=== PATIENT | female | born 1950 | race American Indian/Alaskan Native ===

== ENCOUNTER 2016-08-13 07:01 | Day surgery (SDC) | payer OTHER ==
[~2016-08-13 07:01] MED LIST: Dextrose 5%-0.45% NaCl 1,000 ML IV SCH; Midazolam 1 MG/ML 2 ML SDV ONE; Sodium Chloride 0.9% 10 ML Syringe FLUSH PRN; fentaNYL 100 MCG/2 ML SDV ONE
[2016-08-13] MEDS ORDERED: Midazolam 1 MG/ML 2 ML SDV IV ONE ×7 (08:24→17:00)
[2016-08-13] MEDS ORDERED: fentaNYL 100 MCG/2 ML SDV IV ONE ×5 (08:24→17:00)
--- NOTE | 2016-08-13 10:37 | LETTER ---
08/13/2016 Edytalissett Walters [facility] [address] [place] [address] RE: MAXIMUS ROMERO : 1950 Dear Ms. Walters: Ms. Maximus Romero had colonoscopic examination done this morning, and she tolerated the procedure well. I herewith send a copy of the endoscopy note and photographs for your review. She has been recommended to increase Metamucil to one tablespoon full b.i.d. and note the response with reference to constipation. Thank you, Sincerely, [facility] /[id number]
[2016-08-13 10:42] VITALS: BP 110/53
--- NOTE | 2016-08-13 13:06 | OR ---
DATE: 08/13/2016 PROCEDURE: Total colonoscopy. INSTRUMENT USED: PCF-H180AL Olympus video colonoscope. PREMEDICATIONS: Fentanyl 150 mcg intravenous, Versed 4 mg intravenous. Nasal O2 cannula. The procedure was done under pulse oximetry, BP recording, and grooving lathe tender. INDICATION: The patient with increasing constipation and abdominal pain, unexplained, and not responsive to medical measures. Colonoscopic examination is done for detection of any polypoid lesions and removal, endoscopic hemostasis therapy if needed. DESCRIPTION OF PROCEDURE: Initial rectal exam was unremarkable. Rigid anoscopy showed moderate-sized internal hemorrhoids without bleeding from them. The colonoscope was passed with ease. Few scattered diverticula were noted in the distal left colon along with deformity. The scope was passed with ease up to the ileocecal area, photographs were taken of the normal-appearing cecum, identified by double-bulged ileocecal folds. The colon was found to be redundant and tortuous. No bleeding was noted from any of the visualized areas at the commencement of the examination. No stricture. No vascular ectasia. No large isolated ulcerations seen. No evidence of diffuse inflammatory bowel disease in the form of friability, contact bleeding, or ulcerations. No polyp or tumor mass identified. Probing the proximal sides of folds and flexures, using adequate distention and clearing up the stool material, withdrawal of the scope was made, cecum to rectum time over 6 minutes. No bleeding was noted from any of the visualized areas at the completion of examination. IMPRESSION: 1. Internal hemorrhoids. 2. Diverticulosis. The patient tolerated the procedure well. [facility] /[id number]
== END 2016-08-13 10:58 | disposition home or self-care (01) ==
LOC: DL.ENDO 07:01
PROVIDERS: ATTEND Internal Medicine Gastroenterology
DX: K57.30 Diverticulosis of large intestine without perforation or abscess without bleeding (principal); K64.8 Other hemorrhoids; I10 Essential (primary) hypertension; E78.5 Hyperlipidemia, unspecified; E66.9 Obesity, unspecified; E11.9 Type 2 diabetes mellitus without complications; Z90.49 Acquired absence of other specified parts of digestive tract; I25.10 Atherosclerotic heart disease of native coronary artery without angina pectoris; Z95.2 Presence of prosthetic heart valve; Z98.890 Other specified postprocedural states; F32.9 Major depressive disorder, single episode, unspecified; Z88.8 Allergy status to other drugs, medicaments and biological substances; Z79.82 Long term (current) use of aspirin; Z95.5 Presence of coronary angioplasty implant and graft; Z79.899 Other long term (current) drug therapy
CPT/HCPCS: 45378; J2250; J3010; J7042

== ENCOUNTER 2017-03-07 10:06 | Emergency (ER) | payer MEDICARE, OTHER ==
[2017-03-07] MEDS ORDERED: Sodium Chloride 0.9% 10 ML Syringe FLUSH PRN (10:34)
[2017-03-07 11:18] LABS: CHLORIDE,CL 102 mmol/L (101-111); SODIUM,NA 134 mmol/L (135-145)
[2017-03-07] MEDS ORDERED: Iopamidol 612 MG/ML 100 ML Bottle IVPUSH ONE (11:36)
[2017-03-07] MEDS ORDERED: Sodium Chloride 0.9% 1,000 ML IV ONE (12:12)
[2017-03-07 12:24] VITALS: BP 101/54
[2017-03-07] MEDS ORDERED: HYDROmorphone 1 MG/ML Syringe IVPUSH ONE (12:56)
[2017-03-07] MEDS ORDERED: Ciprofloxacin 500 MG Tab PO ONE (13:55)
[2017-03-07] MEDS ORDERED: traMADol 50 MG Tab PO ONE (13:55)
[2017-03-07] MEDS ORDERED: metroNIDAZOLE 250 MG Tab PO ONE (13:56)
--- NOTE | 2017-03-07 19:23 | EDM.PDOC ---
Scribed by Martha Kent 03/07/17 1343 for Jennifer Dobson NP ED HPI GENERAL MEDICAL PROBLEM - General Chief Complaint: Abdominal Pain Stated Complaint: SHARP PAINS ON SIDE [phone] Time Seen by Provider: 03/07/17 10:25 Source of Information: Reports: Patient, RN, RN Notes Reviewed History Limitations: Reports: No Limitations - History of Present Illness INITIAL COMMENTS - FREE TEXT/NARRATIVE: Patient started having right upper and lower quadrant pain. She tried a suppository this a.m. Pain is a 9/10 on right side that is sharp. She takes daily Miralax. She has nausea but no vomiting or diarrhea. She has had no fever , chills or chest pain. She does have shortness of breath with the pain. She denies alcohol. She has had small pieces of BM each day. She cannot remember last good BM. Onset: Today Location: Reports: Abdomen Quality: Reports: Ache Severity: Moderate Improves with: Reports: None Worsens with: Reports: None Associated Symptoms: Reports: No Other Symptoms Right Middle Abdomen Pain Score (Numeric/FACES): 9 - Related Data Allergies Allergy/AdvReac Type Severity Reaction Status Date / Time codeine Allergy Itching Verified 08/13/16 07:26 procaine Allergy Cannot Verified 08/13/16 07:26 Remember Home Meds: Home Meds Lisinopril [Lisinopril] 5 mg PO DAILY 03/30/14 [History] DULoxetine [Cymbalta] 30 mg PO DAILY 04/11/14 [History] Fenofibric Acid (Choline) [Fenofibric Acid] 135 mg PO DAILY 04/11/14 [History] Aspirin [Halfprin] 81 mg PO DAILY 08/11/16 [History] Metoprolol Succinate [Toprol XL] 25 mg PO DAILY 08/11/16 [History] ALPRAZolam [Alprazolam ER] 0.5 mg PO BID 03/07/17 [History] Meloxicam [Mobic] 15 mg PO DAILY 03/07/17 [History] atorvaSTATin [Lipitor] 40 mg PO BEDTIME 03/07/17 [History] glyBURIDE/Metformin HCl [Glucovance 5-500 MG] 2 tab PO BID 03/07/17 [History] hydrOXYzine HCl [Atarax] 10 mg PO PRN 03/07/17 [History] Past Medical History Cardiovascular History: Reports: CAD, Heart Valve Replacement, High Cholesterol , Hypertension Gastrointestinal History: Reports: Chronic Constipation, Diverticulosis 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: Musculoskeletal History: Reports: Arthritis, Back Pain, Chronic, Other (See Below) Other Musculoskeletal History: DEGENERATIVE JOINT DISEASE Psychiatric History: Reports: Depression Endocrine/Metabolic History: Reports: Diabetes, Type II, Obesity/BMI 30+ Hematologic History: Reports: Anemia, Blood Transfusion(s) Dermatologic History: Reports: Eczema - Infectious Disease History Infectious Disease History: Reports: Chicken Pox - Past Surgical History HEENT Surgical History: Reports: Tonsillectomy Cardiovascular Surgical History: Reports: Carotid Stents, Coronary Artery Stent , Valve Replacement GI Surgical History: Reports: Appendectomy, Cholecystectomy Female Surgical History: Reports: Other (See Below) Musculoskeletal Surgical History: Reports: Other (See Below) Dermatological Surgical History: Reports: None Social & Family History - Family History Family Medical History: Noncontributory - Tobacco Use Smoking Status *Q: Current Every Day Smoker Years of Tobacco use: 10 Packs/Tins Daily: 0.1 Second Hand Smoke Exposure: Yes - Caffeine Use Caffeine Use: Reports: Coffee, Tea - Alcohol Use Days Per Week of Alcohol Use: 0 - Recreational Drug Use Recreational Drug Use: No Drug Use in Last 12 Months: No ED ROS GENERAL - Review of Systems Review Of Systems: ROS reveals no pertinent complaints other than HPI. ED EXAM, GI/ABD - Physical Exam Exam: See Below Exam Limited By: No Limitations General Appearance: Alert, WD/WN, No Apparent Distress Eyes: Bilateral: Normal Appearance Ears: Normal External Exam, Normal Canal, Hearing Grossly Normal, Normal TMs Nose: Normal Inspection, Normal Mucosa, No Blood Throat/Mouth: Normal Inspection, Normal Lips, Normal Teeth, Normal Gums, Normal Oropharynx, Normal Voice, No Airway Compromise Head: Atraumatic, Normocephalic Neck: Normal Inspection, Supple, Non-Tender, Full Range of Motion Respiratory/Chest: No Respiratory Distress, Lungs Clear, Normal Breath Sounds, No Accessory Muscle Use, Chest Non-Tender Cardiovascular: Other (murmur +3. ) GI/Abdominal Exam: Tender (right upper/lower quadrant. Bowel sounds+. ) (Female) Exam: Deferred Rectal (Female) Exam: Deferred Back Exam: Normal Inspection, Full Range of Motion, NT Extremities: Normal Inspection, Normal Range of Motion, Non-Tender, Normal Capillary Refill, No Pedal Edema Neurological: Alert, Oriented, CN II-XII Intact, Normal Cognition, Normal Gait, Normal Reflexes, No Motor/Sensory Deficits Psychiatric: Normal Affect, Normal Mood Skin Exam: Warm, Dry, Intact, Normal Color, No Rash Lymphatic: No Adenopathy Course - Vital Signs Last Recorded V/S: Last Vital Signs Temp 97.2 F 03/07/17 10:22 Pulse 88 03/07/17 12:23 Resp 16 03/07/17 12:23 BP 101/54 L 03/07/17 12:23 Pulse Ox 96 03/07/17 12:23 - Orders/Labs/Meds Orders: Active Orders 24 hr Category Date Time Status Enema [RC] ASDIRECTED Care 03/07/17 13:26 Active Peripheral IV Care [RC] . DIRECTED Care 03/07/17 10:34 Active Peripheral IV Insertion Adult [OM.PC] Stat Oth 03/07/17 10:33 Ordered Labs: Laboratory Tests 03/07/17 03/07/17 Range/Units 10:48 10:48 WBC 14.3 H (5.0-10.0) 10^3/uL RBC 4.01 L (4.2-5.4) 10^6/uL Hgb 11.2 L D (12.0-16.0) g/dL Hct 35.6 L (37.0-47.0) % MCV 88.8 D (80-100) fL MCH 27.9 (27.0-34.0) pg MCHC 31.5 L (33.0-35.0) g/dL Plt Count 329 (150-450) 10^3/uL Neut % (Auto) 81.4 H (42.2-75.2) % Lymph % (Auto) 12.1 L (20.5-50.1) % [place] % (Auto) 5.0 (2-8) % Eos % (Auto) 1.3 (1.0-3.0) % Baso % (Auto) 0.2 (0.0-1.0) % Sodium 134 L (135-145) mmol/L Potassium 3.9 (3.6-5.0) mmol/L Chloride 102 (101-111) mmol/L Carbon Dioxide 24.0 (21.0-31.0) mmol/L Anion Gap 11.9 BUN 14 (7-18) mg/dL Creatinine 0.6 (0.6-1.3) mg/dL Est Cr Clr Drug Dosing 75.26 mL/min Estimated GFR (MDRD) > 60 BUN/Creatinine Ratio 23.33 Glucose 159 H (74-105) mg/dL Calcium 8.6 (8.4-10.2) mg/dl Total Bilirubin 0.4 (0.2-1.0) mg/dL AST 27 (10-42) IU/L ALT 24 (10-60) IU/L Alkaline Phosphatase 47 (42-121) IU/L Total Protein 7.7 (6.7-8.2) g/dl Albumin 4.0 (3.2-5.5) g/dl Globulin 3.7 Albumin/Globulin Ratio 1.08 Amylase 29 (28-100) U/L Lipase 36 (22-51) U/L Meds: Medications Discontinued Medications Generic Name Dose Route Start Last Admin Trade Name Freq PRN Reason Stop Dose Admin Ciprofloxacin 500 mg 03/07/17 13:55 03/07/17 14:25 Ciprofloxacin Hcl PO 03/07/17 13:56 500 mg ONETIME ONE Administration Hydromorphone HCl 0.5 mg 03/07/17 12:56 03/07/17 13:08 Dilaudid IVPUSH 03/07/17 12:57 0.5 mg ONETIME ONE Administration Sodium Chloride 1,000 mls @ 999 mls/hr 03/07/17 12:12 03/07/17 12:18 Normal Saline IV 03/07/17 13:12 999 mls/hr .BOLUS ONE Administration Iopamidol 100 ml 03/07/17 11:36 03/07/17 12:22 Isovue-300 (61%) IVPUSH 03/07/17 11:37 100 ml ONETIME ONE Administration Metronidazole 500 mg 03/07/17 13:56 03/07/17 14:25 Metronidazole PO 03/07/17 13:57 500 mg ONETIME ONE Administration Sodium Chloride 10 ml 03/07/17 10:34 03/07/17 12:18 Saline Flush FLUSH 10 ml ASDIRECTED PRN Administration Keep Vein Open Tramadol HCl 50 mg 03/07/17 13:55 03/07/17 14:25 Ultram PO 03/07/17 13:56 50 mg ONETIME ONE Administration - Radiology Interpretation Free Text/Narrative:: CT abdomen and pelvis: Concern for focal wall thickening ascending colon. Underlying neoplasm not excludable versus focal colitis. Followup evaluation recommended preferably with colonoscopy. Mild hepatomegaly. Additional nonacute findings as noted, stable from prior study. See rad report. Departure - Departure Time of Disposition: 16:00 Disposition: Home, Self-Care 01 Condition: Fair Clinical Impression: Abdominal pain, Diverticulitis, Constipation - Discharge Information Instructions: Diverticulitis, [id number], Constipation, Adult, [id number], Tramadol tablets, Abdominal Pain, Adult, [id number], Diverticulosis, Ciprofloxacin tablets, Metronidazole tablets or capsules Referrals: [facility] [Primary Care Provider] - Forms: ED Department Discharge Additional Instructions: Low residue diet Drink plenty of water RX: Cipro and Flagyl, Tramadol Tylenol as directed for pain. Call [facility] on Wednesday to make an appointment with Dr. Banks. - My Orders Last 24 Hours: My Active Orders 03/07/17 10:33 Peripheral IV Insertion Adult [OM.PC] Stat 03/07/17 10:34 Peripheral IV Care [RC] . DIRECTED 03/07/17 13:26 Enema [RC] ASDIRECTED - Assessment/Plan Last 24 Hours: My Active Orders 03/07/17 10:33 Peripheral IV Insertion Adult [OM.PC] Stat 03/07/17 10:34 Peripheral IV Care [RC] . DIRECTED 03/07/17 13:26 Enema [RC] ASDIRECTED I have read and agree with the documentation that has been completed regarding this visit. By signing this record, I attest that the documentation was completed in my physical presence and is an accurate record of the encounter.
== END 2017-03-07 15:50 | disposition home or self-care (01) ==
LOC: DL.ED 10:06
DX: K57.92 Diverticulitis of intestine, part unspecified, without perforation or abscess without bleeding (principal); K59.00 Constipation, unspecified; I10 Essential (primary) hypertension; F17.210 Nicotine dependence, cigarettes, uncomplicated; Z88.5 Allergy status to narcotic agent; Z79.899 Other long term (current) drug therapy; Z79.82 Long term (current) use of aspirin
CPT/HCPCS: 36415; 74178; 80053; 82150; 83690; 85025; 96361; 96374; 99284; A9270; J1170; J7030; J7050; Q9967

== ENCOUNTER 2018-01-27 18:33 | Emergency (ER) | payer OTHER ==
[2018-01-27 18:52] VITALS: BP 92/45
[2018-01-27 19:57] LABS: ANION GAP 11.8; CHLORIDE,CL 103 mmol/L (101-111); SODIUM,NA 133 mmol/L (135-145)
--- NOTE | 2018-01-29 03:39 | EDM.PDOC ---
ED HPI GENERAL MEDICAL PROBLEM - General Chief Complaint: Respiratory Problem Stated Complaint: TROUBLE BREATHING [phone] Time Seen by Provider: 01/27/18 19:05 Source of Information: Reports: Patient History Limitations: Reports: No Limitations - History of Present Illness INITIAL COMMENTS - FREE TEXT/NARRATIVE: C/O SOB, worse with exertion, intermittent cough. Productive at times. Feels similar to prior to aortic valve replacement 3 years prior. No edema. No nausea or vomiting. No known fever. Occasional burning type epigastric pain, noted more with activity. No pain current. Chest Pain Score (Numeric/FACES): 8 - Related Data Allergies Allergy/AdvReac Type Severity Reaction Status Date / Time codeine Allergy Itching Verified 08/13/16 07:26 procaine Allergy Cannot Verified 08/13/16 07:26 Remember Home Meds: Home Meds Lisinopril 5 mg PO DAILY 03/30/14 [History] DULoxetine [Cymbalta] 30 mg PO DAILY 04/11/14 [History] Fenofibric Acid (Choline) [Fenofibric Acid] 135 mg PO DAILY 04/11/14 [History] Aspirin [Halfprin] 81 mg PO DAILY 08/11/16 [History] Metoprolol Succinate [Toprol XL] 25 mg PO DAILY 08/11/16 [History] ALPRAZolam [Alprazolam ER] 0.5 mg PO BID 03/07/17 [History] Meloxicam [Mobic] 15 mg PO DAILY 03/07/17 [History] atorvaSTATin [Lipitor] 40 mg PO BEDTIME 03/07/17 [History] glyBURIDE/Metformin HCl [Glucovance 5-500 MG] 2 tab PO BID 03/07/17 [History] hydrOXYzine HCl [Atarax] 10 mg PO PRN 03/07/17 [History] Past Medical History Cardiovascular History: Reports: CAD, Heart Valve Replacement, High Cholesterol , Hypertension Gastrointestinal History: Reports: Chronic Constipation, Diverticulosis 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: Musculoskeletal History: Reports: Arthritis, Back Pain, Chronic, Other (See Below) Other Musculoskeletal History: DEGENERATIVE JOINT DISEASE Psychiatric History: Reports: Depression Endocrine/Metabolic History: Reports: Diabetes, Type II, Obesity/BMI 30+ Hematologic History: Reports: Anemia, Blood Transfusion(s) Dermatologic History: Reports: Eczema - Infectious Disease History Infectious Disease History: Reports: Chicken Pox - Past Surgical History HEENT Surgical History: Reports: Tonsillectomy Cardiovascular Surgical History: Reports: Carotid Stents, Coronary Artery Stent , Valve Replacement GI Surgical History: Reports: Appendectomy, Cholecystectomy Female Surgical History: Reports: Other (See Below) Musculoskeletal Surgical History: Reports: Other (See Below) Dermatological Surgical History: Reports: None Social & Family History - Family History Family Medical History: Noncontributory - Tobacco Use Smoking Status *Q: Current Every Day Smoker Years of Tobacco use: 20 Packs/Tins Daily: 1 - Caffeine Use Caffeine Use: Reports: Coffee, Tea - Recreational Drug Use Recreational Drug Use: No ED ROS GENERAL - Review of Systems Review Of Systems: See Below Constitutional: Reports: Malaise, Fatigue, Decreased Appetite HEENT: Reports: No Symptoms Respiratory: Reports: Shortness of Breath, Cough Cardiovascular: Reports: Chest Pain (intermittent none at present), Dyspnea on Exertion. Denies: Orthopnea, Palpitations, Syncope Endocrine: Reports: No Symptoms GI/Abdominal: Reports: No Symptoms, Black Stool (on iron). Denies: Nausea : Reports: No Symptoms Musculoskeletal: Reports: No Symptoms Skin: Reports: No Symptoms Neurological: Reports: No Symptoms Psychiatric: Reports: No Symptoms Hematologic/Lymphatic: Reports: Anemia (hx reports check 2 months ago blood work was fine) ED EXAM, GENERAL - Physical Exam Exam: See Below Exam Limited By: No Limitations General Appearance: Alert Eye Exam: Bilateral Eye: EOMI Ears: Normal External Exam Nose: Normal Inspection Throat/Mouth: Normal Inspection Head: Atraumatic, Normocephalic Neck: Normal Inspection Respiratory/Chest: No Respiratory Distress, Decreased Breath Sounds Cardiovascular: Normal Peripheral Pulses, Regular Rate, Rhythm GI/Abdominal: Normal Bowel Sounds, Soft Rectal (Female) Exam: Heme - Stool Back Exam: Normal Inspection Extremities: Normal Inspection Neurological: Alert, Oriented, Normal Cognition Psychiatric: Flat Affect Skin Exam: Warm, Dry, Intact, Pallor Course - Vital Signs Last Recorded V/S: Last Vital Signs Temp 99.1 F 01/27/18 18:49 Pulse 100 01/27/18 18:49 Resp 16 01/27/18 18:49 BP 92/45 L 01/27/18 18:49 Pulse Ox 98 01/27/18 18:49 Orthostatic Blood Pressure [ 118/53 Standing] Orthostatic Blood Pressure [ 114/58 Sitting] Orthostatic Blood Pressure [ 117/58 Supine] - Orders/Labs/Meds Labs: Laboratory Tests 01/27/18 01/27/18 01/27/18 Range/Units 19:30 19:30 19:30 WBC 6.3 (5.0-10.0) 10^3/uL RBC 2.67 L (4.2-5.4) 10^6/uL Hgb 7.4 L D (12.0-16.0) g/dL Hct 24.9 L (37.0-47.0) % MCV 93.3 D (80-100) fL MCH 27.7 (27.0-34.0) pg MCHC 29.7 L (33.0-35.0) g/dL Plt Count 257 (150-450) 10^3/uL Neut % (Auto) 67.6 (42.2-75.2) % Lymph % (Auto) 26.4 (20.5-50.1) % [place] % (Auto) 3.6 (2-8) % Eos % (Auto) 1.9 (1.0-3.0) % Baso % (Auto) 0.5 (0.0-1.0) % Add Manual Diff Yes Neutrophils % (Manual) 62 (42-75) % Band Neutrophils % 9 % Lymphocytes % (Manual) 24 (20-50) % Atypical Lymphs % 0 % Monocytes % (Manual) 2 (2-8) % Eosinophils % (Manual) 2 (1-3) % Basophils % (Manual) 1 Hypochromasia 2+ moderate Anisocytosis 1+ slight D-Dimer, Quantitative 1450 H (0-400) ng/mL Sodium 133 L (135-145) mmol/L Potassium 3.8 (3.6-5.0) mmol/L Chloride 103 (101-111) mmol/L Carbon Dioxide 22.0 (21.0-31.0) mmol/L Anion Gap 11.8 BUN 10 (7-18) mg/dL Creatinine 0.6 (0.6-1.3) mg/dL Est Cr Clr Drug Dosing 74.23 mL/min Estimated GFR (MDRD) > 60 BUN/Creatinine Ratio 16.66 Glucose 189 H (74-105) mg/dL Lactic Acid (0.5-2.2) mmol/L Calcium 8.5 (8.4-10.2) mg/dl Total Bilirubin 0.6 (0.2-1.0) mg/dL AST 26 (10-42) IU/L ALT 20 (10-60) IU/L Alkaline Phosphatase 85 (42-121) IU/L CK-MB (CK-2) (0.4-4.7) ng/mL Troponin I 0.08 H* (0.00-0.02) ng/ml Total Protein 8.1 (6.7-8.2) g/dl Albumin 3.6 (3.2-5.5) g/dl Globulin 4.5 Albumin/Globulin Ratio 0.80 01/27/18 01/27/18 Range/Units 19:30 19:30 WBC (5.0-10.0) 10^3/uL RBC (4.2-5.4) 10^6/uL Hgb (12.0-16.0) g/dL Hct (37.0-47.0) % MCV (80-100) fL MCH (27.0-34.0) pg MCHC (33.0-35.0) g/dL Plt Count (150-450) 10^3/uL Neut % (Auto) (42.2-75.2) % Lymph % (Auto) (20.5-50.1) % [place] % (Auto) (2-8) % Eos % (Auto) (1.0-3.0) % Baso % (Auto) (0.0-1.0) % Add Manual Diff Neutrophils % (Manual) (42-75) % Band Neutrophils % % Lymphocytes % (Manual) (20-50) % Atypical Lymphs % % Monocytes % (Manual) (2-8) % Eosinophils % (Manual) (1-3) % Basophils % (Manual) Hypochromasia Anisocytosis D-Dimer, Quantitative (0-400) ng/mL Sodium (135-145) mmol/L Potassium (3.6-5.0) mmol/L Chloride (101-111) mmol/L Carbon Dioxide (21.0-31.0) mmol/L Anion Gap BUN (7-18) mg/dL Creatinine (0.6-1.3) mg/dL Est Cr Clr Drug Dosing mL/min Estimated GFR (MDRD) BUN/Creatinine Ratio Glucose (74-105) mg/dL Lactic Acid 1.3 (0.5-2.2) mmol/L Calcium (8.4-10.2) mg/dl Total Bilirubin (0.2-1.0) mg/dL AST (10-42) IU/L ALT (10-60) IU/L Alkaline Phosphatase (42-121) IU/L CK-MB (CK-2) 2.30 (0.4-4.7) ng/mL Troponin I (0.00-0.02) ng/ml Total Protein (6.7-8.2) g/dl Albumin (3.2-5.5) g/dl Globulin Albumin/Globulin Ratio - Radiology Interpretation Free Text/Narrative:: CXR mild to moderate CHF - Re-Assessments/Exams Free Text/Narrative Re-Assessment/Exam: 01/29/18 03:[address] Landaverde accepting of patient Departure - Departure Time of Disposition: 22:00 Disposition: DC/Tfer to Acute Hospital 02 Condition: Undetermined Clinical Impression: Elevated troponin Congestive heart failure Qualifiers: Heart failure type: unspecified Heart failure chronicity: acute Qualified Code( s): I50.9 - Heart failure, unspecified Anemia Qualifiers: Anemia type: unspecified type Qualified Code(s): D64.9 - Anemia, unspecified - Discharge Information *PRESCRIPTION DRUG MONITORING PROGRAM REVIEWED*: Not Applicable Referrals: PCP,None [Primary Care Provider] - Forms: ED Department Discharge
== END 2018-01-27 22:03 ==
LOC: DL.ED 18:33
DX: I11.0 Hypertensive heart disease with heart failure (principal); I50.9 Heart failure, unspecified; D64.9 Anemia, unspecified; R79.89 Other specified abnormal findings of blood chemistry; Z79.84 Long term (current) use of oral hypoglycemic drugs; Z88.5 Allergy status to narcotic agent; Z79.82 Long term (current) use of aspirin; Z79.899 Other long term (current) drug therapy
CPT/HCPCS: 36415; 71046; 80053; 82272; 82553; 83605; 84484; 85025; 85379; 87040; 93005; 99285

== ENCOUNTER 2018-06-10 18:44 | Emergency (ER) | payer BC, OTHER ==
[2018-06-10 19:42] LABS: ANION GAP 18.7; CHLORIDE,CL 94 mmol/L (101-111); SODIUM,NA 128 mmol/L (135-145)
[2018-06-10] MEDS ORDERED: Acetaminophen/oxyCODONE 325-5 MG Tab PO ONE (19:43)
[2018-06-10] MEDS ORDERED: Morphine 2 MG/ML Syringe IVPUSH ONE (20:47)
[2018-06-10] MEDS ORDERED: Metoprolol Tartrate 5 MG/5 ML SDV IVPUSH ONE (21:37)
[2018-06-10 21:49] VITALS: BP 129/67
[2018-06-10] MEDS ORDERED: Acetaminophen/oxyCODONE 325-5 MG Tab ONE (22:16)
--- NOTE | 2018-06-10 22:33 | EDM.PDOC ---
ED HPI GENERAL MEDICAL PROBLEM - General Chief Complaint: Chest Pain Stated Complaint: CHEST AND ARMS ARE SORE,IN PAIN HAD OPEN HEART LEONILA Time Seen by Provider: 06/10/18 19:05 Source of Information: Reports: Patient, Family History Limitations: Reports: No Limitations - History of Present Illness INITIAL COMMENTS - FREE TEXT/NARRATIVE: ED with family with c/o of "chest pain" radiates across chest, left breast sore and increased pain with movement of left arm. Recent openheart surgery to replace heart valve On coumadin, INR therapeutic this am. Family question if pain worse today as started physical therapy. Patient only given 3 days of pain medication/ Pain worse with movement. Reports using incentive spirometer as had pneumonia with first heart surgery . Has tried tylenol without relief. 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 Left Anterior Chest Pain Score (Numeric/FACES): 9 - Related Data Allergies Allergy/AdvReac Type Severity Reaction Status Date / Time codeine Allergy Itching Verified 06/10/18 19:15 procaine Allergy Cannot Verified 06/10/18 19:15 Remember Home Meds: Home Meds DULoxetine [Cymbalta] 30 mg PO DAILY 04/11/14 [History] Fenofibric Acid (Choline) [Fenofibric Acid] 135 mg PO DAILY 04/11/14 [History] Aspirin [Halfprin] 81 mg PO DAILY 08/11/16 [History] ALPRAZolam [Alprazolam ER] 0.5 mg PO BID 03/07/17 [History] atorvaSTATin [Lipitor] 40 mg PO BEDTIME 03/07/17 [History] hydrOXYzine HCl [Atarax] 10 mg PO DAILY PRN 03/07/17 [History] Amitriptyline [Elavil] 25 mg PO BEDTIME 02/07/18 [History] Ezetimibe [Zetia] 10 mg PO DAILY 02/07/18 [History] Ferrous Gluconate 324 mg PO BIDMEALS 02/07/18 [History] Metoprolol Succinate [Toprol XL] 125 mg PO DAILY 02/07/18 [History] Non-Formulary Medication [NF Drug] 1 applic TOP ASDIRECTED 02/07/18 [History] Non-Formulary Medication [NF Drug] 1,000 units PO DAILY 02/07/18 [History] Non-Formulary Medication [NF Drug] 50,000 units PO ASDIRECTED 02/07/18 [History] Pioglitazone [Actos] 15 mg PO DAILY 02/07/18 [History] Simvastatin [Zocor] 40 mg PO BEDTIME 02/07/18 [History] Triamcinolone Acetonide [Kenalog] 1 applic TOP BEDTIME 02/07/18 [History] Zolpidem Tartrate [Ambien] 5 mg PO DAILY PRN 02/07/18 [History] metFORMIN [Glucophage] 500 mg PO BIDMEALS 02/07/18 [History] Past Medical History Cardiovascular History: Reports: CAD, Heart Valve Replacement, High Cholesterol , Hypertension Gastrointestinal History: Reports: Chronic Constipation, Diverticulosis [employer] History: Reports: Musculoskeletal History: Reports: Arthritis, Back Pain, Chronic, Other (See Below) Other Musculoskeletal History: DEGENERATIVE JOINT DISEASE Psychiatric History: Reports: Depression Endocrine/Metabolic History: Reports: Diabetes, Type II, Obesity/BMI 30+ Hematologic History: Reports: Anemia, Blood Transfusion(s) Dermatologic History: Reports: Eczema - Infectious Disease History Infectious Disease History: Reports: Chicken Pox - Past Surgical History HEENT Surgical History: Reports: Tonsillectomy Cardiovascular Surgical History: Reports: Carotid Stents, Coronary Artery Stent , Valve Replacement Other Cardiovascular Surgeries/Procedures: Open heart surgery (mechanical aortic valve replacement) 05-26-2018 GI Surgical History: Reports: Appendectomy, Cholecystectomy Female Surgical History: Reports: Other (See Below) Musculoskeletal Surgical History: Reports: Other (See Below) Dermatological Surgical History: Reports: None Social & Family History - Family History Family Medical History: Noncontributory - Tobacco Use Smoking Status *Q: Never Smoker - Caffeine Use Caffeine Use: Reports: Coffee - Recreational Drug Use Recreational Drug Use: No ED ROS GENERAL - Review of Systems Review Of Systems: ROS reveals no pertinent complaints other than HPI. ED EXAM, GENERAL - Physical Exam Exam: See Below Exam Limited By: No Limitations General Appearance: Alert, Anxious, Mild Distress Eye Exam: Bilateral Eye: EOMI Ears: Normal External Exam Nose: Normal Inspection Throat/Mouth: Normal Inspection, Normal Lips Head: Atraumatic, Normocephalic Neck: Normal Inspection, Full Range of Motion, Other (IJ site with small hematoma and dark bruising to surrounding area) Respiratory/Chest: Lungs Clear, Normal Breath Sounds, Other (4 chest tube drain incision sites to lower chest. left lateral scant cloudy discharge, 2mm depthx 3mm gape, Vertical chest incision clean dry healing) Cardiovascular: Normal Peripheral Pulses, Regular Rate, Rhythm, No Edema, No JVD , Systolic Murmur GI/Abdominal: Normal Bowel Sounds, Soft Back Exam: Normal Inspection Extremities: Normal Inspection, Normal Range of Motion Neurological: Alert, Oriented Psychiatric: Normal Affect Skin Exam: Warm, Dry, Normal Color, Wound/Incision (vertical chest inscision healing, chestube, drain sites x4 lower anterior chest) Course - Vital Signs Last Recorded V/S: Last Vital Signs Temp 96.5 F 06/10/18 18:52 Pulse 108 H 06/10/18 21:48 Resp 19 06/10/18 18:52 BP 129/67 06/10/18 21:48 Pulse Ox 97 06/10/18 18:52 - Orders/Labs/Meds Labs: Laboratory Tests 06/10/18 06/10/18 06/10/18 Range/Units 19:00 19:00 19:00 WBC 11.0 H (5.0-10.0) 10^3/uL RBC 4.04 L (4.2-5.4) 10^6/uL Hgb 11.4 L (12.0-16.0) g/dL Hct 37.1 (37.0-47.0) % MCV 91.8 (80-100) fL MCH 28.2 (27.0-34.0) pg MCHC 30.7 L (33.0-35.0) g/dL Plt Count 521 H D (150-450) 10^3/uL Neut % (Auto) 77.4 H (42.2-75.2) % Lymph % (Auto) 13.9 L (20.5-50.1) % [place] % (Auto) 7.3 (2-8) % Eos % (Auto) 1.1 (1.0-3.0) % Baso % (Auto) 0.3 (0.0-1.0) % PT (9.0-12.0) SEC INR (0.9-1.2) Sodium 128 L (135-145) mmol/L Potassium 3.7 (3.6-5.0) mmol/L Chloride 94 L (101-111) mmol/L Carbon Dioxide 19.0 L (21.0-31.0) mmol/L Anion Gap 18.7 BUN 14 (7-18) mg/dL Creatinine 0.7 (0.6-1.3) mg/dL Est Cr Clr Drug Dosing 66.42 mL/min Estimated GFR (MDRD) > 60 BUN/Creatinine Ratio 20.00 Glucose 187 H (74-105) mg/dL Lactic Acid (0.5-2.2) mmol/L Calcium 8.8 (8.4-10.2) mg/dl Total Bilirubin 1.0 (0.2-1.0) mg/dL AST 45 H (10-42) IU/L ALT 18 (10-60) IU/L Alkaline Phosphatase 99 (42-121) IU/L CK-MB (CK-2) 4.10 (0.4-4.7) ng/mL Troponin I 0.03 H* (0.00-0.02) ng/ml B-Natriuretic Peptide 560 H (0-100) pg/ml Total Protein 8.7 H (6.7-8.2) g/dl Albumin 3.6 (3.2-5.5) g/dl Globulin 5.1 Albumin/Globulin Ratio 0.71 Amylase 21 L (28-100) U/L Lipase 36 (22-51) U/L 06/10/18 06/10/18 06/10/18 Range/Units 19:00 19:58 22:03 WBC (5.0-10.0) 10^3/uL RBC (4.2-5.4) 10^6/uL Hgb (12.0-16.0) g/dL Hct (37.0-47.0) % MCV (80-100) fL MCH (27.0-34.0) pg MCHC (33.0-35.0) g/dL Plt Count (150-450) 10^3/uL Neut % (Auto) (42.2-75.2) % Lymph % (Auto) (20.5-50.1) % [place] % (Auto) (2-8) % Eos % (Auto) (1.0-3.0) % Baso % (Auto) (0.0-1.0) % PT 26.9 H D (9.0-12.0) SEC INR 2.8 H (0.9-1.2) Sodium (135-145) mmol/L Potassium (3.6-5.0) mmol/L Chloride (101-111) mmol/L Carbon Dioxide (21.0-31.0) mmol/L Anion Gap BUN (7-18) mg/dL Creatinine (0.6-1.3) mg/dL Est Cr Clr Drug Dosing mL/min Estimated GFR (MDRD) BUN/Creatinine Ratio Glucose (74-105) mg/dL Lactic Acid 2.7 H (0.5-2.2) mmol/L Calcium (8.4-10.2) mg/dl Total Bilirubin (0.2-1.0) mg/dL AST (10-42) IU/L ALT (10-60) IU/L Alkaline Phosphatase (42-121) IU/L CK-MB (CK-2) (0.4-4.7) ng/mL Troponin I 0.03 H* (0.00-0.02) ng/ml B-Natriuretic Peptide (0-100) pg/ml Total Protein (6.7-8.2) g/dl Albumin (3.2-5.5) g/dl Globulin Albumin/Globulin Ratio Amylase (28-100) U/L Lipase (22-51) U/L Meds: Medications Discontinued Medications Generic Name Dose Route Start Last Admin Trade Name Steff PRN Reason Stop Dose Admin Metoprolol Tartrate 2.5 mg 06/10/18 21:37 06/10/18 21:48 Lopressor IVPUSH 06/10/18 21:38 2.5 mg ONETIME ONE Administration Morphine Sulfate 2 mg 06/10/18 20:47 06/10/18 20:56 Morphine IVPUSH 06/10/18 20:48 2 mg ONETIME ONE Administration Oxycodone/Acetaminophen 1 tab 06/10/18 19:43 06/10/18 19:58 Percocet 325-5 Mg PO 06/10/18 19:44 1 tab ONETIME ONE Administration Oxycodone/Acetaminophen Confirm 06/10/18 22:16 Percocet 325-5 Mg Administered 06/10/18 22:17 Dose 1 tab .ROUTE .STK-MED ONE - Radiology Interpretation Free Text/Narrative:: Name: EITAN JIMENEZ Age: 58Years F Date: 06/10/2018 SSN: -- : 05/22/1960 Study: XR KNEE 3 VIEWS Requesting Physician: GERI MOSHER Images: 3 Addl Studies: Provided Clinical History: Contrast: Contrast Medium: Contrast Amount: Contrast Method: CONFIDENTIALITY STATEMENT This report is intended only for use by the referring physician, and only in accordance with law. If you received this in error, call [phone]. Page 1 of 1 EXAM: XR Left Knee, 3 Views EXAM DATE/TIME: 06/10/2018 8:37 PM CLINICAL HISTORY: 58 years old, female; Signs and symptoms; Other: Fall/pain TECHNIQUE: XR Left knee 3 views. COMPARISON: No relevant prior studies available. FINDINGS: Bones/joints: Normal. Soft tissues: Normal. IMPRESSION: No acute findings. Thank you for allowing us to participate in the care of Departure - Departure Time of Disposition: 22:30 Disposition: Home, Self-Care 01 Condition: Good Clinical Impression: Chest wall pain following surgery, S/P aortic valve replacement Instructions: Chest Wall Pain, [id number] Referrals: [facility] [Primary Care Provider] - Forms: ED Department Discharge Additional Instructions: tylenol 650mg every 4 hours as needed for mild to moderate pain oxycodone apap 5/325 one twice daily for severe pain #5 Follow up in clinic next week Sodium tablet 1 gm twice daily #5 Urgent follow up symptoms worsen
== END 2018-06-10 22:49 | disposition home or self-care (01) ==
LOC: DL.ED 18:44
DX: R07.89 Other chest pain (principal); I10 Essential (primary) hypertension; E11.9 Type 2 diabetes mellitus without complications; E66.9 Obesity, unspecified; Z88.5 Allergy status to narcotic agent; Z88.8 Allergy status to other drugs, medicaments and biological substances; Z79.899 Other long term (current) drug therapy; Z79.82 Long term (current) use of aspirin; Z95.4 Presence of other heart-valve replacement; Z98.890 Other specified postprocedural states
CPT/HCPCS: 36415; 71045; 80053; 82150; 82553; 83605; 83690; 83880; 84484; 85025; 85610; 87040; 87070; 93005; 96374; 96375; 99285; A9270; J2270; J3490

== ENCOUNTER 2018-06-17 14:37 | Emergency (ER) | payer BC, OTHER ==
[2018-06-17 15:18] LABS: ANION GAP 17.5; CHLORIDE,CL 94 mmol/L (101-111); SODIUM,NA 130 mmol/L (135-145)
--- NOTE | 2018-06-17 15:44 | CR ---
Clinic history: 67-year-old female complaining of dizziness. Interpretation: No acute new cardiopulmonary abnormality identified in the interval since 10 June 2018 (less congested when compared to earlier 07 February 2018 films). Sternotomy wires and chronic mild cardiomegaly. No new cephalization of flow, signs of alveolar edema or dependent pleural fluid accumulation. No new lung mass hilar lymphadenopathy or focal lobar pneumonia. No pneumothorax.
--- NOTE | 2018-06-17 15:48 | EDM.PDOC ---
ED HPI GENERAL MEDICAL PROBLEM - General Chief Complaint: General Stated Complaint: DIZZY Time Seen by Provider: 06/17/18 15:10 Source of Information: Reports: Patient History Limitations: Reports: No Limitations - History of Present Illness INITIAL COMMENTS - FREE TEXT/NARRATIVE: This 67 yo female patient reports to the ED due to dizziness. The patient reports she has had intermittent chest pains for the past 3-4 days, but has no current pain. The patient reports she had her mitral valve replaced at the [facility] in the end of April. The patient has been seeing a provider from the clinic and has been getting iron infusions. The patient was seen in the ED 1 week ago with a hemoglobin of 11.4 at that visit. The patient reports she has a history of anemia. The patient reports she has also noticed a lump in her right groin since she got out of [place]. Onset: Today Duration: Constant, Getting Worse Location: Reports: Generalized Quality: Reports: Other Severity: Moderate Improves with: Reports: Rest Worsens with: Reports: Movement Context: Reports: Other Associated Symptoms: Reports: Chest Pain (intermittent (none current)), Syncope - Related Data Allergies Allergy/AdvReac Type Severity Reaction Status Date / Time codeine Allergy Itching Verified 06/17/18 14:45 procaine Allergy Cannot Verified 06/17/18 14:45 Remember Home Meds: Home Meds DULoxetine [Cymbalta] 60 mg PO DAILY 04/11/14 [History] Aspirin [Halfprin] 81 mg PO DAILY 08/11/16 [History] ALPRAZolam [Alprazolam ER] 0.5 mg PO BID 03/07/17 [History] atorvaSTATin [Lipitor] 40 mg PO BEDTIME 03/07/17 [History] hydrOXYzine HCl [Atarax] 10 mg PO DAILY PRN 03/07/17 [History] Metoprolol Succinate [Toprol XL] 25 mg PO DAILY 02/07/18 [History] metFORMIN [Glucophage] 1,000 mg PO BIDMEALS 02/07/18 [History] Acetaminophen [Tylenol Extra Strength] 1,000 mg PO Q6H 06/15/18 [History] Albuterol [Proventil HFA] 1 puff INH ASDIRECTED 06/15/18 [History] Cholecalciferol (Vitamin D3) [Vitamin D3] 1,000 units PO DAILY 06/15/18 [History ] Furosemide 40 mg PO DAILY 06/15/18 [History] Glimepiride 1 mg PO DAILY 06/15/18 [History] Lidocaine Patch 1 unit TOP ASDIRECTED 06/15/18 [History] Loratadine [Claritin] 10 mg PO ASDIRECTED 06/15/18 [History] Nicotine [Nicotine Patch] 1 each TD ASDIRECTED 06/15/18 [History] Polyethylene Glycol 3350 [MiraLAX] 17 gm PO DAILY 06/15/18 [History] Potassium Chloride 20 meq PO DAILY 06/15/18 [History] Sennosides/Docusate Sodium [Sennosides-Docusate Sodium] 1 tab PO ASDIRECTED [History] Warfarin [Coumadin] 3 mg PO DAILY 06/15/18 [History] oxyCODONE 5 mg PO Q4H 06/15/18 [History] Past Medical History HEENT History: Reports: None Cardiovascular History: Reports: CAD, Heart Murmur, Heart Valve Replacement, High Cholesterol, Hypertension Respiratory History: Reports: None Gastrointestinal History: Reports: Chronic Constipation, Diverticulosis Genitourinary History: Reports: None SHED HAND History: Reports: , Spontaneous Musculoskeletal History: Reports: Arthritis, Back Pain, Chronic, Other (See Below) Other Musculoskeletal History: DEGENERATIVE JOINT DISEASE Neurological History: Reports: None Psychiatric History: Reports: Anxiety, Depression Endocrine/Metabolic History: Reports: Diabetes, Type II, Obesity/BMI 30+ Hematologic History: Reports: Anemia, Blood Transfusion(s), Iron Deficiency Immunologic History: Reports: None Oncologic (Cancer) History: Reports: None Dermatologic History: Reports: Eczema - Infectious Disease History Infectious Disease History: Reports: Rheumatic Fever - Past Surgical History HEENT Surgical History: Reports: Tonsillectomy Cardiovascular Surgical History: Reports: Carotid Stents, Coronary Artery Stent , Valve Replacement Other Cardiovascular Surgeries/Procedures: Open heart surgery (mechanical aortic valve replacement) 05-26-2018 GI Surgical History: Reports: Appendectomy, Cholecystectomy Female Surgical History: Reports: None Musculoskeletal Surgical History: Reports: Other (See Below) Dermatological Surgical History: Reports: None Social & Family History - Family History Family Medical History: Noncontributory - Tobacco Use Smoking Status *Q: Former Smoker Used Tobacco, but Quit: Yes Month/Year Tobacco Last Used: 3 - Caffeine Use Caffeine Use: Reports: Coffee, Soda, Tea Other Caffeine Use: Drinks these but not very often Caffeine Use Comment: 16. oz daily - Recreational Drug Use Recreational Drug Use: No ED ROS GENERAL - Review of Systems Review Of Systems: ROS reveals no pertinent complaints other than HPI. ED EXAM, GENERAL - Physical Exam Exam: See Below Exam Limited By: No Limitations General Appearance: Alert, WD/WN, Moderate Distress Eye Exam: Bilateral Eye: EOMI, Normal Inspection, PERRL Ears: Normal External Exam, Normal Canal, Hearing Grossly Normal, Normal TMs Nose: Normal Inspection, Normal Mucosa, No Blood Throat/Mouth: Normal Inspection, Normal Lips, Normal Teeth, Normal Gums, Normal Oropharynx, Normal Voice, No Airway Compromise Head: Atraumatic, Normocephalic Neck: Normal Inspection, Supple, Non-Tender, Full Range of Motion Respiratory/Chest: No Respiratory Distress, Lungs Clear, Normal Breath Sounds, No Accessory Muscle Use, Chest Non-Tender Cardiovascular: Normal Peripheral Pulses, Regular Rate, Rhythm, No Edema, Other (mechanical click ) GI/Abdominal: Normal Bowel Sounds, Soft, Non-Tender, No Organomegaly, No Distention, No Abnormal Bruit, No Mass (Female) Exam: Deferred Rectal (Female) Exam: Hemorrhoids Back Exam: Normal Inspection, Full Range of Motion, NT Extremities: Normal Inspection, Normal Range of Motion, Non-Tender, Normal Capillary Refill, No Pedal Edema Neurological: Alert, Oriented, CN II-XII Intact, Normal Cognition, Normal Gait, Normal Reflexes, No Motor/Sensory Deficits Psychiatric: Normal Affect, Normal Mood Skin Exam: Warm, Dry, Intact, Normal Color, No Rash Lymphatic: No Adenopathy Course - Vital Signs Last Recorded V/S: Last Vital Signs Temp 36.8 C 06/17/18 14:38 Pulse 95 06/17/18 14:38 Resp 17 06/17/18 14:38 BP 92/26 L 06/17/18 14:38 Pulse Ox 95 06/17/18 14:38 - Orders/Labs/Meds Orders: Active Orders 24 hr Category Date Time Status EKG Documentation Completion [RC] URGENT Care 06/17/18 14:43 Active CBC WITH AUTO DIFF [HEME] Urgent Lab 06/17/18 14:51 Results INR,PT,PROTHROMBIN TIME [COAG] Stat Lab 06/17/18 15:39 Ordered MANUAL DIFFERENTIAL QA/NC [HEME] Urgent Lab 06/17/18 14:51 Results RED BLOOD CELLS LP [BBK] Stat Lab 06/17/18 14:51 Results TYPE AND SCREEN [BBK] Stat Lab 06/17/18 14:51 Results UA RFX LILIA AND CULT IF INDIC [URIN] Urgent Lab 06/17/18 14:43 Ordered Labs: Laboratory Tests 06/17/18 06/17/18 06/17/18 Range/Units 14:51 14:51 14:51 WBC 22.3 H (5.0-10.0) 10^3/uL RBC 1.80 L (4.2-5.4) 10^6/uL Hgb 5.4 L* D (12.0-16.0) g/dL Hct 18.8 L* (37.0-47.0) % MCV 104.4 H D (80-100) fL MCH 30.0 (27.0-34.0) pg MCHC 28.7 L (33.0-35.0) g/dL Plt Count 392 D (150-450) 10^3/uL Neut % (Auto) 76.3 H (42.2-75.2) % Lymph % (Auto) 17.4 L (20.5-50.1) % Moore % (Auto) 5.8 (2-8) % Eos % (Auto) 0.3 L (1.0-3.0) % Baso % (Auto) 0.2 (0.0-1.0) % Add Manual Diff Yes Sodium 130 L (135-145) mmol/L Potassium 3.5 L (3.6-5.0) mmol/L Chloride 94 L (101-111) mmol/L Carbon Dioxide 22.0 (21.0-31.0) mmol/L Anion Gap 17.5 BUN 26 H (7-18) mg/dL Creatinine 0.8 (0.6-1.3) mg/dL Est Cr Clr Drug Dosing 58.12 mL/min Estimated GFR (MDRD) > 60 BUN/Creatinine Ratio 32.50 Glucose 101 (74-105) mg/dL POC Glucose (70-105) mg/dl Calcium 8.4 (8.4-10.2) mg/dl Total Bilirubin 1.1 H (0.2-1.0) mg/dL AST 37 (10-42) IU/L ALT 17 (10-60) IU/L Alkaline Phosphatase 69 (42-121) IU/L Troponin I 0.11 H* (0.00-0.02) ng/ml Total Protein 7.4 (6.7-8.2) g/dl Albumin 3.2 (3.2-5.5) g/dl Globulin 4.2 Albumin/Globulin Ratio 0.76 Blood Type O POSITIVE Gel Antibody Screen Negative Crossmatch See Detail 06/17/18 Range/Units 14:55 WBC (5.0-10.0) 10^3/uL RBC (4.2-5.4) 10^6/uL Hgb (12.0-16.0) g/dL Hct (37.0-47.0) % MCV (80-100) fL MCH (27.0-34.0) pg MCHC (33.0-35.0) g/dL Plt Count (150-450) 10^3/uL Neut % (Auto) (42.2-75.2) % Lymph % (Auto) (20.5-50.1) % Moore % (Auto) (2-8) % Eos % (Auto) (1.0-3.0) % Baso % (Auto) (0.0-1.0) % Add Manual Diff Sodium (135-145) mmol/L Potassium (3.6-5.0) mmol/L Chloride (101-111) mmol/L Carbon Dioxide (21.0-31.0) mmol/L Anion Gap BUN (7-18) mg/dL Creatinine (0.6-1.3) mg/dL Est Cr Clr Drug Dosing mL/min Estimated GFR (MDRD) BUN/Creatinine Ratio Glucose (74-105) mg/dL POC Glucose 103 (70-105) mg/dl Calcium (8.4-10.2) mg/dl Total Bilirubin (0.2-1.0) mg/dL AST (10-42) IU/L ALT (10-60) IU/L Alkaline Phosphatase (42-121) IU/L Troponin I (0.00-0.02) ng/ml Total Protein (6.7-8.2) g/dl Albumin (3.2-5.5) g/dl Globulin Albumin/Globulin Ratio Blood Type Gel Antibody Screen Crossmatch Departure - Departure Time of Disposition: 16:02 Disposition: DC/Tfer to Acute Hospital 02 Condition: Serious Clinical Impression: Elevated troponin Anemia Qualifiers: Anemia type: unspecified type Qualified Code(s): D64.9 - Anemia, unspecified - Discharge Information *PRESCRIPTION DRUG MONITORING PROGRAM REVIEWED*: Not Applicable *COPY OF PRESCRIPTION DRUG MONITORING REPORT IN PATIENT LINDA: Not Applicable Forms: Interfacility Transfer EMTALA Care Plan Goals: Discussed the examination, lab, EKG, history and treatment information with Dr. Day. Dr. Day accepted the patient for continued evaluation and further management. The patient will be transported by [facility]. - My Orders Last 24 Hours: My Active Orders 06/17/18 14:43 EKG Documentation Completion [RC] URGENT UA RFX LILIA AND CULT IF INDIC [URIN] Urgent 06/17/18 14:51 CBC WITH AUTO DIFF [HEME] Urgent MANUAL DIFFERENTIAL QA/NC [HEME] Urgent RED BLOOD CELLS LP [BBK] Stat TYPE AND SCREEN [BBK] Stat 06/17/18 15:39 INR,PT,PROTHROMBIN TIME [COAG] Stat - Assessment/Plan Last 24 Hours: My Active Orders 06/17/18 14:43 EKG Documentation Completion [RC] URGENT UA RFX LILIA AND CULT IF INDIC [URIN] Urgent 06/17/18 14:51 CBC WITH AUTO DIFF [HEME] Urgent MANUAL DIFFERENTIAL QA/NC [HEME] Urgent RED BLOOD CELLS LP [BBK] Stat TYPE AND SCREEN [BBK] Stat 06/17/18 15:39 INR,PT,PROTHROMBIN TIME [COAG] Stat
[2018-06-17 16:54] VITALS: BP 104/44
== END 2018-06-17 17:00 ==
LOC: DL.ED 14:37
DX: D64.9 Anemia, unspecified (principal); R79.89 Other specified abnormal findings of blood chemistry; I25.10 Atherosclerotic heart disease of native coronary artery without angina pectoris; Z95.4 Presence of other heart-valve replacement; E78.00 Pure hypercholesterolemia, unspecified; I10 Essential (primary) hypertension; F41.9 Anxiety disorder, unspecified; F32.9 Major depressive disorder, single episode, unspecified; E11.9 Type 2 diabetes mellitus without complications; Z88.5 Allergy status to narcotic agent; Z79.82 Long term (current) use of aspirin; Z79.899 Other long term (current) drug therapy; Z87.891 Personal history of nicotine dependence; Z79.01 Long term (current) use of anticoagulants; Z79.84 Long term (current) use of oral hypoglycemic drugs
CPT/HCPCS: 36415; 36430; 71045; 80053; 81001; 81003; 82272; 82962; 84484; 85025; 85610; 86850; 86900; 86901; 86920; 86922; 87086; 87088; 87186; 93005; 99285; P9016

== ENCOUNTER 2018-07-11 16:08 | Emergency (ER) | payer BC, OTHER ==
[2018-07-11 16:49] LABS: ANION GAP 16.8; CHLORIDE,CL 93 mmol/L (101-111); SODIUM,NA 127 mmol/L (135-145)
--- NOTE | 2018-07-11 17:31 | EDM.PDOC ---
Scribed by Martha Kent 07/11/18 [id number] for Manuel You PA ED HPI GENERAL MEDICAL PROBLEM - General Chief Complaint: General Stated Complaint: UNKNOWN Time Seen by Provider: 07/11/18 16:42 Source of Information: Reports: Patient, EMS, EMS Notes Reviewed, RN, RN Notes Reviewed History Limitations: Reports: No Limitations - History of Present Illness INITIAL COMMENTS - FREE TEXT/NARRATIVE: This 67 yo female patient was sent to the ED from the [facility] due to a hemoglobin of 5.2. The patient was recently in [place] due to a possible GI bleed. The patient did receive blood on 06/30/18 upon admission to [place]. The patient reports she did have a specialist that told her she had 1 area of bleeding and an old ulcer (not actively bleeding). The patient was discharged from [place] on 07/03/18. The patient is scheduled to be seen at the [facility] this week for follow-up (Dr. Thibodeaux - [phone]). The patient has a history of an Aortic Valve replacement initially done in [place], but revised at the [facility] on May 25, 2018. Onset: Gradual Duration: Day(s):, Constant Location: Reports: Generalized Quality: Reports: Other Severity: Moderate Improves with: Reports: None Worsens with: Reports: None Associated Symptoms: Reports: No Other Symptoms Bilateral Upper Chest Pain Score (Numeric/FACES): 5 - Related Data Allergies Allergy/AdvReac Type Severity Reaction Status Date / Time propoxyphene Allergy Mild Nausea Verified 07/11/18 16:10 [From Brenna-N] codeine Allergy Itching Verified 07/11/18 16:10 procaine Allergy Cannot Verified 07/11/18 16:10 Remember Home Meds: Home Meds DULoxetine [Cymbalta] 60 mg PO DAILY 04/11/14 [History] Aspirin [Halfprin] 81 mg PO DAILY 08/11/16 [History] ALPRAZolam [Alprazolam ER] 0.5 mg PO BID PRN 03/07/17 [History] atorvaSTATin [Lipitor] 10 mg PO BEDTIME 03/07/17 [History] hydrOXYzine HCl [Atarax] 25 mg PO TID PRN 03/07/17 [History] Metoprolol Succinate [Toprol XL] 125 mg PO DAILY 02/07/18 [History] metFORMIN [Glucophage] 1,000 mg PO BIDMEALS 02/07/18 [History] Acetaminophen [Tylenol Extra Strength] 1,000 mg PO Q6H 06/15/18 [History] Albuterol [Proventil HFA] 1 puff INH ASDIRECTED 06/15/18 [History] Cholecalciferol (Vitamin D3) [Vitamin D3] 1,000 units PO DAILY 06/15/18 [History ] Furosemide 40 mg PO DAILY 06/15/18 [History] Glimepiride 1 mg PO DAILY 06/15/18 [History] Lidocaine Patch 1 unit TOP ASDIRECTED 06/15/18 [History] Loratadine [Claritin] 10 mg PO ASDIRECTED 06/15/18 [History] Nicotine [Nicotine Patch] 1 each TD ASDIRECTED 06/15/18 [History] Polyethylene Glycol 3350 [MiraLAX] 17 gm PO DAILY 06/15/18 [History] Potassium Chloride 20 meq PO DAILY 06/15/18 [History] Sennosides/Docusate Sodium [Sennosides-Docusate Sodium] 1 tab PO ASDIRECTED [History] Warfarin [Coumadin] 3 mg PO DAILY 06/15/18 [History] oxyCODONE 5 mg PO Q4H 06/15/18 [History] Amitriptyline [Elavil] 25 mg PO BEDTIME 06/30/18 [History] Cholecalciferol (Vitamin D3) [Vitamin D3] 400 unit PO DAILY 06/30/18 [History] Ergocalciferol (Vitamin D2) [Ergocal] 5,000 units PO DAILY 06/30/18 [History] Ezetimibe [Zetia] 10 mg PO DAILY 06/30/18 [History] Ferrous Gluconate 324 mg PO DAILY 06/30/18 [History] Meloxicam 15 mg PO DAILY 06/30/18 [History] Pioglitazone [Actos] 15 mg PO DAILY 06/30/18 [History] Simvastatin [Zocor] 40 mg PO DAILY 06/30/18 [History] Zolpidem Tartrate [Ambien] 10 mg PO BEDTIME 06/30/18 [History] glyBURIDE/Metformin HCl [Glyburid-Metformin 1.25-250 mg] 5 - 500 mg PO DAILY 11/11 [History] Past Medical History HEENT History: Reports: None Cardiovascular History: Reports: CAD, Heart Murmur, Heart Valve Replacement, High Cholesterol, Hypertension Respiratory History: Reports: None Gastrointestinal History: Reports: Chronic Constipation, Diverticulosis Genitourinary History: Reports: None PULLER OVER History: Reports: , Spontaneous Musculoskeletal History: Reports: Arthritis, Back Pain, Chronic, Other (See Below) Other Musculoskeletal History: DEGENERATIVE JOINT DISEASE Neurological History: Reports: None Psychiatric History: Reports: Anxiety, Depression Endocrine/Metabolic History: Reports: Diabetes, Type II, Obesity/BMI 30+ Hematologic History: Reports: Anemia, Blood Transfusion(s), Iron Deficiency Immunologic History: Reports: None Oncologic (Cancer) History: Reports: None Dermatologic History: Reports: Eczema - Infectious Disease History Infectious Disease History: Reports: Rheumatic Fever - Past Surgical History HEENT Surgical History: Reports: Tonsillectomy GI Surgical History: Reports: Appendectomy, Cholecystectomy, EGD Female Surgical History: Reports: None Musculoskeletal Surgical History: Reports: Other (See Below) Dermatological Surgical History: Reports: None Social & Family History - Family History Family Medical History: Noncontributory - Tobacco Use Smoking Status *Q: Never Smoker - Caffeine Use Caffeine Use: Reports: Coffee, Tea Other Caffeine Use: Drinks these but not very often Caffeine Use Comment: 16. oz daily - Recreational Drug Use Recreational Drug Use: No ED ROS GENERAL - Review of Systems Review Of Systems: ROS reveals no pertinent complaints other than HPI. ED EXAM, GENERAL - Physical Exam Exam: See Below Exam Limited By: No Limitations General Appearance: Alert, WD/WN, Moderate Distress Eye Exam: Bilateral Eye: EOMI, Normal Inspection, PERRL Ears: Normal External Exam, Normal Canal, Hearing Grossly Normal, Normal TMs Nose: Normal Inspection, Normal Mucosa, No Blood Throat/Mouth: Normal Inspection, Normal Lips, Normal Teeth, Normal Gums, Normal Oropharynx, Normal Voice, No Airway Compromise Head: Atraumatic, Normocephalic Neck: Normal Inspection, Supple, Non-Tender, Full Range of Motion Respiratory/Chest: No Respiratory Distress, Lungs Clear, Normal Breath Sounds, No Accessory Muscle Use, Chest Non-Tender Cardiovascular: Normal Peripheral Pulses, Regular Rate, Rhythm, No Edema, No Gallop, No JVD, No Murmur, No Rub GI/Abdominal: Normal Bowel Sounds, Soft, Non-Tender, No Organomegaly, No Distention, No Abnormal Bruit, No Mass (Female) Exam: Deferred Rectal (Female) Exam: Deferred Back Exam: Normal Inspection, Full Range of Motion, NT Extremities: Normal Inspection, Normal Range of Motion, Non-Tender, Normal Capillary Refill, No Pedal Edema Neurological: Alert, Oriented, CN II-XII Intact, Normal Cognition, Normal Gait, Normal Reflexes, No Motor/Sensory Deficits Psychiatric: Normal Affect, Normal Mood Skin Exam: Other (Pale) Lymphatic: No Adenopathy Course - Vital Signs Last Recorded V/S: Last Vital Signs Temp 36.5 C 07/11/18 16:01 Pulse 98 07/11/18 16:01 Resp 20 07/11/18 16:01 BP 109/46 L 07/11/18 16:01 Pulse Ox 98 07/11/18 16:01 - Orders/Labs/Meds Orders: Active Orders 24 hr Category Date Time Status EKG Documentation Completion [RC] URGENT Care 07/11/18 16:29 Active RED BLOOD CELLS LP [BBK] Stat Lab 07/11/18 16:07 Received TYPE AND SCREEN [BBK] Stat Lab 07/11/18 16:07 Received Labs: Laboratory Tests 07/11/18 07/11/18 07/11/18 Range/Units 16:07 16:07 16:07 WBC 14.3 H (5.0-10.0) 10^3/uL RBC 1.67 L (4.2-5.4) 10^6/uL Hgb 5.1 L* D (12.0-16.0) g/dL Hct 17.7 L* (37.0-47.0) % MCV 106.0 H D (80-100) fL MCH 30.5 (27.0-34.0) pg MCHC 28.8 L (33.0-35.0) g/dL Plt Count 446 (150-450) 10^3/uL Neut % (Auto) 79.1 H (42.2-75.2) % Lymph % (Auto) 14.6 L (20.5-50.1) % [place] % (Auto) 5.1 (2-8) % Eos % (Auto) 0.7 L (1.0-3.0) % Baso % (Auto) 0.5 (0.0-1.0) % PT 39.0 H D (9.0-12.0) SEC INR 4.1 H (0.9-1.2) Sodium 127 L (135-145) mmol/L Potassium 3.8 (3.6-5.0) mmol/L Chloride 93 L (101-111) mmol/L Carbon Dioxide 21.0 (21.0-31.0) mmol/L Anion Gap 16.8 BUN 21 H (7-18) mg/dL Creatinine 0.6 (0.6-1.3) mg/dL Est Cr Clr Drug Dosing 77.49 mL/min Estimated GFR (MDRD) > 60 BUN/Creatinine Ratio 35.00 Glucose 195 H (74-105) mg/dL Calcium 8.5 (8.4-10.2) mg/dl Total Bilirubin 0.8 (0.2-1.0) mg/dL AST 51 H (10-42) IU/L ALT 22 (10-60) IU/L Alkaline Phosphatase 59 (42-121) IU/L Troponin I 0.07 H* (0.00-0.02) ng/ml Total Protein 7.2 (6.7-8.2) g/dl Albumin 3.0 L (3.2-5.5) g/dl Globulin 4.2 Albumin/Globulin Ratio 0.71 Departure - Departure Time of Disposition: 17:28 Disposition: Home, Self-Care 01 Condition: Serious Clinical Impression: Anemia Qualifiers: Anemia type: unspecified type Qualified Code(s): D64.9 - Anemia, unspecified - Discharge Information *PRESCRIPTION DRUG MONITORING PROGRAM REVIEWED*: Not Applicable *COPY OF PRESCRIPTION DRUG MONITORING REPORT IN PATIENT LINDA: Not Applicable Forms: Interfacility Transfer EMTALA Care Plan Goals: Discussed the patient's history, examination, lab, and EKG results with Dr. Day. Dr. Day accepted the patient for continued evaluation and further management as an inpatient at [facility] in [place]. The patient will be transported by [facility]. - My Orders Last 24 Hours: My Active Orders 07/11/18 16:07 RED BLOOD CELLS LP [BBK] Stat TYPE AND SCREEN [BBK] Stat 07/11/18 16:29 EKG Documentation Completion [RC] URGENT - Assessment/Plan Last 24 Hours: My Active Orders 07/11/18 16:07 RED BLOOD CELLS LP [BBK] Stat TYPE AND SCREEN [BBK] Stat 07/11/18 16:29 EKG Documentation Completion [RC] URGENT I have read and agree with the documentation that has been completed regarding this visit. By signing this record, I attest that the documentation was completed in my physical presence and is an accurate record of the encounter.
[2018-07-11 18:17] VITALS: BP 88/22
== END 2018-07-11 18:30 ==
LOC: DL.ED 16:08
DX: D64.9 Anemia, unspecified (principal); I25.10 Atherosclerotic heart disease of native coronary artery without angina pectoris; E11.9 Type 2 diabetes mellitus without complications; E66.9 Obesity, unspecified; M19.90 Unspecified osteoarthritis, unspecified site; Z90.49 Acquired absence of other specified parts of digestive tract; Z98.890 Other specified postprocedural states; Z88.8 Allergy status to other drugs, medicaments and biological substances; Z79.01 Long term (current) use of anticoagulants; Z79.899 Other long term (current) drug therapy; Z79.82 Long term (current) use of aspirin; Z79.84 Long term (current) use of oral hypoglycemic drugs; Z88.5 Allergy status to narcotic agent
CPT/HCPCS: 36415; 36430; 80053; 84484; 85025; 85610; 86850; 86900; 86901; 86920; 86922; 93005; 99285; P9016

== ENCOUNTER 2018-08-02 20:19 | Emergency (ER) | payer BC, OTHER ==
[2018-08-02] MEDS ORDERED: Sodium Chloride 0.9% 10 ML Syringe FLUSH PRN (20:51)
[2018-08-02 21:31] LABS: ANION GAP 13.7; CHLORIDE,CL 100 mmol/L (101-111); SODIUM,NA 131 mmol/L (135-145)
[2018-08-02] MEDS ORDERED: Lidocaine 1% 30 ML SDV INJECT ONE (21:45)
[2018-08-02] MEDS ORDERED: Lactated Ringers 1,000 ML IV ONE (22:03)
[2018-08-02 22:20] VITALS: BP 91/31
--- NOTE | 2018-08-02 23:02 | EDM.PDOC ---
ED HPI GENERAL MEDICAL PROBLEM - General Chief Complaint: General Stated Complaint: LOW ON BLOOD Time Seen by Provider: 08/02/18 20:35 Source of Information: Reports: Patient, Family, RN, RN Notes Reviewed History Limitations: Reports: No Limitations - History of Present Illness INITIAL COMMENTS - FREE TEXT/NARRATIVE: Pt to ER with her family with c/o low hemoglobin. Patient had lab drawn today and was called and told that her hemoglobin was low and she should present to the ER. Patient was hospitalized at [facility] in the end of June for anemia and GI Bleed. Patient states she had a "bleed somewhere and they placed a clip". She states she had both an upper and lower GI scope done. Patient states she had an aortic valve replacement in April. She states she takes Coumadin. Patient states she is unsure if she has had blood in her stool, she states her stools are always black as she takes iron. Patient denies weakness or SOB, denies N/V or vomiting of blood. Onset: Today - Related Data Allergies Allergy/AdvReac Type Severity Reaction Status Date / Time propoxyphene Allergy Mild Nausea Verified 07/11/18 16:10 [From Shait-N] codeine Allergy Itching Verified 07/11/18 16:10 procaine Allergy Cannot Verified 07/11/18 16:10 Remember Home Meds: Home Meds DULoxetine [Cymbalta] 60 mg PO DAILY 04/11/14 [History] Aspirin [Halfprin] 81 mg PO DAILY 08/11/16 [History] ALPRAZolam [Alprazolam ER] 0.25 mg PO BID PRN 03/07/17 [History] atorvaSTATin [Lipitor] 40 mg PO BEDTIME 03/07/17 [History] hydrOXYzine HCl [Atarax] 10 mg PO BEDTIME PRN 03/07/17 [History] Metoprolol Succinate [Toprol XL] 50 mg PO DAILY 02/07/18 [History] metFORMIN [Glucophage] 1,000 mg PO BIDMEALS 02/07/18 [History] Acetaminophen [Tylenol Extra Strength] 1,000 mg PO Q6H 06/15/18 [History] Albuterol [Proventil HFA] 2 puff INH Q6H PRN 06/15/18 [History] Cholecalciferol (Vitamin D3) [Vitamin D3] 1,000 units PO DAILY 06/15/18 [History ] Furosemide 40 mg PO DAILY 06/15/18 [History] Glimepiride 1 mg PO DAILY 06/15/18 [History] Lidocaine Patch 1 unit TOP ASDIRECTED 06/15/18 [History] Loratadine [Claritin] 10 mg PO DAILY 06/15/18 [History] Nicotine [Nicotine Patch] 1 each TD DAILY 06/15/18 [History] Polyethylene Glycol 3350 [MiraLAX] 17 gm PO DAILY 06/15/18 [History] Potassium Chloride 20 meq PO DAILY 06/15/18 [History] Sennosides/Docusate Sodium [Sennosides-Docusate Sodium] 1 tab PO BID 06/15/18 [ History] Warfarin [Coumadin] 3 mg PO DAILY 06/15/18 [History] Ferrous Gluconate 324 mg PO BID 06/30/18 [History] Ascorbic Acid [Vitamin C] 250 mg PO BID 08/02/18 [History] Ondansetron [Zofran ODT] 4 mg PO Q8H PRN 08/02/18 [History] Pantoprazole Sodium [Protonix] 40 mg PO BID 08/02/18 [History] oxyCODONE HCl/Acetaminophen [Oxycodone-Acetaminophen 5-325] 1 tab PO BID PRN 01/12 [History] Past Medical History HEENT History: Reports: None Cardiovascular History: Reports: CAD, Heart Murmur, Heart Valve Replacement, High Cholesterol, Hypertension Respiratory History: Reports: None Gastrointestinal History: Reports: Chronic Constipation, Diverticulosis, GI Bleed Genitourinary History: Reports: None BLACKJACK PIT BOSS History: Reports: , Spontaneous Musculoskeletal History: Reports: Arthritis, Back Pain, Chronic, Other (See Below) Other Musculoskeletal History: DEGENERATIVE JOINT DISEASE Neurological History: Reports: None Psychiatric History: Reports: Anxiety, Depression Endocrine/Metabolic History: Reports: Diabetes, Type II Hematologic History: Reports: Anemia, Blood Transfusion(s), Iron Deficiency Immunologic History: Reports: None Oncologic (Cancer) History: Reports: None Dermatologic History: Reports: Eczema - Infectious Disease History Infectious Disease History: Reports: Rheumatic Fever - Past Surgical History HEENT Surgical History: Reports: Tonsillectomy Cardiovascular Surgical History: Reports: Valve Replacement GI Surgical History: Reports: Appendectomy, Cholecystectomy, EGD Female Surgical History: Reports: None Dermatological Surgical History: Reports: None Social & Family History - Family History Family Medical History: Noncontributory - Tobacco Use Smoking Status *Q: Former Smoker Used Tobacco, but Quit: Yes Month/Year Tobacco Last Used: 2017 - Caffeine Use Caffeine Use: Reports: Coffee, Tea Other Caffeine Use: Drinks these but not very often Caffeine Use Comment: 16. oz daily ED ROS GENERAL - Review of Systems Review Of Systems: ROS reveals no pertinent complaints other than HPI. ED EXAM, GENERAL - Physical Exam Exam: See Below Exam Limited By: No Limitations General Appearance: Alert, WD/WN, No Apparent Distress, Anxious Eye Exam: Bilateral Eye: EOMI, Normal Inspection Ears: Normal External Exam, Hearing Grossly Normal Nose: Normal Inspection Throat/Mouth: Normal Inspection, Normal Lips, Normal Teeth, Normal Gums, Normal Oropharynx, Normal Voice, No Airway Compromise Head: Atraumatic, Normocephalic Neck: Normal Inspection, Supple, Non-Tender, Full Range of Motion Respiratory/Chest: No Respiratory Distress, Lungs Clear, Normal Breath Sounds, No Accessory Muscle Use, Chest Non-Tender Cardiovascular: Normal Peripheral Pulses, Regular Rate, Rhythm, No Edema, No Gallop, No JVD, No Rub, Systolic Murmur Peripheral Pulses: 1+: Radial (L), Radial (R) GI/Abdominal: Normal Bowel Sounds, Soft, Non-Tender, No Organomegaly, No Distention, No Abnormal Bruit, No Mass, Pelvis Stable (Female) Exam: Deferred Rectal (Female) Exam: Normal Exam, Normal Rectal Tone, Heme + Stool Back Exam: Normal Inspection, Full Range of Motion, NT Extremities: Normal Inspection, Normal Range of Motion, Non-Tender, Normal Capillary Refill, No Pedal Edema Neurological: Alert, Oriented, CN II-XII Intact, Normal Cognition, Normal Gait, Normal Reflexes, No Motor/Sensory Deficits Psychiatric: Anxious, Tearful Skin Exam: Warm, Dry, Intact, Normal Color, No Rash Lymphatic: No Adenopathy Course - Vital Signs Last Recorded V/S: Last Vital Signs Temp 98.2 F 08/02/18 22:17 Pulse 85 08/02/18 22:17 Resp 20 08/02/18 22:17 BP 91/31 L 08/02/18 22:17 Pulse Ox 96 08/02/18 22:17 - Orders/Labs/Meds Orders: Active Orders 24 hr Category Date Time Status EKG Documentation Completion [RC] STAT Care 08/02/18 20:51 Active Peripheral IV Care [RC] . DIRECTED Care 08/02/18 20:52 Active ANTIBODY IDENTIFICATION [BBK] Stat Lab 08/02/18 21:03 Results RED BLOOD CELLS LP [BBK] Stat Lab 08/02/18 21:03 Results TYPE AND SCREEN [BBK] Stat Lab 08/02/18 21:03 Results Peripheral IV Insertion Adult [OM.PC] Stat Oth 08/02/18 20:51 Ordered Labs: Laboratory Tests 08/02/18 08/02/18 08/02/18 Range/Units 21:03 21:03 21:03 WBC 7.9 (5.0-10.0) 10^3/uL RBC 2.46 L (4.2-5.4) 10^6/uL Hgb 6.5 L* (12.0-16.0) g/dL Hct 22.1 L (37.0-47.0) % MCV 89.8 D (80-100) fL MCH 26.4 L (27.0-34.0) pg MCHC 29.4 L (33.0-35.0) g/dL Plt Count 497 H (150-450) 10^3/uL Neut % (Auto) 70.1 (42.2-75.2) % Lymph % (Auto) 20.0 L (20.5-50.1) % [place] % (Auto) 7.3 (2-8) % Eos % (Auto) 2.2 (1.0-3.0) % Baso % (Auto) 0.4 (0.0-1.0) % PT 21.5 H (9.0-12.0) SEC INR 2.2 H (0.9-1.2) Sodium 131 L (135-145) mmol/L Potassium 3.7 (3.6-5.0) mmol/L Chloride 100 L (101-111) mmol/L Carbon Dioxide 21.0 (21.0-31.0) mmol/L Anion Gap 13.7 BUN 13 (7-18) mg/dL Creatinine 0.8 (0.6-1.3) mg/dL Est Cr Clr Drug Dosing 58.12 mL/min Estimated GFR (MDRD) > 60 BUN/Creatinine Ratio 16.25 Glucose 104 (74-105) mg/dL Calcium 8.4 (8.4-10.2) mg/dl Total Bilirubin 0.8 (0.2-1.0) mg/dL AST 37 (10-42) IU/L ALT 23 (10-60) IU/L Alkaline Phosphatase 115 (42-121) IU/L Total Protein 8.7 H (6.7-8.2) g/dl Albumin 3.4 (3.2-5.5) g/dl Globulin 5.3 Albumin/Globulin Ratio 0.64 Urine Color (YELLOW) Urine Appearance (CLEAR) Urine pH (5.0-9.0) Ur Specific [place] (1.005-1.030) Urine Protein (NEGATIVE) Urine Glucose (UA) (NEGATIVE) Urine Ketones (NEGATIVE) Urine Occult Blood (NEGATIVE) Urine Nitrite (NEGATIVE) Urine Bilirubin (NEGATIVE) Urine Urobilinogen (0.2-1.0) mg/dL Ur Leukocyte Esterase (NEGATIVE) Urine RBC /HPF Urine WBC (0-5/HPF) /HPF Ur Epithelial Cells /HPF Urine Bacteria (0-FEW/HPF) /HPF Blood Type Gel Antibody Screen Crossmatch 08/02/18 08/02/18 Range/Units 21:03 22:55 WBC (5.0-10.0) 10^3/uL RBC (4.2-5.4) 10^6/uL Hgb (12.0-16.0) g/dL Hct (37.0-47.0) % MCV (80-100) fL MCH (27.0-34.0) pg MCHC (33.0-35.0) g/dL Plt Count (150-450) 10^3/uL Neut % (Auto) (42.2-75.2) % Lymph % (Auto) (20.5-50.1) % [place] % (Auto) (2-8) % Eos % (Auto) (1.0-3.0) % Baso % (Auto) (0.0-1.0) % PT (9.0-12.0) SEC INR (0.9-1.2) Sodium (135-145) mmol/L Potassium (3.6-5.0) mmol/L Chloride (101-111) mmol/L Carbon Dioxide (21.0-31.0) mmol/L Anion Gap BUN (7-18) mg/dL Creatinine (0.6-1.3) mg/dL Est Cr Clr Drug Dosing mL/min Estimated GFR (MDRD) BUN/Creatinine Ratio Glucose (74-105) mg/dL Calcium (8.4-10.2) mg/dl Total Bilirubin (0.2-1.0) mg/dL AST (10-42) IU/L ALT (10-60) IU/L Alkaline Phosphatase (42-121) IU/L Total Protein (6.7-8.2) g/dl Albumin (3.2-5.5) g/dl Globulin Albumin/Globulin Ratio Urine Color Yellow (YELLOW) Urine Appearance Clear (CLEAR) Urine pH 5.5 (5.0-9.0) Ur Specific [place] <= 1.005 (1.005-1.030) Urine Protein Negative (NEGATIVE) Urine Glucose (UA) Negative (NEGATIVE) Urine Ketones Negative (NEGATIVE) Urine Occult Blood Trace-intact H (NEGATIVE) Urine Nitrite Negative (NEGATIVE) Urine Bilirubin Negative (NEGATIVE) Urine Urobilinogen 0.2 (0.2-1.0) mg/dL Ur Leukocyte Esterase Negative (NEGATIVE) Urine RBC 0-5 /HPF Urine WBC 0-5 (0-5/HPF) /HPF Ur Epithelial Cells Few /HPF Urine Bacteria Few (0-FEW/HPF) /HPF Blood Type O POSITIVE Gel Antibody Screen Positive Crossmatch See Detail Stool for Occult: POSITIVE Meds: Medications Discontinued Medications Generic Name Dose Route Start Last Admin Trade Name Freq PRN Reason Stop Dose Admin Lactated Ringer's 1,000 mls @ 999 mls/hr 08/02/18 22:03 08/02/18 22:16 Ringers, Lactated IV 08/02/18 23:03 999 mls/hr .BOLUS ONE Administration Lidocaine HCl 30 ml 08/02/18 21:45 08/02/18 21:58 Xylocaine-Mpf 1% INJECT 08/02/18 21:46 30 ml ONETIME ONE Administration Sodium Chloride 10 ml 08/02/18 20:51 08/02/18 21:58 Saline Flush FLUSH 10 ml ASDIRECTED PRN Administration Keep Vein Open - Re-Assessments/Exams Free Text/Narrative Re-Assessment/Exam: 08/03/18 04:20 Discussed patient case with Dr. Baer who agreed to accept the patient for transfer to [facility]. Departure - Departure Time of Disposition: 23:00 Disposition: DC/Tfer to Acute Hospital 02 Condition: Fair Clinical Impression: Anemia Qualifiers: Anemia type: other cause Other causes of anemia: other cause, not classified Qualified Code(s): D64.89 - Other specified anemias GI bleed Qualifiers: GI bleed type/associated pathology: unspecified gastrointestinal hemorrhage type Qualified Code(s): K92.2 - Gastrointestinal hemorrhage, unspecified - Discharge Information *PRESCRIPTION DRUG MONITORING PROGRAM REVIEWED*: No *COPY OF PRESCRIPTION DRUG MONITORING REPORT IN PATIENT LINDA: No Referrals: PCP,Unobtain [Primary Care Provider] - Forms: ED Department Discharge, Interfacility Transfer EMTALA - My Orders Last 24 Hours: My Active Orders 08/02/18 20:51 EKG Documentation Completion [RC] STAT Peripheral IV Insertion Adult [OM.PC] Stat 08/02/18 20:52 Peripheral IV Care [RC] . DIRECTED 08/02/18 21:03 ANTIBODY IDENTIFICATION [BBK] Stat RED BLOOD CELLS LP [BBK] Stat TYPE AND SCREEN [BBK] Stat - Assessment/Plan Last 24 Hours: My Active Orders 08/02/18 20:51 EKG Documentation Completion [RC] STAT Peripheral IV Insertion Adult [OM.PC] Stat 08/02/18 20:52 Peripheral IV Care [RC] . DIRECTED 08/02/18 21:03 ANTIBODY IDENTIFICATION [BBK] Stat RED BLOOD CELLS LP [BBK] Stat TYPE AND SCREEN [BBK] Stat
== END 2018-08-02 23:00 ==
LOC: DL.ED 20:19
DX: K92.2 Gastrointestinal hemorrhage, unspecified (principal); I25.10 Atherosclerotic heart disease of native coronary artery without angina pectoris; D64.89 Other specified anemias; E78.00 Pure hypercholesterolemia, unspecified; I10 Essential (primary) hypertension; F41.9 Anxiety disorder, unspecified; F32.9 Major depressive disorder, single episode, unspecified; E11.9 Type 2 diabetes mellitus without complications; Z88.8 Allergy status to other drugs, medicaments and biological substances; Z95.4 Presence of other heart-valve replacement; Z88.5 Allergy status to narcotic agent; Z79.82 Long term (current) use of aspirin; Z79.899 Other long term (current) drug therapy; Z87.891 Personal history of nicotine dependence; Z79.4 Long term (current) use of insulin
CPT/HCPCS: 36415; 80053; 81001; 82272; 85025; 85610; 86850; 86900; 86901; 86920; 86922; 93005; 96360; 99285; J2001; J7120

== ENCOUNTER 2018-10-19 15:42 | Emergency (ER) | payer BC, OTHER ==
[2018-10-19 16:10] VITALS: BP 92/48
[2018-10-19] MEDS ORDERED: Ondansetron 4 MG/2 ML SDV IV ONE (16:16)
--- NOTE | 2018-10-19 16:27 | EDM.PDOC ---
ED HPI GENERAL MEDICAL PROBLEM - General Chief Complaint: General Stated Complaint: FEELING VERY WEAK Time Seen by Provider: 10/19/18 16:10 Source of Information: Reports: Patient History Limitations: Reports: No Limitations - History of Present Illness INITIAL COMMENTS - FREE TEXT/NARRATIVE: This 68 yo female patient reports to the ED due to a 1 hour history of generalized weakness. The patient reports she has had diarrhea over the past week, but feels constipated today. The patient reports she has not been urinating as much as normal and may not be drinking enough fluids. The patient reports she had an appointment yesterday and had labs done at that visit. The patient reports her hemoglobin was 9.0 yesterday. The patient has a history of anemia and also has a history of GI bleeding. The patient reports she had a transfusion on 09/30/18 in [place]. Onset: Today Onset Date: 10/19/18 Onset Time: 15:10 Duration: Other Location: Reports: Generalized Quality: Reports: Other Severity: Moderate Improves with: Reports: None Worsens with: Reports: None Context: Reports: Other Associated Symptoms: Reports: No Other Symptoms Chest Pain Score (Numeric/FACES): 7 - Related Data Allergies Allergy/AdvReac Type Severity Reaction Status Date / Time propoxyphene Allergy Mild Nausea Verified 10/19/18 16:05 [From Brenna-Manan] codeine Allergy Itching Verified 10/19/18 16:05 procaine Allergy Cannot Verified 10/19/18 16:05 Remember Home Meds: Home Meds DULoxetine [Cymbalta] 60 mg PO DAILY 04/11/14 [History] Aspirin [Halfprin] 81 mg PO DAILY 08/11/16 [History] atorvaSTATin [Lipitor] 40 mg PO BEDTIME 03/07/17 [History] hydrOXYzine HCl [Atarax] 10 mg PO BEDTIME PRN 03/07/17 [History] Metoprolol Succinate [Toprol XL] 50 mg PO DAILY 02/07/18 [History] metFORMIN [Glucophage] 1,000 mg PO BIDMEALS 02/07/18 [History] Acetaminophen [Tylenol Extra Strength] 1,000 mg PO Q6H 06/15/18 [History] Albuterol [Proventil HFA] 2 puff INH Q6H PRN 06/15/18 [History] Cholecalciferol (Vitamin D3) [Vitamin D3] 1,000 units PO DAILY 06/15/18 [History ] Furosemide 40 mg PO DAILY 06/15/18 [History] Glimepiride 1 mg PO DAILY 06/15/18 [History] Lidocaine Patch 1 unit TOP ASDIRECTED 06/15/18 [History] Loratadine [Claritin] 10 mg PO DAILY 06/15/18 [History] Nicotine [Nicotine Patch] 1 each TD DAILY 06/15/18 [History] Polyethylene Glycol 3350 [MiraLAX] 17 gm PO DAILY 06/15/18 [History] Potassium Chloride 20 meq PO DAILY 06/15/18 [History] Sennosides/Docusate Sodium [Sennosides-Docusate Sodium] 1 tab PO BID 06/15/18 [ History] Warfarin [Coumadin] 3 mg PO DAILY 06/15/18 [History] Ferrous Gluconate 324 mg PO BID 06/30/18 [History] Ascorbic Acid [Vitamin C] 250 mg PO BID 08/02/18 [History] Ondansetron [Zofran ODT] 4 mg PO Q8H PRN 08/02/18 [History] Pantoprazole Sodium [Protonix] 40 mg PO BID 08/02/18 [History] oxyCODONE HCl/Acetaminophen [Oxycodone-Acetaminophen 5-325] 1 tab PO BID PRN 01/12 [History] Past Medical History HEENT History: Reports: None Cardiovascular History: Reports: CAD, Heart Murmur, Heart Valve Replacement, High Cholesterol, Hypertension Respiratory History: Reports: None Gastrointestinal History: Reports: Chronic Constipation, Diverticulosis, GI Bleed Genitourinary History: Reports: None 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: , 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 Musculoskeletal History: Reports: Arthritis, Back Pain, Chronic, Other (See Below) Other Musculoskeletal History: DEGENERATIVE JOINT DISEASE Neurological History: Reports: None Psychiatric History: Reports: Anxiety, Depression Endocrine/Metabolic History: Reports: Diabetes, Type II Hematologic History: Reports: Anemia, Blood Transfusion(s), Iron Deficiency Immunologic History: Reports: None Oncologic (Cancer) History: Reports: None Dermatologic History: Reports: Eczema - Infectious Disease History Infectious Disease History: Reports: Rheumatic Fever - Past Surgical History HEENT Surgical History: Reports: Tonsillectomy Cardiovascular Surgical History: Reports: Valve Replacement GI Surgical History: Reports: Appendectomy, Cholecystectomy, EGD Female Surgical History: Reports: None Dermatological Surgical History: Reports: None Social & Family History - Family History Family Medical History: Noncontributory - Tobacco Use Smoking Status *Q: Current Every Day Smoker Years of Tobacco use: 1 Packs/Tins Daily: 1 - Caffeine Use Caffeine Use: Reports: Coffee Other Caffeine Use: Drinks these but not very often Caffeine Use Comment: 16. oz daily - Recreational Drug Use Recreational Drug Use: No ED ROS GENERAL - Review of Systems Review Of Systems: ROS reveals no pertinent complaints other than HPI. ED EXAM, GENERAL - Physical Exam Exam: See Below Exam Limited By: No Limitations General Appearance: Alert, WD/WN, Mild Distress Eye Exam: Bilateral Eye: EOMI, Normal Inspection, PERRL Ears: Normal External Exam, Normal Canal, Hearing Grossly Normal, Normal TMs Nose: Normal Inspection, Normal Mucosa, No Blood Throat/Mouth: Normal Inspection, Normal Lips, Normal Teeth, Normal Gums, Normal Oropharynx, Normal Voice, No Airway Compromise Head: Atraumatic, Normocephalic Neck: Normal Inspection, Supple, Non-Tender, Full Range of Motion Respiratory/Chest: No Respiratory Distress, Lungs Clear, Normal Breath Sounds, No Accessory Muscle Use, Chest Non-Tender Cardiovascular: Normal Peripheral Pulses, Regular Rate, Rhythm, No Edema, No Gallop, No JVD, No Murmur, No Rub GI/Abdominal: Normal Bowel Sounds, Soft, Non-Tender, No Organomegaly, No Distention, No Abnormal Bruit, No Mass (Female) Exam: Deferred Rectal (Female) Exam: Deferred Back Exam: Normal Inspection, Full Range of Motion, NT Extremities: Normal Inspection, Normal Range of Motion, Non-Tender, Normal Capillary Refill, No Pedal Edema Neurological: Alert, Oriented, CN II-XII Intact, Normal Cognition, Normal Gait, Normal Reflexes, No Motor/Sensory Deficits Psychiatric: Normal Affect, Normal Mood Skin Exam: Warm, Dry, Intact, Normal Color, No Rash Lymphatic: No Adenopathy Course - Vital Signs Last Recorded V/S: Last Vital Signs Temp 35.7 C 10/19/18 16:08 Pulse 99 10/19/18 16:08 Resp 18 10/19/18 16:08 BP 92/48 L 10/19/18 16:08 Pulse Ox 95 10/19/18 16:08 Orthostatic Blood Pressure [ 88/49 Standing] Orthostatic Blood Pressure [ 93/49 Sitting] Orthostatic Blood Pressure [ 85/39 Supine] - Orders/Labs/Meds Orders: Active Orders 24 hr Category Date Time Status EKG Documentation Completion [RC] URGENT Care 10/19/18 15:52 Active Sodium Chloride 0.9% [Normal Saline] 1,000 ml Med 10/19/18 16:30 Active IV ASDIRECTED Medication Orders Sodium Chloride (Normal Saline) 1,000 mls @ 125 mls/hr IV ASDIRECTED CARLOS Last Admin: 10/19/18 16:24 Dose: 125 mls/hr Labs: Laboratory Tests 10/19/18 10/19/18 Range/Units 16:02 16:02 WBC 7.8 (5.0-10.0) 10^3/uL RBC 3.26 L (4.2-5.4) 10^6/uL Hgb 9.3 L D (12.0-16.0) g/dL Hct 32.3 L (37.0-47.0) % MCV 99.1 D (80-100) fL MCH 28.5 (27.0-34.0) pg MCHC 28.8 L (33.0-35.0) g/dL Plt Count 478 H (150-450) 10^3/uL Neut % (Auto) 69.2 (42.2-75.2) % Lymph % (Auto) 22.2 (20.5-50.1) % [place] % (Auto) 6.9 (2-8) % Eos % (Auto) 0.8 L (1.0-3.0) % Baso % (Auto) 0.9 (0.0-1.0) % Sodium 135 (135-145) mmol/L Potassium 4.2 (3.6-5.0) mmol/L Chloride 99 L (101-111) mmol/L Carbon Dioxide 21.0 (21.0-31.0) mmol/L Anion Gap 19.2 BUN 37 H (7-18) mg/dL Creatinine 1.0 (0.6-1.3) mg/dL Est Cr Clr Drug Dosing 45.85 mL/min Estimated GFR (MDRD) 55 BUN/Creatinine Ratio 37.00 Glucose 124 H (74-105) mg/dL Calcium 8.8 (8.4-10.2) mg/dl Total Bilirubin 0.5 (0.2-1.0) mg/dL AST 45 H (10-42) IU/L ALT 26 (10-60) IU/L Alkaline Phosphatase 85 (42-121) IU/L Troponin I 0.02 (0.00-0.02) ng/ml Total Protein 8.9 H (6.7-8.2) g/dl Albumin 3.7 (3.2-5.5) g/dl Globulin 5.2 Albumin/Globulin Ratio 0.71 Meds: Medications Generic Name Dose Route Start Last Admin Trade Name Freq PRN Reason Stop Dose Admin Sodium Chloride 1,000 mls @ 125 mls/hr 10/19/18 16:30 10/19/18 16:24 Normal Saline IV 125 mls/hr ASDIRECTED CARLOS Administration Discontinued Medications Generic Name Dose Route Start Last Admin Trade Name Freq PRN Reason Stop Dose Admin Ondansetron HCl 4 mg 10/19/18 16:16 10/19/18 16:24 Zofran IV 10/19/18 16:17 4 mg ONETIME ONE Administration Departure - Departure Time of Disposition: 17:10 Disposition: Home, Self-Care 01 Condition: Fair Clinical Impression: Gastroenteritis - Discharge Information *PRESCRIPTION DRUG MONITORING PROGRAM REVIEWED*: Not Applicable *COPY OF PRESCRIPTION DRUG MONITORING REPORT IN PATIENT LINDA: Not Applicable Instructions: Viral Gastroenteritis, Adult, [id number] Forms: ED Department Discharge Care Plan Goals: The patient was advised of the examination, EKG and lab results during the visit. The patient was given IV fluids and IV Zofran while in the ED. The patient was encouraged to stick to a BRAT diet (bananas, rice, applesauce and toast) with small frequent sips of fluids over the next 24 hours. If the patient has any additional symptoms or concerns, the patient should either return to the emergency department or visit her primary care facility. - My Orders Last 24 Hours: My Active Orders 10/19/18 15:52 EKG Documentation Completion [RC] URGENT 10/19/18 16:30 Sodium Chloride 0.9% [Normal Saline] 1,000 ml IV ASDIRECTED - Assessment/Plan Last 24 Hours: My Active Orders 10/19/18 15:52 EKG Documentation Completion [RC] URGENT 10/19/18 16:30 Sodium Chloride 0.9% [Normal Saline] 1,000 ml IV ASDIRECTED
[2018-10-19] MEDS ORDERED: Sodium Chloride 0.9% 1,000 ML IV SCH (16:30)
[2018-10-19 16:51] LABS: ANION GAP 19.2
== END 2018-10-19 17:21 | disposition home or self-care (01) ==
LOC: DL.ED 15:42
DX: K52.9 Noninfective gastroenteritis and colitis, unspecified (principal); I25.10 Atherosclerotic heart disease of native coronary artery without angina pectoris; E78.00 Pure hypercholesterolemia, unspecified; I10 Essential (primary) hypertension; F41.9 Anxiety disorder, unspecified; F32.9 Major depressive disorder, single episode, unspecified; E11.9 Type 2 diabetes mellitus without complications; F17.210 Nicotine dependence, cigarettes, uncomplicated; Z79.82 Long term (current) use of aspirin; Z79.899 Other long term (current) drug therapy; Z79.01 Long term (current) use of anticoagulants; Z79.84 Long term (current) use of oral hypoglycemic drugs; Z88.8 Allergy status to other drugs, medicaments and biological substances; Z88.5 Allergy status to narcotic agent
CPT/HCPCS: 36415; 80053; 84484; 85025; 93005; 96361; 96374; 99284-25; J2405; J7030

== ENCOUNTER 2019-02-07 16:31 | Emergency (ER) | payer BC, OTHER ==
--- NOTE | 2019-02-07 17:15 | EDM.PDOC ---
ED HPI GENERAL MEDICAL PROBLEM - General Chief Complaint: Gastrointestinal Problem Stated Complaint: AMBULANCE Time Seen by Provider: 02/07/19 17:08 Source of Information: Reports: Patient History Limitations: Reports: No Limitations - History of Present Illness INITIAL COMMENTS - FREE TEXT/NARRATIVE: This 68 yo female patient reports to the ED due to a low hemoglobin reported by Dr. Boucher ([facility]). The patient reports she has noticed increased weakness since last Wednesday, but has also noticed some blood when she wipes after having a bowel movement. The patient reports her stools have been hard ( which apparently is common for her). The patient reports she has also had some lightheadedness over the past 4 days. The patient denies any nausea, vomiting or diarrhea. The patient reports she has had a non-productive cough over the weekend, but has not had a fever. Onset Date: 02/03/19 Duration: Constant Location: Reports: Other Quality: Reports: Other Severity: Moderate Improves with: Reports: None Worsens with: Reports: None Context: Reports: Other Associated Symptoms: Reports: Other (blood on toilet paper when she wipes) - Related Data Allergies Allergy/AdvReac Type Severity Reaction Status Date / Time propoxyphene Allergy Mild Nausea Verified 02/07/19 16:37 [From Darvocet-N] codeine Allergy Itching Verified 02/07/19 16:37 procaine Allergy Cannot Verified 02/07/19 16:37 Remember Home Meds: Home Meds DULoxetine [Cymbalta] 60 mg PO DAILY 04/11/14 [History] atorvaSTATin [Lipitor] 40 mg PO BEDTIME 03/07/17 [History] hydrOXYzine HCl [Atarax] 10 mg PO BEDTIME PRN 03/07/17 [History] Metoprolol Succinate [Toprol XL] 50 mg PO DAILY 02/07/18 [History] metFORMIN [Glucophage] 1,000 mg PO BIDMEALS 02/07/18 [History] Acetaminophen [Tylenol Extra Strength] 1,000 mg PO Q6H 06/15/18 [History] Albuterol [Proventil HFA] 2 puff INH Q6H PRN 06/15/18 [History] Cholecalciferol (Vitamin D3) [Vitamin D3] 1,000 units PO DAILY 06/15/18 [History ] Furosemide 40 mg PO DAILY 06/15/18 [History] Glimepiride 1 mg PO DAILY 06/15/18 [History] Lidocaine Patch 1 unit TOP ASDIRECTED 06/15/18 [History] Loratadine [Claritin] 10 mg PO DAILY 06/15/18 [History] Nicotine [Nicotine Patch] 1 each TD DAILY 06/15/18 [History] Polyethylene Glycol 3350 [MiraLAX] 17 gm PO DAILY 06/15/18 [History] Potassium Chloride 20 meq PO DAILY 06/15/18 [History] Sennosides/Docusate Sodium [Sennosides-Docusate Sodium] 1 tab PO BID 06/15/18 [ History] Warfarin [Coumadin] 3 mg PO DAILY 06/15/18 [History] Ferrous Gluconate 324 mg PO BID 06/30/18 [History] Ascorbic Acid [Vitamin C] 250 mg PO BID 08/02/18 [History] Ondansetron [Zofran ODT] 4 mg PO Q8H PRN 08/02/18 [History] Pantoprazole Sodium [Protonix] 40 mg PO BID 08/02/18 [History] oxyCODONE HCl/Acetaminophen [Oxycodone-Acetaminophen 5-325] 1 tab PO BID PRN 01/12 [History] Past Medical History HEENT History: Reports: None Cardiovascular History: Reports: CAD, Heart Murmur, Heart Valve Replacement, High Cholesterol, Hypertension Respiratory History: Reports: None Gastrointestinal History: Reports: Chronic Constipation, Diverticulosis, GI Bleed Genitourinary History: Reports: None 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: , 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 Musculoskeletal History: Reports: Arthritis, Back Pain, Chronic, Other (See Below) Other Musculoskeletal History: DEGENERATIVE JOINT DISEASE Neurological History: Reports: None Psychiatric History: Reports: Anxiety, Depression Endocrine/Metabolic History: Reports: Diabetes, Type II Hematologic History: Reports: Anemia, Blood Transfusion(s), Iron Deficiency Immunologic History: Reports: None Oncologic (Cancer) History: Reports: None Dermatologic History: Reports: Eczema - Infectious Disease History Infectious Disease History: Reports: Rheumatic Fever - Past Surgical History Head Surgeries/Procedures: Reports: None HEENT Surgical History: Reports: Tonsillectomy Cardiovascular Surgical History: Reports: Valve Replacement GI Surgical History: Reports: Appendectomy, Cholecystectomy, EGD Female Surgical History: Reports: None Dermatological Surgical History: Reports: None Social & Family History - Family History Family Medical History: Noncontributory - Tobacco Use Smoking Status *Q: Current Every Day Smoker Years of Tobacco use: 30 Packs/Tins Daily: 0.2 - Caffeine Use Caffeine Use: Reports: Coffee, Soda Other Caffeine Use: Drinks these but not very often Caffeine Use Comment: 16. oz daily - Recreational Drug Use Recreational Drug Use: No ED ROS GENERAL - Review of Systems Review Of Systems: ROS reveals no pertinent complaints other than HPI. ED EXAM, GI/ABD - Physical Exam Exam: See Below Exam Limited By: No Limitations General Appearance: Alert, WD/WN, Anxious, Mild Distress Eyes: Bilateral: Normal Appearance, EOMI Ears: Normal External Exam, Normal Canal, Hearing Grossly Normal, Normal TMs Nose: Normal Inspection, Normal Mucosa, No Blood Throat/Mouth: Normal Inspection, Normal Lips, Normal Teeth, Normal Gums, Normal Oropharynx, Normal Voice, No Airway Compromise Head: Atraumatic, Normocephalic Neck: Normal Inspection, Supple, Non-Tender, Full Range of Motion Respiratory/Chest: No Respiratory Distress, Lungs Clear, Normal Breath Sounds, No Accessory Muscle Use, Chest Non-Tender Cardiovascular: Normal Peripheral Pulses, Regular Rate, Rhythm, No Edema, No Gallop, No JVD, No Murmur, No Rub GI/Abdominal Exam: Normal Bowel Sounds, Soft, Non-Tender, No Organomegaly, No Distention, No Abnormal Bruit, No Mass, Pelvis Stable (Female) Exam: Deferred Rectal (Female) Exam: Normal Rectal Tone, Hemorrhoids (non erythematous with no obvious bleeding) Back Exam: Normal Inspection, Full Range of Motion, NT Extremities: Normal Inspection, Normal Range of Motion, Non-Tender, Normal Capillary Refill, No Pedal Edema Neurological: Alert, Oriented, CN II-XII Intact, Normal Cognition, Normal Gait Psychiatric: Normal Affect, Normal Mood Skin Exam: Warm, Dry, Intact, Normal Color, No Rash Lymphatic: No Adenopathy Course - Vital Signs Last Recorded V/S: Last Vital Signs Temp 36.2 C 02/07/19 16:31 Pulse 98 02/07/19 16:31 Resp 18 02/07/19 16:31 BP 101/32 L 02/07/19 16:31 Pulse Ox 99 02/07/19 16:31 Orthostatic Blood Pressure [ 88/40 Standing] Orthostatic Blood Pressure [ 93/36 Sitting] Orthostatic Blood Pressure [ 99/34 Supine] - Orders/Labs/Meds Orders: Active Orders 24 hr Category Date Time Status EKG Documentation Completion [RC] URGENT Care 02/07/19 16:39 Active Orthostatic Vital Signs [RC] ASDIRECTED Care 02/07/19 17:15 Active Labs: Laboratory Tests 02/07/19 02/07/19 02/07/19 Range/Units 16:49 16:49 16:49 WBC 7.3 (5.0-10.0) 10^3/uL RBC 3.46 L (4.2-5.4) 10^6/uL Hgb 8.9 L (12.0-16.0) g/dL Hct 29.9 L (37.0-47.0) % MCV 86.4 D (80-100) fL MCH 25.7 L (27.0-34.0) pg MCHC 29.8 L (33.0-35.0) g/dL Plt Count 380 D (150-450) 10^3/uL Neut % (Auto) 69.3 (42.2-75.2) % Lymph % (Auto) 18.7 L (20.5-50.1) % [place] % (Auto) 9.6 H (2-8) % Eos % (Auto) 1.8 (1.0-3.0) % Baso % (Auto) 0.6 (0.0-1.0) % PT 24.3 H D (9.0-12.0) SEC INR 2.5 H (0.9-1.2) Sodium 133 L (135-145) mmol/L Potassium 4.3 (3.6-5.0) mmol/L Chloride 98 L (101-111) mmol/L Carbon Dioxide 22.0 (21.0-31.0) mmol/L Anion Gap 17.3 BUN 9 D (7-18) mg/dL Creatinine 0.7 (0.6-1.3) mg/dL Est Cr Clr Drug Dosing 65.50 mL/min Estimated GFR (MDRD) > 60 BUN/Creatinine Ratio 12.85 Glucose 132 H (74-105) mg/dL Calcium 8.4 (8.4-10.2) mg/dl Total Bilirubin 0.7 (0.2-1.0) mg/dL AST 128 H (10-42) IU/L ALT 86 H (10-60) IU/L Alkaline Phosphatase 80 (42-121) IU/L Troponin I < 0.02 (0.00-0.02) ng/ml Total Protein 9.7 H (6.7-8.2) g/dl Albumin 3.5 (3.2-5.5) g/dl Globulin 6.2 Albumin/Globulin Ratio 0.56 Departure - Departure Time of Disposition: 18:49 Disposition: DC/Tfer to [facility] 02 Condition: Fair Clinical Impression: GI bleed Qualifiers: GI bleed type/associated pathology: unspecified gastrointestinal hemorrhage type Qualified Code(s): K92.2 - Gastrointestinal hemorrhage, unspecified - Discharge Information *PRESCRIPTION DRUG MONITORING PROGRAM REVIEWED*: Not Applicable *COPY OF PRESCRIPTION DRUG MONITORING REPORT IN PATIENT LINDA: Not Applicable Forms: Interfacility Transfer EMTALA Care Plan Goals: Discussed the patient's history, examination and lab results with Dr. Baer. Dr. Baer accepted the patient for continued evaluation and management as an inpatient at [facility] in [place]. The patient will be transported by [facility]. - My Orders Last 24 Hours: My Active Orders 02/07/19 16:39 EKG Documentation Completion [RC] URGENT 02/07/19 17:15 Orthostatic Vital Signs [RC] ASDIRECTED - Assessment/Plan Last 24 Hours: My Active Orders 02/07/19 16:39 EKG Documentation Completion [RC] URGENT 02/07/19 17:15 Orthostatic Vital Signs [RC] ASDIRECTED
[2019-02-07 17:16] LABS: ANION GAP 17.3; CHLORIDE,CL 98 mmol/L (101-111); SODIUM,NA 133 mmol/L (135-145)
[2019-02-07 19:19] VITALS: BP 112/59; PULSE 102
== END 2019-02-07 19:19 ==
LOC: DL.ED 16:31
DX: K92.2 Gastrointestinal hemorrhage, unspecified (principal); I25.10 Atherosclerotic heart disease of native coronary artery without angina pectoris; E78.00 Pure hypercholesterolemia, unspecified; I10 Essential (primary) hypertension; E11.9 Type 2 diabetes mellitus without complications; F32.9 Major depressive disorder, single episode, unspecified; F17.210 Nicotine dependence, cigarettes, uncomplicated; Z88.6 Allergy status to analgesic agent; Z79.899 Other long term (current) drug therapy; Z79.01 Long term (current) use of anticoagulants; Z79.84 Long term (current) use of oral hypoglycemic drugs; Z88.8 Allergy status to other drugs, medicaments and biological substances
CPT/HCPCS: 36415; 80053; 82272; 84484; 85025; 85610; 93005; 99285-25

== ENCOUNTER 2019-03-22 20:43 | Emergency (ER) | payer OTHER ==
[2019-03-22] MEDS: Sodium Chloride 0.9% 1,000 ML IV ONE ×2 (21:06→22:10)
[2019-03-22] MEDS: Ondansetron 4 MG/2 ML SDV IV ONE (21:12)
[2019-03-22] MEDS: Ondansetron 4 MG/2 ML SDV ONE (21:21)
[2019-03-22 21:33] LABS: ANION GAP 18.4; CHLORIDE,CL 100 mmol/L (101-111); SODIUM,NA 133 mmol/L (135-145)
[2019-03-22] MEDS: Norepinephrine 4 MG/4 ML SDV ONE (21:34)
[2019-03-22] MEDS: Norepinephrine 4 MG in Dextrose 5% in Water 246 ML IV SCH ×2 (21:38)
--- NOTE | 2019-03-22 22:04 | EDM.PDOC ---
ED HPI GENERAL MEDICAL PROBLEM - General Chief Complaint: General Stated Complaint: AMBULANCE Time Seen by Provider: 03/22/19 20:50 Source of Information: Reports: Patient, EMS, RN History Limitations: Reports: Altered Mental Status - History of Present Illness INITIAL COMMENTS - FREE TEXT/NARRATIVE: ED via [facility] tiered response with [facility] patient with altered mental status, Patient reported feeling sweaty and dizzy. Was eased into chair , did not fall. c.o lateral right abdominal pain. Recent CT this am of abdominal hematoma. Spouse notes increase in size of area and increased discoloration. No nausea or vomiting. No chest discomfort, No SOB. - Related Data Allergies Allergy/AdvReac Type Severity Reaction Status Date / Time propoxyphene Allergy Mild Nausea Verified 03/22/19 23:48 [From Shait-N] codeine Allergy Itching Verified 03/22/19 23:48 procaine Allergy Cannot Verified 03/22/19 23:48 Remember Home Meds: Home Meds DULoxetine [Cymbalta] 60 mg PO DAILY 04/11/14 [History] atorvaSTATin [Lipitor] 40 mg PO BEDTIME 03/07/17 [History] hydrOXYzine HCl [Atarax] 10 mg PO BEDTIME PRN 03/07/17 [History] Metoprolol Succinate [Toprol XL] 50 mg PO DAILY 02/07/18 [History] metFORMIN [Glucophage] 1,000 mg PO BIDMEALS 02/07/18 [History] Acetaminophen [Tylenol Extra Strength] 1,000 mg PO Q6H 06/15/18 [History] Albuterol [Proventil HFA] 2 puff INH Q6H PRN 06/15/18 [History] Cholecalciferol (Vitamin D3) [Vitamin D3] 1,000 units PO DAILY 06/15/18 [History ] Furosemide 40 mg PO DAILY 06/15/18 [History] Glimepiride 1 mg PO DAILY 06/15/18 [History] Lidocaine Patch 1 unit TOP ASDIRECTED 06/15/18 [History] Loratadine [Claritin] 10 mg PO DAILY PRN 06/15/18 [History] Nicotine [Nicotine Patch] 1 each TD DAILY 06/15/18 [History] Polyethylene Glycol 3350 [MiraLAX] 17 gm PO DAILY 06/15/18 [History] Potassium Chloride 20 meq PO DAILY 06/15/18 [History] Sennosides/Docusate Sodium [Sennosides-Docusate Sodium] 1 tab PO BID 06/15/18 [ History] Warfarin [Coumadin] 3 mg PO DAILY 06/15/18 [History] Ferrous Gluconate 324 mg PO BID 06/30/18 [History] Ascorbic Acid [Vitamin C] 250 mg PO BID 08/02/18 [History] Ondansetron [Zofran ODT] 4 mg PO Q8H PRN 08/02/18 [History] Pantoprazole Sodium [Protonix] 40 mg PO BID 08/02/18 [History] oxyCODONE HCl/Acetaminophen [Oxycodone-Acetaminophen 5-325] 1 tab PO BID PRN 01/12 [History] Past Medical History HEENT History: Reports: None Cardiovascular History: Reports: CAD, Heart Murmur, Heart Valve Replacement, High Cholesterol, Hypertension Respiratory History: Reports: None Gastrointestinal History: Reports: Chronic Constipation, Diverticulosis, GI Bleed Genitourinary History: Reports: None MANAGER OF HUMAN RESOURCES History: Reports: , Spontaneous Musculoskeletal History: Reports: Arthritis, Back Pain, Chronic, Other (See Below) Other Musculoskeletal History: DEGENERATIVE JOINT DISEASE Neurological History: Reports: None Psychiatric History: Reports: Anxiety, Depression Endocrine/Metabolic History: Reports: Diabetes, Type II Hematologic History: Reports: Anemia, Blood Transfusion(s), Iron Deficiency Immunologic History: Reports: None Oncologic (Cancer) History: Reports: None Dermatologic History: Reports: Eczema - Infectious Disease History Infectious Disease History: Reports: Rheumatic Fever - Past Surgical History Head Surgeries/Procedures: Reports: None HEENT Surgical History: Reports: Tonsillectomy Cardiovascular Surgical History: Reports: Valve Replacement GI Surgical History: Reports: Appendectomy, Cholecystectomy, EGD Female Surgical History: Reports: None Dermatological Surgical History: Reports: None Social & Family History - Family History Family Medical History: Noncontributory - Caffeine Use Caffeine Use: Reports: Coffee, Soda Other Caffeine Use: Drinks these but not very often Caffeine Use Comment: 16. oz daily ED ROS GENERAL - Review of Systems Review Of Systems: See Below Constitutional: Reports: Weakness. Denies: Fever HEENT: Reports: No Symptoms Respiratory: Reports: No Symptoms Cardiovascular: Reports: Lightheadedness GI/Abdominal: Reports: Abdominal Pain (right later) : Reports: No Symptoms Musculoskeletal: Reports: No Symptoms Skin: Reports: Bruising (right lateral abdomen, small round raised lump this am , increased in size per spuse, current softball size area blue bruising, tender) Neurological: Reports: Weakness Hematologic/Lymphatic: Denies: Easy Bleeding ED EXAM, GENERAL - Physical Exam Exam: See Below Exam Limited By: No Limitations General Appearance: Lethargic Eye Exam: Bilateral Eye: EOMI, PERRL Ears: Normal External Exam, Normal TMs Nose: Normal Inspection, No Blood Throat/Mouth: Normal Inspection, Normal Oropharynx Head: Atraumatic, Normocephalic Neck: Normal Inspection Respiratory/Chest: No Respiratory Distress, Lungs Clear, Normal Breath Sounds Cardiovascular: Normal Peripheral Pulses, Regular Rate, Rhythm, Tachycardia GI/Abdominal: Normal Bowel Sounds, Soft, Tender (right lateral with hematoma). No: Distended, Guarding, Rigid Extremities: Other (weak, no redness or deformity) Neurological: Oriented, Normal Cognition, Slow to Respond, Other (responses appropriate, speech clear ). No: Memory Loss Remote Events, Memory Loss Recent Events Psychiatric: Flat Affect Skin Exam: Warm, Dry, Intact, Ecchymosis (right alteral abdomen) Course - Vital Signs Last Recorded V/S: Last Vital Signs Temp 97.6 F 03/22/19 20:50 Pulse 97 03/22/19 20:50 Resp 20 03/22/19 20:50 BP 89/46 L 03/22/19 20:50 Pulse Ox 92 L 03/22/19 20:50 - Orders/Labs/Meds Labs: Laboratory Tests 03/22/19 03/22/19 03/22/19 Range/Units 21:03 21:03 21:03 WBC 8.5 (5.0-10.0) 10^3/uL RBC 2.91 L (4.2-5.4) 10^6/uL Hgb 8.0 L (12.0-16.0) g/dL Hct 27.3 L (37.0-47.0) % MCV 93.8 D (80-100) fL MCH 27.5 (27.0-34.0) pg MCHC 29.3 L (33.0-35.0) g/dL Plt Count 280 D (150-450) 10^3/uL Neut % (Auto) 78.2 H (42.2-75.2) % Lymph % (Auto) 15.3 L (20.5-50.1) % [place] % (Auto) 5.3 (2-8) % Eos % (Auto) 0.5 L (1.0-3.0) % Baso % (Auto) 0.7 (0.0-1.0) % PT 27.3 H (9.0-12.0) SEC INR 2.8 H (0.9-1.2) Sodium 133 L (135-145) mmol/L Potassium 5.4 H (3.6-5.0) mmol/L Chloride 100 L (101-111) mmol/L Carbon Dioxide 20.0 L (21.0-31.0) mmol/L Anion Gap 18.4 BUN 47 H D (7-18) mg/dL Creatinine 0.9 (0.6-1.3) mg/dL Est Cr Clr Drug Dosing TNP Estimated GFR (MDRD) > 60 BUN/Creatinine Ratio 52.22 Glucose 141 H (74-105) mg/dL Lactic Acid (0.5-2.2) mmol/L Calcium 8.9 (8.4-10.2) mg/dl Magnesium 1.8 (1.8-2.5) mg/dL Total Bilirubin 0.9 (0.2-1.0) mg/dL AST 80 H (10-42) IU/L ALT 40 (10-60) IU/L Alkaline Phosphatase 51 (42-121) IU/L Ammonia (11-35) umol/L CK-MB (CK-2) (0.4-4.7) ng/mL Troponin I 0.02 (0.00-0.02) ng/ml Total Protein 9.2 H (6.7-8.2) g/dl Albumin 3.0 L (3.2-5.5) g/dl Globulin 6.2 Albumin/Globulin Ratio 0.48 Ethyl Alcohol < 5 mg/dL Ketones Negative Blood Type Gel Antibody Screen Crossmatch 03/22/19 03/22/19 03/22/19 Range/Units 21:03 21:03 21:03 WBC (5.0-10.0) 10^3/uL RBC (4.2-5.4) 10^6/uL Hgb (12.0-16.0) g/dL Hct (37.0-47.0) % MCV (80-100) fL MCH (27.0-34.0) pg MCHC (33.0-35.0) g/dL Plt Count (150-450) 10^3/uL Neut % (Auto) (42.2-75.2) % Lymph % (Auto) (20.5-50.1) % [place] % (Auto) (2-8) % Eos % (Auto) (1.0-3.0) % Baso % (Auto) (0.0-1.0) % PT (9.0-12.0) SEC INR (0.9-1.2) Sodium (135-145) mmol/L Potassium (3.6-5.0) mmol/L Chloride (101-111) mmol/L Carbon Dioxide (21.0-31.0) mmol/L Anion Gap BUN (7-18) mg/dL Creatinine (0.6-1.3) mg/dL Est Cr Clr Drug Dosing Estimated GFR (MDRD) BUN/Creatinine Ratio Glucose (74-105) mg/dL Lactic Acid 7.1 H (0.5-2.2) mmol/L Calcium (8.4-10.2) mg/dl Magnesium (1.8-2.5) mg/dL Total Bilirubin (0.2-1.0) mg/dL AST (10-42) IU/L ALT (10-60) IU/L Alkaline Phosphatase (42-121) IU/L Ammonia 25 (11-35) umol/L CK-MB (CK-2) 2.90 (0.4-4.7) ng/mL Troponin I (0.00-0.02) ng/ml Total Protein (6.7-8.2) g/dl Albumin (3.2-5.5) g/dl Globulin Albumin/Globulin Ratio Ethyl Alcohol mg/dL Ketones Blood Type Gel Antibody Screen Crossmatch 03/22/19 Range/Units 21:03 WBC (5.0-10.0) 10^3/uL RBC (4.2-5.4) 10^6/uL Hgb (12.0-16.0) g/dL Hct (37.0-47.0) % MCV (80-100) fL MCH (27.0-34.0) pg MCHC (33.0-35.0) g/dL Plt Count (150-450) 10^3/uL Neut % (Auto) (42.2-75.2) % Lymph % (Auto) (20.5-50.1) % [place] % (Auto) (2-8) % Eos % (Auto) (1.0-3.0) % Baso % (Auto) (0.0-1.0) % PT (9.0-12.0) SEC INR (0.9-1.2) Sodium (135-145) mmol/L Potassium (3.6-5.0) mmol/L Chloride (101-111) mmol/L Carbon Dioxide (21.0-31.0) mmol/L Anion Gap BUN (7-18) mg/dL Creatinine (0.6-1.3) mg/dL Est Cr Clr Drug Dosing Estimated GFR (MDRD) BUN/Creatinine Ratio Glucose (74-105) mg/dL Lactic Acid (0.5-2.2) mmol/L Calcium (8.4-10.2) mg/dl Magnesium (1.8-2.5) mg/dL Total Bilirubin (0.2-1.0) mg/dL AST (10-42) IU/L ALT (10-60) IU/L Alkaline Phosphatase (42-121) IU/L Ammonia (11-35) umol/L CK-MB (CK-2) (0.4-4.7) ng/mL Troponin I (0.00-0.02) ng/ml Total Protein (6.7-8.2) g/dl Albumin (3.2-5.5) g/dl Globulin Albumin/Globulin Ratio Ethyl Alcohol mg/dL Ketones Blood Type O POSITIVE Gel Antibody Screen Negative Crossmatch See Detail Meds: Medications Discontinued Medications Generic Name Dose Route Start Last Admin Trade Name Freq PRN Reason Stop Dose Admin Sodium Chloride 1,000 mls @ 999 mls/hr 03/22/19 21:16 03/22/19 21:06 Normal Saline IV 03/22/19 22:16 999 mls/hr .BOLUS ONE Administration Norepinephrine Bitartrate 4 mg 250 mls @ 7.5 mls/hr 03/22/19 21:30 03/22/19 21:38 / Dextrose/Water IV 2 mcg/min TITRATE CARLOS 7.5 mls/hr Administration Protocol 2 MCG/MIN Piperacillin Sod/Tazobactam 100 mls @ 200 mls/hr 03/22/19 21:56 03/22/19 22: 12 Sod 3.375 gm/ Sodium Chloride IV 03/22/19 22:25 200 mls/hr ONETIME ONE Administration Sodium Chloride 1,000 mls @ 999 mls/hr 03/22/19 22:04 03/22/19 22:10 Normal Saline IV 03/22/19 23:04 999 mls/hr .BOLUS ONE Administration Norepinephrine Bitartrate Confirm 03/22/19 21:27 03/22/19 21:34 Levophed Administered 03/22/19 21:28 Not Given Dose 4 mg .ROUTE .STK-MED ONE Ondansetron HCl 4 mg 03/22/19 21:09 03/22/19 21:12 Zofran IV 03/22/19 21:10 4 mg ONETIME ONE Administration Ondansetron HCl Confirm 03/22/19 21:09 03/22/19 21:21 Zofran Administered 03/22/19 21:10 Not Given Dose 4 mg .ROUTE .STK-MED ONE Phytonadione 2.5 mg 03/22/19 21:43 03/22/19 22:11 Aquamephyton PO 03/22/19 21:44 Not Given ONETIME ONE Phytonadione Confirm 03/22/19 21:48 03/22/19 22:11 Aquamephyton Administered 03/22/19 21:49 Not Given Dose 10 mg .ROUTE .STK-MED ONE Phytonadione 2.5 mg 03/22/19 22:07 03/22/19 22:09 Aquamephyton IM 03/22/19 22:08 2.5 mg ONETIME ONE Administration - Re-Assessments/Exams Free Text/Narrative Re-Assessment/Exam: Hgb day prior 10.5 per . BP decreased to 40/s Slight improvement with 2L IV fluids and Levophed titration. On chronic anticoag. undetermined source of bleed. Tx [facility] via [facility]. [facility]oto unable to fly due to weather. Stat blood due to symptoms hypotension altered mental state, increase hematoma of abdominal wall. Unstable to repeat CT. Departure - Departure Time of Disposition: 05:15 Disposition: DC/Tfer to Acute Hospital 02 Condition: Critical, Undetermined Clinical Impression: Abdominal pain, Hyperkalemia, Hyponatremia, CHF, Congestive heart failure, Chronic anticoagulation, Hx of aortic valve stenosis, Hypoxemia, Spontaneous hematoma of abdominal wall Anemia Qualifiers: Anemia type: other cause Other causes of anemia: other cause, not classified Qualified Code(s): D64.89 - Other specified anemias Hypotension Qualifiers: Hypotension type: unspecified hypotension type Qualified Code(s): I95.9 - Hypotension, unspecified - Discharge Information *PRESCRIPTION DRUG MONITORING PROGRAM REVIEWED*: No *COPY OF PRESCRIPTION DRUG MONITORING REPORT IN PATIENT LINDA: No Referrals: [facility] [Primary Care Provider] - Forms: ED Department Discharge
[2019-03-22] MEDS: Phytonadione 1 MG/0.5 ML Syringe IM ONE (22:09)
[2019-03-22] MEDS: Phytonadione ORAL 2.5mg/2.5ml Soln Simple Syrup U/D PO ONE (22:11)
[2019-03-22] MEDS: Piperacillin/Tazobactam 3.375 GM in Sodium Chloride 0.9% 100 ML IV ONE (22:12)
[2019-03-22 23:49] VITALS: BP 89/46; PULSE 97
== END 2019-03-22 22:42 ==
LOC: DL.ED 20:43
DX: M79.81 Nontraumatic hematoma of soft tissue (principal); E87.5 Hyperkalemia; E87.1 Hypo-osmolality and hyponatremia; R09.02 Hypoxemia; I50.9 Heart failure, unspecified; D64.89 Other specified anemias; I95.9 Hypotension, unspecified; I10 Essential (primary) hypertension; E11.9 Type 2 diabetes mellitus without complications; E78.00 Pure hypercholesterolemia, unspecified; I25.10 Atherosclerotic heart disease of native coronary artery without angina pectoris; Z79.01 Long term (current) use of anticoagulants; Z88.5 Allergy status to narcotic agent; Z79.899 Other long term (current) drug therapy; Z79.84 Long term (current) use of oral hypoglycemic drugs
CPT/HCPCS: 36415; 36430; 70450; 71045; 80053; 80320; 82009; 82140; 82553; 83605; 83735; 84484; 85025; 85610; 86850; 86900; 86901; 86920; 86922; 93005; 96365; 96372; 96375; 99285; J2405; J2543; J3490; J7030; J7050; J7060; P9016; 93010; 99284; G0480

== ENCOUNTER 2019-04-07 14:48 | Observation (INO) | payer OTHER ==
[2019-04-07 16:30] VITALS: BP 109/54; PULSE 107
--- NOTE | 2019-04-07 18:34 | HP ---
CHIEF COMPLAINT: Increasing weakness, tiredness. HISTORY OF PRESENTING ILLNESS: Ms. Holly Romero is a 68-year-old female with medical history significant for hypertension, hyperlipidemia, coronary artery disease, history of aortic valve stenosis requiring aortic valve replacement. She had a mechanical aortic valve done in 2013, and in 04/2018, she had a mechanical aortic valve done due to severe stenosis, and she has been in and out of the hospital secondary to frequent GI bleeds. She had multiple colonoscopies and upper endoscopies done at [facility], which showed evidence of possible AV malformation. She also noted to have a capsular endoscopy. 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 Her hemoglobin was down to 7.4, on that visit, so the patient got transferred here for possibly receiving blood transfusion. At this time, the patient complains of weakness, which has been going on for the last 4 to 5 days, aggravated on exertion, relieved with rest. She denies any hematemesis hematochezia, or melenic stools. PAST MEDICAL HISTORY: Significant for hypertension, hyperlipidemia, severe aortic stenosis, obesity, type 2 diabetes mellitus, coronary artery disease. PAST SURGICAL HISTORY: Significant for multiple upper endoscopy and colonoscopy, cholecystectomy, cardiac surgery, valve replacement, capsular endoscopy, breast lumpectomy. FAMILY HISTORY: Diabetes in her cousin. SOCIAL HISTORY: Chronic history of tobacco use. No history of alcohol intake. ALLERGIES: The patient noted to have allergies to procaine, codeine, propoxyphene. MEDICATIONS: Home medications reviewed. She is noted to be on Lasix 20 mg daily, Coumadin 3 mg daily, albuterol 2 puffs inhalation every 6 hours, Cymbalta 60 mg daily, vitamin D3 of 1000 units daily, vitamin C 250 mg twice a day, glimepiride 1 mg daily, nicotine patch 14 mg transdermal daily, Toprol-XL 50 mg daily, potassium chloride 20 mEq daily, Protonix 40 mg twice a day, metformin 1000 mg twice a day, hydroxyzine 10 mg at bedtime, Lipitor 40 mg at bedtime. PHYSICAL EXAMINATION: Vitals: Blood pressure of 109/54, heart rate of 107. General Appearance: The patient is well oriented to time, place, and person. Follows commands spontaneously. Cardiovascular System: S1, S2 heard with normal intensity. Lowered S2. Respiratory System: Clear to auscultation bilaterally. No wheeze. No crepitations. Abdomen: Soft. Bowel sounds positive. Nontender. No rigidity. Extremities: No edema of bilateral lower extremities. ASSESSMENT: 1. Severe anemia with symptoms. 2. Hypertension. 3. Hyperlipidemia. 4. Status post aortic valve replaced. 5. Chronic anticoagulation with Coumadin. PLAN: 1. Severe anemia. The patient is noted to be symptomatic with increasing weakness and dizziness. Her hemoglobin down to 7.4. She got transferred here to receive blood transfusion, but on further workup, it is noted that we could not get her blood till Wednesday because she has antibodies to her blood products and unfortunately we do not have a edging supervisor going out today. So by the time we can give her any blood would be Wednesday, but as the patient is symptomatic, we are going to transfer to a higher level of care where she will get blood transfusion as soon as possible to avoid any symptoms worsening. She is hemodynamically stable at this time. She has chronic history of low blood pressure. She will be discharged to [facility]. Dr. Landaverde has accepted the patient in transfer. She remains hemodynamically stable for transfer at this time. 2. Consider this as discharge summary also for this patient who is only shortly admitted to our facility in an effort to help the patient, but unfortunately we could not give her blood transfusions in next 4 days, so she will be transferred to higher level of care where she could get the blood transfusion right away. [facility] /[id number]
== END 2019-04-07 16:51 ==
LOC: UNDOADMOB 15:09 → DL.MS 15:09
PROVIDERS: ADMIT Internal Medicine; ATTEND Internal Medicine
DX: D64.9 Anemia, unspecified (principal); I10 Essential (primary) hypertension; I25.10 Atherosclerotic heart disease of native coronary artery without angina pectoris; E11.9 Type 2 diabetes mellitus without complications; E78.5 Hyperlipidemia, unspecified; E66.9 Obesity, unspecified; Z88.5 Allergy status to narcotic agent; Z88.4 Allergy status to anesthetic agent; Z87.891 Personal history of nicotine dependence; Z79.01 Long term (current) use of anticoagulants; Z79.84 Long term (current) use of oral hypoglycemic drugs; Z79.899 Other long term (current) drug therapy
CPT/HCPCS: G0378; G0379

== ENCOUNTER 2019-06-09 18:17 | Emergency (ER) | payer OTHER ==
[2019-06-09 18:58] VITALS: BP 92/46; PULSE 98
[2019-06-09 19:53] LABS: ANION GAP 12.7; CHLORIDE,CL 98 mmol/L (101-111); SODIUM,NA 128 mmol/L (135-145)
[2019-06-09] MEDS ORDERED: Albuterol/Ipratropium 3.0-0.5 MG/3 ML Neb Soln NEB ONE (19:54)
[2019-06-09] MEDS ORDERED: methylPREDNISolone Sodium Succinate 125 MG/2 ML SDV IVPUSH ONE (19:55)
[2019-06-09] MEDS ORDERED: guaiFENesin 100 MG/5 ML Soln 5 ML UD Cup PO ONE (19:56)
[2019-06-09] MEDS ORDERED: cefTRIAXone 1 GM in Sodium Chloride 0.9% 50 ML IV ONE (20:04)
[2019-06-09] MEDS ORDERED: Azithromycin 500 MG in Sodium Chloride 0.9% 250 ML IV ONE (20:05)
--- NOTE | 2019-06-09 20:15 | EDM.PDOC ---
ED HPI GENERAL MEDICAL PROBLEM - General Chief Complaint: Respiratory Problem Stated Complaint: FLU, PNEUMONIA PER PT Time Seen by Provider: 06/09/19 19:30 Source of Information: Reports: Patient, Family, RN, RN Notes Reviewed History Limitations: Reports: No Limitations - History of Present Illness INITIAL COMMENTS - FREE TEXT/NARRATIVE: Cough, chills, decreased appetite x 3 days, Pneumonia x 2. Cough productive green phlegm Headache Pain Score (Numeric/FACES): 7 - Related Data Allergies Allergy/AdvReac Type Severity Reaction Status Date / Time codeine Allergy Mild Itching Verified 06/09/19 20:11 propoxyphene Allergy Mild Nausea Verified 06/09/19 20:11 [From Darvocet-N] procaine Allergy Cannot Verified 06/09/19 20:11 Remember Home Meds: Home Meds DULoxetine [Cymbalta] 60 mg PO DAILY 04/11/14 [History] atorvaSTATin [Lipitor] 40 mg PO BEDTIME 03/07/17 [History] hydrOXYzine HCl [Atarax] 10 mg PO BEDTIME PRN 03/07/17 [History] Metoprolol Succinate [Toprol XL] 50 mg PO DAILY 02/07/18 [History] metFORMIN [Glucophage] 1,000 mg PO BIDMEALS 02/07/18 [History] Albuterol [Proventil HFA] 2 puff INH Q6H PRN 06/15/18 [History] Cholecalciferol (Vitamin D3) [Vitamin D3] 1,000 units PO DAILY 06/15/18 [History ] Glimepiride 1 mg PO ACBREAKFAST 06/15/18 [History] Lidocaine Patch 1 patch TOP DAILY 06/15/18 [History] Loratadine [Claritin] 10 mg PO DAILY PRN 06/15/18 [History] Nicotine [Nicotine Patch] 14 mg TD DAILY 06/15/18 [History] Potassium Chloride 20 meq PO DAILY 06/15/18 [History] Sennosides/Docusate Sodium [Sennosides-Docusate Sodium] 1 tab PO BID 06/15/18 [ History] Warfarin [Coumadin] 2.5 mg PO DAILY 06/15/18 [History] polyethylene glycoL 3350 [MiraLAX] 17 gm PO DAILY 06/15/18 [History] Ferrous Gluconate 324 mg PO TIDMEALS 06/30/18 [History] Ascorbic Acid [Vitamin C] 250 mg PO BID 08/02/18 [History] Pantoprazole Sodium [Protonix] 40 mg PO BIDAC 08/02/18 [History] ALPRAZolam [Alprazolam] 0.25 mg PO BID PRN 04/07/19 [History] Furosemide [Lasix] 20 mg PO DAILY 04/07/19 [History] Triamcinolone Acetonide [Triamcinolone Acetonide 0.1% Oint] 15 gm TOP BID PRN [History] Past Medical History HEENT History: Reports: None Cardiovascular History: Reports: CAD, Heart Murmur, Heart Valve Replacement, High Cholesterol, Hypertension Respiratory History: Reports: None Gastrointestinal History: Reports: Chronic Constipation, Diverticulosis, GI Bleed Genitourinary History: Reports: None 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 Musculoskeletal History: Reports: Arthritis, Back Pain, Chronic, Other (See Below) Other Musculoskeletal History: DEGENERATIVE JOINT DISEASE Neurological History: Reports: None Psychiatric History: Reports: Anxiety, Depression Endocrine/Metabolic History: Reports: Diabetes, Type II Hematologic History: Reports: Anemia, Blood Transfusion(s), Iron Deficiency Immunologic History: Reports: None Oncologic (Cancer) History: Reports: None Dermatologic History: Reports: Eczema - Infectious Disease History Infectious Disease History: Reports: Chicken Pox - Past Surgical History Head Surgeries/Procedures: Reports: None HEENT Surgical History: Reports: Tonsillectomy Cardiovascular Surgical History: Reports: Coronary Artery Bypass, Valve Replacement GI Surgical History: Reports: Appendectomy, Cholecystectomy, EGD Female Surgical History: Reports: Breast Biopsy Oncologic Surgical History: Reports: Biopsy of Breast Dermatological Surgical History: Reports: None Social & Family History - Family History Family Medical History: Noncontributory - Tobacco Use Smoking Status *Q: Current Every Day Smoker Years of Tobacco use: 10 Packs/Tins Daily: 0.4 - Caffeine Use Caffeine Use: Reports: Coffee Other Caffeine Use: Drinks these but not very often Caffeine Use Comment: 16. oz daily - Recreational Drug Use Recreational Drug Use: No ED ROS GENERAL - Review of Systems Review Of Systems: See Below Constitutional: Reports: Fever, Malaise, Fatigue, Decreased Appetite HEENT: Reports: Throat Pain Respiratory: Reports: Pleuritic Chest Pain, Cough, Hemoptysis Cardiovascular: Reports: Dyspnea on Exertion. Denies: Edema, Lightheadedness Endocrine: Reports: No Symptoms GI/Abdominal: Denies: Hematemesis Musculoskeletal: Reports: Other (General over all obdy aches) Skin: Reports: No Symptoms Neurological: Reports: No Symptoms ED EXAM, GENERAL - Physical Exam Exam: See Below General Appearance: Alert Eye Exam: Bilateral Eye: PERRL Ears: Normal External Exam, Normal TMs Nose: Normal Inspection Throat/Mouth: Normal Inspection, Normal Voice, Inflammation, Other (dry mucus membranes) Neck: Normal Inspection, Full Range of Motion Respiratory/Chest: Decreased Breath Sounds, Other (frequent pronchial cough). No: Crackles, Rales, Rhonchi Cardiovascular: Regular Rate, Rhythm, No Edema GI/Abdominal: Normal Bowel Sounds, Soft Extremities: Normal Inspection Neurological: Alert, Oriented, Normal Cognition Psychiatric: Flat Affect Course - Vital Signs Last Recorded V/S: Last Vital Signs Temp 98.6 F 06/09/19 18:57 Pulse 98 06/09/19 18:57 Resp 24 H 06/09/19 18:57 BP 92/46 L 06/09/19 18:57 Pulse Ox 95 06/09/19 18:57 - Orders/Labs/Meds Orders: Active Orders 24 hr Category Date Time Status EKG Documentation Completion [RC] STAT Care 06/09/19 19:18 Active RT Aerosol Therapy [RC] ASDIRECTED Care 06/09/19 19:55 Active RT Aerosol Therapy [RC] ASDIRECTED Care 06/09/19 20:55 Active CULTURE BLOOD [BC] Stat Lab 06/09/19 19:17 Received CULTURE BLOOD [BC] Stat Lab 06/09/19 20:29 Received Blood Culture x2 Reflex Set [OM.PC] Stat Oth 06/09/19 20:04 Ordered Labs: Laboratory Tests 06/09/19 06/09/19 06/09/19 Range/Units 19:17 19:17 19:17 WBC 10.4 H (5.0-10.0) 10^3/uL RBC 3.54 L (4.2-5.4) 10^6/uL Hgb 10.0 L D (12.0-16.0) g/dL Hct 32.7 L (37.0-47.0) % MCV 92.4 (80-100) fL MCH 28.2 (27.0-34.0) pg MCHC 30.6 L (33.0-35.0) g/dL Plt Count 248 (150-450) 10^3/uL Neut % (Auto) 86.9 H (42.2-75.2) % Lymph % (Auto) 7.0 L (20.5-50.1) % [place] % (Auto) 5.7 (2-8) % Eos % (Auto) 0.2 L (1.0-3.0) % Baso % (Auto) 0.2 (0.0-1.0) % PT (9.0-12.0) SEC INR (0.9-1.2) Sodium 128 L (135-145) mmol/L Potassium 3.7 D (3.6-5.0) mmol/L Chloride 98 L (101-111) mmol/L Carbon Dioxide 21.0 (21.0-31.0) mmol/L Anion Gap 12.7 BUN 9 D (7-18) mg/dL Creatinine 0.6 (0.6-1.3) mg/dL Est Cr Clr Drug Dosing 76.42 mL/min Estimated GFR (MDRD) > 60 BUN/Creatinine Ratio 15.00 Glucose 146 H (74-105) mg/dL Lactic Acid 3.5 H* (0.5-2.0) mmol/L Calcium 7.9 L (8.4-10.2) mg/dl Total Bilirubin 0.9 (0.2-1.0) mg/dL AST 41 (10-42) IU/L ALT 21 (10-60) IU/L Alkaline Phosphatase 78 (42-121) IU/L Troponin I < 0.02 (0.00-0.02) ng/ml B-Natriuretic Peptide 454 H (0-100) pg/ml Total Protein 9.3 H (6.7-8.2) g/dl Albumin 3.0 L (3.2-5.5) g/dl Globulin 6.3 Albumin/Globulin Ratio 0.48 Urine Color (YELLOW) Urine Appearance (CLEAR) Urine pH (5.0-9.0) Ur Specific [place] (1.005-1.030) Urine Protein (NEGATIVE) Urine Glucose (UA) (NEGATIVE) Urine Ketones (NEGATIVE) Urine Occult Blood (NEGATIVE) Urine Nitrite (NEGATIVE) Urine Bilirubin (NEGATIVE) Urine Urobilinogen (0.2-1.0) mg/dL Ur Leukocyte Esterase (NEGATIVE) 06/09/19 06/09/19 Range/Units 19:17 19:35 WBC (5.0-10.0) 10^3/uL RBC (4.2-5.4) 10^6/uL Hgb (12.0-16.0) g/dL Hct (37.0-47.0) % MCV (80-100) fL MCH (27.0-34.0) pg MCHC (33.0-35.0) g/dL Plt Count (150-450) 10^3/uL Neut % (Auto) (42.2-75.2) % Lymph % (Auto) (20.5-50.1) % [place] % (Auto) (2-8) % Eos % (Auto) (1.0-3.0) % Baso % (Auto) (0.0-1.0) % PT 28.8 H (9.0-12.0) SEC INR 3.0 H (0.9-1.2) Sodium (135-145) mmol/L Potassium (3.6-5.0) mmol/L Chloride (101-111) mmol/L Carbon Dioxide (21.0-31.0) mmol/L Anion Gap BUN (7-18) mg/dL Creatinine (0.6-1.3) mg/dL Est Cr Clr Drug Dosing mL/min Estimated GFR (MDRD) BUN/Creatinine Ratio Glucose (74-105) mg/dL Lactic Acid (0.5-2.0) mmol/L Calcium (8.4-10.2) mg/dl Total Bilirubin (0.2-1.0) mg/dL AST (10-42) IU/L ALT (10-60) IU/L Alkaline Phosphatase (42-121) IU/L Troponin I (0.00-0.02) ng/ml B-Natriuretic Peptide (0-100) pg/ml Total Protein (6.7-8.2) g/dl Albumin (3.2-5.5) g/dl Globulin Albumin/Globulin Ratio Urine Color Dark yellow (YELLOW) Urine Appearance Slightly cloudy (CLEAR) Urine pH 6.0 (5.0-9.0) Ur Specific [place] 1.020 (1.005-1.030) Urine Protein Negative (NEGATIVE) Urine Glucose (UA) Negative (NEGATIVE) Urine Ketones Negative (NEGATIVE) Urine Occult Blood Negative (NEGATIVE) Urine Nitrite Negative (NEGATIVE) Urine Bilirubin Negative (NEGATIVE) Urine Urobilinogen 1.0 (0.2-1.0) mg/dL Ur Leukocyte Esterase Negative (NEGATIVE) Meds: Medications Discontinued Medications Generic Name Dose Route Start Last Admin Trade Name Freq PRN Reason Stop Dose Admin Albuterol 2.5 mg 06/09/19 20:55 06/09/19 21:00 Proventil Neb Soln NEB 06/09/19 20:56 2.5 mg ONETIME ONE Administration Albuterol/Ipratropium 3 ml 06/09/19 19:54 06/09/19 20:02 Duoneb 3.0-0.5 Mg/3 Ml NEB 06/09/19 19:55 3 ml ONETIME ONE Administration Guaifenesin 100 mg 06/09/19 19:56 06/09/19 20:03 Robitussin PO 06/09/19 19:57 100 mg ONETIME ONE Administration Ceftriaxone Sodium 1 gm/ 50 mls @ 100 mls/hr 06/09/19 20:04 06/09/19 20:30 Sodium Chloride IV 06/09/19 20:33 100 mls/hr ONETIME ONE Administration Azithromycin 500 mg/ Sodium 250 mls @ 250 mls/hr 06/09/19 20:05 06/09/19 21: 05 Chloride IV 06/09/19 21:04 250 mls/hr ONETIME ONE Administration Sodium Chloride 1,000 mls @ 999 mls/hr 06/09/19 20:19 06/09/19 20:30 Normal Saline IV 06/09/19 21:19 999 mls/hr .BOLUS ONE Administration Piperacillin Sod/Tazobactam 100 mls @ 200 mls/hr 06/09/19 21:11 06/09/19 21: 42 Sod 3.375 gm/ Sodium Chloride IV 06/09/19 21:40 200 mls/hr ONETIME ONE Administration Methylprednisolone Sodium Succinate 125 mg 06/09/19 19:55 06/09/19 20:02 Solu-Medrol IVPUSH 06/09/19 19:56 125 mg ONETIME ONE Administration Morphine Sulfate 2 mg 06/09/19 21:10 06/09/19 21:18 Morphine IVPUSH 06/09/19 21:11 2 mg ONETIME ONE Administration Departure - Departure Time of Disposition: 21:50 Disposition: DC/Tfer to Acute Hospital 02 Condition: Undetermined Clinical Impression: Pneumonia, Hx of aortic valve replacement, Chronic anticoagulation, Hyponatremia, Cough with hemoptysis Sepsis Qualifiers: Sepsis type: sepsis due to unspecified organism Sepsis acute organ dysfunction status: without acute organ dysfunction Qualified Code(s): A41.9 - Sepsis, unspecified organism - Discharge Information *PRESCRIPTION DRUG MONITORING PROGRAM REVIEWED*: No *COPY OF PRESCRIPTION DRUG MONITORING REPORT IN PATIENT LINDA: No Referrals: PCP,Unobtain [Primary Care Provider] - Forms: ED Department Discharge Sepsis Event Note - Evaluation Sepsis Screening Result: Possible Severe Sepsis Risk - Focused Exam Vital Signs: Vital Signs Temp Pulse Resp BP Pulse Ox 06/09/19 18:57 98.6 F 98 24 H 92/46 L 95 Date Exam was Performed: 06/10/19 Time Exam was Performed: 06:08 - My Orders Last 24 Hours: My Active Orders 06/09/19 19:17 CULTURE BLOOD [BC] Stat 06/09/19 19:18 EKG Documentation Completion [RC] STAT 06/09/19 19:55 RT Aerosol Therapy [RC] ASDIRECTED 06/09/19 20:04 Blood Culture x2 Reflex Set [OM.PC] Stat 06/09/19 20:29 CULTURE BLOOD [BC] Stat 06/09/19 20:55 RT Aerosol Therapy [RC] ASDIRECTED - Assessment/Plan Last 24 Hours: My Active Orders 06/09/19 19:17 CULTURE BLOOD [BC] Stat 06/09/19 19:18 EKG Documentation Completion [RC] STAT 06/09/19 19:55 RT Aerosol Therapy [RC] ASDIRECTED 06/09/19 20:04 Blood Culture x2 Reflex Set [OM.PC] Stat 06/09/19 20:29 CULTURE BLOOD [BC] Stat 06/09/19 20:55 RT Aerosol Therapy [RC] ASDIRECTED
[2019-06-09] MEDS ORDERED: Sodium Chloride 0.9% 1,000 ML IV ONE (20:19)
[2019-06-09] MEDS ORDERED: Albuterol 0.083% 2.5 MG/3 ML Neb Soln NEB ONE (20:55)
[2019-06-09] MEDS ORDERED: Morphine 2 MG/ML SYRINGE IVPUSH ONE (21:10)
[2019-06-09] MEDS ORDERED: Piperacillin/Tazobactam 3.375 GM in Sodium Chloride 0.9% 100 ML IV ONE (21:11)
== END 2019-06-09 21:45 ==
LOC: DL.ED 18:17
DX: A41.9 Sepsis, unspecified organism (principal); J18.9 Pneumonia, unspecified organism; R04.2 Hemoptysis; I11.0 Hypertensive heart disease with heart failure; I50.9 Heart failure, unspecified; E78.00 Pure hypercholesterolemia, unspecified; F41.9 Anxiety disorder, unspecified; F32.9 Major depressive disorder, single episode, unspecified; E11.9 Type 2 diabetes mellitus without complications; F17.210 Nicotine dependence, cigarettes, uncomplicated; E87.1 Hypo-osmolality and hyponatremia; Z88.5 Allergy status to narcotic agent; Z88.8 Allergy status to other drugs, medicaments and biological substances; Z88.4 Allergy status to anesthetic agent; Z79.899 Other long term (current) drug therapy; Z79.84 Long term (current) use of oral hypoglycemic drugs; Z79.01 Long term (current) use of anticoagulants; Z79.52 Long term (current) use of systemic steroids
CPT/HCPCS: 36415; 71045; 80053; 81003; 83605; 83880; 84484; 85025; 85610; 87040; 87804; 93005; 96365; 96368; 96375; 99285; A9270; J0456; J0696; J2270; J2543; J2930; J7030; J7050; 99284; J7613-GY; J7620-GY

== ENCOUNTER 2020-03-12 16:10 | Emergency (ER) | payer OTHER ==
[2020-03-12 16:58] VITALS: BP 104/46; PULSE 104
[2020-03-12] MEDS ORDERED: Codeine/guaiFENesin 10-100 MG/5 ML Syrup 5 ML Cup PO ONE (17:14)
[2020-03-12 17:47] LABS: CHLORIDE,CL 101 mmol/L (98-107); SODIUM,NA 135 mmol/L (136-145)
[2020-03-12] MEDS ORDERED: methylPREDNISolone Sodium Succinate 40 MG/1 ML SDV IM ONE (17:47)
[2020-03-12] MEDS ORDERED: cefTRIAXone 1 GM, Lidocaine 1% 2.1 ML IM ONE ×2 (17:47)
--- NOTE | 2020-03-12 17:48 | CR ---
PROCEDURE INFORMATION: Exam: XR Chest, 2 Views Exam date and time: 03/12/2020 5:34 PM Age: 69 years old Clinical indication: Shortness of breath; Additional info: Short of breath (covid - last week) TECHNIQUE: Imaging protocol: XR of the chest Views: 2 views. COMPARISON: CR Chest 1V Frontal 06/09/2019 7:40 PM FINDINGS: Lungs: Right upper lobe consolidation seen on the prior study has resolved. There is no evidence of pulmonary edema. Pleural space: No pleural effusion. No pneumothorax. Heart/Mediastinum: There has been an aortic valve replacement. Mild cardiomegaly. Bones/joints: Status post median sternotomy. No acute bony findings are identified. IMPRESSION: 1. Postoperative chest 2. No acute findings.
--- NOTE | 2020-03-12 17:50 | EDM.PDOC ---
ED HPI GENERAL MEDICAL PROBLEM - General Chief Complaint: Respiratory Problem Stated Complaint: 97.3*, COUGH - 6 DAYS . Time Seen by Provider: 03/12/20 17:10 Source of Information: Reports: Patient History Limitations: Reports: No Limitations - History of Present Illness INITIAL COMMENTS - FREE TEXT/NARRATIVE: This 69 yo female patient reports to the ED with a cough for the past 6 days. The patient reports she was seen in the [facility] last and tested negative for COVID. The patient reports she did not have any other testing done and no x-rays. The patient reports she has been taking Robitussin while at home, but has not had any relief. 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) Back Pain Score (Numeric/FACES): 5 - Related Data Allergies Allergy/AdvReac Type Severity Reaction Status Date / Time codeine Allergy Mild Itching Verified 02/11/20 10:01 propoxyphene Allergy Mild Nausea Verified 02/11/20 10:01 [From Darvocet-N] procaine Allergy Cannot Verified 02/11/20 10:01 Remember Home Meds: Home Meds DULoxetine [Cymbalta] 60 mg PO DAILY 04/11/14 [History] atorvaSTATin [Lipitor] 40 mg PO BEDTIME 03/07/17 [History] hydrOXYzine HCl [Atarax] 10 mg PO BEDTIME PRN 03/07/17 [History] Metoprolol Succinate [Toprol XL] 50 mg PO DAILY 02/07/18 [History] metFORMIN [Glucophage] 1,000 mg PO BIDMEALS 02/07/18 [History] Albuterol [Proventil HFA] 2 puff INH Q6H PRN 06/15/18 [History] Cholecalciferol (Vitamin D3) [Vitamin D3] 1,000 units PO DAILY 06/15/18 [History] Glimepiride 1 mg PO ACBREAKFAST 06/15/18 [History] Lidocaine Patch 1 patch TOP DAILY 06/15/18 [History] Loratadine [Claritin] 10 mg PO DAILY PRN 06/15/18 [History] Potassium Chloride 20 meq PO DAILY 06/15/18 [History] Sennosides/Docusate Sodium [Sennosides-Docusate Sodium] 1 tab PO BID 06/15/18 [History] Warfarin [Coumadin] 3 mg PO ASDIRECTED 06/15/18 [History] polyethylene glycoL 3350 [MiraLAX] 17 gm PO DAILY PRN 06/15/18 [History] Ferrous Gluconate 324 mg PO TIDMEALS 06/30/18 [History] Ascorbic Acid [Vitamin C] 250 mg PO BID 08/02/18 [History] Pantoprazole Sodium [Protonix] 40 mg PO BIDAC 08/02/18 [History] ALPRAZolam [Alprazolam] 0.25 mg PO BID PRN 04/07/19 [History] Furosemide [Lasix] 40 mg PO DAILY 04/07/19 [History] Past Medical History HEENT History: Reports: None Cardiovascular History: Reports: CAD, Heart Murmur, Heart Valve Replacement, High Cholesterol, Hypertension Respiratory History: Reports: Pneumonia, Recurrent Gastrointestinal History: Reports: Chronic Constipation, Diverticulosis, GI Bleed Genitourinary History: Reports: None 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 Musculoskeletal History: Reports: Arthritis, Back Pain, Chronic, Other (See Below) Other Musculoskeletal History: DEGENERATIVE JOINT DISEASE Neurological History: Reports: None Psychiatric History: Reports: Anxiety, Depression Endocrine/Metabolic History: Reports: Diabetes, Type II Hematologic History: Reports: Anemia, Blood Transfusion(s), Iron Deficiency Immunologic History: Reports: None Oncologic (Cancer) History: Reports: None Dermatologic History: Reports: Eczema - Infectious Disease History Infectious Disease History: Reports: Chicken Pox - Past Surgical History Head Surgeries/Procedures: Reports: None HEENT Surgical History: Reports: Tonsillectomy Cardiovascular Surgical History: Reports: Coronary Artery Bypass, Valve Replacement Other Cardiovascular Surgeries/Procedures: Open heart surgery (mechanical aortic valve replacement) 05-26-2018 Respiratory Surgical History: Reports: None GI Surgical History: Reports: Appendectomy, Cholecystectomy, Colonoscopy, EGD Female Surgical History: Reports: Breast Biopsy Other Female Surgeries/Procedures: BREAST LUMPECTOMY Musculoskeletal Surgical History: Reports: Other (See Below) Other Musculoskeletal Surgeries/Procedures:: RIGHT WRIST LUMPECTOMY, BENIGN Oncologic Surgical History: Reports: Biopsy of Breast Dermatological Surgical History: Reports: None Social & Family History - Family History Family Medical History: No Pertinent Family History - Tobacco Use Tobacco Use Status *Q: Current Some Day Tobacco User Years of Tobacco use: 40 Packs/Tins Daily: 0.2 - Caffeine Use Caffeine Use: Reports: Coffee Other Caffeine Use: Drinks these but not very often Caffeine Use Comment: 16. oz daily - Recreational Drug Use Recreational Drug Use: No ED ROS GENERAL - Review of Systems Review Of Systems: Comprehensive ROS is negative, except as noted in HPI. ED EXAM, GENERAL - Physical Exam Exam: See Below Exam Limited By: No Limitations General Appearance: Alert, WD/WN, Moderate Distress Eye Exam: Bilateral Eye: EOMI, Normal Inspection, PERRL Ears: Normal External Exam, Normal Canal, Hearing Grossly Normal, Normal TMs Nose: Normal Inspection, Normal Mucosa, No Blood Throat/Mouth: Normal Inspection, Normal Lips, Normal Teeth, Normal Gums, Normal Oropharynx, Normal Voice, No Airway Compromise Head: Atraumatic, Normocephalic Neck: Normal Inspection, Supple, Non-Tender, Full Range of Motion Respiratory/Chest: Decreased Breath Sounds, Rhonchi (bilateral lower lobes) Cardiovascular: Normal Peripheral Pulses, Regular Rate, Rhythm, No Edema, No Gallop, No JVD, No Murmur, No Rub GI/Abdominal: Normal Bowel Sounds, Soft, Non-Tender, No Organomegaly, No Distention, No Abnormal Bruit, No Mass (Female) Exam: Deferred Rectal (Female) Exam: Deferred Back Exam: Normal Inspection, Full Range of Motion, NT Extremities: Normal Inspection, Normal Range of Motion, Non-Tender, Normal Capillary Refill, No Pedal Edema Neurological: Alert, Oriented, CN II-XII Intact, Normal Cognition, Normal Gait, Normal Reflexes, No Motor/Sensory Deficits Psychiatric: Normal Affect, Normal Mood Skin Exam: Warm, Dry, Intact, Normal Color, No Rash Lymphatic: No Adenopathy Course - Vital Signs Last Recorded V/S: Last Vital Signs Temp 36.6 C 03/12/20 16:54 Pulse 104 H 03/12/20 16:54 Resp 20 03/12/20 16:54 BP 104/46 L 03/12/20 16:54 Pulse Ox 98 03/12/20 16:54 - Orders/Labs/Meds Orders: Active Orders 24 hr Category Date Time Status Chest 2V [CR] Urgent Exams 03/12/20 17:00 Ordered CBC WITH AUTO DIFF [HEME] Stat Lab 03/12/20 17:00 Ordered COMPREHENSIVE METABOLIC PN,CMP [CHEM] Stat Lab 03/12/20 17:00 Ordered CULTURE BLOOD [BC] Stat Lab 03/12/20 17:00 Ordered LACTIC ACID [CHEM] Stat Lab 03/12/20 17:00 Ordered Departure - Departure Time of Disposition: 17:50 Disposition: Home, Self-Care 01 Condition: Fair Clinical Impression: Bronchitis - Discharge Information *PRESCRIPTION DRUG MONITORING PROGRAM REVIEWED*: Not Applicable *COPY OF PRESCRIPTION DRUG MONITORING REPORT IN PATIENT LINDA: Not Applicable Instructions: Acute Bronchitis, Adult, [id number] Care Plan Goals: The patient was advised of the examination, x-ray and lab results during the vis it. The patient was given an injection of Rocephin (1 gram) and an injection of SoluMedrol while in the ED. The patient was discharged with a script for Azithromycin (250 mg) #6 to take 2 by mouth on day 1 and 1 by mouth on days 2-5 and Prednisone (20 mg) #10 to take 2 by mouth daily for 5 days. If the patient has any additional symptoms or concerns, the patient should visit her primary care facility or return to the emergency department. Sepsis Event Note (ED) - Evaluation Sepsis Screening Result: No Definite Risk - Focused Exam Vital Signs: Vital Signs Temp Pulse Resp BP Pulse Ox 03/12/20 16:54 36.6 C 104 H 20 104/46 L 98 - My Orders Last 24 Hours: My Active Orders 03/12/20 17:00 Chest 2V [CR] Urgent CBC WITH AUTO DIFF [HEME] Stat COMPREHENSIVE METABOLIC PN,CMP [CHEM] Stat CULTURE BLOOD [BC] Stat LACTIC ACID [CHEM] Stat - Assessment/Plan Last 24 Hours: My Active Orders 03/12/20 17:00 Chest 2V [CR] Urgent CBC WITH AUTO DIFF [HEME] Stat COMPREHENSIVE METABOLIC PN,CMP [CHEM] Stat CULTURE BLOOD [BC] Stat LACTIC ACID [CHEM] Stat
== END 2020-03-12 18:15 | disposition home or self-care (01) ==
LOC: DL.ED 16:10
DX: J40 Bronchitis, not specified as acute or chronic (principal); F17.210 Nicotine dependence, cigarettes, uncomplicated; I25.10 Atherosclerotic heart disease of native coronary artery without angina pectoris; E78.00 Pure hypercholesterolemia, unspecified; I10 Essential (primary) hypertension; E11.9 Type 2 diabetes mellitus without complications; Z79.84 Long term (current) use of oral hypoglycemic drugs; Z79.899 Other long term (current) drug therapy; Z88.5 Allergy status to narcotic agent; Z88.6 Allergy status to analgesic agent
CPT/HCPCS: 36415; 71046; 80053; 83605; 85025; 87040; 96372; 99283; J0696; J2001; J2920

== ENCOUNTER 2020-08-23 13:58 | Emergency (ER) | payer OTHER ==
--- NOTE | 2020-08-23 13:59 | EDM.PDOC ---
ED HPI GENERAL MEDICAL PROBLEM - General Chief Complaint: Gastrointestinal Problem Stated Complaint: AMBULANCE Time Seen by Provider: 08/23/20 13:58 Source of Information: Reports: Patient, Family, Old Records, RN, RN Notes Reviewed History Limitations: Reports: No Limitations - History of Present Illness INITIAL COMMENTS - FREE TEXT/NARRATIVE: Pt presents to ER stating that she was sent from clinic due to black stool with a Hgb that dropped from 10.4 last week to 6.4 in clinic today, and an INR of 6.5. Pt is on chronic anticoagulation due to a mechanical heart valve. She re port generalized abdominal discomfort which she attributes to constipation. She has Hx of chronic anemia and had her last transfusion 3 weeks ago. Pt admits to nausea and generalized weakness. Denies syncope, shortness of breath, or chest pain. - Related Data Allergies Allergy/AdvReac Type Severity Reaction Status Date / Time codeine Allergy Mild Itching Verified 07/24/20 10:09 propoxyphene Allergy Mild Nausea Verified 07/24/20 10:09 [From Trevon] procaine Allergy Cannot Verified 07/24/20 10:09 Remember Home Meds: Home Meds DULoxetine [Cymbalta] 60 mg PO DAILY 04/11/14 [History] atorvaSTATin [Lipitor] 40 mg PO BEDTIME 03/07/17 [History] hydrOXYzine HCl [Atarax] 10 mg PO BEDTIME PRN 03/07/17 [History] Metoprolol Succinate [Toprol XL] 50 mg PO DAILY 02/07/18 [History] metFORMIN [Glucophage] 1,000 mg PO BIDMEALS 02/07/18 [History] Albuterol [Proventil HFA] 2 puff INH Q6H PRN 06/15/18 [History] Cholecalciferol (Vitamin D3) [Vitamin D3] 1,000 units PO DAILY 06/15/18 [History] Glimepiride 1 mg PO ACBREAKFAST 06/15/18 [History] Lidocaine Patch 1 patch TOP DAILY 06/15/18 [History] Loratadine [Claritin] 10 mg PO DAILY PRN 06/15/18 [History] Potassium Chloride 20 meq PO DAILY 06/15/18 [History] Sennosides/Docusate Sodium [Sennosides-Docusate Sodium] 1 tab PO DAILY 06/15/18 [History] Warfarin [Coumadin] 1.5 mg PO BEDTIME 06/15/18 [History] polyethylene glycoL 3350 [MiraLAX] 17 gm PO DAILY PRN 06/15/18 [History] Ferrous Gluconate 324 mg PO BID 06/30/18 [History] Ascorbic Acid [Vitamin C] 250 mg PO BID 08/02/18 [History] Pantoprazole Sodium [Protonix] 40 mg PO BIDAC 08/02/18 [History] ALPRAZolam [Alprazolam] 0.25 mg PO BID PRN 04/07/19 [History] Furosemide [Lasix] 20 mg PO DAILY 04/07/19 [History] Ondansetron [Zofran] 8 mg PO TID PRN 07/24/20 [History] Past Medical History - Past Health History Medical/Surgical History: Denies Medical/Surgical History HEENT History: Reports: None Cardiovascular History: Reports: CAD, Heart Failure, Heart Murmur, Heart Valve Replacement, High Cholesterol, Hypertension Respiratory History: Reports: Bronchitis, Recurrent, Pneumonia, Recurrent Gastrointestinal History: Reports: Chronic Constipation, Diverticulosis, GI Bleed Genitourinary History: Reports: None [employer]IAN History: Reports: , Spontaneous Musculoskeletal History: Reports: Arthritis, Back Pain, Chronic, Other (See Below) Other Musculoskeletal History: DEGENERATIVE JOINT DISEASE Neurological History: Reports: None Psychiatric History: Reports: Anxiety, Depression Endocrine/Metabolic History: Reports: Diabetes, Type II Hematologic History: Reports: Anemia, Anticoagulation Therapy, Blood Transfusion(s), Iron Deficiency Immunologic History: Reports: None Oncologic (Cancer) History: Reports: None Dermatologic History: Reports: Eczema, Other (See Below) Other Dermatologic History: NUMEROUS BRUISING AREAS NOTED, ESPICALLY TO LOWER ABD, BACK AND l) UPPER ARM - Infectious Disease History Infectious Disease History: Reports: Chicken Pox - Past Surgical History Head Surgeries/Procedures: Reports: None HEENT Surgical History: Reports: Tonsillectomy Cardiovascular Surgical History: Reports: Coronary Artery Bypass, Valve Replacement Other Cardiovascular Surgeries/Procedures: Open heart surgery (mechanical aortic valve replacement) 05-26-2018 Respiratory Surgical History: Reports: None GI Surgical History: Reports: Appendectomy, Cholecystectomy, Colonoscopy, EGD Female Surgical History: Reports: Breast Biopsy Other Female Surgeries/Procedures: BREAST LUMPECTOMY Musculoskeletal Surgical History: Reports: Other (See Below) Other Musculoskeletal Surgeries/Procedures:: RIGHT WRIST LUMPECTOMY, BENIGN Oncologic Surgical History: Reports: Biopsy of Breast Dermatological Surgical History: Reports: None Social & Family History - Family History Family Medical History: No Pertinent Family History - Caffeine Use Caffeine Use: Reports: Coffee Other Caffeine Use: Drinks these but not very often Caffeine Use Comment: 2-3 CUPS DAILY - Living Situation & Occupation Living situation: Reports: , with Family Occupation: Retired ED ROS GENERAL - Review of Systems Review Of Systems: Comprehensive ROS is negative, except as noted in HPI. ED EXAM, GI/ABD - Physical Exam Exam: See Below Exam Limited By: No Limitations General Appearance: Alert, No Apparent Distress, Other (Chronically ill appearing) Eyes: Bilateral: Pale Conjunctiva (No scleral icterus) Nose: Normal Inspection, Normal Mucosa, No Blood Throat/Mouth: Normal Inspection, Normal Lips, Normal Teeth, Normal Gums, Normal Oropharynx, Normal Voice, No Airway Compromise Head: Atraumatic, Normocephalic Neck: Normal Inspection, Supple, Non-Tender, Full Range of Motion Respiratory/Chest: No Respiratory Distress, Lungs Clear, Normal Breath Sounds, No Accessory Muscle Use, Chest Non-Tender Cardiovascular: Regular Rate, Rhythm, No Edema, Systolic Murmur (with mechanical click) GI/Abdominal Exam: Normal Bowel Sounds, Soft, No Distention, Tender (Mild generalized tenderness). No: Guarding, Rigid Rectal (Female) Exam: Black Stool, Heme + Stool Back Exam: Normal Inspection Extremities: Normal Inspection, Normal Range of Motion, Non-Tender, Normal Capillary Refill, No Pedal Edema Neurological: Alert, Oriented, CN II-XII Intact, Normal Cognition, Normal Gait, No Motor/Sensory Deficits, Other (Generalized weakness) Psychiatric: Depressed Mood, Flat Affect Skin Exam: Warm, Dry, Intact, No Rash, Pallor. No: Cyanosis, Ecchymosis, Jaundice, Petechiae #1 Interpretation EKG Date: 08/23/20 Time: 14:07 Rhythm: Other (Sinus tach) Rate (Beats/Min): 101 Lutcher: LAD-Left Lutcher Deviation P-Wave: Present QRS: Other (LVH with repol. abnormality. Abnormal R wave progression, late transition.) ST-T: Normal QT: Prolonged (Borderline) Comparison: No Change Course - Vital Signs Last Recorded V/S: Last Vital Signs Temp 97.6 F 08/23/20 14:36 Pulse 106 H 08/23/20 14:36 Resp 14 08/23/20 14:36 BP 80/35 L 08/23/20 14:36 Pulse Ox 99 08/23/20 14:36 - Orders/Labs/Meds Orders: Active Orders 24 hr Category Date Time Status Communication Order [RC] ROUTINE Care 08/23/20 14:00 Active EKG 12 Lead [EKG Documentation Completion] [RC] STAT Care 08/23/20 13:59 Active Peripheral IV Care [RC] . DIRECTED Care 08/23/20 14:00 Active B-TYPE NATRIURETIC PEPTIDE,BNP [CHEM] Stat Lab 08/23/20 15:19 Ordered Hemoccult, Stool [OCCULT BLOOD DIAGNOSTIC] [OP] Stat Lab 08/23/20 14:00 Ordered RED BLOOD CELLS LP [BBK] Stat Lab 08/23/20 14:19 Received TYPE AND SCREEN [BBK] Stat Lab 08/23/20 14:19 Received UA RFX LILIA AND CULT IF INDIC [URIN] Stat Lab 08/23/20 13:59 Ordered Pantoprazole [ProTONIX IV] 40 mg Med 08/23/20 14:15 Active Sodium Chloride 0.9% [Normal Saline] 100 ml IV .CONTINUOS Sodium Chloride 0.9% [Normal Saline] 1,000 ml Med 08/23/20 15:18 Ordered IV .BOLUS Sodium Chloride 0.9% [Saline Flush] Med 08/23/20 14:00 Active 10 ml FLUSH ASDIRECTED PRN Peripheral IV Insertion Adult [OM.PC] Stat Oth 08/23/20 13:59 Ordered Medication Orders Pantoprazole Sodium 40 mg/ (Sodium Chloride) 100 mls @ 20 mls/hr IV .CONTINUOS CARLOS Sodium Chloride (Normal Saline) 1,000 mls @ 999 mls/hr IV .BOLUS ONE Stop: 08/23/20 16:18 Sodium Chloride (Sodium Chloride 0.9% 10 Ml Syringe) 10 ml FLUSH ASDIRECTED PRN PRN Reason: Keep Vein Open Last Admin: 08/23/20 14:42 Dose: 10 ml Documented by: HARLEY Labs: Laboratory Tests 08/23/20 08/23/20 08/23/20 Range/Units 14:19 14:19 14:19 WBC 13.7 H (5.0-10.0) 10^3/uL RBC 2.14 L (4.2-5.4) 10^6/uL Hgb 6.2 L* D (12.0-16.0) g/dL Hct 21.8 L (37.0-47.0) % MCV 101.9 H D (80-100) fL MCH 29.0 (27.0-34.0) pg MCHC 28.4 L (33.0-35.0) g/dL Plt Count 313 (150-450) 10^3/uL Neut % (Auto) 76.2 H (42.2-75.2) % Lymph % (Auto) 15.3 L (20.5-50.1) % Traverse % (Auto) 7.4 (2-8) % Eos % (Auto) 0.9 L (1.0-3.0) % Baso % (Auto) 0.2 (0.0-1.0) % Add Manual Diff Yes Neutrophils % (Manual) 79 H (42-75) % Band Neutrophils % 3 % Lymphocytes % (Manual) 11 L (20-50) % Monocytes % (Manual) 3 (2-8) % Eosinophils % (Manual) 1 (1-3) % Metamyelocytes % 1 Myelocytes % 2 Nucleated RBCs 1 /100WBC Hypochromasia 2+ moderate Anisocytosis 3+ marked Microcytosis 2+ moderate Macrocytosis 1+ slight PT 57.8 H D (9.0-12.0) SEC INR 5.9 H* (0.9-1.2) APTT 40.9 H (22.0-34.0) SEC Sodium 135 L (136-145) mmol/L Potassium 3.9 (3.5-5.1) mmol/L Chloride 99 (98-107) mmol/L Carbon Dioxide 27 (21-32) mmol/L Anion Gap 12.9 (7-13) mEq/L BUN 40 H D (7-18) mg/dL Creatinine 1.01 (0.55-1.02) mg/dL Est Cr Clr Drug Dosing TNP Estimated GFR (MDRD) 54 BUN/Creatinine Ratio 39.6 (No establ ref range) Glucose 221 H (70-99) mg/dL Calcium 7.6 L (8.5-10.1) mg/dL Total Bilirubin 0.3 (0.2-1.0) mg/dL AST 25 (15-37) U/L ALT 23 (14-59) U/L Alkaline Phosphatase 85 (46-116) U/L Troponin I < 0.017 (0.000-0.056) ng/mL Total Protein 6.9 (6.4-8.2) g/dL Albumin 2.9 L (3.4-5.0) g/dL Globulin 4.0 Albumin/Globulin Ratio 0.73 Amylase 13 L (25-115) U/L Lipase 95 (73-393) U/L Meds: Medications Generic Name Dose Route Start Last Admin Trade Name Freq PRN Reason Stop Dose Admin Pantoprazole Sodium 40 mg/ 100 mls @ 20 mls/hr 08/23/20 14:15 Sodium Chloride IV .CONTINUOS CARLOS Sodium Chloride 1,000 mls @ 999 mls/hr 08/23/20 15:18 Normal Saline IV 08/23/20 16:18 .BOLUS ONE Sodium Chloride 10 ml 08/23/20 14:00 08/23/20 14:42 Sodium Chloride 0.9% 10 Ml Syringe FLUSH 10 ml ASDIRECTED PRN Administration Keep Vein Open Discontinued Medications Generic Name Dose Route Start Last Admin Trade Name Freq PRN Reason Stop Dose Admin Phytonadione 10 mg/ Sodium 51 mls @ 50 mls/hr 08/23/20 14:05 08/23/20 14:51 Chloride IV 08/23/20 15:06 50 mls/hr NOW ONE Administration Pantoprazole Sodium 80 mg 08/23/20 14:06 08/23/20 14:43 Pantoprazole 40 Mg Vial IVPUSH 08/23/20 14:07 80 mg .BOLUS ONE Administration Departure - Departure Time of Disposition: 15:27 Disposition: DC/Tfer to Acute Hospital 02 Condition: Fair, Serious Clinical Impression: Severe anemia, History of congestive heart failure, History of mechanical aortic valve replacement, Supratherapeutic international normalized ratio (INR) GI bleed Qualifiers: GI bleed type/associated pathology: unspecified gastrointestinal hemorrhage type Qualified Code(s): K92.2 - Gastrointestinal hemorrhage, unspecified Constipation Qualifiers: Constipation type: other constipation type Qualified Code(s): K59.09 - Other constipation Hypotension Qualifiers: Hypotension type: unspecified hypotension type Qualified Code(s): I95.9 - Hypotension, unspecified - Discharge Information *PRESCRIPTION DRUG MONITORING PROGRAM REVIEWED*: Not Applicable *COPY OF PRESCRIPTION DRUG MONITORING REPORT IN PATIENT LINDA: Not Applicable Forms: ED Department Discharge, Interfacility Transfer [facility] Sepsis Event Note (ED) - Focused Exam Vital Signs: Vital Signs Temp Pulse Resp BP Pulse Ox 08/23/20 14:36 97.6 F 106 H 14 80/35 L 99 - My Orders Last 24 Hours: My Active Orders 08/23/20 13:59 EKG 12 Lead [EKG Documentation Completion] [RC] STAT UA RFX LILIA AND CULT IF INDIC [URIN] Stat Peripheral IV Insertion Adult [OM.PC] Stat 08/23/20 14:00 Communication Order [RC] ROUTINE Peripheral IV Care [RC] . DIRECTED Hemoccult, Stool [OCCULT BLOOD DIAGNOSTIC] [OP] Stat Sodium Chloride 0.9% [Saline Flush] 10 ml FLUSH ASDIRECTED PRN 08/23/20 14:15 Pantoprazole [ProTONIX IV] 40 mg Sodium Chloride 0.9% [Normal Saline] 100 ml IV .CONTINUOS 08/23/20 14:19 RED BLOOD CELLS LP [BBK] Stat TYPE AND SCREEN [BBK] Stat 08/23/20 15:18 Sodium Chloride 0.9% [Normal Saline] 1,000 ml IV .BOLUS 08/23/20 15:19 B-TYPE NATRIURETIC PEPTIDE,BNP [CHEM] Stat - Assessment/Plan Last 24 Hours: My Active Orders 08/23/20 13:59 EKG 12 Lead [EKG Documentation Completion] [RC] STAT UA RFX LILIA AND CULT IF INDIC [URIN] Stat Peripheral IV Insertion Adult [OM.PC] Stat 08/23/20 14:00 Communication Order [RC] ROUTINE Peripheral IV Care [RC] . DIRECTED Hemoccult, Stool [OCCULT BLOOD DIAGNOSTIC] [OP] Stat Sodium Chloride 0.9% [Saline Flush] 10 ml FLUSH ASDIRECTED PRN 08/23/20 14:15 Pantoprazole [ProTONIX IV] 40 mg Sodium Chloride 0.9% [Normal Saline] 100 ml IV .CONTINUOS 08/23/20 14:19 RED BLOOD CELLS LP [BBK] Stat TYPE AND SCREEN [BBK] Stat 08/23/20 15:18 Sodium Chloride 0.9% [Normal Saline] 1,000 ml IV .BOLUS 08/23/20 15:19 B-TYPE NATRIURETIC PEPTIDE,BNP [CHEM] Stat
[2020-08-23] MEDS ORDERED: Phytonadione 10 MG in Sodium Chloride 0.9% 50 ML IV ONE (14:05)
[2020-08-23] MEDS ORDERED: Pantoprazole 40 MG Vial IVPUSH ONE (14:06)
[2020-08-23] MEDS ORDERED: Pantoprazole 40 MG in Sodium Chloride 0.9% 100 ML IV SCH (14:15)
[2020-08-23] MEDS: Sodium Chloride 0.9% 10 ML Syringe FLUSH PRN ×2 (14:42→15:49)
[2020-08-23 14:47] LABS: PTT,PARTIAL THROMBOPLSTIN TIME 40.9 SEC (22.0-34.0)
[2020-08-23 14:50] LABS: ANION GAP 12.9 mEq/L (7-13); CHLORIDE,CL 99 mmol/L (98-107); SODIUM,NA 135 mmol/L (136-145)
[2020-08-23 15:16] VITALS: BP 80/35; PULSE 106
[2020-08-23] MEDS ORDERED: Sodium Chloride 0.9% 1,000 ML IV ONE (15:18)
[2020-08-23] MEDS ORDERED: Ondansetron 4 MG/2 ML SDV IV ONE (15:50)
== END 2020-08-23 16:30 ==
LOC: DL.ED 13:58
DX: K59.00 Constipation, unspecified (principal); K92.2 Gastrointestinal hemorrhage, unspecified; D64.9 Anemia, unspecified; E78.00 Pure hypercholesterolemia, unspecified; R79.1 Abnormal coagulation profile; I25.10 Atherosclerotic heart disease of native coronary artery without angina pectoris; I11.0 Hypertensive heart disease with heart failure; E11.9 Type 2 diabetes mellitus without complications; I50.9 Heart failure, unspecified; I95.9 Hypotension, unspecified; Z88.8 Allergy status to other drugs, medicaments and biological substances; Z88.5 Allergy status to narcotic agent
CPT/HCPCS: 36415; 80053; 82150; 83690; 83880; 84484; 85025; 85610; 85730; 93005; 93010; 96365; 96367; 96376; 99284; 99285-25; C9113; J3430; J7030

== ENCOUNTER 2020-09-01 21:09 | Emergency (ER) | payer OTHER ==
[2020-09-01 21:37] VITALS: BP 85/42; PULSE 115
--- NOTE | 2020-09-01 21:41 | EDM.PDOC ---
ED HPI GENERAL MEDICAL PROBLEM - General Chief Complaint: Gastrointestinal Problem Stated Complaint: AMBULANCE Time Seen by Provider: 09/01/20 21:10 Source of Information: Reports: Patient, EMS, EMS Notes Reviewed, Family, RN, RN Notes Reviewed History Limitations: Reports: No Limitations - History of Present Illness INITIAL COMMENTS - FREE TEXT/NARRATIVE: Patient is a 69-year-old female who presents to ER per [facility] with complaint of vomiting blood, and abdominal pain. She states the abdominal pain began today approximately 2 hours prior to arrival. Patient rates pain 8/10 in the abdomen. Patient states she has had a couple bowel movements today, unsure if she has blood in her stool. Patient does have some dried blood on her lips. Patient was recently discharged from [facility] on Wednesday or Wednesday. She was there for similar problems, had an EGD while there patient states they clamped 3 bleeds and burnt 3 bleeds. Patient states on Wednesday her hemoglobin was 8.1, INR 1.9. Patient states history of diabetes for which she takes oral medications. Also states history of 2 open heart surgeries, balloon valve and mechanical valve placement. Patient states she had pneumonia couple weeks ago. Admits to chills, feeling clammy, and vomiting. Denies fever or diarrhea. Patient states she had a good sized supper before the abdominal pain began. Patient states she has been having some chest pains and shortness of breath this evening. Patient states she feels severely weak. Onset: Today Abdomen Pain Score (Numeric/FACES): 10 - Related Data Allergies Allergy/AdvReac Type Severity Reaction Status Date / Time codeine Allergy Mild Itching Verified 07/24/20 10:09 propoxyphene Allergy Mild Nausea Verified 07/24/20 10:09 [From Darvocet-N] procaine Allergy Cannot Verified 07/24/20 10:09 Remember Home Meds: Home Meds DULoxetine [Cymbalta] 60 mg PO DAILY 04/11/14 [History] atorvaSTATin [Lipitor] 40 mg PO BEDTIME 03/07/17 [History] hydrOXYzine HCl [Atarax] 10 mg PO BEDTIME PRN 03/07/17 [History] Metoprolol Succinate [Toprol XL] 50 mg PO DAILY 02/07/18 [History] metFORMIN [Glucophage] 1,000 mg PO BIDMEALS 02/07/18 [History] Albuterol [Proventil HFA] 2 puff INH Q6H PRN 06/15/18 [History] Cholecalciferol (Vitamin D3) [Vitamin D3] 1,000 units PO DAILY 06/15/18 [History] Glimepiride 1 mg PO ACBREAKFAST 06/15/18 [History] Lidocaine Patch 1 patch TOP DAILY 06/15/18 [History] Loratadine [Claritin] 10 mg PO DAILY PRN 06/15/18 [History] Potassium Chloride 20 meq PO DAILY 06/15/18 [History] Sennosides/Docusate Sodium [Sennosides-Docusate Sodium] 1 tab PO DAILY 06/15/18 [History] Warfarin [Coumadin] 1.5 mg PO BEDTIME 06/15/18 [History] polyethylene glycoL 3350 [MiraLAX] 17 gm PO DAILY PRN 06/15/18 [History] Ferrous Gluconate 324 mg PO BID 06/30/18 [History] Ascorbic Acid [Vitamin C] 250 mg PO BID 08/02/18 [History] Pantoprazole Sodium [Protonix] 40 mg PO BIDAC 08/02/18 [History] ALPRAZolam [Alprazolam] 0.25 mg PO BID PRN 04/07/19 [History] Furosemide [Lasix] 20 mg PO DAILY 04/07/19 [History] Ondansetron [Zofran] 8 mg PO TID PRN 07/24/20 [History] Past Medical History - Past Health History Medical/Surgical History: Denies Medical/Surgical History HEENT History: Reports: None Cardiovascular History: Reports: CAD, Heart Failure, Heart Murmur, Heart Valve Replacement, High Cholesterol, Hypertension Respiratory History: Reports: Bronchitis, Recurrent, Pneumonia, Recurrent Gastrointestinal History: Reports: Chronic Constipation, Diverticulosis, GI Bleed Genitourinary History: Reports: None PRESCRIPTIONIST History: Reports: , Spontaneous Musculoskeletal History: Reports: Arthritis, Back Pain, Chronic, Other (See Below) Other Musculoskeletal History: DEGENERATIVE JOINT DISEASE Neurological History: Reports: None Psychiatric History: Reports: Anxiety, Depression Endocrine/Metabolic History: Reports: Diabetes, Type II Hematologic History: Reports: Anemia, Anticoagulation Therapy, Blood Transfusion(s), Iron Deficiency Immunologic History: Reports: None Oncologic (Cancer) History: Reports: None Dermatologic History: Reports: Eczema, Other (See Below) Other Dermatologic History: NUMEROUS BRUISING AREAS NOTED, ESPICALLY TO LOWER ABD, BACK AND l) UPPER ARM - Infectious Disease History Infectious Disease History: Reports: Chicken Pox - Past Surgical History Head Surgeries/Procedures: Reports: None HEENT Surgical History: Reports: Tonsillectomy Cardiovascular Surgical History: Reports: Coronary Artery Bypass, Valve Replacement Other Cardiovascular Surgeries/Procedures: Open heart surgery (mechanical aortic valve replacement) 05-26-2018 Respiratory Surgical History: Reports: None GI Surgical History: Reports: Appendectomy, Cholecystectomy, Colonoscopy, EGD Female Surgical History: Reports: Breast Biopsy Other Female Surgeries/Procedures: BREAST LUMPECTOMY Musculoskeletal Surgical History: Reports: Other (See Below) Other Musculoskeletal Surgeries/Procedures:: RIGHT WRIST LUMPECTOMY, BENIGN Oncologic Surgical History: Reports: Biopsy of Breast Dermatological Surgical History: Reports: None Social & Family History - Family History Family Medical History: No Pertinent Family History - Caffeine Use Caffeine Use: Reports: Coffee Other Caffeine Use: Drinks these but not very often Caffeine Use Comment: 2-3 CUPS DAILY - Living Situation & Occupation Living situation: Reports: , with Family Occupation: Retired ED ROS GENERAL - Review of Systems Review Of Systems: Comprehensive ROS is negative, except as noted in HPI. ED EXAM, GI/ABD - Physical Exam Exam: See Below Exam Limited By: No Limitations General Appearance: Alert, WD/WN, Moderate Distress, Other (very weak) Eyes: Bilateral: Normal Appearance, EOMI Ears: Normal External Exam, Hearing Grossly Normal Nose: Normal Inspection Throat/Mouth: Normal Inspection, Normal Voice, No Airway Compromise, Other (dried blood) Head: Atraumatic, Normocephalic Neck: Normal Inspection, Supple, Non-Tender, Full Range of Motion Respiratory/Chest: No Respiratory Distress, No Accessory Muscle Use, Chest Non- Tender, Decreased Breath Sounds Cardiovascular: Normal Peripheral Pulses, Regular Rate, Rhythm, No Edema, No Gallop, No JVD, No Murmur, No Rub, Tachycardia GI/Abdominal Exam: Normal Bowel Sounds, Soft, Tender (generalized) (Female) Exam: Deferred Rectal (Female) Exam: Deferred Back Exam: Normal Inspection, Full Range of Motion, NT Extremities: Normal Inspection, Normal Range of Motion, Non-Tender, Normal Capillary Refill, No Pedal Edema Neurological: Alert, Oriented, Normal Cognition, No Motor/Sensory Deficits Psychiatric: Normal Mood, Flat Affect Skin Exam: Warm, Dry, Intact, Normal Color, No Rash Lymphatic: No Adenopathy #1 Interpretation EKG Date: 09/01/20 Time: 20:59 Rhythm: Other (sinus tachycardia) Rate (Beats/Min): 115 P-Wave: Present QRS: LBBB ST-T: Normal Comparison: Change From Previous EKG Course - Vital Signs Last Recorded V/S: Last Vital Signs Temp 96.9 F 09/01/20 21:30 Pulse 115 H 09/01/20 21:30 Resp 16 09/01/20 21:30 BP 85/42 L 09/01/20 21:30 Pulse Ox 96 09/01/20 21:30 - Orders/Labs/Meds Orders: Active Orders 24 hr Category Date Time Status EKG Documentation Completion [RC] STAT Care 09/01/20 21:07 Active CORONAVIRUS COVID-19 RAPID [MOLEC] Stat Lab 09/02/20 00:19 Received LACTIC ACID [CHEM] Stat Lab 09/02/20 00:11 Ordered Octreotide [SandoSTATIN] 100 mcg Med 09/01/20 23:45 Active Sodium Chloride 0.9% [Normal Saline] 99 ml IV Q10H Sodium Chloride 0.9% [Normal Saline] 1,000 ml Med 09/01/20 22:12 Active IV .BOLUS Medication Orders Sodium Chloride (Normal Saline) 1,000 mls @ 200 mls/hr IV .BOLUS ONE Stop: 09/02/20 03:11 Last Admin: 09/01/20 22:21 Dose: 200 mls/hr Documented by: AUGUSTINE Octreotide Acetate 100 mcg/ (Sodium Chloride) 100 mls @ 50 mls/hr IV Q10H [facility] Last Admin: 09/01/20 23:58 Dose: 50 mls/hr Documented by: AUGUSTINE Labs: Laboratory Tests 09/01/20 09/01/20 09/01/20 Range/Units 21:21 21:21 21:21 WBC 9.8 (5.0-10.0) 10^3/uL RBC 3.15 L (4.2-5.4) 10^6/uL Hgb 8.8 L D (12.0-16.0) g/dL Hct 31.7 L (37.0-47.0) % MCV 100.6 H (80-100) fL MCH 27.9 (27.0-34.0) pg MCHC 27.8 L (33.0-35.0) g/dL Plt Count 420 D (150-450) 10^3/uL Neut % (Auto) 80.1 H (42.2-75.2) % Lymph % (Auto) 12.2 L (20.5-50.1) % Placer % (Auto) 6.3 (2-8) % Eos % (Auto) 1.0 (1.0-3.0) % Baso % (Auto) 0.4 (0.0-1.0) % PT 20.1 H D (9.0-12.0) SEC INR 2.0 H (0.9-1.2) Sodium 138 (136-145) mmol/L Potassium 4.2 (3.5-5.1) mmol/L Chloride 104 (98-107) mmol/L Carbon Dioxide 24 (21-32) mmol/L Anion Gap 14.2 H (7-13) mEq/L BUN 15 D (7-18) mg/dL Creatinine 1.28 H (0.55-1.02) mg/dL Est Cr Clr Drug Dosing 35.31 mL/min Estimated GFR (MDRD) 41 BUN/Creatinine Ratio 11.7 (No establ ref range) Glucose 276 H (70-99) mg/dL Calcium 7.9 L (8.5-10.1) mg/dL Magnesium 1.9 (1.8-2.4) mg/dL Total Bilirubin 0.4 (0.2-1.0) mg/dL AST 23 (15-37) U/L ALT 20 (14-59) U/L Alkaline Phosphatase 139 H (46-116) U/L Troponin I < 0.017 (0.000-0.056) ng/mL Total Protein 6.8 (6.4-8.2) g/dL Albumin 2.7 L (3.4-5.0) g/dL Globulin 4.1 Albumin/Globulin Ratio 0.66 Blood Type Gel Antibody Screen 09/01/20 Range/Units 21:21 WBC (5.0-10.0) 10^3/uL RBC (4.2-5.4) 10^6/uL Hgb (12.0-16.0) g/dL Hct (37.0-47.0) % MCV (80-100) fL MCH (27.0-34.0) pg MCHC (33.0-35.0) g/dL Plt Count (150-450) 10^3/uL Neut % (Auto) (42.2-75.2) % Lymph % (Auto) (20.5-50.1) % Placer % (Auto) (2-8) % Eos % (Auto) (1.0-3.0) % Baso % (Auto) (0.0-1.0) % PT (9.0-12.0) SEC INR (0.9-1.2) Sodium (136-145) mmol/L Potassium (3.5-5.1) mmol/L Chloride (98-107) mmol/L Carbon Dioxide (21-32) mmol/L Anion Gap (7-13) mEq/L BUN (7-18) mg/dL Creatinine (0.55-1.02) mg/dL Est Cr Clr Drug Dosing mL/min Estimated GFR (MDRD) BUN/Creatinine Ratio (No establ ref range) Glucose (70-99) mg/dL Calcium (8.5-10.1) mg/dL Magnesium (1.8-2.4) mg/dL Total Bilirubin (0.2-1.0) mg/dL AST (15-37) U/L ALT (14-59) U/L Alkaline Phosphatase (46-116) U/L Troponin I (0.000-0.056) ng/mL Total Protein (6.4-8.2) g/dL Albumin (3.4-5.0) g/dL Globulin Albumin/Globulin Ratio Blood Type O POSITIVE Gel Antibody Screen Negative Meds: Medications Generic Name Dose Route Start Last Admin Trade Name Freq PRN Reason Stop Dose Admin Sodium Chloride 1,000 mls @ 200 mls/hr 09/01/20 22:12 09/01/20 22:21 Normal Saline IV 09/02/20 03:11 200 mls/hr .BOLUS ONE Administration Octreotide Acetate 100 mcg/ 100 mls @ 50 mls/hr 09/01/20 23:45 09/01/20 23:58 Sodium Chloride IV 50 mls/hr Q10H CARLOS Administration Discontinued Medications Generic Name Dose Route Start Last Admin Trade Name Steff PRN Reason Stop Dose Admin Iopamidol 100 ml 09/01/20 22:12 09/01/20 22:25 Iopamidol 612 Mg/Ml 100 Ml Bottle IVPUSH 09/01/20 22:13 100 ml ONETIME ONE Administration Octreotide Acetate 50 mcg 09/01/20 23:43 09/01/20 23:57 Octreotide 100 Mcg/Ml Sdv IVPUSH 09/01/20 23:44 50 mcg ONETIME ONE Administration Ondansetron HCl 4 mg 09/02/20 00:03 09/02/20 00:07 Ondansetron 4 Mg/2 Ml Sdv IVPUSH 09/02/20 00:04 4 mg ONETIME ONE Administration Pantoprazole Sodium 80 mg 09/01/20 23:43 09/01/20 23:55 Pantoprazole 40 Mg Vial IVPUSH 09/01/20 23:44 80 mg .BOLUS ONE Administration - Radiology Interpretation Free Text/Narrative:: CT of abdomen/pelvis with contrast: Addendum created by Alexandre Etienne MD on 09/01/2020 11:25 PM Central Time ([place] & [place]): Findings were discussed with the nurse practitioner, Jennifer Dobson. Additional history was obtained. Approximately 1 week ago, the patient had an endoscopic gastroduodenoscopy. There is report of clipping of bleeding ulcers. Patient did have hematemesis with her episode of vomiting this evening. This raises concern for peptic ulcer disease and possibility of a contained perforation. Initial Report created on 09/01/2020 11:24 PM Central Time ([place] & [place]): PROCEDURE INFORMATION: Exam: CT Abdomen And Pelvis With Contrast Exam date and time: 09/01/2020 10:24 PM Age: 69 years old Clinical indication: Nausea and vomiting; Additional info: Abdominal pain TECHNIQUE: Imaging protocol: Computed tomography of the abdomen and pelvis with contrast. Radiation optimization: All CT scans at this facility use at least one of these dose optimization techniques: automated exposure control; mA and/or kV adjustment per patient size (includes targeted exams where dose is matched to clinical indication); or iterative reconstruction. Contrast material: [id number]; Contrast volume: 75 ml; Contrast route: INTRAVENOUS (IV); COMPARISON: CT Abdomen w Cont 03/22/2019 10:25 AM FINDINGS: Lungs: Lung bases with mild bronchiectasis consistent with COPD. Mild scarring in the lingula of the left upper lobe and the medial segment of the right middle lobe. Pleural spaces: No pleural effusion. Heart: Aortic valve prosthesis. Mitral valve calcification. Previous open-heart surgery. No pericardial effusion. Mild cardiomegaly. Liver: Moderate hepatic enlargement. This is nonspecific. Gallbladder and bile ducts: Normal. No calcified stones. No ductal dilation. Pancreas: Normal. No ductal dilation. Spleen: The spleen is normal in size, contour, and enhancement. Adrenal glands: The adrenal glands are normal in size and contour bilaterally. Kidneys and ureters: The kidneys bilaterally are unremarkable. Normal enhancement. No hydronephrosis. No calculi. Stomach and bowel: Gastric abnormality. There appears to be fluid surrounding the stomach. There appears to be contained air anteriorly along the gastric antrum. Concern for perforation of a gastric ulcer with subserosal fluid and air. The material within the stomach is also somewhat heterogeneous with some food, fluid, and hyperdense fluid like material which could represent hemorrhagic material or clot. There is mild to moderate edema of the 2nd portion the duodenum which could represent associated duodenitis. Small bowel loops are otherwise unremarkable. Large bowel loops are unremarkable in appearance. Appendix: No evidence of appendicitis. Intraperitoneal space: No free fluid in the abdomen or pelvis. No peritoneal free air. Vasculature: Abdominal aortic atherosclerotic calcium. No aneurysm. Lymph nodes: Unremarkable. No enlarged lymph nodes. Urinary bladder: Unremarkable as visualized. Reproductive: Unremarkable as visualized. Bones/joints: Degenerative lumbar spine disease.. Soft tissues: Minor fat containing umbilical hernia. No evidence of strangulation.. IMPRESSION: 1. Gastric abnormality suggesting a contained perforation of a gastric ulcer with fluid surrounding the stomach and air seen superiorly at the level of the gastric antrum. No gross free air within the abdomen. No free fluid. Intra-abdominal contents which could represent hemorrhagic material or clot admixed with food and fluid. 2. Second portion the duodenum with some features of edema which may represent duodenitis or duodenal peptic ulcer disease. 3. Nonspecific hepatic enlargement. Thank you for allowing us to participate in the care of your patient. Dictated and Authenticated by: Alexandre Etienne MD 09/01/2020 11:24 PM Central Time ([place] & [place]) See rad report - Re-Assessments/Exams Free Text/Narrative Re-Assessment/Exam: 09/02/20 00:32 Discussed patient case with Dr. Cartagena, Money Room Teller at [facility], as well as Dr. Canchola, ER Physician. Patient was accepted for transfer to their facility. patient will be evaluated in the ICU for bed placement. Mil[facility]rost will be flown to [facility] in [place]. 09/02/20 00:37 Departure - Departure Time of Disposition: 00:38 Disposition: DC/Tfer to Acute Hospital 02 Condition: Serious Clinical Impression: Gastric ulcer with perforation Qualifiers: Gastric ulcer chronicity: acute Qualified Code(s): K25.1 - Acute gastric ulcer with perforation - Discharge Information *PRESCRIPTION DRUG MONITORING PROGRAM REVIEWED*: No *COPY OF PRESCRIPTION DRUG MONITORING REPORT IN PATIENT LINDA: No Forms: ED Department Discharge, Interfacility Transfer EMTALA Sepsis Event Note (ED) - Focused Exam Vital Signs: Vital Signs Temp Pulse Resp BP Pulse Ox 09/01/20 21:30 96.9 F 115 H 16 85/42 L 96 - My Orders Last 24 Hours: My Active Orders 09/01/20 21:07 EKG Documentation Completion [RC] STAT 09/01/20 22:12 Sodium Chloride 0.9% [Normal Saline] 1,000 ml IV .BOLUS 09/01/20 23:45 Octreotide [SandoSTATIN] 100 mcg Sodium Chloride 0.9% [Normal Saline] 99 ml IV Q10H 09/02/20 00:11 LACTIC ACID [CHEM] Stat 09/02/20 00:19 CORONAVIRUS COVID-19 RAPID [MOLEC] Stat - Assessment/Plan Last 24 Hours: My Active Orders 09/01/20 21:07 EKG Documentation Completion [RC] STAT 09/01/20 22:12 Sodium Chloride 0.9% [Normal Saline] 1,000 ml IV .BOLUS 09/01/20 23:45 Octreotide [SandoSTATIN] 100 mcg Sodium Chloride 0.9% [Normal Saline] 99 ml IV Q10H 09/02/20 00:11 LACTIC ACID [CHEM] Stat 09/02/20 00:19 CORONAVIRUS COVID-19 RAPID [MOLEC] Stat
[2020-09-01 21:45] LABS: ANION GAP 14.2 mEq/L (7-13); CHLORIDE,CL 104 mmol/L (98-107); SODIUM,NA 138 mmol/L (136-145)
[2020-09-01] MEDS ORDERED: Iopamidol 612 MG/ML 100 ML Bottle IVPUSH ONE (22:12)
[2020-09-01] MEDS ORDERED: Sodium Chloride 0.9% 1,000 ML IV ONE (22:12)
--- NOTE | 2020-09-01 23:24 | CT ---
PROCEDURE INFORMATION: Exam: CT Abdomen And Pelvis With Contrast Exam date and time: 09/01/2020 10:24 PM Age: 69 years old Clinical indication: Nausea and vomiting; Additional info: Abdominal pain TECHNIQUE: Imaging protocol: Computed tomography of the abdomen and pelvis with contrast. Radiation optimization: All CT scans at this facility use at least one of these dose optimization techniques: automated exposure control; mA and/or kV adjustment per patient size (includes targeted exams where dose is matched to clinical indication); or iterative reconstruction. Contrast material: [id number]; Contrast volume: 75 ml; Contrast route: INTRAVENOUS (IV); COMPARISON: CT Abdomen w Cont 03/22/2019 10:25 AM FINDINGS: Lungs: Lung bases with mild bronchiectasis consistent with COPD. Mild scarring in the lingula of the left upper lobe and the medial segment of the right middle lobe. Pleural spaces: No pleural effusion. Heart: Aortic valve prosthesis. Mitral valve calcification. Previous open-heart surgery. No pericardial effusion. Mild cardiomegaly. Liver: Moderate hepatic enlargement. This is nonspecific. Gallbladder and bile ducts: Normal. No calcified stones. No ductal dilation. Pancreas: Normal. No ductal dilation. Spleen: The spleen is normal in size, contour, and enhancement. Adrenal glands: The adrenal glands are normal in size and contour bilaterally. Kidneys and ureters: The kidneys bilaterally are unremarkable. Normal enhancement. No hydronephrosis. No calculi. Stomach and bowel: Gastric abnormality. There appears to be fluid surrounding the stomach. There appears to be contained air anteriorly along the gastric antrum. Concern for perforation of a gastric ulcer with subserosal fluid and air. The material within the stomach is also somewhat heterogeneous with some food, fluid, and hyperdense fluid like material which could represent hemorrhagic material or clot. There is mild to moderate edema of the 2nd portion the duodenum which could represent associated duodenitis. Small bowel loops are otherwise unremarkable. Large bowel loops are unremarkable in appearance. Appendix: No evidence of appendicitis. Intraperitoneal space: No free fluid in the abdomen or pelvis. No peritoneal free air. Vasculature: Abdominal aortic atherosclerotic calcium. No aneurysm. Lymph nodes: Unremarkable. No enlarged lymph nodes. Urinary bladder: Unremarkable as visualized. Reproductive: Unremarkable as visualized. Bones/joints: Degenerative lumbar spine disease.. Soft tissues: Minor fat containing umbilical hernia. No evidence of strangulation.. IMPRESSION: 1. Gastric abnormality suggesting a contained perforation of a gastric ulcer with fluid surrounding the stomach and air seen superiorly at the level of the gastric antrum. No gross free air within the abdomen. No free fluid. Intra-abdominal contents which could represent hemorrhagic material or clot admixed with food and fluid. 2. Second portion the duodenum with some features of edema which may represent duodenitis or duodenal peptic ulcer disease. 3. Nonspecific hepatic enlargement.
[2020-09-01] MEDS ORDERED: Pantoprazole 40 MG Vial IVPUSH ONE (23:43)
[2020-09-01] MEDS ORDERED: Octreotide 100 MCG/ML SDV IVPUSH ONE (23:43)
[2020-09-01] MEDS ORDERED: Octreotide 100 MCG in Sodium Chloride 0.9% 99 ML IV SCH (23:45)
[2020-09-02] MEDS ORDERED: Ondansetron 4 MG/2 ML SDV IVPUSH ONE (00:03)
== END 2020-09-02 00:45 ==
LOC: DL.ED 21:09
DX: K25.1 Acute gastric ulcer with perforation (principal); I25.10 Atherosclerotic heart disease of native coronary artery without angina pectoris; E78.00 Pure hypercholesterolemia, unspecified; I11.0 Hypertensive heart disease with heart failure; I50.9 Heart failure, unspecified; E11.9 Type 2 diabetes mellitus without complications; Z79.01 Long term (current) use of anticoagulants; Z79.899 Other long term (current) drug therapy; Z88.5 Allergy status to narcotic agent; Z88.6 Allergy status to analgesic agent; Z88.4 Allergy status to anesthetic agent; Z20.822 Contact with and (suspected) exposure to COVID-19
CPT/HCPCS: 36415; 74177; 80053; 82271; 82272; 83735; 84484; 85025; 85610; 86850; 86900; 86901; 93005; 93010; 96374; 96375; 96376; 99284; 99285-25; C9113; J2354-GY; J2405; J7030; Q9967; U0002

== ENCOUNTER 2020-11-14 16:03 | Emergency (ER) | payer OTHER ==
[2020-11-14 16:35] VITALS: BP 97/26; PULSE 119
--- NOTE | 2020-11-14 16:40 | EDM.PDOC ---
ED HPI GENERAL MEDICAL PROBLEM - General Chief Complaint: Abdominal Pain Stated Complaint: HEMAGLOBIN WENT DONE PER Time Seen by Provider: 11/14/20 16:37 Source of Information: Reports: Patient, RN, RN Notes Reviewed History Limitations: Reports: No Limitations - History of Present Illness INITIAL COMMENTS - FREE TEXT/NARRATIVE: Holly is a 70 y/o female with a history of alcoholic cirrhosis, banded esophageal varices, and GI bleed who presents to the ED at the request of her PCP at [facility] for low Hgb (10.3 down to 8.2 in two days) and weakness. The patient states she has noticed increasing weakness in her legs and arms over the past few days. She denies hematemesis, coffee-ground emesis, melena, or hematochezia. She does attest to constipations with no bowel movement in 48h hours. Additionally, she notes transient chest pain, shortness of breath, and nausea. She denies fever, shaking chills, palpitations, vomiting, abdominal pain, dysuria, or hematuria. She has taken no medications for her symptoms. - Related Data Allergies Allergy/AdvReac Type Severity Reaction Status Date / Time codeine Allergy Mild Itching Verified 07/24/20 10:09 propoxyphene Allergy Mild Nausea Verified 07/24/20 10:09 [From Trevon] procaine Allergy Cannot Verified 07/24/20 10:09 Remember Home Meds: Home Meds DULoxetine [Cymbalta] 60 mg PO DAILY 04/11/14 [History] atorvaSTATin [Lipitor] 40 mg PO BEDTIME 03/07/17 [History] hydrOXYzine HCl [Atarax] 10 mg PO BEDTIME PRN 03/07/17 [History] Metoprolol Succinate [Toprol XL] 50 mg PO DAILY 02/07/18 [History] metFORMIN [Glucophage] 1,000 mg PO BIDMEALS 02/07/18 [History] Albuterol [Proventil HFA] 2 puff INH Q6H PRN 06/15/18 [History] Cholecalciferol (Vitamin D3) [Vitamin D3] 1,000 units PO DAILY 06/15/18 [History] Glimepiride 1 mg PO ACBREAKFAST 06/15/18 [History] Lidocaine Patch 1 patch TOP DAILY 06/15/18 [History] Loratadine [Claritin] 10 mg PO DAILY PRN 06/15/18 [History] Potassium Chloride 20 meq PO DAILY 06/15/18 [History] Sennosides/Docusate Sodium [Sennosides-Docusate Sodium] 1 tab PO DAILY 06/15/18 [History] Warfarin [Coumadin] 1.5 mg PO BEDTIME 06/15/18 [History] polyethylene glycoL 3350 [MiraLAX] 17 gm PO DAILY PRN 06/15/18 [History] Ferrous Gluconate 324 mg PO BID 06/30/18 [History] Ascorbic Acid [Vitamin C] 250 mg PO BID 08/02/18 [History] Pantoprazole Sodium [Protonix] 40 mg PO BIDAC 08/02/18 [History] ALPRAZolam [Alprazolam] 0.25 mg PO BID PRN 04/07/19 [History] Furosemide [Lasix] 20 mg PO DAILY 04/07/19 [History] Ondansetron [Zofran] 8 mg PO TID PRN 07/24/20 [History] Past Medical History - Past Health History Medical/Surgical History: Denies Medical/Surgical History HEENT History: Reports: None Cardiovascular History: Reports: CAD, Heart Failure, Heart Murmur, Heart Valve Replacement, High Cholesterol, Hypertension Respiratory History: Reports: Bronchitis, Recurrent, Pneumonia, Recurrent Gastrointestinal History: Reports: Chronic Constipation, Diverticulosis, GI Bleed Genitourinary History: Reports: None [employer] History: Reports: , Spontaneous Musculoskeletal History: Reports: Arthritis, Back Pain, Chronic, Other (See Below) Other Musculoskeletal History: DEGENERATIVE JOINT DISEASE Neurological History: Reports: None Psychiatric History: Reports: Anxiety, Depression Endocrine/Metabolic History: Reports: Diabetes, Type II Hematologic History: Reports: Anemia, Anticoagulation Therapy, Blood Transfusion(s), Iron Deficiency Immunologic History: Reports: None Oncologic (Cancer) History: Reports: None Dermatologic History: Reports: Eczema, Other (See Below) Other Dermatologic History: NUMEROUS BRUISING AREAS NOTED, ESPICALLY TO LOWER ABD, BACK AND l) UPPER ARM - Infectious Disease History Infectious Disease History: Reports: Chicken Pox - Past Surgical History Head Surgeries/Procedures: Reports: None HEENT Surgical History: Reports: Tonsillectomy Cardiovascular Surgical History: Reports: Coronary Artery Bypass, Valve Replacement Other Cardiovascular Surgeries/Procedures: Open heart surgery (mechanical aortic valve replacement) 05-26-2018 Respiratory Surgical History: Reports: None GI Surgical History: Reports: Appendectomy, Cholecystectomy, Colonoscopy, EGD Female Surgical History: Reports: Breast Biopsy Other Female Surgeries/Procedures: BREAST LUMPECTOMY Musculoskeletal Surgical History: Reports: Other (See Below) Other Musculoskeletal Surgeries/Procedures:: RIGHT WRIST LUMPECTOMY, BENIGN Oncologic Surgical History: Reports: Biopsy of Breast Dermatological Surgical History: Reports: None Social & Family History - Family History Family Medical History: No Pertinent Family History - Caffeine Use Caffeine Use: Reports: Coffee Other Caffeine Use: Drinks these but not very often Caffeine Use Comment: 2-3 CUPS DAILY - Living Situation & Occupation Living situation: Reports: , with Family Occupation: Retired ED ROS GENERAL - Review of Systems Review Of Systems: Comprehensive ROS is negative, except as noted in HPI. ED EXAM, GI/ABD - Physical Exam Exam: See Below Exam Limited By: No Limitations General Appearance: Alert, No Apparent Distress Eyes: Bilateral: Normal Appearance, EOMI Ears: Normal External Exam, Hearing Grossly Normal Nose: Normal Inspection, Normal Mucosa, No Blood Throat/Mouth: Normal Inspection, Normal Oropharynx, Normal Voice, No Airway Compromise Head: Atraumatic, Normocephalic Neck: Normal Inspection, Supple, Non-Tender, Full Range of Motion Respiratory/Chest: No Respiratory Distress, Lungs Clear, Normal Breath Sounds, No Accessory Muscle Use, Chest Non-Tender. No: Crackles, Rales, Rhonchi, Wheezing Cardiovascular: Regular Rate, Rhythm, No Edema, No Gallop, No JVD, Tachycardia, Systolic Murmur (5/6; History of valve replacement x2) GI/Abdominal Exam: No Distention, No Abnormal Bruit, No Mass, Pelvis Stable, Tender, Abnormal Bowel Sounds (Hypoactive bowel sounds) (Female) Exam: Deferred Rectal (Female) Exam: Deferred Back Exam: Normal Inspection, Full Range of Motion Extremities: Normal Inspection, Normal Range of Motion, Non-Tender, Normal Capillary Refill, No Pedal Edema Neurological: Alert, Oriented, CN II-XII Intact, Normal Cognition, Normal Gait, No Motor/Sensory Deficits Psychiatric: Normal Affect, Normal Mood Skin Exam: Warm, Dry, Intact, No Rash, Pallor. No: Cyanosis, Jaundice, Mottled, Petechiae Course - Vital Signs Last Recorded V/S: Last Vital Signs Temp 98 F 07/22/21 16:25 Pulse 119 H 11/14/20 16:25 Resp 18 11/14/20 16:25 BP 97/26 L 11/14/20 16:25 Pulse Ox 98 11/14/20 16:25 - Orders/Labs/Meds Labs: Laboratory Tests 11/14/20 11/14/20 11/14/20 Range/Units 16:54 16:54 16:54 WBC 8.9 (5.0-10.0) 10^3/uL RBC 2.50 L (4.2-5.4) 10^6/uL Hgb 7.5 L (12.0-16.0) g/dL Hct 24.7 L (37.0-47.0) % MCV 98.8 (80-100) fL MCH 30.0 (27.0-34.0) pg MCHC 30.4 L (33.0-35.0) g/dL Plt Count 281 D (150-450) 10^3/uL Neut % (Auto) 73.3 (42.2-75.2) % Lymph % (Auto) 16.1 L (20.5-50.1) % Lea % (Auto) 8.6 H (2-8) % Eos % (Auto) 1.5 (1.0-3.0) % Baso % (Auto) 0.5 (0.0-1.0) % PT 18.3 H (9.0-12.0) SEC INR 1.8 H (0.9-1.2) APTT 32.1 (22.0-34.0) SEC Sodium 136 (136-145) mmol/L Potassium 4.2 (3.5-5.1) mmol/L Chloride 101 (98-107) mmol/L Carbon Dioxide 23 (21-32) mmol/L Anion Gap 16.2 H (7-13) mEq/L BUN 32 H (7-18) mg/dL Creatinine 1.06 H (0.55-1.02) mg/dL Est Cr Clr Drug Dosing 42.04 mL/min Estimated GFR (MDRD) 51 BUN/Creatinine Ratio 30.2 (No establ ref range) Glucose 328 H (70-99) mg/dL Lactic Acid (0.4-2.0) mmol/L Calcium 8.0 L (8.5-10.1) mg/dL Total Bilirubin 0.3 (0.2-1.0) mg/dL AST 19 (15-37) U/L ALT 20 (14-59) U/L Alkaline Phosphatase 139 H (46-116) U/L Ammonia (11-32) umol/L Troponin I High Sens 91 H* (<=51) pg/mL C-Reactive Protein < 0.2 (0.0-0.9) mg/dL B-Natriuretic Peptide 462 H (0-100) pg/ml Total Protein 7.5 (6.4-8.2) g/dL Albumin 3.0 L (3.4-5.0) g/dL Globulin 4.5 Albumin/Globulin Ratio 0.67 Ethyl Alcohol < 3 (0) mg/dL 11/14/20 11/14/20 Range/Units 16:54 16:54 WBC (5.0-10.0) 10^3/uL RBC (4.2-5.4) 10^6/uL Hgb (12.0-16.0) g/dL Hct (37.0-47.0) % MCV (80-100) fL MCH (27.0-34.0) pg MCHC (33.0-35.0) g/dL Plt Count (150-450) 10^3/uL Neut % (Auto) (42.2-75.2) % Lymph % (Auto) (20.5-50.1) % Lea % (Auto) (2-8) % Eos % (Auto) (1.0-3.0) % Baso % (Auto) (0.0-1.0) % PT (9.0-12.0) SEC INR (0.9-1.2) APTT (22.0-34.0) SEC Sodium (136-145) mmol/L Potassium (3.5-5.1) mmol/L Chloride (98-107) mmol/L Carbon Dioxide (21-32) mmol/L Anion Gap (7-13) mEq/L BUN (7-18) mg/dL Creatinine (0.55-1.02) mg/dL Est Cr Clr Drug Dosing mL/min Estimated GFR (MDRD) BUN/Creatinine Ratio (No establ ref range) Glucose (70-99) mg/dL Lactic Acid 2.5 H* (0.4-2.0) mmol/L Calcium (8.5-10.1) mg/dL Total Bilirubin (0.2-1.0) mg/dL AST (15-37) U/L ALT (14-59) U/L Alkaline Phosphatase (46-116) U/L Ammonia 12 (11-32) umol/L Troponin I High Sens (<=51) pg/mL C-Reactive Protein (0.0-0.9) mg/dL B-Natriuretic Peptide (0-100) pg/ml Total Protein (6.4-8.2) g/dL Albumin (3.4-5.0) g/dL Globulin Albumin/Globulin Ratio Ethyl Alcohol (0) mg/dL Meds: Medications Discontinued Medications Generic Name Dose Route Start Last Admin Trade Name Freq PRN Reason Stop Dose Admin Pantoprazole Sodium 40 mg/ 100 mls @ 20 mls/hr 11/14/20 19:09 11/14/20 19:40 Sodium Chloride IV 20 mls/hr .CONTINUOS CARLOS Administration Octreotide Acetate 100 mcg/ 101 mls @ 50 mls/hr 11/14/20 19:09 11/14/20 19:34 Sodium Chloride IV 11/14/20 21:10 50 mls/hr ONETIME ONE Administration - Re-Assessments/Exams Free Text/Narrative Re-Assessment/Exam: 11/14/20 Hgb 7.5 Hemoccult negative, however patient states she is constipated with no BM x2 days. Octreotide administered. Protonix gtt initiated. [facility] currently full. Case discussed with Dr. Tyler, hospitalist at [facility], who kindly accepted patient for inpatient transfer. Findings of examination and lab work reviewed with patient and . Patient and verbalized understanding and agreement with the plan of care. Departure - Departure Time of Disposition: 19:06 Disposition: DC/Tfer to Acute Hospital 02 Condition: Fair Clinical Impression: Elevated troponin, Severe anemia, Chronic anticoagulation GI bleed Qualifiers: GI bleed type/associated pathology: unspecified gastrointestinal hemorrhage type Qualified Code(s): K92.2 - Gastrointestinal hemorrhage, unspecified Constipation Qualifiers: Constipation type: other constipation type Qualified Code(s): K59.09 - Other constipation - Discharge Information Referrals: [facility] [Primary Care Provider] - Forms: ED Department Discharge, Interfacility Transfer [facility]AC[facility] Sepsis Event Note (ED) - Evaluation Sepsis Screening Result: No Definite Risk
[2020-11-14 17:18] LABS: PTT,PARTIAL THROMBOPLSTIN TIME 32.1 SEC (22.0-34.0)
[2020-11-14 17:22] LABS: ANION GAP 16.2 mEq/L (7-13); CHLORIDE,CL 101 mmol/L (98-107); SODIUM,NA 136 mmol/L (136-145)
[2020-11-14] MEDS ORDERED: Octreotide 100 MCG in Sodium Chloride 0.9% 100 ML IV ONE (19:09)
[2020-11-14] MEDS ORDERED: Pantoprazole 40 MG in Sodium Chloride 0.9% 100 ML IV SCH (19:09)
== END 2020-11-14 19:47 ==
LOC: DL.ED 16:03
DX: K92.2 Gastrointestinal hemorrhage, unspecified (principal); K59.09 Other constipation; D64.9 Anemia, unspecified; R79.89 Other specified abnormal findings of blood chemistry; D68.9 Coagulation defect, unspecified; I25.10 Atherosclerotic heart disease of native coronary artery without angina pectoris; E78.00 Pure hypercholesterolemia, unspecified; I11.0 Hypertensive heart disease with heart failure; I50.9 Heart failure, unspecified; E11.9 Type 2 diabetes mellitus without complications; Z88.5 Allergy status to narcotic agent; Z88.8 Allergy status to other drugs, medicaments and biological substances; Z79.01 Long term (current) use of anticoagulants; Z79.899 Other long term (current) drug therapy
CPT/HCPCS: 36415; 80053; 80307; 82140; 82272; 83605; 83880; 84484; 85025; 85610; 85730; 86140; 96374; 96375; 99285; C9113; J2354

== ENCOUNTER 2021-04-07 21:58 | Inpatient (IN) | payer MEDICARE, OTHER ==
[2021-04-07] MEDS ORDERED: Insulin Regular, Human 100 Units/ML 3 ML Vial IV ONE (22:32)
[2021-04-07] MEDS ORDERED: Glucagon,Human Recombinant 1 MG Vial IM PRN (22:32)
[2021-04-07] MEDS ORDERED: 50% Dextrose in Water 50 ML Syringe IVPUSH PRN (22:32)
[2021-04-07] MEDS ORDERED: Sodium Chloride 0.9% 1,000 ML IV ONE (22:33)
[2021-04-07 22:35] LABS: O2 DELIVERY DEVICE ROOM AIR
[2021-04-07 22:46] LABS: BASE EXCESS VENOUS 0.3 mmol/l ((-2)-(+3)); BICARBONATE,VENOUS 24 mmol/l (19-25); O2 SATURATION VENOUS 58 % (60-80); PCO2 VENOUS 36 mmHg (41-51); PH,VENOUS 7.43 (7.31-7.41); PO2 VENOUS 33 mmHg (35-42)
--- NOTE | 2021-04-07 22:50 | EDM.PDOC ---
<ElierSallie david Matteo - Last Filed: 04/08/21 05:50> ED HPI GENERAL MEDICAL PROBLEM - General Chief Complaint: General Stated Complaint: AMBULANCE Time Seen by Provider: 04/07/21 22:05 Source of Information: Reports: Patient, EMS, Family History Limitations: Reports: No Limitations - History of Present Illness INITIAL COMMENTS - FREE TEXT/NARRATIVE: ED via [facility] with report of high blood sugars. Patient states not doing well watching her diet . Has been eating lot of chocolate and xmas candy. States taking her daily insulin. Has felt weak today, nausea. EMS glucose greater than 500 C/o has been constipated today. Hgb in clinic states was 13 yesterday usually runs 9-10 denies knowledge of GI bleed or previous blood in stool. No blood or black stools noted. On coumadin for heart valve replacement. Bilateral Leg Pain Score (Numeric/FACES): 6 - Related Data Allergies Allergy/AdvReac Type Severity Reaction Status Date / Time codeine Allergy Mild Itching Verified 04/07/21 22:11 propoxyphene Allergy Mild Nausea Verified 04/07/21 22:11 [From Darvocet-N] procaine Allergy Cannot Verified 04/07/21 22:11 Remember Home Meds: Home Meds DULoxetine [Cymbalta] 60 mg PO DAILY 04/11/14 [History] atorvaSTATin [Lipitor] 40 mg PO BEDTIME 03/07/17 [History] hydrOXYzine HCl [Atarax] 10 mg PO BEDTIME PRN 03/07/17 [History] Metoprolol Succinate [Toprol XL] 50 mg PO DAILY 02/07/18 [History] metFORMIN [Glucophage] 1,000 mg PO BIDMEALS 02/07/18 [History] Albuterol [Proventil HFA] 2 puff INH Q6H PRN 06/15/18 [History] Cholecalciferol (Vitamin D3) [Vitamin D3] 1,000 units PO DAILY 06/15/18 [History] Glimepiride 1 mg PO ACBREAKFAST 06/15/18 [History] Lidocaine Patch 1 patch TOP DAILY 06/15/18 [History] Loratadine [Claritin] 10 mg PO DAILY PRN 06/15/18 [History] Potassium Chloride 20 meq PO DAILY 06/15/18 [History] Sennosides/Docusate Sodium [Sennosides-Docusate Sodium] 1 tab PO DAILY 06/15/18 [History] Warfarin [Coumadin] 1.5 mg PO BEDTIME 06/15/18 [History] polyethylene glycoL 3350 [MiraLAX] 17 gm PO DAILY PRN 06/15/18 [History] Ferrous Gluconate 324 mg PO BID 06/30/18 [History] Ascorbic Acid [Vitamin C] 250 mg PO BID 08/02/18 [History] Pantoprazole Sodium [Protonix] 40 mg PO BIDAC 08/02/18 [History] ALPRAZolam [Alprazolam] 0.25 mg PO BID PRN 04/07/19 [History] Furosemide [Lasix] 20 mg PO DAILY 04/07/19 [History] Ondansetron [Zofran] 8 mg PO TID PRN 07/24/20 [History] Past Medical History - Past Health History Medical/Surgical History: Denies Medical/Surgical History HEENT History: Reports: None Cardiovascular History: Reports: CAD, Heart Failure, Heart Murmur, Heart Valve Replacement, High Cholesterol, Hypertension Respiratory History: Reports: Bronchitis, Recurrent, Pneumonia, Recurrent Gastrointestinal History: Reports: Chronic Constipation, Diverticulosis, GI Bleed Genitourinary History: Reports: None 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: , 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 Musculoskeletal History: Reports: Arthritis, Back Pain, Chronic, Other (See Below) Other Musculoskeletal History: DEGENERATIVE JOINT DISEASE Neurological History: Reports: None Psychiatric History: Reports: Anxiety, Depression Endocrine/Metabolic History: Reports: Diabetes, Type II Hematologic History: Reports: Anemia, Anticoagulation Therapy, Blood Transfusion(s), Iron Deficiency Immunologic History: Reports: None Oncologic (Cancer) History: Reports: None Dermatologic History: Reports: Eczema, Other (See Below) Other Dermatologic History: NUMEROUS BRUISING AREAS NOTED, ESPICALLY TO LOWER ABD, BACK AND l) UPPER ARM - Infectious Disease History Infectious Disease History: Reports: Chicken Pox - Past Surgical History Head Surgeries/Procedures: Reports: None HEENT Surgical History: Reports: Tonsillectomy Cardiovascular Surgical History: Reports: Coronary Artery Bypass, Valve Replacement Other Cardiovascular Surgeries/Procedures: Open heart surgery (mechanical aortic valve replacement) 05-26-2018 Respiratory Surgical History: Reports: None GI Surgical History: Reports: Appendectomy, Cholecystectomy, Colonoscopy, EGD Female Surgical History: Reports: Breast Biopsy Other Female Surgeries/Procedures: BREAST LUMPECTOMY Musculoskeletal Surgical History: Reports: Other (See Below) Other Musculoskeletal Surgeries/Procedures:: RIGHT WRIST LUMPECTOMY, BENIGN Oncologic Surgical History: Reports: Biopsy of Breast Dermatological Surgical History: Reports: None Social & Family History - Family History Family Medical History: No Pertinent Family History - Tobacco Use Tobacco Use Status *Q: Current Some Day Tobacco User Years of Tobacco use: 55 Packs/Tins Daily: 0.5 - Caffeine Use Caffeine Use: Reports: Coffee Other Caffeine Use: Drinks these but not very often Caffeine Use Comment: 2-3 CUPS DAILY - Recreational Drug Use Recreational Drug Use: No - Living Situation & Occupation Living situation: Reports: , with Family Occupation: Retired ED ROS GENERAL - Review of Systems Review Of Systems: Comprehensive ROS is negative, except as noted in HPI. Constitutional: Reports: Malaise, Weakness (general) Respiratory: Denies: Shortness of Breath Cardiovascular: Denies: Chest Pain GI/Abdominal: Reports: Decreased Appetite Musculoskeletal: Reports: No Symptoms Skin: Reports: No Symptoms Neurological: Reports: No Symptoms ED EXAM, GENERAL - Physical Exam Exam: See Below Exam Limited By: No Limitations General Appearance: Alert, Mild Distress Eye Exam: Bilateral Eye: EOMI, PERRL Ears: Normal External Exam Nose: Normal Inspection Throat/Mouth: Normal Inspection Head: Atraumatic, Normocephalic Neck: Normal Inspection Respiratory/Chest: No Respiratory Distress, Lungs Clear Cardiovascular: Normal Peripheral Pulses, Regular Rate, Rhythm GI/Abdominal: Normal Bowel Sounds Extremities: No Pedal Edema Neurological: Alert, Oriented, Normal Cognition Psychiatric: Flat Affect Skin Exam: Warm, Dry, Intact #1 Interpretation Rhythm: Other (111) P-Wave: Present QRS: RBBB ST-T: Normal QT: Normal Course - Re-Assessments/Exams Free Text/Narrative Re-Assessment/Exam: Large formed brown stool Hemoccult positive. TC consult Dr Elvis STRONG Hospitalist. No beds available statewide for transfer. 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 Attempt to lower IV infusion and bolus only BP70's, Lung sounds remain clear. BP mid 80's when asleep, increased 100's systolic when awake C?o bilateral leg pain Offered tylenol reports, makes her stomach burn, questioned what she uses at home, reports tylenol. Departure - Departure Disposition: Admitted As Inpatient 65 Clinical Impression: GI bleed Qualifiers: GI bleed type/associated pathology: unspecified gastrointestinal hemorrhage type Qualified Code(s): K92.2 - Gastrointestinal hemorrhage, unspecified - Discharge Information Sepsis Event Note (ED) - Evaluation Sepsis Screening Result: No Definite Risk <Radha Infante - Last Filed: 04/08/21 17:20> Course - Vital Signs Last Recorded V/S: Last Vital Signs Temp 97.8 F 04/08/21 15:14 Pulse 118 H 04/08/21 15:14 Resp 23 H 04/08/21 15:14 BP 94/48 L 04/08/21 15:14 Pulse Ox 95 04/08/21 15:14 - Orders/Labs/Meds Orders: Active Orders 24 hr Category Date Time Status TYPE AND SCREEN [BBK] Stat Lab 04/08/21 01:25 Results Norepinephrine [Levophed] 4 mg Med 04/08/21 07:45 Active Dextrose 5% in Water 246 ml IV TITRATE Sodium Chloride 0.9% [Normal Saline] 1,000 ml Med 04/08/21 06:30 Active IV ASDIRECTED Transfuse PRBC [Transfuse Red Blood Cells] [COMM] Stat Oth 04/08/21 01:34 Ordered Medication Orders Acetaminophen (Acetaminophen 325 Mg Tab) 650 mg PO Q6H PRN PRN Reason: Pain/Fever Last Admin: 04/08/21 16:42 Dose: 650 mg Documented by: RAFFI Dextrose/Water (50% Dextrose In Water 50 Ml Syringe) 50 ml IVPUSH Q15M PRN PRN Reason: Hypoglycemia Glucagon (Glucagon,Human Recombinant 1 Mg Vial) 1 mg IM Q15M PRN PRN Reason: Hypoglycemia Sodium Chloride (Normal Saline) 1,000 mls @ 75 mls/hr IV ASDIRECTED CARLOS Last Infusion: 04/08/21 07:40 Dose: 999 mls/hr Documented by: Admin: 04/08/21 06:31 Dose: 75 mls/hr Documented by: PARKER Norepinephrine Bitartrate 4 mg (/ Dextrose/Water) 250 mls @ 7.5 mls/hr IV TITRATE CARLOS; Protocol Last Titration: 04/08/21 12:36 Dose: 4 mcg/min, 15 mls/hr Documented by: Titration: 04/08/21 12:27 Dose: 3 mcg/min, 11.25 mls/hr Documented by: Titration: 04/08/21 08:13 Dose: 2 mcg/min, 7.5 mls/hr Documented by: Admin: 04/08/21 07:43 Dose: 2 mcg/min, 7.5 mls/hr Documented by: CIARAN Ceftriaxone Sodium 2 gm/ (Sodium Chloride) 100 mls @ 200 mls/hr IV Q24H [facility] Last Admin: 04/08/21 14:02 Dose: 200 mls/hr Documented by: ANNA Octreotide Acetate 500 mcg/ (Sodium Chloride) 500 mls @ 50 mls/hr IV Q10H [facility] Last Admin: 04/08/21 16:23 Dose: 50 mls/hr Documented by: ANNA Insulin Human Lispro (Insulin Lispro 100 Units/Ml 3 Ml Vial) 0 unit SUBCUT WITHMEALSANDBED [facility]; Protocol Ondansetron HCl (Ondansetron 4 Mg/2 Ml Sdv) 4 mg IVPUSH Q6H [facility] Last Admin: 04/08/21 16:19 Dose: 4 mg Documented by: ANNA Pantoprazole Sodium (Pantoprazole 40 Mg Vial) 40 mg IVPUSH Q12H [facility] Labs: Laboratory Tests 04/07/21 04/07/21 04/07/21 Range/Units 22:01 22:30 22:30 WBC 10.9 H (5.0-10.0) 10^3/uL RBC 2.84 L (4.2-5.4) 10^6/uL Hgb 8.4 L (12.0-16.0) g/dL Hct 25.8 L (37.0-47.0) % MCV 90.8 D (80-100) fL MCH 29.6 (27.0-34.0) pg MCHC 32.6 L (33.0-35.0) g/dL Plt Count 267 (150-450) 10^3/uL Neut % (Auto) 77.0 H (42.2-75.2) % Lymph % (Auto) 16.5 L (20.5-50.1) % [place] % (Auto) 5.3 (2-8) % Eos % (Auto) 0.6 L (1.0-3.0) % Baso % (Auto) 0.6 (0.0-1.0) % PT 30.7 H D (9.0-12.0) SEC INR 3.1 H (0.9-1.2) VBG pH (7.31-7.41) VBG pCO2 (41-51) mmHg VBG pO2 (35-42) mmHg VBG HCO3 (19-25) mmol/l VBG O2 Saturation (60-80) % VBG Base Excess ((-2)-(+3)) mmol/l O2 Delivery Device Sodium (136-145) mmol/L Potassium (3.5-5.1) mmol/L Chloride (98-107) mmol/L Carbon Dioxide (21-32) mmol/L Anion Gap (7-13) mEq/L BUN (7-18) mg/dL Creatinine (0.55-1.02) mg/dL Est Cr Clr Drug Dosing Estimated GFR (MDRD) BUN/Creatinine Ratio (No establ ref range) Glucose (70-99) mg/dL POC Glucose > 600 H* (70-99) mg/dL Lactic Acid (0.4-2.0) mmol/L Calcium (8.5-10.1) mg/dL Magnesium (1.8-2.4) mg/dL Total Bilirubin (0.2-1.0) mg/dL AST (15-37) U/L ALT (14-59) U/L Alkaline Phosphatase (46-116) U/L B-Natriuretic Peptide (0-100) pg/ml Total Protein (6.4-8.2) g/dL Albumin (3.4-5.0) g/dL Globulin Albumin/Globulin Ratio Ketones SARS-CoV-2 RNA (CIARA) (NEGATIVE) Blood Type Gel Antibody Screen Crossmatch 04/07/21 04/07/21 04/07/21 Range/Units 22:30 22:30 22:30 WBC (5.0-10.0) 10^3/uL RBC (4.2-5.4) 10^6/uL Hgb (12.0-16.0) g/dL Hct (37.0-47.0) % MCV (80-100) fL MCH (27.0-34.0) pg MCHC (33.0-35.0) g/dL Plt Count (150-450) 10^3/uL Neut % (Auto) (42.2-75.2) % Lymph % (Auto) (20.5-50.1) % [place] % (Auto) (2-8) % Eos % (Auto) (1.0-3.0) % Baso % (Auto) (0.0-1.0) % PT (9.0-12.0) SEC INR (0.9-1.2) VBG pH 7.43 H (7.31-7.41) VBG pCO2 36 L (41-51) mmHg VBG pO2 33 L (35-42) mmHg VBG HCO3 24 (19-25) mmol/l VBG O2 Saturation 58 L (60-80) % VBG Base Excess 0.3 ((-2)-(+3)) mmol/l O2 Delivery Device Room air Sodium 124 L D (136-145) mmol/L Potassium 4.9 (3.5-5.1) mmol/L Chloride 89 L D (98-107) mmol/L Carbon Dioxide 24 (21-32) mmol/L Anion Gap 15.9 H (7-13) mEq/L BUN 47 H (7-18) mg/dL Creatinine 1.38 H (0.55-1.02) mg/dL Est Cr Clr Drug Dosing TNP Estimated GFR (MDRD) 38 BUN/Creatinine Ratio 34.1 (No establ ref range) Glucose 643 H* (70-99) mg/dL POC Glucose (70-99) mg/dL Lactic Acid 3.7 H* (0.4-2.0) mmol/L Calcium 7.9 L (8.5-10.1) mg/dL Magnesium 1.9 (1.8-2.4) mg/dL Total Bilirubin 0.4 (0.2-1.0) mg/dL AST 12 L (15-37) U/L ALT 14 (14-59) U/L Alkaline Phosphatase 110 (46-116) U/L B-Natriuretic Peptide 220 H (0-100) pg/ml Total Protein 7.4 (6.4-8.2) g/dL Albumin 3.1 L (3.4-5.0) g/dL Globulin 4.3 Albumin/Globulin Ratio 0.72 Ketones Small-20 mg/dl SARS-CoV-2 RNA (CIARA) (NEGATIVE) Blood Type Gel Antibody Screen Crossmatch 04/07/21 04/08/21 04/08/21 Range/Units 23:56 01:00 01:25 WBC (5.0-10.0) 10^3/uL RBC (4.2-5.4) 10^6/uL Hgb 6.9 L D (12.0-16.0) g/dL Hct 21.4 L (37.0-47.0) % MCV (80-100) fL MCH (27.0-34.0) pg MCHC (33.0-35.0) g/dL Plt Count (150-450) 10^3/uL Neut % (Auto) (42.2-75.2) % Lymph % (Auto) (20.5-50.1) % [place] % (Auto) (2-8) % Eos % (Auto) (1.0-3.0) % Baso % (Auto) (0.0-1.0) % PT (9.0-12.0) SEC INR (0.9-1.2) VBG pH (7.31-7.41) VBG pCO2 (41-51) mmHg VBG pO2 (35-42) mmHg VBG HCO3 (19-25) mmol/l VBG O2 Saturation (60-80) % VBG Base Excess ((-2)-(+3)) mmol/l O2 Delivery Device Sodium (136-145) mmol/L Potassium (3.5-5.1) mmol/L Chloride (98-107) mmol/L Carbon Dioxide (21-32) mmol/L Anion Gap (7-13) mEq/L BUN (7-18) mg/dL Creatinine (0.55-1.02) mg/dL Est Cr Clr Drug Dosing Estimated GFR (MDRD) BUN/Creatinine Ratio (No establ ref range) Glucose (70-99) mg/dL POC Glucose 527 H* 505 H* (70-99) mg/dL Lactic Acid (0.4-2.0) mmol/L Calcium (8.5-10.1) mg/dL Magnesium (1.8-2.4) mg/dL Total Bilirubin (0.2-1.0) mg/dL AST (15-37) U/L ALT (14-59) U/L Alkaline Phosphatase (46-116) U/L B-Natriuretic Peptide (0-100) pg/ml Total Protein (6.4-8.2) g/dL Albumin (3.4-5.0) g/dL Globulin Albumin/Globulin Ratio Ketones SARS-CoV-2 RNA (CIARA) (NEGATIVE) Blood Type Gel Antibody Screen Crossmatch 04/08/21 04/08/21 04/08/21 Range/Units 01:25 01:25 01:35 WBC (5.0-10.0) 10^3/uL RBC (4.2-5.4) 10^6/uL Hgb (12.0-16.0) g/dL Hct (37.0-47.0) % MCV (80-100) fL MCH (27.0-34.0) pg MCHC (33.0-35.0) g/dL Plt Count (150-450) 10^3/uL Neut % (Auto) (42.2-75.2) % Lymph % (Auto) (20.5-50.1) % [place] % (Auto) (2-8) % Eos % (Auto) (1.0-3.0) % Baso % (Auto) (0.0-1.0) % PT (9.0-12.0) SEC INR (0.9-1.2) VBG pH (7.31-7.41) VBG pCO2 (41-51) mmHg VBG pO2 (35-42) mmHg VBG HCO3 (19-25) mmol/l VBG O2 Saturation (60-80) % VBG Base Excess ((-2)-(+3)) mmol/l O2 Delivery Device Sodium (136-145) mmol/L Potassium (3.5-5.1) mmol/L Chloride (98-107) mmol/L Carbon Dioxide (21-32) mmol/L Anion Gap (7-13) mEq/L BUN (7-18) mg/dL Creatinine (0.55-1.02) mg/dL Est Cr Clr Drug Dosing Estimated GFR (MDRD) BUN/Creatinine Ratio (No establ ref range) Glucose 503 H* (70-99) mg/dL POC Glucose (70-99) mg/dL Lactic Acid (0.4-2.0) mmol/L Calcium (8.5-10.1) mg/dL Magnesium (1.8-2.4) mg/dL Total Bilirubin (0.2-1.0) mg/dL AST (15-37) U/L ALT (14-59) U/L Alkaline Phosphatase (46-116) U/L B-Natriuretic Peptide (0-100) pg/ml Total Protein (6.4-8.2) g/dL Albumin (3.4-5.0) g/dL Globulin Albumin/Globulin Ratio Ketones SARS-CoV-2 RNA (CIARA) Negative (NEGATIVE) Blood Type O POSITIVE Gel Antibody Screen Negative Crossmatch See Detail 04/08/21 04/08/21 04/08/21 Range/Units 02:45 02:45 05:35 WBC (5.0-10.0) 10^3/uL RBC (4.2-5.4) 10^6/uL Hgb 6.6 L* (12.0-16.0) g/dL Hct (37.0-47.0) % MCV (80-100) fL MCH (27.0-34.0) pg MCHC (33.0-35.0) g/dL Plt Count (150-450) 10^3/uL Neut % (Auto) (42.2-75.2) % Lymph % (Auto) (20.5-50.1) % [place] % (Auto) (2-8) % Eos % (Auto) (1.0-3.0) % Baso % (Auto) (0.0-1.0) % PT (9.0-12.0) SEC INR (0.9-1.2) VBG pH (7.31-7.41) VBG pCO2 (41-51) mmHg VBG pO2 (35-42) mmHg VBG HCO3 (19-25) mmol/l VBG O2 Saturation (60-80) % VBG Base Excess ((-2)-(+3)) mmol/l O2 Delivery Device Sodium (136-145) mmol/L Potassium (3.5-5.1) mmol/L Chloride (98-107) mmol/L Carbon Dioxide (21-32) mmol/L Anion Gap (7-13) mEq/L BUN (7-18) mg/dL Creatinine (0.55-1.02) mg/dL Est Cr Clr Drug Dosing Estimated GFR (MDRD) BUN/Creatinine Ratio (No establ ref range) Glucose 454 H* (70-99) mg/dL POC Glucose (70-99) mg/dL Lactic Acid 3.4 H* (0.4-2.0) mmol/L Calcium (8.5-10.1) mg/dL Magnesium (1.8-2.4) mg/dL Total Bilirubin (0.2-1.0) mg/dL AST (15-37) U/L ALT (14-59) U/L Alkaline Phosphatase (46-116) U/L B-Natriuretic Peptide (0-100) pg/ml Total Protein (6.4-8.2) g/dL Albumin (3.4-5.0) g/dL Globulin Albumin/Globulin Ratio Ketones SARS-CoV-2 RNA (CIARA) (NEGATIVE) Blood Type Gel Antibody Screen Crossmatch 04/08/21 04/08/21 04/08/21 Range/Units 05:35 07:06 08:06 WBC (5.0-10.0) 10^3/uL RBC (4.2-5.4) 10^6/uL Hgb (12.0-16.0) g/dL Hct (37.0-47.0) % MCV (80-100) fL MCH (27.0-34.0) pg MCHC (33.0-35.0) g/dL Plt Count (150-450) 10^3/uL Neut % (Auto) (42.2-75.2) % Lymph % (Auto) (20.5-50.1) % [place] % (Auto) (2-8) % Eos % (Auto) (1.0-3.0) % Baso % (Auto) (0.0-1.0) % PT (9.0-12.0) SEC INR (0.9-1.2) VBG pH (7.31-7.41) VBG pCO2 (41-51) mmHg VBG pO2 (35-42) mmHg VBG HCO3 (19-25) mmol/l VBG O2 Saturation (60-80) % VBG Base Excess ((-2)-(+3)) mmol/l O2 Delivery Device Sodium 132 L (136-145) mmol/L Potassium 3.6 (3.5-5.1) mmol/L Chloride 100 (98-107) mmol/L Carbon Dioxide 22 (21-32) mmol/L Anion Gap 13.6 H (7-13) mEq/L BUN 48 H (7-18) mg/dL Creatinine 1.14 H (0.55-1.02) mg/dL Est Cr Clr Drug Dosing TNP Estimated GFR (MDRD) 47 BUN/Creatinine Ratio (No establ ref range) Glucose 273 H (70-99) mg/dL POC Glucose 144 H 144 H (70-99) mg/dL Lactic Acid (0.4-2.0) mmol/L Calcium 7.6 L (8.5-10.1) mg/dL Magnesium (1.8-2.4) mg/dL Total Bilirubin (0.2-1.0) mg/dL AST (15-37) U/L ALT (14-59) U/L Alkaline Phosphatase (46-116) U/L B-Natriuretic Peptide (0-100) pg/ml Total Protein (6.4-8.2) g/dL Albumin (3.4-5.0) g/dL Globulin Albumin/Globulin Ratio Ketones SARS-CoV-2 RNA (CIARA) (NEGATIVE) Blood Type Gel Antibody Screen Crossmatch 04/08/21 04/08/21 04/08/21 Range/Units 10:36 10:36 10:36 WBC (5.0-10.0) 10^3/uL RBC (4.2-5.4) 10^6/uL Hgb 6.1 L* (12.0-16.0) g/dL Hct 19.2 L* (37.0-47.0) % MCV (80-100) fL MCH (27.0-34.0) pg MCHC (33.0-35.0) g/dL Plt Count (150-450) 10^3/uL Neut % (Auto) (42.2-75.2) % Lymph % (Auto) (20.5-50.1) % [place] % (Auto) (2-8) % Eos % (Auto) (1.0-3.0) % Baso % (Auto) (0.0-1.0) % PT (9.0-12.0) SEC INR (0.9-1.2) VBG pH (7.31-7.41) VBG pCO2 (41-51) mmHg VBG pO2 (35-42) mmHg VBG HCO3 (19-25) mmol/l VBG O2 Saturation (60-80) % VBG Base Excess ((-2)-(+3)) mmol/l O2 Delivery Device Sodium 136 (136-145) mmol/L Potassium 4.1 (3.5-5.1) mmol/L Chloride 102 (98-107) mmol/L Carbon Dioxide 23 (21-32) mmol/L Anion Gap 15.1 H (7-13) mEq/L BUN 45 H (7-18) mg/dL Creatinine 1.05 H (0.55-1.02) mg/dL Est Cr Clr Drug Dosing TNP Estimated GFR (MDRD) 52 BUN/Creatinine Ratio (No establ ref range) Glucose 264 H (70-99) mg/dL POC Glucose (70-99) mg/dL Lactic Acid 2.5 H* (0.4-2.0) mmol/L Calcium 7.6 L (8.5-10.1) mg/dL Magnesium (1.8-2.4) mg/dL Total Bilirubin (0.2-1.0) mg/dL AST (15-37) U/L ALT (14-59) U/L Alkaline Phosphatase (46-116) U/L B-Natriuretic Peptide (0-100) pg/ml Total Protein (6.4-8.2) g/dL Albumin (3.4-5.0) g/dL Globulin Albumin/Globulin Ratio Ketones SARS-CoV-2 RNA (CIARA) (NEGATIVE) Blood Type Gel Antibody Screen Crossmatch Meds: Medications Generic Name Dose Route Start Last Admin Trade Name Freq PRN Reason Stop Dose Admin Acetaminophen 650 mg 04/08/21 15:44 04/08/21 16:42 Acetaminophen 325 Mg Tab PO 650 mg Q6H PRN Administration Pain/Fever Dextrose/Water 50 ml 04/08/21 12:11 50% Dextrose In Water 50 Ml Syringe IVPUSH Q15M PRN Hypoglycemia Glucagon 1 mg 04/08/21 12:11 Glucagon,Human Recombinant 1 Mg Vial IM Q15M PRN Hypoglycemia Sodium Chloride 1,000 mls @ 75 mls/hr 04/08/21 06:30 04/08/21 07:40 Normal Saline IV 999 mls/hr ASDIRECTED CARLOS Infusion Norepinephrine Bitartrate 4 mg 250 mls @ 7.5 mls/hr 04/08/21 07:45 04/08/21 12:36 / Dextrose/Water IV 4 mcg/min TITRATE CARLOS 15 mls/hr Titration Protocol 2 MCG/MIN Ceftriaxone Sodium 2 gm/ 100 mls @ 200 mls/hr 04/08/21 13:00 04/08/21 14:02 Sodium Chloride IV 200 mls/hr Q24H CARLOS Administration Octreotide Acetate 500 mcg/ 500 mls @ 50 mls/hr 04/08/21 16:00 04/08/21 16:23 Sodium Chloride IV 50 mls/hr Q10H CARLOS Administration Insulin Human Lispro 0 unit 04/08/21 18:00 Insulin Lispro 100 Units/Ml 3 Ml Vial SUBCUT WITHMEALSANDBED CARLOS Protocol Ondansetron HCl 4 mg 04/08/21 15:00 04/08/21 16:19 Ondansetron 4 Mg/2 Ml Sdv IVPUSH 4 mg Q6H CARLOS Administration Pantoprazole Sodium 40 mg 04/09/21 08:00 Pantoprazole 40 Mg Vial IVPUSH Q12H CARLOS Discontinued Medications Generic Name Dose Route Start Last Admin Trade Name Freq PRN Reason Stop Dose Admin Acetaminophen 650 mg 04/08/21 05:37 04/08/21 06:03 Acetaminophen 325 Mg Tab PO 04/08/21 05:38 650 mg NOW ONE Administration Dextrose/Water 50 ml 04/07/21 22:32 50% Dextrose In Water 50 Ml Syringe IVPUSH Q15M PRN Hypoglycemia Famotidine 20 mg 04/08/21 05:37 04/08/21 06:03 Famotidine 20 Mg/2 Ml Sdv IVPUSH 04/08/21 05:38 20 mg ONETIME ONE Administration Glucagon 1 mg 04/07/21 22:32 Glucagon,Human Recombinant 1 Mg Vial IM Q15M PRN Hypoglycemia Sodium Chloride 1,000 mls @ 200 mls/hr 04/07/21 22:33 04/07/21 22:54 Normal Saline IV 04/08/21 03:32 200 mls/hr .BOLUS ONE Administration Pantoprazole Sodium 80 mg/ 100 mls @ 200 mls/hr 04/08/21 00:58 04/08/21 01:19 Sodium Chloride IV 04/08/21 01:27 200 mls/hr .BOLUS ONE Administration Insulin Regular in 0.9 % NACL 100 unit in 100 mls @ 7.258 mls/hr 04/08/21 01:15 04/08/21 07:10 Myxredlin In Ns 100 Unit/100 Ml IV 0.1 units/kg/hr TITRATE CARLOS 7.5 mls/hr Titration Protocol 0.1 UNITS/KG/HR Sodium Chloride 1,000 mls @ 250 mls/hr 04/08/21 01:06 04/08/21 03:20 Normal Saline IV 04/08/21 05:05 250 mls/hr .BOLUS ONE Infusion Octreotide Acetate 100 mcg/ 100 mls @ 50 mls/hr 04/08/21 13:00 04/08/21 14:37 Sodium Chloride IV Not Given Q10H CARLOS Octreotide Acetate 100 mcg/ 100 mls @ 50 mls/hr 04/08/21 13:15 04/08/21 14:01 Sodium Chloride IV 50 mls/hr Q2H CARLOS Administration Insulin Human Regular 10 unit 04/07/21 22:32 04/07/21 22:50 Insulin Regular, Human 100 Units/Ml 3 Ml Vial IV 04/07/21 22:33 10 units ONETIME ONE Administration Ondansetron HCl 4 mg 04/07/21 23:33 04/07/21 23:42 Ondansetron 4 Mg/2 Ml Sdv IVPUSH 04/07/21 23:34 4 mg ONETIME ONE Administration Pantoprazole Sodium 40 mg 04/08/21 09:15 04/08/21 09:04 Pantoprazole 40 Mg Vial IVPUSH 04/08/21 09:16 40 mg ONETIME ONE Administration - Re-Assessments/Exams Free Text/Narrative Re-Assessment/Exam: 04/08/21 Care of patient assumed by director underwriter sales at 0700 from Mary Stuart PA-C. Levophed gtt initiated at 2mcg/min, titrated to MAP >60. Case discussed with [facility] at [facility], [facility], [facility], [facility], and [facility] who state no ICU or PCU beds available. [facility] in [facility] to send 2units PRBCs typed to match Anti E and Anti M for the patient. Case discussed with Dr. Bach who accepted patient for admission once beds available at this facility. Departure - Departure Time of Disposition: 11:20 Condition: Serious - My Orders Last 24 Hours: My Active Orders 04/08/21 07:45 Norepinephrine [Levophed] 4 mg Dextrose 5% in Water 246 ml IV TITRATE - Assessment/Plan Last 24 Hours: My Active Orders 04/08/21 07:45 Norepinephrine [Levophed] 4 mg Dextrose 5% in Water 246 ml IV TITRATE
[2021-04-07 22:53] LABS: ANION GAP 15.9 mEq/L (7-13); CHLORIDE,CL 89 mmol/L (98-107); SODIUM,NA 124 mmol/L (136-145)
[2021-04-07] MEDS ORDERED: Ondansetron 4 MG/2 ML SDV IVPUSH ONE (23:33)
--- NOTE | 2021-04-08 00:19 | CR ---
PROCEDURE INFORMATION: Exam: XR Chest Exam date and time: 04/07/2021 10:40 PM Age: 70 years old Clinical indication: Other: Dm chf TECHNIQUE: Imaging protocol: XR of the chest. Views: 1 view. COMPARISON: CT Abdomen Pelvis w Cont 09/01/2020 10:24 PM FINDINGS: Lungs: Unremarkable. No consolidation. Pleural spaces: Unremarkable. No pleural effusion. No pneumothorax. Heart/Mediastinum: Previous open-heart surgery with aortic valve replacement. No cardiomegaly. Bones/joints: Unremarkable. IMPRESSION: 1. No acute findings. 2. No lung infiltrates or edema. 3. No pleural effusion. 4. Previous open-heart surgery. Normal cardiac silhouette.
[2021-04-08] MEDS ORDERED: Pantoprazole 80 MG in Sodium Chloride 0.9% 100 ML IV ONE (00:58)
[2021-04-08] MEDS ORDERED: Sodium Chloride 0.9% 1,000 ML IV ONE (01:06)
[2021-04-08] MEDS ORDERED: Famotidine 20 MG/2 ML SDV IVPUSH ONE (05:37)
[2021-04-08] MEDS ORDERED: Acetaminophen 325 MG Tab PO ONE (05:37)
[2021-04-08 05:49] LABS: ANION GAP 13.6 mEq/L (7-13); CHLORIDE,CL 100 mmol/L (98-107); SODIUM,NA 132 mmol/L (136-145)
[2021-04-08] MEDS ORDERED: Sodium Chloride 0.9% 1,000 ML IV SCH (06:30)
[2021-04-08] MEDS: Norepinephrine 4 MG in Dextrose 5% in Water 246 ML IV SCH ×2 (07:43)
[2021-04-08] MEDS ORDERED: Pantoprazole 40 MG in Sodium Chloride 0.9% 100 ML IV ONE (08:34)
[2021-04-08] MEDS ORDERED: Pantoprazole 40 MG Vial IVPUSH ONE (09:15)
[2021-04-08 10:56] LABS: ANION GAP 15.1 mEq/L (7-13); CHLORIDE,CL 102 mmol/L (98-107); SODIUM,NA 136 mmol/L (136-145)
[2021-04-08] MEDS ORDERED: 50% Dextrose in Water 50 ML Syringe IVPUSH PRN (12:11)
[2021-04-08] MEDS ORDERED: Glucagon,Human Recombinant 1 MG Vial IM PRN (12:11)
--- NOTE | 2021-04-08 12:18 | PCM.HP ---
H&P History of Present Illness - General Date of Service: 04/08/21 Admit Problem/Dx: Admission Diagnosis/Problem Admission Diagnosis/Problem GI bleed not requiring more than 4 units of blood in 24 hours, ICU, or surgery Source of Information: Patient, EMS History Limitations: Reports: No Limitations - History of Present Illness Initial Comments - Free Text/Narative: Patient is a 70-year-old female with a past medical history of recurrent GI b keron, mechanical aortic heart valve on chronic anticoagulation with warfarin, hyperlipidemia, type 2 diabetes, anxiety, congestive heart failure who presented with weakness and hyperglycemia. Patient states she was in her usual state of health until this last Wednesday/Wednesday when she noticed increasing weakness and states she did note some darker stools at home. States that she has been eating poorly including lots of sugary foods and came in due to weakness and high levels of blood sugar. Patient arrived the emergency department she was hypotensive with a blood pressure of 90 systolic. Laboratory values included initial hemoglobin of 8.4 with patient has a baseline around 9-10. INR was 3.1, ALT 14, BNP 220, creatinine 1.14, BUN 48, sodium 132, potassium 3.6. Initial lactic acid was elevated 3.4 with a repeat of 2.5. Covid testing was negative. Patient did have a brown to dark bowel movement that was occult positive. Her hemoglobin was trended and had a decreased to 6.9-6 0.6-6.1. Request was made for admission and transfer to outside facility for GI consultation possible [facility] request was made for patient be admitted here. We were on diversion patient was maintained in the emergency department with my consultation. She is given IV Protonix, fluid resuscitation of around 3 L and started on norepinephrine with a map goal of 60-70. When I saw patient she arrived she rated the above story. Patient tells me she has history of multiple GI bleeds most recently 3 to 4 months ago where she had upper and lower GI bleeds per patient. She currently denies any lightheadedness, dizziness, shortness of breath, chest pains or pressures, states some mild bilateral lower quadrant abdominal discomfort. She states that she believes she does have liver disease but denies any history of varices or ascites. Looking through notes type and screen was ordered by the emergency room physician however given that patient is a history of multiple transfusions she had some antibodies that required irradiated blood which we do not have onsite and are being transported at this time. Patient's glucose level is also significantly elevated at 505 and she was placed on insulin drip with improvement in her blood sugars. Patient states she does not recall her medications at home. Had a prolonged discussion about patient's CODE STATUS and she was to be DNR/DNI. Remainder review systems negative except as listed above. Bilateral Leg Pain Score (Numeric/FACES): 6 - Related Data Allergies/Adverse Reactions: Allergies Allergy/AdvReac Type Severity Reaction Status Date / Time codeine Allergy Mild Itching Verified 04/07/21 22:11 propoxyphene Allergy Mild Nausea Verified 04/07/21 22:11 [From Shait-N] procaine Allergy Cannot Verified 04/07/21 22:11 Remember Home Medications: Home Meds DULoxetine [Cymbalta] 60 mg PO DAILY 04/11/14 [History] atorvaSTATin [Lipitor] 40 mg PO BEDTIME 03/07/17 [History] hydrOXYzine HCl [Atarax] 10 mg PO BEDTIME PRN 03/07/17 [History] Metoprolol Succinate [Toprol XL] 50 mg PO DAILY 02/07/18 [History] metFORMIN [Glucophage] 1,000 mg PO BIDMEALS 02/07/18 [History] Albuterol [Proventil HFA] 2 puff INH Q6H PRN 06/15/18 [History] Cholecalciferol (Vitamin D3) [Vitamin D3] 1,000 units PO DAILY 06/15/18 [History] Glimepiride 1 mg PO ACBREAKFAST 06/15/18 [History] Lidocaine Patch 1 patch TOP DAILY 06/15/18 [History] Loratadine [Claritin] 10 mg PO DAILY PRN 06/15/18 [History] Potassium Chloride 20 meq PO DAILY 06/15/18 [History] Sennosides/Docusate Sodium [Sennosides-Docusate Sodium] 1 tab PO DAILY 06/15/18 [History] Warfarin [Coumadin] 1.5 mg PO BEDTIME 06/15/18 [History] polyethylene glycoL 3350 [MiraLAX] 17 gm PO DAILY PRN 06/15/18 [History] Ferrous Gluconate 324 mg PO BID 06/30/18 [History] Ascorbic Acid [Vitamin C] 250 mg PO BID 08/02/18 [History] Pantoprazole Sodium [Protonix] 40 mg PO BIDAC 08/02/18 [History] ALPRAZolam [Alprazolam] 0.25 mg PO BID PRN 04/07/19 [History] Furosemide [Lasix] 20 mg PO DAILY 04/07/19 [History] Ondansetron [Zofran] 8 mg PO TID PRN 07/24/20 [History] Past Medical History - Past Health History Medical/Surgical History: Denies Medical/Surgical History HEENT History: Reports: None Cardiovascular History: Reports: CAD, Heart Failure, Heart Murmur, Heart Valve Replacement, High Cholesterol, Hypertension Respiratory History: Reports: Bronchitis, Recurrent, Pneumonia, Recurrent Gastrointestinal History: Reports: Chronic Constipation, Diverticulosis, GI Bleed Genitourinary History: Reports: None 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 EVENTS 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: Reports: , Spontaneous Musculoskeletal History: Reports: Arthritis, Back Pain, Chronic, Other (See Below) Other Musculoskeletal History: DEGENERATIVE JOINT DISEASE Neurological History: Reports: None Psychiatric History: Reports: Anxiety, Depression Endocrine/Metabolic History: Reports: Diabetes, Type II Hematologic History: Reports: Anemia, Anticoagulation Therapy, Blood Transfusion(s), Iron Deficiency Immunologic History: Reports: None Oncologic (Cancer) History: Reports: None Dermatologic History: Reports: Eczema, Other (See Below) Other Dermatologic History: NUMEROUS BRUISING AREAS NOTED, ESPICALLY TO LOWER ABD, BACK AND l) UPPER ARM - Infectious Disease History Infectious Disease History: Reports: Chicken Pox - Past Surgical History Head Surgeries/Procedures: Reports: None HEENT Surgical History: Reports: Tonsillectomy Cardiovascular Surgical History: Reports: Coronary Artery Bypass, Valve Replacement Other Cardiovascular Surgeries/Procedures: Open heart surgery (mechanical aortic valve replacement) 05-26-2018 Respiratory Surgical History: Reports: None GI Surgical History: Reports: Appendectomy, Cholecystectomy, Colonoscopy, EGD Female Surgical History: Reports: Breast Biopsy Other Female Surgeries/Procedures: BREAST LUMPECTOMY Musculoskeletal Surgical History: Reports: Other (See Below) Other Musculoskeletal Surgeries/Procedures:: RIGHT WRIST LUMPECTOMY, BENIGN Oncologic Surgical History: Reports: Biopsy of Breast Dermatological Surgical History: Reports: None Social & Family History - Family History Family Medical History: No Pertinent Family History - Tobacco Use Tobacco Use Status *Q: Current Some Day Tobacco User Years of Tobacco use: 55 Packs/Tins Daily: 0.5 - Caffeine Use Caffeine Use: Reports: Coffee Other Caffeine Use: Drinks these but not very often Caffeine Use Comment: 2-3 CUPS DAILY - Recreational Drug Use Recreational Drug Use: No - Living Situation & Occupation Living situation: Reports: , with Family Occupation: Retired H&P Review of Systems - Review of Systems: Review Of Systems: Comprehensive ROS is negative, except as noted in HPI. Exam - Exam Exam: See Below - Vital Signs Vital Signs: Last Vital Signs Temp 96.4 F L 04/07/21 22:03 Pulse 113 H 04/07/21 22:03 Resp 16 04/07/21 22:03 BP 90/45 L 04/07/21 22:03 Pulse Ox 96 04/07/21 22:03 Weight: 160 lb - Exam General: Alert, Oriented Neck: Supple, Trachea Midline Lungs: Clear to Auscultation, Normal Respiratory Effort Cardiovascular: Regular Rhythm, Tachycardia, Other (Systolic murmur with click noted) GI/Abdominal Exam: Normal Bowel Sounds, Soft, Non-Tender, Other (Mild distention, I do not note any ascites) Back Exam: Normal Inspection Extremities: Normal Inspection, Normal Range of Motion Peripheral Pulses: 2+: Radial (L), Radial (R) Skin: Warm, Dry Neurological: Cranial Nerves Intact Neuro Extensive - Mental Status: Alert, Oriented x3 Psychiatric: Alert - Patient Data Lab Results Last 24 hrs: Laboratory Results - last 24 hr 04/07/21 04/07/21 04/07/21 Range/Units 22:01 22:30 22:30 WBC 10.9 H (5.0-10.0) 10^3/uL RBC 2.84 L (4.2-5.4) 10^6/uL Hgb 8.4 L (12.0-16.0) g/dL Hct 25.8 L (37.0-47.0) % MCV 90.8 D (80-100) fL MCH 29.6 (27.0-34.0) pg MCHC 32.6 L (33.0-35.0) g/dL Plt Count 267 (150-450) 10^3/uL Neut % (Auto) 77.0 H (42.2-75.2) % Lymph % (Auto) 16.5 L (20.5-50.1) % Kidder % (Auto) 5.3 (2-8) % Eos % (Auto) 0.6 L (1.0-3.0) % Baso % (Auto) 0.6 (0.0-1.0) % PT 30.7 H D (9.0-12.0) SEC INR 3.1 H (0.9-1.2) VBG pH (7.31-7.41) VBG pCO2 (41-51) mmHg VBG pO2 (35-42) mmHg VBG HCO3 (19-25) mmol/l VBG O2 Saturation (60-80) % VBG Base Excess ((-2)-(+3)) mmol/l O2 Delivery Device Sodium (136-145) mmol/L Potassium (3.5-5.1) mmol/L Chloride (98-107) mmol/L Carbon Dioxide (21-32) mmol/L Anion Gap (7-13) mEq/L BUN (7-18) mg/dL Creatinine (0.55-1.02) mg/dL Est Cr Clr Drug Dosing Estimated GFR (MDRD) BUN/Creatinine Ratio (No establ ref range) Glucose (70-99) mg/dL POC Glucose > 600 H* (70-99) mg/dL Lactic Acid (0.4-2.0) mmol/L Calcium (8.5-10.1) mg/dL Magnesium (1.8-2.4) mg/dL Total Bilirubin (0.2-1.0) mg/dL AST (15-37) U/L ALT (14-59) U/L Alkaline Phosphatase (46-116) U/L B-Natriuretic Peptide (0-100) pg/ml Total Protein (6.4-8.2) g/dL Albumin (3.4-5.0) g/dL Globulin Albumin/Globulin Ratio Ketones SARS-CoV-2 RNA (CIARA) (NEGATIVE) Blood Type Gel Antibody Screen Crossmatch 04/07/21 04/07/21 04/07/21 Range/Units 22:30 22:30 22:30 WBC (5.0-10.0) 10^3/uL RBC (4.2-5.4) 10^6/uL Hgb (12.0-16.0) g/dL Hct (37.0-47.0) % MCV (80-100) fL MCH (27.0-34.0) pg MCHC (33.0-35.0) g/dL Plt Count (150-450) 10^3/uL Neut % (Auto) (42.2-75.2) % Lymph % (Auto) (20.5-50.1) % Kidder % (Auto) (2-8) % Eos % (Auto) (1.0-3.0) % Baso % (Auto) (0.0-1.0) % PT (9.0-12.0) SEC INR (0.9-1.2) VBG pH 7.43 H (7.31-7.41) VBG pCO2 36 L (41-51) mmHg VBG pO2 33 L (35-42) mmHg VBG HCO3 24 (19-25) mmol/l VBG O2 Saturation 58 L (60-80) % VBG Base Excess 0.3 ((-2)-(+3)) mmol/l O2 Delivery Device Room air Sodium 124 L D (136-145) mmol/L Potassium 4.9 (3.5-5.1) mmol/L Chloride 89 L D (98-107) mmol/L Carbon Dioxide 24 (21-32) mmol/L Anion Gap 15.9 H (7-13) mEq/L BUN 47 H (7-18) mg/dL Creatinine 1.38 H (0.55-1.02) mg/dL Est Cr Clr Drug Dosing TNP Estimated GFR (MDRD) 38 BUN/Creatinine Ratio 34.1 (No establ ref range) Glucose 643 H* (70-99) mg/dL POC Glucose (70-99) mg/dL Lactic Acid 3.7 H* (0.4-2.0) mmol/L Calcium 7.9 L (8.5-10.1) mg/dL Magnesium 1.9 (1.8-2.4) mg/dL Total Bilirubin 0.4 (0.2-1.0) mg/dL AST 12 L (15-37) U/L ALT 14 (14-59) U/L Alkaline Phosphatase 110 (46-116) U/L B-Natriuretic Peptide 220 H (0-100) pg/ml Total Protein 7.4 (6.4-8.2) g/dL Albumin 3.1 L (3.4-5.0) g/dL Globulin 4.3 Albumin/Globulin Ratio 0.72 Ketones Small-20 mg/dl SARS-CoV-2 RNA (CIARA) (NEGATIVE) Blood Type Gel Antibody Screen Crossmatch 04/07/21 04/08/21 04/08/21 Range/Units 23:56 01:00 01:25 WBC (5.0-10.0) 10^3/uL RBC (4.2-5.4) 10^6/uL Hgb 6.9 L D (12.0-16.0) g/dL Hct 21.4 L (37.0-47.0) % MCV (80-100) fL MCH (27.0-34.0) pg MCHC (33.0-35.0) g/dL Plt Count (150-450) 10^3/uL Neut % (Auto) (42.2-75.2) % Lymph % (Auto) (20.5-50.1) % Kidder % (Auto) (2-8) % Eos % (Auto) (1.0-3.0) % Baso % (Auto) (0.0-1.0) % PT (9.0-12.0) SEC INR (0.9-1.2) VBG pH (7.31-7.41) VBG pCO2 (41-51) mmHg VBG pO2 (35-42) mmHg VBG HCO3 (19-25) mmol/l VBG O2 Saturation (60-80) % VBG Base Excess ((-2)-(+3)) mmol/l O2 Delivery Device Sodium (136-145) mmol/L Potassium (3.5-5.1) mmol/L Chloride (98-107) mmol/L Carbon Dioxide (21-32) mmol/L Anion Gap (7-13) mEq/L BUN (7-18) mg/dL Creatinine (0.55-1.02) mg/dL Est Cr Clr Drug Dosing Estimated GFR (MDRD) BUN/Creatinine Ratio (No establ ref range) Glucose (70-99) mg/dL POC Glucose 527 H* 505 H* (70-99) mg/dL Lactic Acid (0.4-2.0) mmol/L Calcium (8.5-10.1) mg/dL Magnesium (1.8-2.4) mg/dL Total Bilirubin (0.2-1.0) mg/dL AST (15-37) U/L ALT (14-59) U/L Alkaline Phosphatase (46-116) U/L B-Natriuretic Peptide (0-100) pg/ml Total Protein (6.4-8.2) g/dL Albumin (3.4-5.0) g/dL Globulin Albumin/Globulin Ratio Ketones SARS-CoV-2 RNA (CIARA) (NEGATIVE) Blood Type Gel Antibody Screen Crossmatch 04/08/21 04/08/21 04/08/21 Range/Units 01:25 01:25 01:35 WBC (5.0-10.0) 10^3/uL RBC (4.2-5.4) 10^6/uL Hgb (12.0-16.0) g/dL Hct (37.0-47.0) % MCV (80-100) fL MCH (27.0-34.0) pg MCHC (33.0-35.0) g/dL Plt Count (150-450) 10^3/uL Neut % (Auto) (42.2-75.2) % Lymph % (Auto) (20.5-50.1) % Kidder % (Auto) (2-8) % Eos % (Auto) (1.0-3.0) % Baso % (Auto) (0.0-1.0) % PT (9.0-12.0) SEC INR (0.9-1.2) VBG pH (7.31-7.41) VBG pCO2 (41-51) mmHg VBG pO2 (35-42) mmHg VBG HCO3 (19-25) mmol/l VBG O2 Saturation (60-80) % VBG Base Excess ((-2)-(+3)) mmol/l O2 Delivery Device Sodium (136-145) mmol/L Potassium (3.5-5.1) mmol/L Chloride (98-107) mmol/L Carbon Dioxide (21-32) mmol/L Anion Gap (7-13) mEq/L BUN (7-18) mg/dL Creatinine (0.55-1.02) mg/dL Est Cr Clr Drug Dosing Estimated GFR (MDRD) BUN/Creatinine Ratio (No establ ref range) Glucose 503 H* (70-99) mg/dL POC Glucose (70-99) mg/dL Lactic Acid (0.4-2.0) mmol/L Calcium (8.5-10.1) mg/dL Magnesium (1.8-2.4) mg/dL Total Bilirubin (0.2-1.0) mg/dL AST (15-37) U/L ALT (14-59) U/L Alkaline Phosphatase (46-116) U/L B-Natriuretic Peptide (0-100) pg/ml Total Protein (6.4-8.2) g/dL Albumin (3.4-5.0) g/dL Globulin Albumin/Globulin Ratio Ketones SARS-CoV-2 RNA (CIARA) Negative (NEGATIVE) Blood Type O POSITIVE Gel Antibody Screen Negative Crossmatch See Detail 04/08/21 04/08/21 04/08/21 Range/Units 02:45 02:45 05:35 WBC (5.0-10.0) 10^3/uL RBC (4.2-5.4) 10^6/uL Hgb 6.6 L* (12.0-16.0) g/dL Hct (37.0-47.0) % MCV (80-100) fL MCH (27.0-34.0) pg MCHC (33.0-35.0) g/dL Plt Count (150-450) 10^3/uL Neut % (Auto) (42.2-75.2) % Lymph % (Auto) (20.5-50.1) % Kidder % (Auto) (2-8) % Eos % (Auto) (1.0-3.0) % Baso % (Auto) (0.0-1.0) % PT (9.0-12.0) SEC INR (0.9-1.2) VBG pH (7.31-7.41) VBG pCO2 (41-51) mmHg VBG pO2 (35-42) mmHg VBG HCO3 (19-25) mmol/l VBG O2 Saturation (60-80) % VBG Base Excess ((-2)-(+3)) mmol/l O2 Delivery Device Sodium (136-145) mmol/L Potassium (3.5-5.1) mmol/L Chloride (98-107) mmol/L Carbon Dioxide (21-32) mmol/L Anion Gap (7-13) mEq/L BUN (7-18) mg/dL Creatinine (0.55-1.02) mg/dL Est Cr Clr Drug Dosing Estimated GFR (MDRD) BUN/Creatinine Ratio (No establ ref range) Glucose 454 H* (70-99) mg/dL POC Glucose (70-99) mg/dL Lactic Acid 3.4 H* (0.4-2.0) mmol/L Calcium (8.5-10.1) mg/dL Magnesium (1.8-2.4) mg/dL Total Bilirubin (0.2-1.0) mg/dL AST (15-37) U/L ALT (14-59) U/L Alkaline Phosphatase (46-116) U/L B-Natriuretic Peptide (0-100) pg/ml Total Protein (6.4-8.2) g/dL Albumin (3.4-5.0) g/dL Globulin Albumin/Globulin Ratio Ketones SARS-CoV-2 RNA (CIARA) (NEGATIVE) Blood Type Gel Antibody Screen Crossmatch 04/08/21 04/08/21 04/08/21 Range/Units 05:35 07:06 08:06 WBC (5.0-10.0) 10^3/uL RBC (4.2-5.4) 10^6/uL Hgb (12.0-16.0) g/dL Hct (37.0-47.0) % MCV (80-100) fL MCH (27.0-34.0) pg MCHC (33.0-35.0) g/dL Plt Count (150-450) 10^3/uL Neut % (Auto) (42.2-75.2) % Lymph % (Auto) (20.5-50.1) % Kidder % (Auto) (2-8) % Eos % (Auto) (1.0-3.0) % Baso % (Auto) (0.0-1.0) % PT (9.0-12.0) SEC INR (0.9-1.2) VBG pH (7.31-7.41) VBG pCO2 (41-51) mmHg VBG pO2 (35-42) mmHg VBG HCO3 (19-25) mmol/l VBG O2 Saturation (60-80) % VBG Base Excess ((-2)-(+3)) mmol/l O2 Delivery Device Sodium 132 L (136-145) mmol/L Potassium 3.6 (3.5-5.1) mmol/L Chloride 100 (98-107) mmol/L Carbon Dioxide 22 (21-32) mmol/L Anion Gap 13.6 H (7-13) mEq/L BUN 48 H (7-18) mg/dL Creatinine 1.14 H (0.55-1.02) mg/dL Est Cr Clr Drug Dosing TNP Estimated GFR (MDRD) 47 BUN/Creatinine Ratio (No establ ref range) Glucose 273 H (70-99) mg/dL POC Glucose 144 H 144 H (70-99) mg/dL Lactic Acid (0.4-2.0) mmol/L Calcium 7.6 L (8.5-10.1) mg/dL Magnesium (1.8-2.4) mg/dL Total Bilirubin (0.2-1.0) mg/dL AST (15-37) U/L ALT (14-59) U/L Alkaline Phosphatase (46-116) U/L B-Natriuretic Peptide (0-100) pg/ml Total Protein (6.4-8.2) g/dL Albumin (3.4-5.0) g/dL Globulin Albumin/Globulin Ratio Ketones SARS-CoV-2 RNA (CIARA) (NEGATIVE) Blood Type Gel Antibody Screen Crossmatch 04/08/21 04/08/21 04/08/21 Range/Units 10:36 10:36 10:36 WBC (5.0-10.0) 10^3/uL RBC (4.2-5.4) 10^6/uL Hgb 6.1 L* (12.0-16.0) g/dL Hct 19.2 L* (37.0-47.0) % MCV (80-100) fL MCH (27.0-34.0) pg MCHC (33.0-35.0) g/dL Plt Count (150-450) 10^3/uL Neut % (Auto) (42.2-75.2) % Lymph % (Auto) (20.5-50.1) % Kidder % (Auto) (2-8) % Eos % (Auto) (1.0-3.0) % Baso % (Auto) (0.0-1.0) % PT (9.0-12.0) SEC INR (0.9-1.2) VBG pH (7.31-7.41) VBG pCO2 (41-51) mmHg VBG pO2 (35-42) mmHg VBG HCO3 (19-25) mmol/l VBG O2 Saturation (60-80) % VBG Base Excess ((-2)-(+3)) mmol/l O2 Delivery Device Sodium 136 (136-145) mmol/L Potassium 4.1 (3.5-5.1) mmol/L Chloride 102 (98-107) mmol/L Carbon Dioxide 23 (21-32) mmol/L Anion Gap 15.1 H (7-13) mEq/L BUN 45 H (7-18) mg/dL Creatinine 1.05 H (0.55-1.02) mg/dL Est Cr Clr Drug Dosing TNP Estimated GFR (MDRD) 52 BUN/Creatinine Ratio (No establ ref range) Glucose 264 H (70-99) mg/dL POC Glucose (70-99) mg/dL Lactic Acid 2.5 H* (0.4-2.0) mmol/L Calcium 7.6 L (8.5-10.1) mg/dL Magnesium (1.8-2.4) mg/dL Total Bilirubin (0.2-1.0) mg/dL AST (15-37) U/L ALT (14-59) U/L Alkaline Phosphatase (46-116) U/L B-Natriuretic Peptide (0-100) pg/ml Total Protein (6.4-8.2) g/dL Albumin (3.4-5.0) g/dL Globulin Albumin/Globulin Ratio Ketones SARS-CoV-2 RNA (CIARA) (NEGATIVE) Blood Type Gel Antibody Screen Crossmatch Result Diagrams: 04/08/21 10:36 04/08/21 10:36 Calin Results Last 24 hrs: Microbiology 04/08/21 00:31 Stool Occult Blood (CALIN) - Final Stool / Feces - Problem List (1) Abdominal pain SNOMED Code(s): 62295553 ICD Code: R10.9 - UNSPECIFIED ABDOMINAL PAIN Status: Acute Current Visit: Yes (2) CHF, Congestive heart failure SNOMED Code(s): 48423086 ICD Code: I50.9 - HEART FAILURE, UNSPECIFIED Status: Acute Current Visit: Yes (3) Chronic anticoagulation SNOMED Code(s): 449043302 ICD Code: Z79.01 - [facility] (CURRENT) USE OF ANTICOAGULANTS Status: Acute Current Visit: Yes (4) GI bleed SNOMED Code(s): 92681117 ICD Code: K92.2 - GASTROINTESTINAL HEMORRHAGE, UNSPECIFIED Status: Acute Current Visit: Yes Qualifiers: GI bleed type/associated pathology: unspecified gastrointestinal hemorrhage type Qualified Code(s): K92.2 - Gastrointestinal hemorrhage, unspecified (5) History of mechanical aortic valve replacement SNOMED Code(s): 098274471206828, 945343401, 208240789238847 ICD Code: Z95.2 - PRESENCE OF PROSTHETIC HEART VALVE Status: Acute Current Visit: Yes (6) Hypotension SNOMED Code(s): 46417219 ICD Code: I95.9 - HYPOTENSION, UNSPECIFIED Status: Acute Current Visit: Yes Qualifiers: Hypotension type: unspecified hypotension type Qualified Code(s): I95.9 - Hypotension, unspecified Problem List Initiated/Reviewed/Updated: Yes Orders Last 24hrs: Active Orders 24 hr Category Date Time Status Admission Diagnosis [ADT] Stat ADT 04/08/21 11:17 Ordered Admission Status [Patient Status] [ADT] Routine ADT 04/08/21 11:17 Active Oxygen Therapy [RC] PRN Care 04/08/21 12:08 Ordered Up With Assistance [RC] ASDIRECTED Care 04/08/21 12:08 Ordered VTE/DVT Education [RC] PER UNIT ROUTINE Care 04/08/21 12:08 Ordered Vital Signs [RC] Q2H Care 04/08/21 12:08 Ordered Nothing per Oral Now Diet [DIET] Diet 04/08/21 Breakfast Ordered RED BLOOD CELLS LP [BBK] Routine Lab 04/08/21 01:25 Results TYPE AND SCREEN [BBK] Stat Lab 04/08/21 01:25 Results Dextrose 50% in Water Med 04/07/21 22:32 Active 50 ml IVPUSH Q15M PRN Dextrose 50% in Water Med 04/08/21 12:11 Ordered 50 ml IVPUSH Q15M PRN Glucagon,Human Recombinant [GlucaGen] Med 04/07/21 22:32 Active 1 mg IM Q15M PRN Glucagon,Human Recombinant [GlucaGen] Med 04/08/21 12:11 Ordered 1 mg IM Q15M PRN Insulin Lispro [HumaLOG] Med 04/08/21 18:00 Ordered See Protocol SUBCUT WITHMEALSANDBED Norepinephrine [Levophed] 4 mg Med 04/08/21 07:45 Active Dextrose 5% in Water 246 ml IV TITRATE Pantoprazole [ProTONIX IV] Med 04/09/21 08:00 Ordered 40 mg IVPUSH Q12H Sodium Chloride 0.9% [Normal Saline] 1,000 ml Med 04/08/21 06:30 Active IV ASDIRECTED Transfuse PRBC [Transfuse Red Blood Cells] [COMM] Stat Oth 04/08/21 01:34 Ordered Medication Orders Dextrose/Water (50% Dextrose In Water 50 Ml Syringe) 50 ml IVPUSH Q15M PRN PRN Reason: Hypoglycemia Dextrose/Water (50% Dextrose In Water 50 Ml Syringe) 50 ml IVPUSH Q15M PRN PRN Reason: Hypoglycemia Glucagon (Glucagon,Human Recombinant 1 Mg Vial) 1 mg IM Q15M PRN PRN Reason: Hypoglycemia Glucagon (Glucagon,Human Recombinant 1 Mg Vial) 1 mg IM Q15M PRN PRN Reason: Hypoglycemia Sodium Chloride (Normal Saline) 1,000 mls @ 75 mls/hr IV ASDIRECTED CARLOS Last Infusion: 04/08/21 07:40 Dose: 999 mls/hr Documented by: Admin: 04/08/21 06:31 Dose: 75 mls/hr Documented by: PARKER Norepinephrine Bitartrate 4 mg (/ Dextrose/Water) 250 mls @ 7.5 mls/hr IV TITRATE CARLOS; Protocol Last Titration: 04/08/21 08:13 Dose: 2 mcg/min, 7.5 mls/hr Documented by: Admin: 04/08/21 07:43 Dose: 2 mcg/min, 7.5 mls/hr Documented by: CIARAN Insulin Human Lispro (Insulin Lispro 100 Units/Ml 3 Ml Vial) 0 unit SUBCUT WITHMEALSANDBED CARLOS; Protocol Pantoprazole Sodium (Pantoprazole 40 Mg Vial) 40 mg IVPUSH Q12H [facility] Assessment/Plan Comment:: Patient is a 70-year-old female with a past medical history of multiple GI bleeds, mechanical aortic valve on chronic anticoagulation with warfarin, who presents with # GI bleed -Unclear history, patient is poor historian, guaiac positive stool in the emergency department - ? Heyde syndrome -Hemoglobin 8.4 - 6.9 - 6.6 - 6.1 - Q6 hr hemoglobin -Type and screen already performed, patient has specific antigens that require irradiated blood. Blood products not available at our facility and are being driven to our facility, will transfuse 1 unit packed RBCs when they arrive -Significant hypotension likely secondary to above, norepinephrine to maintain MAP of greater than 60 -Patient is already received approx 3 L fluid resuscitation, will hold on further fluid resuscitation given her history of heart failure -Again patient is anticoagulated with warfarin due to her mechanical heart valve, would only consider reversal if patient decompensates will hold on vitamin K for now, hold warfarin -IV Protonix BID -Given questionable history of liver disease will start on octreotide drip, will give dose of IV ceftriaxone for SBP prophylaxis in a patient with possible liver disease and GI bleed -Tried multiple facilities and attempted to transfer patient for gastroenterology consultation unable to find any open beds at this time # Type 2 diabetes mellitus -Glucose levels improved on insulin drip, DC drip for now will trial subcutaneous insulin with a sliding scale 4 times per day given n.p.o. status -could consider repeat insulin drip if needed # History of mechanical aortic valve -INR 3.1 - Hold warfarin for now given GI bleed -Patient has significant systolic murmur and click, given her significant hypotension and lack of brisk GI bleeding currently with hypotension could consider valvular pathology would recommend a TTE although we do not have these capabilities # Chronic medical conditions # Hyperlipidemiastatin # [facility] do not have a most recent TTE unsure if diastolic or systolic dysfunction, hold Lasix given hypotension # Anxietycontinue duloxetine Fluidsnone Electrolyteswithin normal limits Diet- NPO DVT prophylaxis warfarin, hold given GI bleed
[2021-04-08] MEDS ORDERED: Octreotide 100 MCG in Sodium Chloride 0.9% 99 ML IV SCH (13:00)
[2021-04-08] MEDS: Octreotide 100 MCG in Sodium Chloride 0.9% 99 ML IV SCH ×2 (14:01→17:33)
[2021-04-08] MEDS: cefTRIAXone 2 GM in Sodium Chloride 0.9% 100 ML IV SCH (14:02)
[2021-04-08] MEDS: Ondansetron 4 MG/2 ML SDV IVPUSH SCH ×2 (16:19→21:03)
[2021-04-08] MEDS: Octreotide 500 MCG in Sodium Chloride 0.9% 495 ML IV SCH (16:23)
[2021-04-08] MEDS: Acetaminophen 325 MG Tab PO PRN (16:42)
[2021-04-08] MEDS: Insulin Lispro 100 Units/ML 3 ML Vial SUBCUT SCH ×2 (17:38→21:03)
[2021-04-08] MEDS: fentaNYL 100 MCG/2 ML SDV IVPUSH PRN (20:13)
[2021-04-09] MEDS: fentaNYL 100 MCG/2 ML SDV IVPUSH PRN ×4 (00:44→20:38)
[2021-04-09] MEDS: Norepinephrine 4 MG in Dextrose 5% in Water 246 ML IV SCH ×6 (01:42→23:45)
[2021-04-09] MEDS ORDERED: Ondansetron 4 MG/2 ML SDV IVPUSH ONE (03:00)
[2021-04-09] MEDS ORDERED: SODIUM CHLORIDE 0.9% IV ONE (03:05)
[2021-04-09] MEDS ORDERED: OCTREOTIDE IV ONE (03:05)
[2021-04-09] MEDS: Ondansetron 4 MG/2 ML SDV IVPUSH SCH ×4 (06:11→20:15)
[2021-04-09] MEDS: Octreotide 500 MCG in Sodium Chloride 0.9% 495 ML IV SCH ×3 (06:11→23:49)
[2021-04-09] MEDS: Pantoprazole 40 MG Vial IVPUSH SCH ×2 (08:13→20:14)
[2021-04-09] MEDS: Insulin Lispro 100 Units/ML 3 ML Vial SUBCUT SCH ×4 (08:13→21:34)
[2021-04-09] MEDS: Midodrine 2.5 MG Tab PO SCH ×2 (11:09→16:13)
[2021-04-09] MEDS ORDERED: 50% Dextrose in Water 50 ML Syringe IVPUSH PRN (11:31)
[2021-04-09] MEDS ORDERED: Glucagon,Human Recombinant 1 MG Vial IM PRN (11:31)
[2021-04-09] MEDS: Insulin Glarg,Human.Rec.Analog 100 Unit/ML SUBCUT SCH (11:54)
--- NOTE | 2021-04-09 11:56 | PCM.PN ---
- General Info Date of Service: 04/09/21 Admission Dx/Problem (Free Text): Admission Diagnosis/Problem Admission Diagnosis/Problem GI bleed not requiring more than 4 units of blood in 24 hours, ICU, or surgery Subjective Update: 70 yo with h/o mechanical AO valve replacement h/o chronic gi bleed, requiring multiple blood tx recent EGD at [facility] presented with uncontrolled BSs, constipation noted hypotension noted severe anemia, occult positive but grossly negative stool started on protonix, octreotide given 2 u prbc overnight remained on levophed no c/o abd pain, no fever, no sob Functional Status: Reports: Pain Controlled. Denies: Tolerating Diet (npo) - Review of Systems General: Reports: Weakness. Denies: Fever Pulmonary: Denies: Shortness of Breath Cardiovascular: Denies: Chest Pain, Edema Gastrointestinal: Denies: Abdominal Pain Neurological: Denies: Confusion - Patient Data Vitals - Most Recent: Last Vital Signs Temp 97.8 F 04/09/21 07:39 Pulse 112 H 04/09/21 07:39 Resp 18 04/09/21 07:39 BP 95/83 04/09/21 07:39 Pulse Ox 95 04/09/21 07:39 Weight - Most Recent: 164 lb 5 oz I&O - Last 24 Hours: Intake & Output 04/08/21 04/09/21 04/09/21 22:59 06:59 14:59 Intake Total 780 Output Total 1300 300 Balance -520 -300 Lab Results Last 24 Hours: Laboratory Results - last 24 hr 04/08/21 04/08/21 04/08/21 Range/Units 01:25 16:57 20:59 Hgb (12.0-16.0) g/dL POC Glucose 395 H 343 H (70-99) mg/dL Blood Type O POSITIVE Gel Antibody Screen Negative Crossmatch See Detail 04/09/21 04/09/21 04/09/21 Range/Units 00:28 07:03 11:25 Hgb 7.9 L D (12.0-16.0) g/dL POC Glucose 426 H* 438 H* (70-99) mg/dL Blood Type Gel Antibody Screen Crossmatch Med Orders - Current: Current Medications Acetaminophen (Acetaminophen 325 Mg Tab) 650 mg PO Q6H PRN PRN Reason: Pain/Fever Last Admin: 04/08/21 16:42 Dose: 650 mg Documented by: Albuterol/Ipratropium (Albuterol/Ipratropium 3.0-0.5 Mg/3 Ml Neb Soln) 3 ml NEB TID [facility] Budesonide (Budesonide 0.5 Mg/2 Ml Neb Susp) 0.5 mg NEB BIDRT [facility] Dextrose/Water (50% Dextrose In Water 50 Ml Syringe) 50 ml IVPUSH Q15M PRN PRN Reason: Hypoglycemia Duloxetine HCl (Duloxetine 30 Mg Cap) 60 mg PO DAILY [facility] Fentanyl (Fentanyl 100 Mcg/2 Ml Sdv) 25 mcg IVPUSH Q4H PRN; Protocol PRN Reason: pain, severe Last Admin: 04/09/21 08:21 Dose: 25 mcg Documented by: Glimepiride (Glimepiride 2 Mg Tab) 1 mg PO ACBREAKFAST [facility] Glucagon (Glucagon,Human Recombinant 1 Mg Vial) 1 mg IM Q15M PRN PRN Reason: Hypoglycemia Glucagon (Glucagon,Human Recombinant 1 Mg Vial) 1 mg IM Q15M PRN PRN Reason: Hypoglycemia Norepinephrine Bitartrate 4 mg (/ Dextrose/Water) 250 mls @ 7.5 mls/hr IV TITRATE [facility]; Protocol Last Titration: 04/09/21 10:32 Dose: 5 mcg/min, 18.75 mls/hr Documented by: Ceftriaxone Sodium 2 gm/ (Sodium Chloride) 100 mls @ 200 mls/hr IV Q24H [facility] Last Admin: 04/08/21 14:02 Dose: 200 mls/hr Documented by: Octreotide Acetate 500 mcg/ (Sodium Chloride) 500 mls @ 50 mls/hr IV Q10H [facility] Last Admin: 04/09/21 06:11 Dose: Not Given Documented by: Insulin Glargine (Insulin Glarg,Human.Rec.Analog 100 Unit/Ml) 10 unit SUBCUT DAILY [facility] Insulin Human Lispro (Insulin Lispro 100 Units/Ml 3 Ml Vial) 0 unit SUBCUT WITHMEALSANDBED [facility]; Protocol Last Admin: 04/09/21 08:13 Dose: 15 unit Documented by: Lactulose (Lactulose Soln 10 Gm/15 Ml 30 Ml Ud Cup) 20 gm PO TID [facility] Midodrine (Midodrine 2.5 Mg Tab) 5 mg PO TIDAC [facility] Last Admin: 04/09/21 11:09 Dose: 5 mg Documented by: Ondansetron HCl (Ondansetron 4 Mg/2 Ml Sdv) 4 mg IVPUSH Q6H [facility] Last Admin: 04/09/21 08:13 Dose: 4 mg Documented by: Pantoprazole Sodium (Pantoprazole 40 Mg Vial) 40 mg IVPUSH Q12H [facility] Last Admin: 04/09/21 08:13 Dose: 40 mg Documented by: Rifaximin (Rifaximin 550 Mg Tab) 550 mg PO BID [facility] Discontinued Medications Acetaminophen (Acetaminophen 325 Mg Tab) 650 mg PO NOW ONE Stop: 04/08/21 05:38 Last Admin: 04/08/21 06:03 Dose: 650 mg Documented by: Dextrose/Water (50% Dextrose In Water 50 Ml Syringe) 50 ml IVPUSH Q15M PRN PRN Reason: Hypoglycemia Dextrose/Water (50% Dextrose In Water 50 Ml Syringe) 50 ml IVPUSH Q15M PRN PRN Reason: Hypoglycemia Famotidine (Famotidine 20 Mg/2 Ml Sdv) 20 mg IVPUSH ONETIME ONE Stop: 04/08/21 05:38 Last Admin: 04/08/21 06:03 Dose: 20 mg Documented by: Glucagon (Glucagon,Human Recombinant 1 Mg Vial) 1 mg IM Q15M PRN PRN Reason: Hypoglycemia Sodium Chloride (Normal Saline) 1,000 mls @ 200 mls/hr IV .BOLUS ONE Stop: 04/08/21 03:32 Last Admin: 04/07/21 22:54 Dose: 200 mls/hr Documented by: Pantoprazole Sodium 80 mg/ (Sodium Chloride) 100 mls @ 200 mls/hr IV .BOLUS ONE Stop: 04/08/21 01:27 Last Admin: 04/08/21 01:19 Dose: 200 mls/hr Documented by: Insulin Regular in 0.9 % NACL (Myxredlin In Ns 100 Unit/100 Ml) 100 unit in 100 mls @ 7.258 mls/hr IV TITRATE [facility]; Protocol Last Titration: 04/08/21 07:10 Dose: 0.1 units/kg/hr, 7.5 mls/hr Documented by: Sodium Chloride (Normal Saline) 1,000 mls @ 250 mls/hr IV .BOLUS ONE Stop: 04/08/21 05:05 Last Infusion: 04/08/21 03:20 Dose: 250 mls/hr Documented by: Sodium Chloride (Normal Saline) 1,000 mls @ 75 mls/hr IV ASDIRECTED [facility] Last Infusion: 04/08/21 07:40 Dose: 999 mls/hr Documented by: Octreotide Acetate 100 mcg/ (Sodium Chloride) 100 mls @ 50 mls/hr IV Q10H [facility] Last Admin: 04/08/21 14:37 Dose: Not Given Documented by: Octreotide Acetate 100 mcg/ (Sodium Chloride) 100 mls @ 50 mls/hr IV Q2H [facility] Last Admin: 04/08/21 17:33 Dose: Not Given Documented by: Octreotide Acetate 500 mcg/ (Sodium Chloride) 505 mls @ as directed IV .STK-MED ONE Stop: 04/09/21 03:06 Insulin Human Regular (Insulin Regular, Human 100 Units/Ml 3 Ml Vial) 10 unit IV ONETIME ONE Stop: 04/07/21 22:33 Last Admin: 04/07/21 22:50 Dose: 10 units Documented by: Ondansetron HCl (Ondansetron 4 Mg/2 Ml Sdv) 4 mg IVPUSH ONETIME ONE Stop: 04/07/21 23:34 Last Admin: 04/07/21 23:42 Dose: 4 mg Documented by: Ondansetron HCl (Ondansetron 4 Mg/2 Ml Sdv) 4 mg IVPUSH .STK-MED ONE Stop: 04/09/21 03:01 Pantoprazole Sodium (Pantoprazole 40 Mg Vial) 40 mg IVPUSH ONETIME ONE Stop: 04/08/21 09:16 Last Admin: 04/08/21 09:04 Dose: 40 mg Documented by: - Exam General: Alert, Oriented Neck: Supple Lungs: Clear to Auscultation, Normal Respiratory Effort Cardiovascular: Regular Rate, Regular Rhythm GI/Abdominal Exam: Normal Bowel Sounds, Soft, Non-Tender Neurological: No New Focal Deficit Psy/Mental Status: Alert, Normal Affect, Normal Mood - Patient Data Lab Results Last 24 hrs: Laboratory Results - last 24 hr 04/08/21 04/08/21 04/08/21 Range/Units 01:25 16:57 20:59 Hgb (12.0-16.0) g/dL POC Glucose 395 H 343 H (70-99) mg/dL Blood Type O POSITIVE Gel Antibody Screen Negative Crossmatch See Detail 04/09/21 04/09/21 04/09/21 Range/Units 00:28 07:03 11:25 Hgb 7.9 L D (12.0-16.0) g/dL POC Glucose 426 H* 438 H* (70-99) mg/dL Blood Type Gel Antibody Screen Crossmatch Result Diagrams: 04/09/21 00:28 04/08/21 10:36 Sepsis Event Note - Evaluation Sepsis Screening Result: No Definite Risk - Focused Exam Vital Signs: Vital Signs Temp Pulse Resp BP Pulse Ox 04/09/21 07:39 97.8 F 112 H 18 95/83 95 04/09/21 06:00 98.9 F 111 H 18 123/45 L 93 L - Problem List Review Problem List Initiated/Reviewed/Updated: Yes - My Orders Last 24 Hours: My Active Orders 04/08/21 20:03 fentaNYL [Sublimaze] 25 mcg IVPUSH Q4H PRN 04/09/21 11:00 Midodrine 5 mg PO TIDAC 04/09/21 11:31 Glucagon,Human Recombinant [GlucaGen] 1 mg IM Q15M PRN 04/09/21 11:42 RT Aerosol Therapy [RC] ASDIRECTED 04/09/21 11:45 Insulin Glarg,Human.Rec.Analog [LantUS] 10 unit SUBCUT DAILY Rifaximin [Xifaxan] 550 mg PO BID 04/09/21 Lunch Clear Liquid Diet [DIET] 04/09/21 14:00 Albuterol/Ipratropium [DuoNeb 3.0-0.5 MG/3 ML] 3 ml NEB TID Lactulose [Cephulac] 20 gm PO TID 04/09/21 18:00 Budesonide [Pulmicort] 0.5 mg NEB BIDRT 04/10/21 05:15 BASIC METABOLIC PANEL,BMP [CHEM] AM CBC WITH AUTO DIFF [HEME] AM 04/10/21 06:00 Glimepiride [Glimepiride] 1 mg PO ACBREAKFAST 04/10/21 09:00 DULoxetine [Cymbalta] 60 mg PO DAILY - Plan Plan:: Patient is a 70-year-old female with a past medical history of multiple GI bleeds, mechanical aortic valve on chronic anticoagulation with warfarin, who presented with c/o constipation, uncontrolled hyperglycemia noted occult positive blood, severe anemia, hypotension # GI bleed -h/o multiple blood tx, recent w/up at [facility] positive stool in the emergency department -treat with octreotide, protonix IV start sucralfate - ceftriaxone for SBP prophylaxis with h/o liver dx # Acute blood loss anemia severe, hgb down to 6.1 received 2 u prbc on 04/08 will follow hgb transfuse as needed #hypovolemic shock transfuse with blood started levophed IV pressor will add midodrine try to taper off levophed hold metoprolol # mechanical AO valve gi bleed appear a slow subacute bleed reverse anticoagulation if large amount of bleeding noted # liver cirrhosis constipation resume lactulose resume rifaximine # Type 2 diabetes mellitus uncontrolled high advance diet to clear liquid add lantus subcutaneous insulin with a sliding scale 4 times per day # History of mechanical aortic valve -INR 3.1 - Hold warfarin for now given GI bleed # Chronic medical conditions # Hyperlipidemiastatin # CHFchronic - hold Lasix given hypotension # Anxietycontinue duloxetine DVT prophylaxis warfarin, hold given GI bleed the patient's condition has been immediately life threatening requiring transfusion, IV Pressors spent more than 35 min critical care time with patient
[2021-04-09] MEDS: Lactulose Soln 10 GM/15 ML 30 ML UD Cup PO SCH ×2 (13:24→20:15)
[2021-04-09] MEDS: Rifaximin 550 MG Tab PO SCH ×2 (13:24→20:15)
[2021-04-09] MEDS: cefTRIAXone 2 GM in Sodium Chloride 0.9% 100 ML IV SCH (13:24)
[2021-04-09] MEDS ORDERED: ALPRAZolam 0.25 MG Tab PO PRN (13:30)
[2021-04-09] MEDS ORDERED: hydrOXYzine HCl 10 MG Tab PO PRN (13:30)
[2021-04-09] MEDS: Albuterol/Ipratropium 3.0-0.5 MG/3 ML Neb Soln NEB SCH ×2 (13:45→18:18)
[2021-04-09] MEDS ORDERED: ClonazePAM 0.5 MG Tab PO PRN (15:01)
[2021-04-09] MEDS: Sucralfate 1 GM Tab PO SCH (16:13)
[2021-04-09] MEDS: hydrOXYzine HCl 10 MG Tab PO PRN ×2 (16:13→23:50)
[2021-04-09] MEDS: Budesonide 0.5 MG/2 ML Neb Susp NEB SCH ×2 (18:20→18:30)
[2021-04-09] MEDS: Furosemide 20 MG Tab PO SCH ×2 (18:21→18:29)
[2021-04-09] MEDS: Menthol/Methyl Salicylate 85 GM Tube TOP PRN (18:32)
[2021-04-09] MEDS: Ferrous Sulfate 325 MG Tab PO SCH (20:15)
[2021-04-10] MEDS: fentaNYL 100 MCG/2 ML SDV IVPUSH PRN (01:49)
[2021-04-10] MEDS: Ondansetron 4 MG/2 ML SDV IVPUSH SCH ×4 (02:00→20:50)
[2021-04-10] MEDS ORDERED: Albumin Human 25 GM in Premix Bag 1 BAG IV ONE (02:50)
[2021-04-10] MEDS ORDERED: Midodrine 2.5 MG Tab PO ONE (02:53)
[2021-04-10] MEDS: Lactulose Soln 10 GM/15 ML 30 ML UD Cup PO SCH ×4 (03:40→21:14)
[2021-04-10] MEDS: Sucralfate 1 GM Tab PO SCH ×3 (05:52→16:53)
[2021-04-10] MEDS: Midodrine 2.5 MG Tab PO SCH ×3 (05:53→16:53)
[2021-04-10] MEDS ORDERED: Glimepiride 2 MG Tab PO SCH ×2 (06:00→08:00)
[2021-04-10] MEDS: Norepinephrine 4 MG in Dextrose 5% in Water 246 ML IV SCH ×4 (06:29→12:54)
[2021-04-10] MEDS ORDERED: Aluminum Hydroxide/Magnesium Hydroxide/Simethicone Susp 30 ML Cup PO ONE (06:54)
[2021-04-10 07:05] LABS: ANION GAP 19.8 mEq/L (7-13); CHLORIDE,CL 102 mmol/L (98-107); SODIUM,NA 136 mmol/L (136-145)
[2021-04-10] MEDS: Budesonide 0.5 MG/2 ML Neb Susp NEB SCH ×2 (07:55→17:06)
[2021-04-10] MEDS: Albuterol/Ipratropium 3.0-0.5 MG/3 ML Neb Soln NEB SCH ×3 (07:55→17:06)
[2021-04-10] MEDS: Pantoprazole 40 MG Vial IVPUSH SCH ×2 (08:18→21:07)
[2021-04-10] MEDS: Ferrous Sulfate 325 MG Tab PO SCH ×2 (08:21→20:46)
[2021-04-10] MEDS: Furosemide 20 MG Tab PO SCH (08:21)
[2021-04-10] MEDS: Rifaximin 550 MG Tab PO SCH ×2 (08:21→20:47)
[2021-04-10] MEDS: Insulin Glarg,Human.Rec.Analog 100 Unit/ML SUBCUT SCH (08:29)
[2021-04-10] MEDS: Insulin Lispro 100 Units/ML 3 ML Vial SUBCUT SCH ×4 (08:30→21:35)
[2021-04-10] MEDS: hydrOXYzine HCl 10 MG Tab PO PRN (08:41)
[2021-04-10] MEDS ORDERED: Insulin Glarg,Human.Rec.Analog 100 Unit/ML SUBCUT ONE (08:45)
[2021-04-10] MEDS ORDERED: Insulin Glarg,Human.Rec.Analog 100 Unit/ML SUBCUT SCH (09:00)
[2021-04-10] MEDS ORDERED: DULoxetine 30 MG Cap PO SCH (09:00)
--- NOTE | 2021-04-10 11:17 | PCM.PN ---
- General Info Date of Service: 04/10/21 Admission Dx/Problem (Free Text): Admission Diagnosis/Problem Admission Diagnosis/Problem GI bleed Subjective Update: 70 yo with h/o mechanical AO valve replacement h/o chronic gi bleed, requiring multiple blood tx recent EGD at [facility] presented with uncontrolled BSs, constipation noted hypotension noted severe anemia, occult positive but grossly negative stool overnight remained on IV protonix, octreotide overnight remained on levophed had to increase levophed and was given albumin no grossly bloody BMs no c/o abd pain, no fever, no sob Functional Status: Reports: Pain Controlled, Tolerating Diet - Review of Systems General: Reports: Weakness. Denies: Fever Pulmonary: Denies: Shortness of Breath, Hemoptysis, Wheezing Cardiovascular: Reports: Edema (UEs). Denies: Chest Pain Gastrointestinal: Denies: Abdominal Pain Genitourinary: Denies: Dysuria Neurological: Denies: Confusion - Patient Data Vitals - Most Recent: Last Vital Signs Temp 98.8 F 04/10/21 07:48 Pulse 59 L 04/10/21 07:48 Resp 21 H 04/10/21 07:48 BP 101/42 L 04/10/21 07:48 Pulse Ox 93 L 04/10/21 07:48 Weight - Most Recent: 164 lb 5 oz I&O - Last 24 Hours: Intake & Output 04/09/21 04/10/21 04/10/21 22:59 06:59 14:59 Intake Total 850 300 Output Total 579 550 0567 Balance 300 -400 -2000 Lab Results Last 24 Hours: Laboratory Results - last 24 hr 04/08/21 04/09/21 04/09/21 Range/Units 01:25 11:25 17:02 WBC (5.0-10.0) 10^3/uL RBC (4.2-5.4) 10^6/uL Hgb (12.0-16.0) g/dL Hct (37.0-47.0) % MCV (80-100) fL MCH (27.0-34.0) pg MCHC (33.0-35.0) g/dL Plt Count (150-450) 10^3/uL Neut % (Auto) (42.2-75.2) % Lymph % (Auto) (20.5-50.1) % [place] % (Auto) (2-8) % Eos % (Auto) (1.0-3.0) % Baso % (Auto) (0.0-1.0) % Add Manual Diff Neutrophils % (Manual) (42-75) % Band Neutrophils % % Lymphocytes % (Manual) (20-50) % Monocytes % (Manual) (2-8) % Metamyelocytes % Polychromasia Hypochromasia Anisocytosis Sodium (136-145) mmol/L Potassium (3.5-5.1) mmol/L Chloride (98-107) mmol/L Carbon Dioxide (21-32) mmol/L Anion Gap (7-13) mEq/L BUN (7-18) mg/dL Creatinine (0.55-1.02) mg/dL Est Cr Clr Drug Dosing Estimated GFR (MDRD) Glucose (70-99) mg/dL POC Glucose 438 H* 312 H (70-99) mg/dL Calcium (8.5-10.1) mg/dL Total Bilirubin (0.2-1.0) mg/dL Direct Bilirubin (0.0-0.2) mg/dL Indirect Bilirubin AST (15-37) U/L ALT (14-59) U/L Alkaline Phosphatase (46-116) U/L Lactate Dehydrogenase (81-234) U/L Total Protein (6.4-8.2) g/dL Albumin (3.4-5.0) g/dL Globulin Albumin/Globulin Ratio Crossmatch See Detail 04/09/21 04/10/21 04/10/21 Range/Units 21:19 06:24 06:24 WBC 17.9 H (5.0-10.0) 10^3/uL RBC 2.00 L (4.2-5.4) 10^6/uL Hgb 6.2 L* D (12.0-16.0) g/dL Hct 20.0 L* (37.0-47.0) % MCV 100.0 D (80-100) fL MCH 31.0 (27.0-34.0) pg MCHC 31.0 L (33.0-35.0) g/dL Plt Count 182 D (150-450) 10^3/uL Neut % (Auto) 84.9 H (42.2-75.2) % Lymph % (Auto) 8.5 L (20.5-50.1) % [place] % (Auto) 5.6 (2-8) % Eos % (Auto) 0.7 L (1.0-3.0) % Baso % (Auto) 0.3 (0.0-1.0) % Add Manual Diff Yes Neutrophils % (Manual) 92 H (42-75) % Band Neutrophils % 1 % Lymphocytes % (Manual) 4 L (20-50) % Monocytes % (Manual) 2 (2-8) % Metamyelocytes % 1 Polychromasia 3+ marked Hypochromasia 2+ moderate Anisocytosis 3+ marked Sodium 136 (136-145) mmol/L Potassium 3.8 (3.5-5.1) mmol/L Chloride 102 (98-107) mmol/L Carbon Dioxide 18 L (21-32) mmol/L Anion Gap 19.8 H (7-13) mEq/L BUN 17 D (7-18) mg/dL Creatinine 0.98 (0.55-1.02) mg/dL Est Cr Clr Drug Dosing TNP Estimated GFR (MDRD) 56 Glucose 386 H (70-99) mg/dL POC Glucose 258 H (70-99) mg/dL Calcium 7.4 L (8.5-10.1) mg/dL Total Bilirubin (0.2-1.0) mg/dL Direct Bilirubin (0.0-0.2) mg/dL Indirect Bilirubin AST (15-37) U/L ALT (14-59) U/L Alkaline Phosphatase (46-116) U/L Lactate Dehydrogenase (81-234) U/L Total Protein (6.4-8.2) g/dL Albumin (3.4-5.0) g/dL Globulin Albumin/Globulin Ratio Crossmatch 04/10/21 04/10/21 Range/Units 06:24 07:38 WBC (5.0-10.0) 10^3/uL RBC (4.2-5.4) 10^6/uL Hgb (12.0-16.0) g/dL Hct (37.0-47.0) % MCV (80-100) fL MCH (27.0-34.0) pg MCHC (33.0-35.0) g/dL Plt Count (150-450) 10^3/uL Neut % (Auto) (42.2-75.2) % Lymph % (Auto) (20.5-50.1) % [place] % (Auto) (2-8) % Eos % (Auto) (1.0-3.0) % Baso % (Auto) (0.0-1.0) % Add Manual Diff Neutrophils % (Manual) (42-75) % Band Neutrophils % % Lymphocytes % (Manual) (20-50) % Monocytes % (Manual) (2-8) % Metamyelocytes % Polychromasia Hypochromasia Anisocytosis Sodium (136-145) mmol/L Potassium (3.5-5.1) mmol/L Chloride (98-107) mmol/L Carbon Dioxide (21-32) mmol/L Anion Gap (7-13) mEq/L BUN (7-18) mg/dL Creatinine (0.55-1.02) mg/dL Est Cr Clr Drug Dosing Estimated GFR (MDRD) Glucose (70-99) mg/dL POC Glucose 396 H (70-99) mg/dL Calcium (8.5-10.1) mg/dL Total Bilirubin 0.9 (0.2-1.0) mg/dL Direct Bilirubin 0.4 H (0.0-0.2) mg/dL Indirect Bilirubin 0.5 AST 14 L (15-37) U/L ALT 10 L (14-59) U/L Alkaline Phosphatase 56 (46-116) U/L Lactate Dehydrogenase 252 H (81-234) U/L Total Protein 6.2 L (6.4-8.2) g/dL Albumin 2.9 L (3.4-5.0) g/dL Globulin 3.3 Albumin/Globulin Ratio 0.88 Crossmatch Med Orders - Current: Current Medications Acetaminophen (Acetaminophen 325 Mg Tab) 650 mg PO Q6H PRN PRN Reason: Pain/Fever Last Admin: 04/08/21 16:42 Dose: 650 mg Documented by: Albuterol/Ipratropium (Albuterol/Ipratropium 3.0-0.5 Mg/3 Ml Neb Soln) 3 ml NEB TIDRT [facility] Last Admin: 04/10/21 07:55 Dose: 3 ml Documented by: Budesonide (Budesonide 0.5 Mg/2 Ml Neb Susp) 0.5 mg NEB BIDRT CARLOS Last Admin: 04/10/21 07:55 Dose: 0.5 mg Documented by: Clonazepam (Clonazepam 0.5 Mg Tab) 0.5 mg PO TID PRN PRN Reason: Anxiety Dextrose/Water (50% Dextrose In Water 50 Ml Syringe) 50 ml IVPUSH Q15M PRN PRN Reason: Hypoglycemia Duloxetine HCl (Duloxetine 30 Mg Cap) 60 mg PO DAILY [facility] Last Admin: 04/10/21 08:21 Dose: 60 mg Documented by: Fentanyl (Fentanyl 100 Mcg/2 Ml Sdv) 25 mcg IVPUSH Q4H PRN; Protocol PRN Reason: pain, severe Last Admin: 04/10/21 01:49 Dose: 25 mcg Documented by: Ferrous Sulfate (Ferrous Sulfate 325 Mg Tab) 325 mg PO BID [facility] Last Admin: 04/10/21 08:21 Dose: 325 mg Documented by: Furosemide (Furosemide 20 Mg Tab) 20 mg PO DAILY [facility] Last Admin: 04/10/21 08:21 Dose: 20 mg Documented by: Glimepiride (Glimepiride 2 Mg Tab) 1 mg PO WITHBREAKFAST [facility] Last Admin: 04/10/21 08:22 Dose: 1 mg Documented by: Glucagon (Glucagon,Human Recombinant 1 Mg Vial) 1 mg IM Q15M PRN PRN Reason: Hypoglycemia Hydroxyzine HCl (Hydroxyzine Hcl 10 Mg Tab) 10 mg PO TID PRN PRN Reason: Anxiety Last Admin: 04/10/21 08:41 Dose: 10 mg Documented by: Norepinephrine Bitartrate 4 mg (/ Dextrose/Water) 250 mls @ 7.5 mls/hr IV TITRATE [facility]; Protocol Last Admin: 04/10/21 06:29 Dose: 5 mcg/min, 18.75 mls/hr Documented by: Ceftriaxone Sodium 2 gm/ (Sodium Chloride) 100 mls @ 200 mls/hr IV Q24H [facility] Last Admin: 04/09/21 13:24 Dose: 200 mls/hr Documented by: Octreotide Acetate 500 mcg/ (Sodium Chloride) 500 mls @ 50 mls/hr IV Q10H [facility] Last Admin: 04/09/21 23:49 Dose: 50 mls/hr Documented by: Insulin Glargine (Insulin Glarg,Human.Rec.Analog 100 Unit/Ml) 20 unit SUBCUT DAILY [facility] Insulin Human Lispro (Insulin Lispro 100 Units/Ml 3 Ml Vial) 0 unit SUBCUT WITHMEALSANDBED [facility]; Protocol Last Admin: 04/10/21 08:30 Dose: 15 unit Documented by: Lactulose (Lactulose Soln 10 Gm/15 Ml 30 Ml Ud Cup) 20 gm PO TID [facility] Last Admin: 04/10/21 10:35 Dose: Not Given Documented by: Methyl Salicylate (Menthol/Methyl Salicylate 85 Gm Tube) 0 gm TOP BID PRN PRN Reason: Pain (mild 1-3) Last Admin: 04/09/21 18:32 Dose: 1 applic Documented by: Midodrine (Midodrine 2.5 Mg Tab) 7.5 mg PO TIDAC [facility] Ondansetron HCl (Ondansetron 4 Mg/2 Ml Sdv) 4 mg IVPUSH Q6H [facility] Last Admin: 04/10/21 08:19 Dose: 4 mg Documented by: Pantoprazole Sodium (Pantoprazole 40 Mg Vial) 40 mg IVPUSH Q12H [facility] Last Admin: 04/10/21 08:18 Dose: 40 mg Documented by: Rifaximin (Rifaximin 550 Mg Tab) 550 mg PO BID [facility] Last Admin: 04/10/21 08:21 Dose: 550 mg Documented by: Sucralfate (Sucralfate 1 Gm Tab) 1 gm PO TIDAC [facility] Last Admin: 04/10/21 05:52 Dose: 1 gm Documented by: Discontinued Medications Acetaminophen (Acetaminophen 325 Mg Tab) 650 mg PO NOW ONE Stop: 04/08/21 05:38 Last Admin: 04/08/21 06:03 Dose: 650 mg Documented by: Al Hydroxide/Mg Hydroxide (Aluminum Hydroxide/Magnesium Hydroxide/Simethicone Susp 30 Ml Cup) 15 ml PO ONETIME ONE Stop: 04/10/21 06:55 Last Admin: 04/10/21 07:37 Dose: 15 ml Documented by: Alprazolam (Alprazolam 0.25 Mg Tab) 0.25 mg PO BID PRN PRN Reason: Anxiety Dextrose/Water (50% Dextrose In Water 50 Ml Syringe) 50 ml IVPUSH Q15M PRN PRN Reason: Hypoglycemia Dextrose/Water (50% Dextrose In Water 50 Ml Syringe) 50 ml IVPUSH Q15M PRN PRN Reason: Hypoglycemia Famotidine (Famotidine 20 Mg/2 Ml Sdv) 20 mg IVPUSH ONETIME ONE Stop: 04/08/21 05:38 Last Admin: 04/08/21 06:03 Dose: 20 mg Documented by: Glimepiride (Glimepiride 2 Mg Tab) 1 mg PO ACBREAKFAST [facility] Last Admin: 04/10/21 10:36 Dose: Not Given Documented by: Glucagon (Glucagon,Human Recombinant 1 Mg Vial) 1 mg IM Q15M PRN PRN Reason: Hypoglycemia Glucagon (Glucagon,Human Recombinant 1 Mg Vial) 1 mg IM Q15M PRN PRN Reason: Hypoglycemia Hydroxyzine HCl (Hydroxyzine Hcl 10 Mg Tab) 10 mg PO BEDTIME PRN PRN Reason: Sleep Sodium Chloride (Normal Saline) 1,000 mls @ 200 mls/hr IV .BOLUS ONE Stop: 04/08/21 03:32 Last Admin: 04/07/21 22:54 Dose: 200 mls/hr Documented by: Pantoprazole Sodium 80 mg/ (Sodium Chloride) 100 mls @ 200 mls/hr IV .BOLUS ONE Stop: 04/08/21 01:27 Last Admin: 04/08/21 01:19 Dose: 200 mls/hr Documented by: Insulin Regular in 0.9 % NACL (Myxredlin In Ns 100 Unit/100 Ml) 100 unit in 100 mls @ 7.258 mls/hr IV TITRATE [facility]; Protocol Last Titration: 04/08/21 07:10 Dose: 0.1 units/kg/hr, 7.5 mls/hr Documented by: Sodium Chloride (Normal Saline) 1,000 mls @ 250 mls/hr IV .BOLUS ONE Stop: 04/08/21 05:05 Last Infusion: 04/08/21 03:20 Dose: 250 mls/hr Documented by: Sodium Chloride (Normal Saline) 1,000 mls @ 75 mls/hr IV ASDIRECTED [facility] Last Infusion: 04/08/21 07:40 Dose: 999 mls/hr Documented by: Octreotide Acetate 100 mcg/ (Sodium Chloride) 100 mls @ 50 mls/hr IV Q10H [facility] Last Admin: 04/08/21 14:37 Dose: Not Given Documented by: Octreotide Acetate 100 mcg/ (Sodium Chloride) 100 mls @ 50 mls/hr IV Q2H [facility] Last Admin: 04/08/21 17:33 Dose: Not Given Documented by: Octreotide Acetate 500 mcg/ (Sodium Chloride) 505 mls @ as directed IV .STK-MED ONE Stop: 04/09/21 03:06 Albumin Human 25 gm/ Premix 100 mls @ 100 mls/hr IV ONETIME ONE Stop: 04/10/21 03:49 Last Admin: 04/10/21 03:06 Dose: 100 mls/hr Documented by: Insulin Glargine (Insulin Glarg,Human.Rec.Analog 100 Unit/Ml) 10 unit SUBCUT DAILY [facility] Last Admin: 04/10/21 08:29 Dose: 10 unit Documented by: Insulin Glargine (Insulin Glarg,Human.Rec.Analog 100 Unit/Ml) 10 unit SUBCUT ONETIME ONE Stop: 04/10/21 08:46 Last Admin: 04/10/21 08:41 Dose: 10 units Documented by: Insulin Human Regular (Insulin Regular, Human 100 Units/Ml 3 Ml Vial) 10 unit IV ONETIME ONE Stop: 04/07/21 22:33 Last Admin: 04/07/21 22:50 Dose: 10 units Documented by: Midodrine (Midodrine 2.5 Mg Tab) 5 mg PO TIDAC [facility] Last Admin: 04/10/21 05:53 Dose: 5 mg Documented by: Midodrine (Midodrine 2.5 Mg Tab) 5 mg PO ONETIME ONE Stop: 04/10/21 02:54 Last Admin: 04/10/21 03:07 Dose: 5 mg Documented by: Ondansetron HCl (Ondansetron 4 Mg/2 Ml Sdv) 4 mg IVPUSH ONETIME ONE Stop: 04/07/21 23:34 Last Admin: 04/07/21 23:42 Dose: 4 mg Documented by: Ondansetron HCl (Ondansetron 4 Mg/2 Ml Sdv) 4 mg IVPUSH .STK-MED ONE Stop: 04/09/21 03:01 Pantoprazole Sodium (Pantoprazole 40 Mg Vial) 40 mg IVPUSH ONETIME ONE Stop: 04/08/21 09:16 Last Admin: 04/08/21 09:04 Dose: 40 mg Documented by: - Exam Quality Assessment: Supplemental Oxygen General: Alert, Oriented Lungs: Clear to Auscultation, Normal Respiratory Effort Cardiovascular: Regular Rate, Regular Rhythm GI/Abdominal Exam: Normal Bowel Sounds, Soft, Non-Tender Extremities: No Pedal Edema, Other (c/o r. ankle tenderness) Neurological: No New Focal Deficit Psy/Mental Status: Alert, Normal Affect, Normal Mood - Patient Data Lab Results Last 24 hrs: Laboratory Results - last 24 hr 04/08/21 04/09/21 04/09/21 Range/Units 01:25 11:25 17:02 WBC (5.0-10.0) 10^3/uL RBC (4.2-5.4) 10^6/uL Hgb (12.0-16.0) g/dL Hct (37.0-47.0) % MCV (80-100) fL MCH (27.0-34.0) pg MCHC (33.0-35.0) g/dL Plt Count (150-450) 10^3/uL Neut % (Auto) (42.2-75.2) % Lymph % (Auto) (20.5-50.1) % [place] % (Auto) (2-8) % Eos % (Auto) (1.0-3.0) % Baso % (Auto) (0.0-1.0) % Add Manual Diff Neutrophils % (Manual) (42-75) % Band Neutrophils % % Lymphocytes % (Manual) (20-50) % Monocytes % (Manual) (2-8) % Metamyelocytes % Polychromasia Hypochromasia Anisocytosis Sodium (136-145) mmol/L Potassium (3.5-5.1) mmol/L Chloride (98-107) mmol/L Carbon Dioxide (21-32) mmol/L Anion Gap (7-13) mEq/L BUN (7-18) mg/dL Creatinine (0.55-1.02) mg/dL Est Cr Clr Drug Dosing Estimated GFR (MDRD) Glucose (70-99) mg/dL POC Glucose 438 H* 312 H (70-99) mg/dL Calcium (8.5-10.1) mg/dL Total Bilirubin (0.2-1.0) mg/dL Direct Bilirubin (0.0-0.2) mg/dL Indirect Bilirubin AST (15-37) U/L ALT (14-59) U/L Alkaline Phosphatase (46-116) U/L Lactate Dehydrogenase (81-234) U/L Total Protein (6.4-8.2) g/dL Albumin (3.4-5.0) g/dL Globulin Albumin/Globulin Ratio Crossmatch See Detail 04/09/21 04/10/21 04/10/21 Range/Units 21:19 06:24 06:24 WBC 17.9 H (5.0-10.0) 10^3/uL RBC 2.00 L (4.2-5.4) 10^6/uL Hgb 6.2 L* D (12.0-16.0) g/dL Hct 20.0 L* (37.0-47.0) % MCV 100.0 D (80-100) fL MCH 31.0 (27.0-34.0) pg MCHC 31.0 L (33.0-35.0) g/dL Plt Count 182 D (150-450) 10^3/uL Neut % (Auto) 84.9 H (42.2-75.2) % Lymph % (Auto) 8.5 L (20.5-50.1) % [place] % (Auto) 5.6 (2-8) % Eos % (Auto) 0.7 L (1.0-3.0) % Baso % (Auto) 0.3 (0.0-1.0) % Add Manual Diff Yes Neutrophils % (Manual) 92 H (42-75) % Band Neutrophils % 1 % Lymphocytes % (Manual) 4 L (20-50) % Monocytes % (Manual) 2 (2-8) % Metamyelocytes % 1 Polychromasia 3+ marked Hypochromasia 2+ moderate Anisocytosis 3+ marked Sodium 136 (136-145) mmol/L Potassium 3.8 (3.5-5.1) mmol/L Chloride 102 (98-107) mmol/L Carbon Dioxide 18 L (21-32) mmol/L Anion Gap 19.8 H (7-13) mEq/L BUN 17 D (7-18) mg/dL Creatinine 0.98 (0.55-1.02) mg/dL Est Cr Clr Drug Dosing TNP Estimated GFR (MDRD) 56 Glucose 386 H (70-99) mg/dL POC Glucose 258 H (70-99) mg/dL Calcium 7.4 L (8.5-10.1) mg/dL Total Bilirubin (0.2-1.0) mg/dL Direct Bilirubin (0.0-0.2) mg/dL Indirect Bilirubin AST (15-37) U/L ALT (14-59) U/L Alkaline Phosphatase (46-116) U/L Lactate Dehydrogenase (81-234) U/L Total Protein (6.4-8.2) g/dL Albumin (3.4-5.0) g/dL Globulin Albumin/Globulin Ratio Crossmatch 04/10/21 04/10/21 Range/Units 06:24 07:38 WBC (5.0-10.0) 10^3/uL RBC (4.2-5.4) 10^6/uL Hgb (12.0-16.0) g/dL Hct (37.0-47.0) % MCV (80-100) fL MCH (27.0-34.0) pg MCHC (33.0-35.0) g/dL Plt Count (150-450) 10^3/uL Neut % (Auto) (42.2-75.2) % Lymph % (Auto) (20.5-50.1) % [place] % (Auto) (2-8) % Eos % (Auto) (1.0-3.0) % Baso % (Auto) (0.0-1.0) % Add Manual Diff Neutrophils % (Manual) (42-75) % Band Neutrophils % % Lymphocytes % (Manual) (20-50) % Monocytes % (Manual) (2-8) % Metamyelocytes % Polychromasia Hypochromasia Anisocytosis Sodium (136-145) mmol/L Potassium (3.5-5.1) mmol/L Chloride (98-107) mmol/L Carbon Dioxide (21-32) mmol/L Anion Gap (7-13) mEq/L BUN (7-18) mg/dL Creatinine (0.55-1.02) mg/dL Est Cr Clr Drug Dosing Estimated GFR (MDRD) Glucose (70-99) mg/dL POC Glucose 396 H (70-99) mg/dL Calcium (8.5-10.1) mg/dL Total Bilirubin 0.9 (0.2-1.0) mg/dL Direct Bilirubin 0.4 H (0.0-0.2) mg/dL Indirect Bilirubin 0.5 AST 14 L (15-37) U/L ALT 10 L (14-59) U/L Alkaline Phosphatase 56 (46-116) U/L Lactate Dehydrogenase 252 H (81-234) U/L Total Protein 6.2 L (6.4-8.2) g/dL Albumin 2.9 L (3.4-5.0) g/dL Globulin 3.3 Albumin/Globulin Ratio 0.88 Crossmatch Result Diagrams: 04/10/21 06:24 04/10/21 06:24 Sepsis Event Note - Evaluation Sepsis Screening Result: No Definite Risk - Focused Exam Vital Signs: Vital Signs Temp Pulse Resp BP Pulse Ox 04/10/21 07:48 98.8 F 59 L 21 H 101/42 L 93 L 04/10/21 06:00 118 H 30 H 100/39 L 94 L 04/10/21 04:00 98.1 F 116 H 26 H 104/39 L 92 L 04/10/21 02:00 118 H 24 H 110/45 L 92 L 04/10/21 00:00 98.6 F 104 H 20 100/37 L 95 - Problem List Review Problem List Initiated/Reviewed/Updated: Yes - My Orders Last 24 Hours: My Active Orders 04/09/21 11:31 Glucagon,Human Recombinant [GlucaGen] 1 mg IM Q15M PRN 04/09/21 11:42 RT Aerosol Therapy [RC] 07,13,18 04/09/21 11:45 Rifaximin [Xifaxan] 550 mg PO BID 04/09/21 Lunch Clear Liquid Diet [DIET] 04/09/21 13:00 Albuterol/Ipratropium [DuoNeb 3.0-0.5 MG/3 ML] 3 ml NEB TIDRT 04/09/21 14:00 Lactulose [Cephulac] 20 gm PO TID 04/09/21 15:01 ClonazePAM [KlonoPIN] 0.5 mg PO TID PRN 04/09/21 15:02 hydrOXYzine HCL [Atarax] 10 mg PO TID PRN 04/09/21 16:00 Sucralfate [Carafate] 1 gm PO TIDAC 04/09/21 18:00 Budesonide [Pulmicort] 0.5 mg NEB BIDRT 04/09/21 18:01 Menthol/Methyl Salicylate [Icy Hot Cream] 0 gm TOP BID PRN 04/09/21 18:15 Furosemide [Lasix] 20 mg PO DAILY 04/09/21 21:00 Ferrous Sulfate 325 mg PO BID 04/10/21 06:24 HAPTOGLOBIN [REF] Routine 04/10/21 08:00 Glimepiride [Amaryl] 1 mg PO WITHBREAKFAST 04/10/21 08:23 Transfuse RBC [Transfuse Red Blood Cells] [COMM] Routine 04/10/21 09:00 DULoxetine [Cymbalta] 60 mg PO DAILY 04/10/21 11:00 Midodrine 7.5 mg PO TIDAC 04/10/21 11:04 Blood Culture x2 Reflex Set [OM.PC] Stat 04/10/21 11:05 CULTURE BLOOD [BC] Stat CULTURE BLOOD [BC] Stat CULTURE URINE [RM] Routine INR,PT,PROTHROMBIN TIME [COAG] Routine UA W/MICROSCOPIC [URIN] Routine 04/11/21 05:11 INR,PT,PROTHROMBIN TIME [COAG] AM 04/11/21 09:00 Insulin Glarg,Human.Rec.Analog [LantUS] 20 unit SUBCUT DAILY 04/12/21 05:11 INR,PT,PROTHROMBIN TIME [COAG] AM 04/13/21 05:11 INR,PT,PROTHROMBIN TIME [COAG] AM 04/14/21 05:11 INR,PT,PROTHROMBIN TIME [COAG] AM 04/15/21 05:11 INR,PT,PROTHROMBIN TIME [COAG] AM 04/16/21 05:11 INR,PT,PROTHROMBIN TIME [COAG] AM 04/17/21 05:11 INR,PT,PROTHROMBIN TIME [COAG] AM 04/18/21 05:11 INR,PT,PROTHROMBIN TIME [COAG] AM 04/19/21 05:11 INR,PT,PROTHROMBIN TIME [COAG] AM 04/20/21 05:11 INR,PT,PROTHROMBIN TIME [COAG] AM 04/21/21 05:11 INR,PT,PROTHROMBIN TIME [COAG] AM - Plan Plan:: Patient is a 70-year-old female with a past medical history of multiple GI bleeds, mechanical aortic valve on chronic anticoagulation with warfarin, who presented with c/o constipation, uncontrolled hyperglycemia noted occult positive blood, severe anemia, hypotension # GI bleed -h/o multiple blood tx, [facility] has occult positive stool but no gross blood -treat with protonix IV - stop octreotide after 48 h cont sucralfate - ceftriaxone for SBP prophylaxis with h/o liver dx # Acute blood loss anemia severe, hgb down to 6.1 received 2 u prbc on 04/08 hgb down to 6.2 again transfuse 2 units today will follow hgb transfuse as needed #evaluate for hemolysis check lft, ldh, haptoglobin, peripheal smear #hypovolemic shock transfuse with blood as needed started levophed IV pressor will increase midodrine try to taper off levophed hold metoprolol # mechanical AO valve gi bleed appear a slow subacute bleed hold coumadin now follow INR - reverse anticoagulation if large amount of bleeding noted # liver cirrhosis constipation resume lactulose resume rifaximine # Type 2 diabetes mellitus uncontrolled high diet is clear liquid increase lantus subcutaneous insulin with a sliding scale 4 times per day # leukocytosis likely stress reaction will get blood and urine cx on ceftriaxone for prophylaxis with possible gi bleed/varices # Chronic medical conditions # Hyperlipidemiastatin # CHFchronic - resume Lasix given developing UE edema # Anxietycontinue duloxetine DVT prophylaxis warfarin, hold given GI bleed the patient's condition has been immediately life threatening requiring transfusion, IV Pressors spent more than 35 min critical care time with patient
--- NOTE | 2021-04-10 11:36 | PCM.SN.2 ---
- Free Text/Narrative Note: Ben Rodriguez, Ben Casiano, Sohan Gibson, Denise Parry [facility] - no bed available
[2021-04-10] MEDS ORDERED: Albumin Human 25 GM in Premix Bag 1 BAG IV SCH (12:00)
[2021-04-10] MEDS: Menthol/Methyl Salicylate 85 GM Tube TOP PRN ×2 (12:14→20:54)
[2021-04-10] MEDS: cefTRIAXone 2 GM in Sodium Chloride 0.9% 100 ML IV SCH (13:36)
[2021-04-10] MEDS: Octreotide 500 MCG in Sodium Chloride 0.9% 495 ML IV SCH (14:54)
--- NOTE | 2021-04-10 18:53 | PCM.DCSUM1 ---
Discharge Summary - Hospital Course Free Text/Narrative:: 70 yo with h/o mechanical AO valve replacement h/o chronic gi bleed, requiring multiple blood tx recent EGD at [facility] Patient is a 70-year-old female with a past medical history of multiple GI bleeds, mechanical aortic valve on chronic anticoagulation with warfarin, who presented with c/o constipation, uncontrolled hyperglycemia noted occult positive blood, severe anemia, hypotension # GI bleed -h/o multiple blood tx, recent w/up at [facility] guaiac positive stool in the emergency department has occult positive stool but no gross blood -treated with protonix IV, octreotide, sucralfate - ceftriaxone for SBP prophylaxis with h/o liver dx, possible variceal bleed # Acute blood loss anemia On presentation hgb 8.4 with hydration hgb dropped to 6.1 within 12hours Received 2 u prbc on 04/08 hgb down to 6.2 again transfused 2 units on 04/10 pt requires blood warmer for transfusion #evaluate for hemolysis check lft, ldh, haptoglobin, peripheal smear #hypovolemic shock transfuse with blood as needed has been maintained levophed IV pressor started midodrine and titrated up bp also improved after blood tx. try to taper off levophed hold metoprolol # mechanical AO valve gi bleed appear a slow subacute bleed hold coumadin now followed INR 3.1 on 04/07 and 2.0 on 04/10 # liver cirrhosis constipation resumed lactulose resumed rifaximine # Type 2 diabetes mellitus uncontrolled high diet is clear liquid increased lantus subcutaneous insulin with a sliding scale 4 times per day # leukocytosis New on 04/10 likely stress reaction blood and urine cx obtained on ceftriaxone for prophylaxis with possible gi bleed/varices # Chronic medical conditions # Hyperlipidemiastatin # CHFchronic holding Lasix given hypotension # Anxietycontinue duloxetine Transfer to [facility] for critical care and gi specialty evaluation Diagnosis: Stroke: No - Discharge Data Discharge Date: 04/10/21 Discharge Disposition: DC/Tfer to Acute Hospital 02 Condition: Good - Referral to Home Health Primary Care Physician: PCP None - Patient Instructions Diet: Clear Liquid Diet Activity: Bedrest - Discharge Plan Home Medications: Home Meds hydrOXYzine HCl [Atarax] 10 mg PO TID PRN 03/07/17 [History] Albuterol [Proventil HFA] 2 puff INH Q4H PRN 06/15/18 [History] Cholecalciferol (Vitamin D3) [Vitamin D3] 1,000 units PO DAILY 06/15/18 [History] Lidocaine Patch 3 patch TOP DAILY 06/15/18 [History] Loratadine [Claritin] 10 mg PO DAILY PRN 06/15/18 [History] Sennosides/Docusate Sodium [Sennosides-Docusate Sodium] 1 tab PO DAILY 06/15/18 [History] Ascorbic Acid [Vitamin C] 250 mg PO BID 08/02/18 [History] Ondansetron [Zofran] 8 mg PO Q8H PRN 07/24/20 [History] ClonazePAM [KlonoPIN] 0.5 mg PO TID PRN 04/09/21 [History] Cyanocobalamin (Vitamin B-12) [B-12] 1,000 mcg PO DAILY 04/09/21 [History] Cyclobenzaprine [Flexeril] 10 mg PO BEDTIME 04/09/21 [History] DULoxetine [Cymbalta] 60 mg PO DAILY 04/09/21 [History] Ferrous Gluconate 324 mg PO BIDMEALS 04/09/21 [History] Fluticasone Propion/Salmeterol [Fluticasone-Salmeterol 100-50] 1 puff INH BID 04/09/21 [History] Furosemide 20 mg PO DAILY PRN 04/09/21 [History] Insulin Detemir [Levemir] 12 units SUBCUT DAILY 04/09/21 [History] Lactulose [Chronulac] 20 gm PO BID 04/09/21 [History] Rifaximin [Xifaxan] 550 mg PO BID 04/09/21 [History] Salicylic Acid [Daily Face Wash] 0 gm TOP ASDIRECTED 04/09/21 [History] Warfarin Sodium [Jantoven] 2.5 mg PO DAILY 04/09/21 [History] traMADol [Ultram] 50 mg PO BID PRN 04/09/21 [History] Acetaminophen [Tylenol] 650 mg PO Q6H PRN tablet 04/10/21 [Rx] Albuterol/Ipratropium [DuoNeb 3.0-0.5 MG/3 ML] 3 ml NEB TIDRT neb 04/10/21 [Rx] Budesonide [Pulmicort] 0.5 mg NEB BIDRT neb 04/10/21 [Rx] DULoxetine [Cymbalta] 60 mg PO DAILY cap 04/10/21 [Rx] Dextrose 50% in Water [Dextrose 50%-Water] 50 ml IVPUSH Q15M PRN syringe 04/10/21 [Rx] Ferrous Sulfate 325 mg PO BID tablet 04/10/21 [Rx] Furosemide [Lasix] 20 mg PO DAILY tablet 04/10/21 [Rx] Glimepiride [Amaryl] 1 mg PO WITHBREAKFAST tablet 04/10/21 [Rx] Glucagon,Human Recombinant [Glucagen] 1 mg IM Q15M PRN vial 04/10/21 [Rx] Insulin Glarg,Human.Rec.Analog [Lantus] 20 unit SUBCUT DAILY ml 04/10/21 [Rx] Lactulose [Cephulac] 20 gm PO TID cup 04/10/21 [Rx] Midodrine 7.5 mg PO TIDAC tablet 04/10/21 [Rx] Norepinephrine [Levophed] 4 mg IV TITRATE sdv 04/10/21 [Rx] Pantoprazole [ProTONIX IV] 40 mg IVPUSH Q12H vial 04/10/21 [Rx] Rifaximin [Xifaxan] 550 mg PO BID tablet 04/10/21 [Rx] Sucralfate [Carafate] 1 gm PO TIDAC tablet 04/10/21 [Rx] cefTRIAXone [Rocephin] 2 gm IV Q24H vial 04/10/21 [Rx] fentaNYL [Sublimaze] 25 mcg IVPUSH Q4H PRN sdv 04/10/21 [Rx] Oxygen Therapy Mode: Nasal Cannula Forms: ED Department Discharge - Discharge Summary/Plan Comment DC Time >30 min.: Yes (called [facility] d/w dr. Newell) Total # of Minutes for Discharge Time: 40 min - General Info Date of Service: 04/10/21 - Review of Systems General: Reports: Weakness. Denies: Fever Pulmonary: Denies: Shortness of Breath Cardiovascular: Reports: Chest Pain, Edema (upper extremities) Neurological: Denies: Confusion, Dizziness, Headache, Trouble Speaking - Patient Data Vitals - Most Recent: Last Vital Signs Temp 98.4 F 04/10/21 18:35 Pulse 97 04/10/21 18:35 Resp 22 H 04/10/21 18:35 BP 109/52 L 04/10/21 18:35 Pulse Ox 96 04/10/21 18:35 Weight - Most Recent: 164 lb 5 oz I&O - Last 24 hours: Intake & Output 04/10/21 04/10/21 04/10/21 06:59 14:59 22:59 Intake Total 493 373 9738 Output Total 700 2500 1150 Balance -400 -1900 460 Lab Results - Last 24 hrs: Laboratory Results - last 24 hr 04/08/21 04/09/21 04/10/21 Range/Units 01:25 21:19 06:24 WBC 17.9 H (5.0-10.0) 10^3/uL RBC 2.00 L (4.2-5.4) 10^6/uL Hgb 6.2 L* D (12.0-16.0) g/dL Hct 20.0 L* (37.0-47.0) % MCV 100.0 D (80-100) fL MCH 31.0 (27.0-34.0) pg MCHC 31.0 L (33.0-35.0) g/dL Plt Count 182 D (150-450) 10^3/uL Neut % (Auto) 84.9 H (42.2-75.2) % Lymph % (Auto) 8.5 L (20.5-50.1) % Preble % (Auto) 5.6 (2-8) % Eos % (Auto) 0.7 L (1.0-3.0) % Baso % (Auto) 0.3 (0.0-1.0) % Add Manual Diff Yes Neutrophils % (Manual) 92 H (42-75) % Band Neutrophils % 1 % Lymphocytes % (Manual) 4 L (20-50) % Monocytes % (Manual) 2 (2-8) % Metamyelocytes % 1 Polychromasia 3+ marked Hypochromasia 2+ moderate Anisocytosis 3+ marked PT (9.0-12.0) SEC INR (0.9-1.2) Sodium (136-145) mmol/L Potassium (3.5-5.1) mmol/L Chloride (98-107) mmol/L Carbon Dioxide (21-32) mmol/L Anion Gap (7-13) mEq/L BUN (7-18) mg/dL Creatinine (0.55-1.02) mg/dL Est Cr Clr Drug Dosing Estimated GFR (MDRD) Glucose (70-99) mg/dL POC Glucose 258 H (70-99) mg/dL Calcium (8.5-10.1) mg/dL Total Bilirubin (0.2-1.0) mg/dL Direct Bilirubin (0.0-0.2) mg/dL Indirect Bilirubin AST (15-37) U/L ALT (14-59) U/L Alkaline Phosphatase (46-116) U/L Lactate Dehydrogenase (81-234) U/L Total Protein (6.4-8.2) g/dL Albumin (3.4-5.0) g/dL Globulin Albumin/Globulin Ratio Urine Color (YELLOW) Urine Appearance (CLEAR) Urine pH (5.0-9.0) Ur Specific Gray (1.005-1.030) Urine Protein (NEGATIVE) Urine Glucose (UA) (NEGATIVE) Urine Ketones (NEGATIVE) Urine Occult Blood (NEGATIVE) Urine Nitrite (NEGATIVE) Urine Bilirubin (NEGATIVE) Urine Urobilinogen (0.2-1.0) mg/dL Ur Leukocyte Esterase (NEGATIVE) Blood Type O POSITIVE Gel Antibody Screen Negative Crossmatch See Detail 04/10/21 04/10/21 04/10/21 Range/Units 06:24 06:24 07:38 WBC (5.0-10.0) 10^3/uL RBC (4.2-5.4) 10^6/uL Hgb (12.0-16.0) g/dL Hct (37.0-47.0) % MCV (80-100) fL MCH (27.0-34.0) pg MCHC (33.0-35.0) g/dL Plt Count (150-450) 10^3/uL Neut % (Auto) (42.2-75.2) % Lymph % (Auto) (20.5-50.1) % Preble % (Auto) (2-8) % Eos % (Auto) (1.0-3.0) % Baso % (Auto) (0.0-1.0) % Add Manual Diff Neutrophils % (Manual) (42-75) % Band Neutrophils % % Lymphocytes % (Manual) (20-50) % Monocytes % (Manual) (2-8) % Metamyelocytes % Polychromasia Hypochromasia Anisocytosis PT (9.0-12.0) SEC INR (0.9-1.2) Sodium 136 (136-145) mmol/L Potassium 3.8 (3.5-5.1) mmol/L Chloride 102 (98-107) mmol/L Carbon Dioxide 18 L (21-32) mmol/L Anion Gap 19.8 H (7-13) mEq/L BUN 17 D (7-18) mg/dL Creatinine 0.98 (0.55-1.02) mg/dL Est Cr Clr Drug Dosing TNP Estimated GFR (MDRD) 56 Glucose 386 H (70-99) mg/dL POC Glucose 396 H (70-99) mg/dL Calcium 7.4 L (8.5-10.1) mg/dL Total Bilirubin 0.9 (0.2-1.0) mg/dL Direct Bilirubin 0.4 H (0.0-0.2) mg/dL Indirect Bilirubin 0.5 AST 14 L (15-37) U/L ALT 10 L (14-59) U/L Alkaline Phosphatase 56 (46-116) U/L Lactate Dehydrogenase 252 H (81-234) U/L Total Protein 6.2 L (6.4-8.2) g/dL Albumin 2.9 L (3.4-5.0) g/dL Globulin 3.3 Albumin/Globulin Ratio 0.88 Urine Color (YELLOW) Urine Appearance (CLEAR) Urine pH (5.0-9.0) Ur Specific Gray (1.005-1.030) Urine Protein (NEGATIVE) Urine Glucose (UA) (NEGATIVE) Urine Ketones (NEGATIVE) Urine Occult Blood (NEGATIVE) Urine Nitrite (NEGATIVE) Urine Bilirubin (NEGATIVE) Urine Urobilinogen (0.2-1.0) mg/dL Ur Leukocyte Esterase (NEGATIVE) Blood Type Gel Antibody Screen Crossmatch 04/10/21 04/10/21 04/10/21 Range/Units 11:55 12:40 17:01 WBC (5.0-10.0) 10^3/uL RBC (4.2-5.4) 10^6/uL Hgb (12.0-16.0) g/dL Hct (37.0-47.0) % MCV (80-100) fL MCH (27.0-34.0) pg MCHC (33.0-35.0) g/dL Plt Count (150-450) 10^3/uL Neut % (Auto) (42.2-75.2) % Lymph % (Auto) (20.5-50.1) % Preble % (Auto) (2-8) % Eos % (Auto) (1.0-3.0) % Baso % (Auto) (0.0-1.0) % Add Manual Diff Neutrophils % (Manual) (42-75) % Band Neutrophils % % Lymphocytes % (Manual) (20-50) % Monocytes % (Manual) (2-8) % Metamyelocytes % Polychromasia Hypochromasia Anisocytosis PT 19.4 H D (9.0-12.0) SEC INR 2.0 H (0.9-1.2) Sodium (136-145) mmol/L Potassium (3.5-5.1) mmol/L Chloride (98-107) mmol/L Carbon Dioxide (21-32) mmol/L Anion Gap (7-13) mEq/L BUN (7-18) mg/dL Creatinine (0.55-1.02) mg/dL Est Cr Clr Drug Dosing Estimated GFR (MDRD) Glucose (70-99) mg/dL POC Glucose 442 H* 358 H (70-99) mg/dL Calcium (8.5-10.1) mg/dL Total Bilirubin (0.2-1.0) mg/dL Direct Bilirubin (0.0-0.2) mg/dL Indirect Bilirubin AST (15-37) U/L ALT (14-59) U/L Alkaline Phosphatase (46-116) U/L Lactate Dehydrogenase (81-234) U/L Total Protein (6.4-8.2) g/dL Albumin (3.4-5.0) g/dL Globulin Albumin/Globulin Ratio Urine Color (YELLOW) Urine Appearance (CLEAR) Urine pH (5.0-9.0) Ur Specific Gray (1.005-1.030) Urine Protein (NEGATIVE) Urine Glucose (UA) (NEGATIVE) Urine Ketones (NEGATIVE) Urine Occult Blood (NEGATIVE) Urine Nitrite (NEGATIVE) Urine Bilirubin (NEGATIVE) Urine Urobilinogen (0.2-1.0) mg/dL Ur Leukocyte Esterase (NEGATIVE) Blood Type Gel Antibody Screen Crossmatch 04/10/21 Range/Units 17:30 WBC (5.0-10.0) 10^3/uL RBC (4.2-5.4) 10^6/uL Hgb (12.0-16.0) g/dL Hct (37.0-47.0) % MCV (80-100) fL MCH (27.0-34.0) pg MCHC (33.0-35.0) g/dL Plt Count (150-450) 10^3/uL Neut % (Auto) (42.2-75.2) % Lymph % (Auto) (20.5-50.1) % Preble % (Auto) (2-8) % Eos % (Auto) (1.0-3.0) % Baso % (Auto) (0.0-1.0) % Add Manual Diff Neutrophils % (Manual) (42-75) % Band Neutrophils % % Lymphocytes % (Manual) (20-50) % Monocytes % (Manual) (2-8) % Metamyelocytes % Polychromasia Hypochromasia Anisocytosis PT (9.0-12.0) SEC INR (0.9-1.2) Sodium (136-145) mmol/L Potassium (3.5-5.1) mmol/L Chloride (98-107) mmol/L Carbon Dioxide (21-32) mmol/L Anion Gap (7-13) mEq/L BUN (7-18) mg/dL Creatinine (0.55-1.02) mg/dL Est Cr Clr Drug Dosing Estimated GFR (MDRD) Glucose (70-99) mg/dL POC Glucose (70-99) mg/dL Calcium (8.5-10.1) mg/dL Total Bilirubin (0.2-1.0) mg/dL Direct Bilirubin (0.0-0.2) mg/dL Indirect Bilirubin AST (15-37) U/L ALT (14-59) U/L Alkaline Phosphatase (46-116) U/L Lactate Dehydrogenase (81-234) U/L Total Protein (6.4-8.2) g/dL Albumin (3.4-5.0) g/dL Globulin Albumin/Globulin Ratio Urine Color Yellow (YELLOW) Urine Appearance Clear (CLEAR) Urine pH 5.5 (5.0-9.0) Ur Specific Gray 1.020 (1.005-1.030) Urine Protein Negative (NEGATIVE) Urine Glucose (UA) >=1000 H (NEGATIVE) Urine Ketones Negative (NEGATIVE) Urine Occult Blood Trace-intact H (NEGATIVE) Urine Nitrite Negative (NEGATIVE) Urine Bilirubin Negative (NEGATIVE) Urine Urobilinogen 0.2 (0.2-1.0) mg/dL Ur Leukocyte Esterase Negative (NEGATIVE) Blood Type Gel Antibody Screen Crossmatch LILIA Results - Last 24 hrs: Microbiology 04/10/21 11:22 Anaerobic Blood Culture - Final Blood - Arm, Left 04/10/21 11:26 Anaerobic Blood Culture - Final Blood - Arm, Right Med Orders - Current: Current Medications Acetaminophen (Acetaminophen 325 Mg Tab) 650 mg PO Q6H PRN PRN Reason: Pain/Fever Last Admin: 04/08/21 16:42 Dose: 650 mg Documented by: Albuterol/Ipratropium (Albuterol/Ipratropium 3.0-0.5 Mg/3 Ml Neb Soln) 3 ml NEB TIDRT [facility] Last Admin: 04/10/21 17:06 Dose: 3 ml Documented by: Budesonide (Budesonide 0.5 Mg/2 Ml Neb Susp) 0.5 mg NEB BIDRT [facility] Last Admin: 04/10/21 17:06 Dose: 0.5 mg Documented by: Clonazepam (Clonazepam 0.5 Mg Tab) 0.5 mg PO TID PRN PRN Reason: Anxiety Dextrose/Water (50% Dextrose In Water 50 Ml Syringe) 50 ml IVPUSH Q15M PRN PRN Reason: Hypoglycemia Duloxetine HCl (Duloxetine 30 Mg Cap) 60 mg PO DAILY [facility] Last Admin: 04/10/21 08:21 Dose: 60 mg Documented by: Fentanyl (Fentanyl 100 Mcg/2 Ml Sdv) 25 mcg IVPUSH Q4H PRN; Protocol PRN Reason: pain, severe Last Admin: 04/10/21 01:49 Dose: 25 mcg Documented by: Ferrous Sulfate (Ferrous Sulfate 325 Mg Tab) 325 mg PO BID [facility] Last Admin: 04/10/21 08:21 Dose: 325 mg Documented by: Furosemide (Furosemide 20 Mg Tab) 20 mg PO DAILY [facility] Last Admin: 04/10/21 08:21 Dose: 20 mg Documented by: Glimepiride (Glimepiride 2 Mg Tab) 1 mg PO WITHBREAKFAST [facility] Last Admin: 04/10/21 08:22 Dose: 1 mg Documented by: Glucagon (Glucagon,Human Recombinant 1 Mg Vial) 1 mg IM Q15M PRN PRN Reason: Hypoglycemia Hydroxyzine HCl (Hydroxyzine Hcl 10 Mg Tab) 10 mg PO TID PRN PRN Reason: Anxiety Last Admin: 04/10/21 08:41 Dose: 10 mg Documented by: Norepinephrine Bitartrate 4 mg (/ Dextrose/Water) 250 mls @ 7.5 mls/hr IV TITRATE [facility]; Protocol Last Titration: 04/10/21 16:55 Dose: 5 mcg/min, 18.75 mls/hr Documented by: Ceftriaxone Sodium 2 gm/ (Sodium Chloride) 100 mls @ 200 mls/hr IV Q24H [facility] Last Admin: 04/10/21 13:36 Dose: 200 mls/hr Documented by: Insulin Glargine (Insulin Glarg,Human.Rec.Analog 100 Unit/Ml) 20 unit SUBCUT DAILY [facility] Insulin Human Lispro (Insulin Lispro 100 Units/Ml 3 Ml Vial) 0 unit SUBCUT WITHMEALSANDBED [facility]; Protocol Last Admin: 04/10/21 18:13 Dose: 15 unit Documented by: Lactulose (Lactulose Soln 10 Gm/15 Ml 30 Ml Ud Cup) 20 gm PO TID [facility] Last Admin: 04/10/21 16:13 Dose: Not Given Documented by: Methyl Salicylate (Menthol/Methyl Salicylate 85 Gm Tube) 0 gm TOP BID PRN PRN Reason: Pain (mild 1-3) Last Admin: 04/10/21 12:14 Dose: 1 applic Documented by: Midodrine (Midodrine 2.5 Mg Tab) 7.5 mg PO TIDAC [facility] Last Admin: 04/10/21 16:53 Dose: 7.5 mg Documented by: Ondansetron HCl (Ondansetron 4 Mg/2 Ml Sdv) 4 mg IVPUSH Q6H [facility] Last Admin: 04/10/21 16:19 Dose: 4 mg Documented by: Pantoprazole Sodium (Pantoprazole 40 Mg Vial) 40 mg IVPUSH Q12H [facility] Last Admin: 04/10/21 08:18 Dose: 40 mg Documented by: Rifaximin (Rifaximin 550 Mg Tab) 550 mg PO BID [facility] Last Admin: 04/10/21 08:21 Dose: 550 mg Documented by: Sucralfate (Sucralfate 1 Gm Tab) 1 gm PO TIDAC [facility] Last Admin: 04/10/21 16:53 Dose: 1 gm Documented by: Discontinued Medications Acetaminophen (Acetaminophen 325 Mg Tab) 650 mg PO NOW ONE Stop: 04/08/21 05:38 Last Admin: 04/08/21 06:03 Dose: 650 mg Documented by: Al Hydroxide/Mg Hydroxide (Aluminum Hydroxide/Magnesium Hydroxide/Simethicone Susp 30 Ml Cup) 15 ml PO ONETIME ONE Stop: 04/10/21 06:55 Last Admin: 04/10/21 07:37 Dose: 15 ml Documented by: Alprazolam (Alprazolam 0.25 Mg Tab) 0.25 mg PO BID PRN PRN Reason: Anxiety Dextrose/Water (50% Dextrose In Water 50 Ml Syringe) 50 ml IVPUSH Q15M PRN PRN Reason: Hypoglycemia Dextrose/Water (50% Dextrose In Water 50 Ml Syringe) 50 ml IVPUSH Q15M PRN PRN Reason: Hypoglycemia Famotidine (Famotidine 20 Mg/2 Ml Sdv) 20 mg IVPUSH ONETIME ONE Stop: 04/08/21 05:38 Last Admin: 04/08/21 06:03 Dose: 20 mg Documented by: Glimepiride (Glimepiride 2 Mg Tab) 1 mg PO ACBREAKFAST [facility] Last Admin: 04/10/21 10:36 Dose: Not Given Documented by: Glucagon (Glucagon,Human Recombinant 1 Mg Vial) 1 mg IM Q15M PRN PRN Reason: Hypoglycemia Glucagon (Glucagon,Human Recombinant 1 Mg Vial) 1 mg IM Q15M PRN PRN Reason: Hypoglycemia Hydroxyzine HCl (Hydroxyzine Hcl 10 Mg Tab) 10 mg PO BEDTIME PRN PRN Reason: Sleep Sodium Chloride (Normal Saline) 1,000 mls @ 200 mls/hr IV .BOLUS ONE Stop: 04/08/21 03:32 Last Admin: 04/07/21 22:54 Dose: 200 mls/hr Documented by: Pantoprazole Sodium 80 mg/ (Sodium Chloride) 100 mls @ 200 mls/hr IV .BOLUS ONE Stop: 04/08/21 01:27 Last Admin: 04/08/21 01:19 Dose: 200 mls/hr Documented by: Insulin Regular in 0.9 % NACL (Myxredlin In Ns 100 Unit/100 Ml) 100 unit in 100 mls @ 7.258 mls/hr IV TITRATE [facility]; Protocol Last Titration: 04/08/21 07:10 Dose: 0.1 units/kg/hr, 7.5 mls/hr Documented by: Sodium Chloride (Normal Saline) 1,000 mls @ 250 mls/hr IV .BOLUS ONE Stop: 04/08/21 05:05 Last Infusion: 04/08/21 03:20 Dose: 250 mls/hr Documented by: Sodium Chloride (Normal Saline) 1,000 mls @ 75 mls/hr IV ASDIRECTED [facility] Last Infusion: 04/08/21 07:40 Dose: 999 mls/hr Documented by: Octreotide Acetate 100 mcg/ (Sodium Chloride) 100 mls @ 50 mls/hr IV Q10H [facility] Last Admin: 04/08/21 14:37 Dose: Not Given Documented by: Octreotide Acetate 100 mcg/ (Sodium Chloride) 100 mls @ 50 mls/hr IV Q2H [facility] Last Admin: 04/08/21 17:33 Dose: Not Given Documented by: Octreotide Acetate 500 mcg/ (Sodium Chloride) 500 mls @ 50 mls/hr IV Q10H [facility] Last Admin: 04/10/21 14:54 Dose: Not Given Documented by: Octreotide Acetate 500 mcg/ (Sodium Chloride) 505 mls @ as directed IV .STK-MED ONE Stop: 04/09/21 03:06 Albumin Human 25 gm/ Premix 100 mls @ 100 mls/hr IV ONETIME ONE Stop: 04/10/21 03:49 Last Admin: 04/10/21 03:06 Dose: 100 mls/hr Documented by: Albumin Human 25 gm/ Premix 100 mls @ 100 mls/hr IV Q6HR [facility] Stop: 04/10/21 18:59 Last Admin: 04/10/21 12:07 Dose: 100 mls/hr Documented by: Insulin Glargine (Insulin Glarg,Human.Rec.Analog 100 Unit/Ml) 10 unit SUBCUT DAILY [facility] Last Admin: 04/10/21 08:29 Dose: 10 unit Documented by: Insulin Glargine (Insulin Glarg,Human.Rec.Analog 100 Unit/Ml) 10 unit SUBCUT ONETIME ONE Stop: 04/10/21 08:46 Last Admin: 04/10/21 08:41 Dose: 10 units Documented by: Insulin Human Regular (Insulin Regular, Human 100 Units/Ml 3 Ml Vial) 10 unit IV ONETIME ONE Stop: 04/07/21 22:33 Last Admin: 04/07/21 22:50 Dose: 10 units Documented by: Midodrine (Midodrine 2.5 Mg Tab) 5 mg PO TIDAC [facility] Last Admin: 04/10/21 05:53 Dose: 5 mg Documented by: Midodrine (Midodrine 2.5 Mg Tab) 5 mg PO ONETIME ONE Stop: 04/10/21 02:54 Last Admin: 04/10/21 03:07 Dose: 5 mg Documented by: Ondansetron HCl (Ondansetron 4 Mg/2 Ml Sdv) 4 mg IVPUSH ONETIME ONE Stop: 04/07/21 23:34 Last Admin: 04/07/21 23:42 Dose: 4 mg Documented by: Ondansetron HCl (Ondansetron 4 Mg/2 Ml Sdv) 4 mg IVPUSH .STK-MED ONE Stop: 04/09/21 03:01 Pantoprazole Sodium (Pantoprazole 40 Mg Vial) 40 mg IVPUSH ONETIME ONE Stop: 04/08/21 09:16 Last Admin: 04/08/21 09:04 Dose: 40 mg Documented by: - Exam Quality Assessment: Reports: Supplemental Oxygen General: Reports: Alert, Oriented Lungs: Reports: Clear to Auscultation, Normal Respiratory Effort GI/Abdominal Exam: Normal Bowel Sounds, Soft, Non-Tender Extremities: Pedal Edema (upper extremities) Neurological: Reports: No New Focal Deficit Psy/Mental Status: Reports: Alert, Normal Affect, Normal Mood
[2021-04-10] MEDS: Acetaminophen 325 MG Tab PO PRN (20:44)
[2021-04-10 22:13] VITALS: BP 111/48; PULSE 100
[2021-04-11] MEDS ORDERED: Insulin Glarg,Human.Rec.Analog 100 Unit/ML SUBCUT SCH (09:00)
== END 2021-04-10 22:32 | DRG 377 ==
LOC: DL.ED 21:58 → DL.MS 04-08 11:17
PROVIDERS: ADMIT Internal Medicine; ATTEND Internal Medicine
PROC: 30233N1 Transfusion of Nonautologous Red Blood Cells into Peripheral Vein, Percutaneous Approach (ICD-10-PCS; principal; 2021-04-08)
PROC: 3E033XZ Introduction of Vasopressor into Peripheral Vein, Percutaneous Approach (ICD-10-PCS; 2021-04-08)
DX: K92.2 Gastrointestinal hemorrhage, unspecified (principal); I25.10 Atherosclerotic heart disease of native coronary artery without angina pectoris; R57.1 Hypovolemic shock; I11.0 Hypertensive heart disease with heart failure; D62 Acute posthemorrhagic anemia; K59.00 Constipation, unspecified; I95.9 Hypotension, unspecified; K57.90 Diverticulosis of intestine, part unspecified, without perforation or abscess without bleeding; I83.90 Asymptomatic varicose veins of unspecified lower extremity; K74.60 Unspecified cirrhosis of liver; E11.65 Type 2 diabetes mellitus with hyperglycemia; E78.5 Hyperlipidemia, unspecified; I50.9 Heart failure, unspecified; E61.1 Iron deficiency; D64.9 Anemia, unspecified; F41.9 Anxiety disorder, unspecified; E11.9 Type 2 diabetes mellitus without complications; Z88.4 Allergy status to anesthetic agent; D72.829 Elevated white blood cell count, unspecified; E78.00 Pure hypercholesterolemia, unspecified; F17.210 Nicotine dependence, cigarettes, uncomplicated; Z79.84 Long term (current) use of oral hypoglycemic drugs; K59.09 Other constipation; Z20.822 Contact with and (suspected) exposure to COVID-19; M19.90 Unspecified osteoarthritis, unspecified site; G89.29 Other chronic pain; M54.9 Dorsalgia, unspecified; F32.A Depression, unspecified; Z86.19 Personal history of other infectious and parasitic diseases; Z79.899 Other long term (current) drug therapy; Z79.01 Long term (current) use of anticoagulants; Z95.2 Presence of prosthetic heart valve; Z79.4 Long term (current) use of insulin; Z88.5 Allergy status to narcotic agent; Z88.8 Allergy status to other drugs, medicaments and biological substances; Z87.01 Personal history of pneumonia (recurrent); Z95.1 Presence of aortocoronary bypass graft; Z90.49 Acquired absence of other specified parts of digestive tract; Z90.89 Acquired absence of other organs
CPT/HCPCS: 36415; 36430; 51702; 71045; 80048; 80053; 80076; 81001; 82009; 82272; 82803; 82947; 83010; 83605; 83615; 83735; 83880; 85014; 85018; 85025; 85610; 86850; 86900; 86901; 86902; 86920; 86922; 87040; 87086; 93005; 94640; 96365; 96366; 96367; 96375; 96376; 99285-25; A9270-GY; C9113; J0696; J1815-GY; J2354-JA; J2405; J3010; J3490; J7030; J7040; J7060; J7620-GY; P9016; P9047; U0002

== ENCOUNTER 2021-04-21 21:34 | Inpatient (IN) | payer MEDICARE, OTHER ==
[2021-04-21] MEDS ORDERED: Lidocaine/Prilocaine 2.5-2.5% Crm 5 GM Tube TOP ONE (21:41)
[2021-04-21 22:48] LABS: ANION GAP 10.6 mEq/L (7-13); CHLORIDE,CL 96 mmol/L (98-107); SODIUM,NA 132 mmol/L (136-145)
[2021-04-21] MEDS ORDERED: Iopamidol 612 MG/ML 100 ML Bottle IVPUSH ONE (22:56)
[2021-04-21] MEDS ORDERED: Pantoprazole 40 MG Vial IVPUSH ONE (23:17)
[2021-04-21] MEDS ORDERED: Octreotide 100 MCG in Sodium Chloride 0.9% 99 ML IV ONE (23:18)
[2021-04-21] MEDS ORDERED: Pantoprazole 40 MG Vial ONE (23:27)
[2021-04-22 00:39] LABS: CORONAVIRUS COVID-19 NAA NEGATIVE (NEGATIVE); RESPIRATORY SYNCYTIAL VIR NAA POSITIVE (NEGATIVE)
[2021-04-22] MEDS ORDERED: Acetaminophen 325 MG Tab PO PRN (01:37)
[2021-04-22] MEDS: Pantoprazole 40 MG in Sodium Chloride 0.9% 100 ML IV SCH ×2 (02:23→07:49)
[2021-04-22] MEDS: Norepinephrine 4 MG in Dextrose 5% in Water 246 ML IV SCH ×4 (05:22→15:52)
[2021-04-22] MEDS: Dextrose 5%-0.9% NaCl 1,000 ML IV ONE ×2 (10:47→11:49)
[2021-04-22] MEDS ORDERED: Insulin Lispro 100 Units/ML 3 ML Vial SUBCUT ONE ×2 (12:37→16:13)
[2021-04-22] MEDS ORDERED: ALPRAZolam 0.25 MG Tab PO ONE (12:37)
[2021-04-22] MEDS ORDERED: Pantoprazole 40 MG in Sodium Chloride 0.9% 100 ML IV SCH (13:00)
[2021-04-22 16:54] VITALS: BP 89/30; PULSE 93
== END 2021-04-22 16:35 | DRG 377 ==
LOC: DL.ED 21:34 → DL.MS 04-22 00:17 → UNDOADMIN 04-22 00:17 → DL.MS 04-22 00:53 → UNDODISIN 04-22 16:35
PROVIDERS: ADMIT Internal Medicine Nephrology; ATTEND Internal Medicine Nephrology
DX: K92.2 Gastrointestinal hemorrhage, unspecified (principal); R57.8 Other shock; I42.1 Obstructive hypertrophic cardiomyopathy; D64.9 Anemia, unspecified; E78.5 Hyperlipidemia, unspecified; E78.00 Pure hypercholesterolemia, unspecified; E11.9 Type 2 diabetes mellitus without complications; I25.10 Atherosclerotic heart disease of native coronary artery without angina pectoris; M19.90 Unspecified osteoarthritis, unspecified site; G89.29 Other chronic pain; M54.9 Dorsalgia, unspecified; I11.0 Hypertensive heart disease with heart failure; Z20.822 Contact with and (suspected) exposure to COVID-19; E11.65 Type 2 diabetes mellitus with hyperglycemia; E61.1 Iron deficiency; Z95.1 Presence of aortocoronary bypass graft; Z88.4 Allergy status to anesthetic agent; Z88.5 Allergy status to narcotic agent; Z88.8 Allergy status to other drugs, medicaments and biological substances; K59.09 Other constipation; I50.9 Heart failure, unspecified; Z79.51 Long term (current) use of inhaled steroids; Z79.899 Other long term (current) drug therapy; F41.9 Anxiety disorder, unspecified; F32.A Depression, unspecified; Z98.890 Other specified postprocedural states; Z90.49 Acquired absence of other specified parts of digestive tract; Z79.4 Long term (current) use of insulin; Z87.19 Personal history of other diseases of the digestive system; Z90.89 Acquired absence of other organs; Z79.01 Long term (current) use of anticoagulants; Z87.01 Personal history of pneumonia (recurrent); Z95.2 Presence of prosthetic heart valve
CPT/HCPCS: 0241U; 36415; 74176; 80053; 82009; 82150; 82272; 82947; 83605; 83690; 83735; 83880; 85025; 85610; 86850; 86900; 86901; 86902; 86920; 86922; 87040; 96374; 99223; 99284; 99285-25; A9270-GY; C9113; J1815-GY; J7042; J7060

== ENCOUNTER 2021-06-27 17:30 | Emergency (ER) | payer MEDICARE, OTHER ==
[2021-06-27] MEDS ORDERED: Sodium Chloride 0.9% 10 ML Syringe FLUSH PRN (18:35)
[2021-06-27 18:46] VITALS: BP 104/40; PULSE 89
[2021-06-27] MEDS ORDERED: Glucagon,Human Recombinant 1 MG Vial IM PRN ×2 (19:02→20:23)
[2021-06-27] MEDS ORDERED: 50% Dextrose in Water 50 ML Syringe IVPUSH PRN ×2 (19:02→20:23)
[2021-06-27] MEDS ORDERED: Insulin Regular, Human 100 Units/ML 3 ML Vial IV ONE ×2 (19:02→20:23)
[2021-06-27 19:25] LABS: ANION GAP 12.4 mEq/L (7-13)
[2021-06-27] MEDS ORDERED: Famotidine 20 MG/2 ML SDV IVPUSH ONE (20:49)
== END 2021-06-27 21:29 | disposition home or self-care (01) ==
LOC: DL.ED 17:30
DX: E11.65 Type 2 diabetes mellitus with hyperglycemia (principal); D64.89 Other specified anemias; R10.9 Unspecified abdominal pain; I25.10 Atherosclerotic heart disease of native coronary artery without angina pectoris; Z95.4 Presence of other heart-valve replacement; Z88.5 Allergy status to narcotic agent; Z88.8 Allergy status to other drugs, medicaments and biological substances; I11.0 Hypertensive heart disease with heart failure; I50.9 Heart failure, unspecified; F41.9 Anxiety disorder, unspecified; F32.A Depression, unspecified; E11.9 Type 2 diabetes mellitus without complications; E78.00 Pure hypercholesterolemia, unspecified; F17.210 Nicotine dependence, cigarettes, uncomplicated; Z79.899 Other long term (current) drug therapy; Z79.01 Long term (current) use of anticoagulants; Z79.4 Long term (current) use of insulin
CPT/HCPCS: 36415; 80053; 82009; 82272; 82947; 83880; 85025; 85610; 86850; 86900; 86901; 96374; 99284; J1815; J3490

== ENCOUNTER 2023-05-20 13:01 | Inpatient (IN) | payer MEDICARE, OTHER ==
[2023-05-20] MEDS ORDERED: Sodium Chloride 0.9% 10 ML Syringe FLUSH PRN (13:47)
[2023-05-20 14:15] LABS: HEMATOCRIT 23.7 % (37.0-47.0); MEAN CORPUSCULAR HEMOGLOBIN 27.5 pg (27.0-34.0); MEAN CORPUSCULAR HGB CONC 27.4 g/dL (33.0-35.0); MEAN CORPUSCULAR VOLUME 100.4 fL (80-100); PLATELET COUNT,PLT 284 10^3/uL (150-450); RED BLOOD CELL COUNT 2.36 10^6/uL (4.2-5.4); WHITE BLOOD CELL COUNT,WBC 9.8 10^3/uL (5.0-10.0)
[2023-05-20] MEDS ORDERED: Glucagon,Human Recombinant 1 MG Vial IM PRN ×2 (14:15→16:31)
[2023-05-20] MEDS ORDERED: Insulin Regular, Human 100 Units/ML 3 ML Vial IV ONE (14:15)
[2023-05-20] MEDS ORDERED: 50% Dextrose in Water 50 ML Syringe IVPUSH PRN ×2 (14:15→16:31)
[2023-05-20 14:17] LABS: HEMOGLOBIN 6.5 g/dL (12.0-16.0)
[2023-05-20 14:21] LABS: INR 1.7 (0.9-1.2); PROTHROMBIN TIME 16.9 SEC (9.0-12.0)
[2023-05-20 14:26] LABS: BASOPHILS PERCENT AUTO 0.4 % (0.0-1.0); EOSINOPHILS PERCENT AUTO 0.4 % (1.0-3.0); LYMPHOCYTES PERCENT AUTO 7.2 % (20.5-50.1); MONOCYTES PERCENT AUTO 6.2 % (2-8); NEUTROPHILS PERCENT AUTO 85.8 % (42.2-75.2)
[2023-05-20 15:01] LABS: BAND PERCENT MAN 3 %; LYMPHOCYTES PERCENT MAN 8 % (20-50); MONOCYTES PERCENT MAN 3 % (2-8); NRBC MANUAL 1 /100WBC; SEG NEUTROPHILS PERCENT MAN 86 % (42-75)
[2023-05-20] MEDS ORDERED: Albuterol/Ipratropium 3.0-0.5 MG/3 ML Neb Soln NEB PRN (16:28)
[2023-05-20] MEDS ORDERED: Ondansetron 4 MG/2 ML SDV IVPUSH PRN (16:28)
[2023-05-20] MEDS ORDERED: HYDROmorphone 0.5 MG/0.5 ML Syringe IVPUSH PRN (16:28)
[2023-05-20] MEDS ORDERED: Pantoprazole 40 MG Vial IVPUSH ONE (16:35)
[2023-05-20] MEDS ORDERED: hydrALAZINE 20 MG/ML SDV IVPUSH PRN (16:36)
[2023-05-20] MEDS ORDERED: Metoprolol Tartrate 5 MG/5 ML SDV IVPUSH PRN (16:36)
[2023-05-20] MEDS ORDERED: REMDESIVIR 200 MG in Sodium Chloride 0.9% 250 ML IV ONE (16:37)
[2023-05-20] MEDS ORDERED: Dexamethasone 4 MG/ML SDV IVPUSH ONE (16:37)
[2023-05-20 17:22] LABS: ANION GAP 17.7 mEq/L (7-13); BILIRUBIN TOTAL 0.7 mg/dL (0.2-1.0); BUN/CREATININE RATIO 12.3 (No establ ref range); CALCIUM 7.7 mg/dL (8.5-10.1); CREATININE 1.38 mg/dL (0.55-1.02); EST CRCL DRUG DOSING (CG) 31.35 mL/min; POTASSIUM,K 3.7 mmol/L (3.5-5.1); PROTEIN TOTAL,TP 6.9 g/dL (6.4-8.2)
[2023-05-20 17:25] LABS: A/G RATIO 0.77
[2023-05-20] MEDS: Acetaminophen 325 MG Tab PO PRN (18:20)
[2023-05-20] MEDS: Sucralfate Suspension 1 GM/10 ML Cup PO SCH ×2 (18:20→20:29)
[2023-05-20] MEDS: Insulin Glarg,Human.Rec.Analog 100 Unit/ML 10 ML Vial SUBCUT SCH ×2 (18:23→18:39)
[2023-05-20] MEDS: Insulin Lispro 100 Units/ML 3 ML Vial SUBCUT SCH (20:27)
[2023-05-20] MEDS: Nicotine 14 MG/24 Hr Patch TRDERM SCH (21:21)
[2023-05-21] MEDS: Acetaminophen 325 MG Tab PO PRN (02:53)
[2023-05-21] MEDS ORDERED: Midodrine 5 MG Tab PO PRN (06:11)
[2023-05-21] MEDS: Sucralfate Suspension 1 GM/10 ML Cup PO SCH ×4 (06:56→21:00)
[2023-05-21 07:04] LABS: HEMATOCRIT 28.6 % (37.0-47.0); HEMOGLOBIN 8.6 g/dL (12.0-16.0); MEAN CORPUSCULAR HEMOGLOBIN 28.1 pg (27.0-34.0); MEAN CORPUSCULAR HGB CONC 30.1 g/dL (33.0-35.0); MEAN CORPUSCULAR VOLUME 93.5 fL (80-100); PLATELET COUNT,PLT 231 10^3/uL (150-450); RED BLOOD CELL COUNT 3.06 10^6/uL (4.2-5.4); WHITE BLOOD CELL COUNT,WBC 7.4 10^3/uL (5.0-10.0)
[2023-05-21 07:11] LABS: LYMPHOCYTES PERCENT AUTO 7.7 % (20.5-50.1); MONOCYTES PERCENT AUTO 6.9 % (2-8); NEUTROPHILS PERCENT AUTO 85.1 % (42.2-75.2)
[2023-05-21 07:12] LABS: BASOPHILS PERCENT AUTO 0.3 % (0.0-1.0)
[2023-05-21 07:22] LABS: A/G RATIO 0.74; ALBUMIN 2.6 g/dL (3.4-5.0); ANION GAP 16.2 mEq/L (7-13); BILIRUBIN DIRECT 0.4 mg/dL (0.0-0.2); BILIRUBIN TOTAL 0.7 mg/dL (0.2-1.0); BUN/CREATININE RATIO 15.7 (No establ ref range); CALCIUM 7.4 mg/dL (8.5-10.1); CREATININE 1.08 mg/dL (0.55-1.02); EST CRCL DRUG DOSING (CG) 40.06 mL/min; MAGNESIUM 2.1 mg/dL (1.8-2.4); POTASSIUM,K 4.2 mmol/L (3.5-5.1); PROTEIN TOTAL,TP 6.1 g/dL (6.4-8.2)
[2023-05-21 08:27] LABS: CHOLESTEROL HDL 18 mg/dL (40-59); CHOLESTEROL LDL CALCULATED 83 mg/dL (0-100); CHOLESTEROL TOTAL 136 mg/dL (0-199); TRIGLYCERIDES 174 mg/dL (0-149)
[2023-05-21] MEDS ORDERED: Pantoprazole 40 MG Vial IVPUSH SCH (09:00)
[2023-05-21] MEDS ORDERED: Insulin Glarg,Human.Rec.Analog 100 Unit/ML 10 ML Vial SUBCUT SCH ×2 (09:00)
[2023-05-21] MEDS: Dexamethasone 4 MG/ML SDV IVPUSH SCH (09:13)
[2023-05-21] MEDS: Nicotine 14 MG/24 Hr Patch TRDERM SCH (09:14)
[2023-05-21] MEDS: Insulin Lispro 100 Units/ML 3 ML Vial SUBCUT SCH ×3 (09:16→17:06)
[2023-05-21] MEDS ORDERED: Bisacodyl 10 MG Supp RECTAL PRN (09:32)
[2023-05-21 09:42] LABS: LYMPHOCYTES PERCENT MAN 6 % (20-50); MONOCYTES PERCENT MAN 4 % (2-8); NRBC MANUAL 1 /100WBC; SEG NEUTROPHILS PERCENT MAN 90 % (42-75)
[2023-05-21 12:17] LABS: HEMATOCRIT 30.5 % (37.0-47.0); HEMOGLOBIN 8.8 g/dL (12.0-16.0)
[2023-05-21] MEDS: REMDESIVIR 100 MG in Sodium Chloride 0.9% 100 ML IV SCH (15:33)
[2023-05-21] MEDS ORDERED: hydrOXYzine HCl 10 MG Tab PO PRN (16:50)
[2023-05-21] MEDS ORDERED: ClonazePAM 0.5 MG Tab PO PRN (16:50)
[2023-05-21] MEDS ORDERED: Non-Formulary Medication 1 Each (Clobetasol [Clobetasol Propionate 0.05% Cream] 15 GM Tube TOP PRN (16:50)
[2023-05-21] MEDS: Ferrous Sulfate 325 MG Tab PO SCH (17:13)
[2023-05-21] MEDS ORDERED: Polyethylene Glycol 3350 Powder 17 GM Packet PO PRN (17:15)
[2023-05-21] MEDS ORDERED: Lactulose Soln 10 GM/15 ML 30 ML UD Cup PO ONE (17:16)
[2023-05-21 18:23] LABS: HEMATOCRIT 30.4 % (37.0-47.0); HEMOGLOBIN 8.8 g/dL (12.0-16.0)
[2023-05-21] MEDS: Melatonin 3 MG Tab PO PRN (20:59)
[2023-05-21] MEDS: Ascorbic Acid 500 MG Tab PO SCH (20:59)
[2023-05-21] MEDS: Loratadine 10 MG Tab PO SCH (21:00)
[2023-05-21] MEDS: Rifaximin 550 MG Tab PO SCH (21:00)
[2023-05-21] MEDS ORDERED: Formoterol/Mometasone 100-5 MCG 8.8 GM Inhaler IH SCH (21:00)
[2023-05-21] MEDS: Insulin Glarg,Human.Rec.Analog 100 Unit/ML 10 ML Vial SUBCUT SCH (21:04)
[2023-05-21] MEDS: hydrOXYzine HCl 10 MG Tab PO PRN (23:06)
[2023-05-22] MEDS: Sucralfate Suspension 1 GM/10 ML Cup PO SCH ×4 (06:24→22:05)
[2023-05-22] MEDS: Pantoprazole 40 MG Tab.CR PO SCH ×2 (06:24→16:42)
[2023-05-22 06:27] LABS: BASOPHILS PERCENT AUTO 0.3 % (0.0-1.0); EOSINOPHILS PERCENT AUTO 0.1 % (1.0-3.0); HEMATOCRIT 27.1 % (37.0-47.0); LYMPHOCYTES PERCENT AUTO 8.9 % (20.5-50.1); MEAN CORPUSCULAR HEMOGLOBIN 27.6 pg (27.0-34.0); MEAN CORPUSCULAR HGB CONC 29.5 g/dL (33.0-35.0); MEAN CORPUSCULAR VOLUME 93.4 fL (80-100); NEUTROPHILS PERCENT AUTO 82.7 % (42.2-75.2); PLATELET COUNT,PLT 221 10^3/uL (150-450); WHITE BLOOD CELL COUNT,WBC 6.7 10^3/uL (5.0-10.0)
[2023-05-22] MEDS: Formoterol/Mometasone 100-5 MCG 8.8 GM Inhaler IH SCH ×3 (06:55→18:22)
[2023-05-22 06:58] LABS: ALBUMIN 2.6 g/dL (3.4-5.0); ANION GAP 11.8 mEq/L (7-13); BILIRUBIN DIRECT 0.3 mg/dL (0.0-0.2); BILIRUBIN TOTAL 0.6 mg/dL (0.2-1.0); BUN/CREATININE RATIO 16.7 (No establ ref range); C-REACTIVE PROTEIN 0.54 ng/dL (<=0.50); CALCIUM 7.7 mg/dL (8.5-10.1); CREATININE 0.9 mg/dL (0.55-1.02); EST CRCL DRUG DOSING (CG) 48.07 mL/min; MAGNESIUM 2.1 mg/dL (1.8-2.4); POTASSIUM,K 3.8 mmol/L (3.5-5.1); PROTEIN TOTAL,TP 5.9 g/dL (6.4-8.2)
[2023-05-22 06:59] LABS: A/G RATIO 0.79
[2023-05-22] MEDS: Rifaximin 550 MG Tab PO SCH ×2 (08:54→21:51)
[2023-05-22] MEDS: DULoxetine 30 MG Cap PO SCH (08:54)
[2023-05-22] MEDS: Lactulose Soln 10 GM/15 ML 30 ML UD Cup PO SCH (08:54)
[2023-05-22] MEDS: Cholecalciferol (Vitamin D3) 25 MCG Tab PO SCH (08:55)
[2023-05-22] MEDS: Ascorbic Acid 500 MG Tab PO SCH ×2 (08:56→21:52)
[2023-05-22] MEDS: Ferrous Sulfate 325 MG Tab PO SCH ×2 (08:56→18:17)
[2023-05-22] MEDS: Nicotine 14 MG/24 Hr Patch TRDERM SCH (08:57)
[2023-05-22] MEDS: Empagliflozin 25 MG Tab PO SCH (08:58)
[2023-05-22] MEDS ORDERED: Sennosides/Docusate Sodium 50-8.6 MG Tab PO SCH (09:00)
[2023-05-22] MEDS: Insulin Lispro 100 Units/ML 3 ML Vial SUBCUT SCH ×3 (09:01→18:18)
[2023-05-22] MEDS: Dexamethasone 4 MG/ML SDV IVPUSH SCH (09:01)
[2023-05-22] MEDS: Insulin Glarg,Human.Rec.Analog 100 Unit/ML 10 ML Vial SUBCUT SCH ×2 (09:02→21:55)
[2023-05-22] MEDS: Metoprolol Succinate 50 MG Tab.ER PO SCH (09:06)
[2023-05-22] MEDS: REMDESIVIR 100 MG in Sodium Chloride 0.9% 100 ML IV SCH (16:39)
[2023-05-22] MEDS: Multivitamin Tab PO SCH (21:51)
[2023-05-22] MEDS: Loratadine 10 MG Tab PO SCH (21:52)
[2023-05-22] MEDS: hydrOXYzine HCl 10 MG Tab PO PRN (23:30)
[2023-05-23] MEDS: Pantoprazole 40 MG Tab.CR PO SCH ×2 (05:58→15:37)
[2023-05-23] MEDS: Sucralfate Suspension 1 GM/10 ML Cup PO SCH ×4 (06:00→21:08)
[2023-05-23] MEDS: Formoterol/Mometasone 100-5 MCG 8.8 GM Inhaler IH SCH ×2 (06:41→17:53)
[2023-05-23 06:51] LABS: BASOPHILS PERCENT AUTO 0.1 % (0.0-1.0); EOSINOPHILS PERCENT AUTO 0.4 % (1.0-3.0); HEMATOCRIT 30.8 % (37.0-47.0); HEMOGLOBIN 8.8 g/dL (12.0-16.0); LYMPHOCYTES PERCENT AUTO 15.3 % (20.5-50.1); MEAN CORPUSCULAR HEMOGLOBIN 27.2 pg (27.0-34.0); MEAN CORPUSCULAR HGB CONC 28.6 g/dL (33.0-35.0); MEAN CORPUSCULAR VOLUME 95.1 fL (80-100); MONOCYTES PERCENT AUTO 6.9 % (2-8); NEUTROPHILS PERCENT AUTO 77.3 % (42.2-75.2); PLATELET COUNT,PLT 245 10^3/uL (150-450); RED BLOOD CELL COUNT 3.24 10^6/uL (4.2-5.4); WHITE BLOOD CELL COUNT,WBC 8.4 10^3/uL (5.0-10.0)
[2023-05-23 07:05] LABS: ALANINE AMINOTRANSFERASE,ALT 13 U/L (14-59); ALBUMIN 2.7 g/dL (3.4-5.0); ALKALINE PHOSPHATASE 71 U/L (46-116); ANION GAP 13.9 mEq/L (7-13); ASPARTATE AMNIOTRANSFERASE,AST 13 U/L (15-37); BILIRUBIN DIRECT 0.2 mg/dL (0.0-0.2); BILIRUBIN TOTAL 0.5 mg/dL (0.2-1.0); BLOOD UREA NITROGEN,BUN 16 mg/dL (7-18); BUN/CREATININE RATIO 14.7 (No establ ref range); CALCIUM 8.6 mg/dL (8.5-10.1); CARBON DIOXIDE,CO2 26 mmol/L (21-32); CHLORIDE,CL 105 mmol/L (98-107); CREATININE 1.09 mg/dL (0.55-1.02); EST CRCL DRUG DOSING (CG) 39.69 mL/min; GLUCOSE RANDOM 104 mg/dL (70-99); POTASSIUM,K 4.9 mmol/L (3.5-5.1); PROTEIN TOTAL,TP 6.2 g/dL (6.4-8.2); SODIUM,NA 140 mmol/L (136-145)
[2023-05-23 07:08] LABS: A/G RATIO 0.77; C-REACTIVE PROTEIN < 0.50 ng/dL (<=0.50); ESTIMATED GFR 54 mL/min (>=60)
[2023-05-23] MEDS: Insulin Lispro 100 Units/ML 3 ML Vial SUBCUT SCH ×3 (07:52→17:07)
[2023-05-23] MEDS ORDERED: Sodium Chloride 0.9% 1,000 ML IV SCH (09:45)
[2023-05-23] MEDS: Ferrous Sulfate 325 MG Tab PO SCH ×2 (10:15→17:07)
[2023-05-23] MEDS: DULoxetine 30 MG Cap PO SCH (10:16)
[2023-05-23] MEDS: Lactulose Soln 10 GM/15 ML 30 ML UD Cup PO SCH (10:16)
[2023-05-23] MEDS: Nicotine 14 MG/24 Hr Patch TRDERM SCH (10:18)
[2023-05-23] MEDS: Cholecalciferol (Vitamin D3) 25 MCG Tab PO SCH (10:19)
[2023-05-23] MEDS: Rifaximin 550 MG Tab PO SCH ×2 (10:19→21:09)
[2023-05-23] MEDS: Ascorbic Acid 500 MG Tab PO SCH ×2 (10:19→21:09)
[2023-05-23] MEDS: Metoprolol Succinate 50 MG Tab.ER PO SCH (10:20)
[2023-05-23] MEDS: Empagliflozin 25 MG Tab PO SCH (10:21)
[2023-05-23] MEDS: Dexamethasone 4 MG/ML SDV IVPUSH SCH (10:22)
[2023-05-23] MEDS: Insulin Glarg,Human.Rec.Analog 100 Unit/ML 10 ML Vial SUBCUT SCH ×2 (10:24→21:12)
[2023-05-23] MEDS: Acetaminophen 325 MG Tab PO PRN (11:43)
[2023-05-23] MEDS: REMDESIVIR 100 MG in Sodium Chloride 0.9% 100 ML IV SCH (15:38)
[2023-05-23] MEDS ORDERED: Warfarin 2.5 MG Tab PO SCH (17:00)
[2023-05-23] MEDS: Loratadine 10 MG Tab PO SCH (21:09)
[2023-05-23] MEDS: Multivitamin Tab PO SCH (21:09)
[2023-05-23] MEDS: Melatonin 3 MG Tab PO PRN (22:15)
[2023-05-24] MEDS: Pantoprazole 40 MG Tab.CR PO SCH (05:58)
[2023-05-24] MEDS: Sucralfate Suspension 1 GM/10 ML Cup PO SCH ×2 (06:00→11:25)
[2023-05-24] MEDS: Formoterol/Mometasone 100-5 MCG 8.8 GM Inhaler IH SCH (06:28)
[2023-05-24 06:51] LABS: INR 1.3 (0.9-1.2); PROTHROMBIN TIME 13.3 SEC (9.0-12.0)
[2023-05-24 06:53] LABS: ALANINE AMINOTRANSFERASE,ALT 11 U/L (14-59); ALBUMIN 2.5 g/dL (3.4-5.0); ALKALINE PHOSPHATASE 85 U/L (46-116); ASPARTATE AMNIOTRANSFERASE,AST 5 U/L (15-37); BILIRUBIN DIRECT 0.2 mg/dL (0.0-0.2); BILIRUBIN TOTAL 0.4 mg/dL (0.2-1.0); BLOOD UREA NITROGEN,BUN 18 mg/dL (7-18); BUN/CREATININE RATIO 15.3 (No establ ref range); CALCIUM 7.9 mg/dL (8.5-10.1); CARBON DIOXIDE,CO2 21 mmol/L (21-32); CHLORIDE,CL 106 mmol/L (98-107); CREATININE 1.18 mg/dL (0.55-1.02); EST CRCL DRUG DOSING (CG) 36.67 mL/min; GLUCOSE RANDOM 161 mg/dL (70-99); SODIUM,NA 138 mmol/L (136-145)
[2023-05-24 06:54] LABS: A/G RATIO 0.71; C-REACTIVE PROTEIN < 0.50 ng/dL (<=0.50); ESTIMATED GFR 49 mL/min (>=60)
[2023-05-24 07:00] LABS: BASOPHILS PERCENT AUTO 0.3 % (0.0-1.0); HEMATOCRIT 34.2 % (37.0-47.0); HEMOGLOBIN 9.8 g/dL (12.0-16.0); LYMPHOCYTES PERCENT AUTO 17.5 % (20.5-50.1); MEAN CORPUSCULAR HEMOGLOBIN 27.2 pg (27.0-34.0); MEAN CORPUSCULAR HGB CONC 28.7 g/dL (33.0-35.0); MONOCYTES PERCENT AUTO 7.8 % (2-8); NEUTROPHILS PERCENT AUTO 73.4 % (42.2-75.2); PLATELET COUNT,PLT 285 10^3/uL (150-450); WHITE BLOOD CELL COUNT,WBC 9.2 10^3/uL (5.0-10.0)
[2023-05-24] MEDS: Insulin Lispro 100 Units/ML 3 ML Vial SUBCUT SCH ×2 (08:20→12:01)
[2023-05-24] MEDS: Lactulose Soln 10 GM/15 ML 30 ML UD Cup PO SCH (09:05)
[2023-05-24] MEDS: Dexamethasone 4 MG/ML SDV IVPUSH SCH (09:06)
[2023-05-24] MEDS: Rifaximin 550 MG Tab PO SCH (09:06)
[2023-05-24] MEDS: DULoxetine 30 MG Cap PO SCH (09:06)
[2023-05-24] MEDS: Cholecalciferol (Vitamin D3) 25 MCG Tab PO SCH (09:06)
[2023-05-24] MEDS: Ascorbic Acid 500 MG Tab PO SCH (09:06)
[2023-05-24] MEDS: Empagliflozin 25 MG Tab PO SCH (09:07)
[2023-05-24] MEDS: Ferrous Sulfate 325 MG Tab PO SCH (09:08)
[2023-05-24] MEDS: Metoprolol Succinate 50 MG Tab.ER PO SCH (09:22)
[2023-05-24] MEDS: Nicotine 14 MG/24 Hr Patch TRDERM SCH (09:23)
[2023-05-24] MEDS: Insulin Glarg,Human.Rec.Analog 100 Unit/ML 10 ML Vial SUBCUT SCH (09:30)
[2023-05-24] MEDS ORDERED: REMDESIVIR 100 MG in Sodium Chloride 0.9% 100 ML IV SCH (11:12)
[2023-05-24] MEDS: Acetaminophen 325 MG Tab PO PRN (11:54)
[2023-05-24 12:53] VITALS: BP 115/63; PULSE 64
[2023-05-27 19:41] LABS: 25-OH VITAMIN D2 <1.0 ng/mL; 25-OH VITAMIN D3 23.2 ng/mL
== END 2023-05-24 14:06 | disposition home or self-care (01) | DRG 811 ==
LOC: DL.ED 13:01 → DL.MS 15:17 → DL.ED 15:39
PROVIDERS: ADMIT Internal Medicine; ATTEND Internal Medicine
PROC: 8E0ZXY6 Isolation (ICD-10-PCS; principal; 2023-05-20)
PROC: XW033E5 Introduction of Remdesivir Anti-infective into Peripheral Vein, Percutaneous Approach, New Technology Group 5 (ICD-10-PCS; 2023-05-20)
PROC: 3E0333Z Introduction of Anti-inflammatory into Peripheral Vein, Percutaneous Approach (ICD-10-PCS; 2023-05-20)
PROC: 30233N1 Transfusion of Nonautologous Red Blood Cells into Peripheral Vein, Percutaneous Approach (ICD-10-PCS; 2023-05-20)
DX: D64.89 Other specified anemias (principal); D50.9 Iron deficiency anemia, unspecified; U07.1 COVID-19; N17.9 Acute kidney failure, unspecified; E87.1 Hypo-osmolality and hyponatremia; E11.9 Type 2 diabetes mellitus without complications; Z95.5 Presence of coronary angioplasty implant and graft; E78.5 Hyperlipidemia, unspecified; K74.60 Unspecified cirrhosis of liver; E11.42 Type 2 diabetes mellitus with diabetic polyneuropathy; Z88.5 Allergy status to narcotic agent; Z88.8 Allergy status to other drugs, medicaments and biological substances; E11.65 Type 2 diabetes mellitus with hyperglycemia; I25.10 Atherosclerotic heart disease of native coronary artery without angina pectoris; I50.9 Heart failure, unspecified; I11.0 Hypertensive heart disease with heart failure; K59.09 Other constipation; G89.29 Other chronic pain; M54.9 Dorsalgia, unspecified; M19.90 Unspecified osteoarthritis, unspecified site; F41.9 Anxiety disorder, unspecified; F32.A Depression, unspecified; D53.9 Nutritional anemia, unspecified; F17.210 Nicotine dependence, cigarettes, uncomplicated; I95.9 Hypotension, unspecified; E87.8 Other disorders of electrolyte and fluid balance, not elsewhere classified; D63.8 Anemia in other chronic diseases classified elsewhere; Z79.899 Other long term (current) drug therapy; Z98.890 Other specified postprocedural states; Z79.01 Long term (current) use of anticoagulants; Z79.4 Long term (current) use of insulin; Z90.49 Acquired absence of other specified parts of digestive tract
CPT/HCPCS: 36415; 36430; 71045; 80053; 80061; 82248; 82272; 82947; 83735; 83880; 84484; 85014; 85018; 85025; 85610; 86140; 86850; 86900; 86901; 86902; 86920; 86922; 94010; 94060; 94667; 94668; 94760; 99223; 99232; 99233; 99238; 99284; 99285; A9270-GY; C9113; J0248; J1100; J1170; J1815-GY; J2405; J3490; J7030; J7050; P9016

== ENCOUNTER 2023-12-28 11:22 | Emergency (ER) | payer MEDICARE, OTHER ==
[2023-12-28] MEDS ORDERED: Sodium Chloride 0.9% 10 ML Syringe FLUSH PRN (11:45)
[2023-12-28] MEDS: Albuterol/Ipratropium 3.0-0.5 MG/3 ML Neb Soln ONE (11:53)
[2023-12-28 11:55] LABS: HEMATOCRIT 40.1 % (37.0-47.0); HEMOGLOBIN 12.8 g/dL (12.0-16.0); MEAN CORPUSCULAR HEMOGLOBIN 29.8 pg (27.0-34.0); MEAN CORPUSCULAR HGB CONC 31.9 g/dL (33.0-35.0); MEAN CORPUSCULAR VOLUME 93.3 fL (80-100); PLATELET COUNT,PLT 177 10^3/uL (150-450); WHITE BLOOD CELL COUNT,WBC 29.6 10^3/uL (5.0-10.0)
[2023-12-28 11:58] LABS: BASOPHILS PERCENT AUTO 0.1 % (0.0-1.0); MONOCYTES PERCENT AUTO 2.8 % (2-8); NEUTROPHILS PERCENT AUTO 95.1 % (42.2-75.2)
[2023-12-28] MEDS: Morphine 2 MG/ML SYRINGE IVPUSH ONE (12:08)
[2023-12-28] MEDS: Sodium Chloride 0.9% 500 ML IV ONE (12:08)
[2023-12-28 12:16] LABS: ANION GAP 14.2 mEq/L (7-13); BILIRUBIN TOTAL 0.9 mg/dL (0.2-1.0); BUN/CREATININE RATIO 14.5 (No establ ref range); C-REACTIVE PROTEIN 11.74 ng/dL (<=0.50); CALCIUM 8.8 mg/dL (8.5-10.1); CREATININE 1.45 mg/dL (0.55-1.02); EST CRCL DRUG DOSING (CG) 29.39 mL/min; MAGNESIUM 1.9 mg/dL (1.8-2.4); POTASSIUM,K 6.2 mmol/L (3.5-5.1); PROTEIN TOTAL,TP 7.2 g/dL (6.4-8.2)
[2023-12-28 12:18] LABS: A/G RATIO 0.71
[2023-12-28 12:19] LABS: LYMPHOCYTES PERCENT MAN 2 % (20-50); MONOCYTES PERCENT MAN 2 % (2-8); SEG NEUTROPHILS PERCENT MAN 96 % (42-75)
[2023-12-28 12:20] LABS: INR 2.5 (0.9-1.2); PROTHROMBIN TIME 24.7 SEC (9.0-12.0); PTT,PARTIAL THROMBOPLSTIN TIME 40.1 SEC (22.0-34.0)
[2023-12-28 12:22] LABS: LACTIC ACID 4.5 mmol/L (0.4-2.0)
[2023-12-28] MEDS ORDERED: Glucagon,Human Recombinant 1 MG Vial IM PRN (12:28)
[2023-12-28] MEDS ORDERED: 50% Dextrose in Water 50 ML Syringe IVPUSH PRN (12:28)
[2023-12-28 12:33] LABS: APPEARANCE,URINE CLEAR (CLEAR); BILIRUBIN,URINE NEGATIVE (NEGATIVE); COLOR,URINE DARK YELLOW (YELLOW); GLUCOSE,URINE NEGATIVE (NEGATIVE); KETONES,URINE TRACE (NEGATIVE); LEUKOCYTE ESTERASE,URINE NEGATIVE (NEGATIVE); NITRITE,URINE NEGATIVE (NEGATIVE); OCCULT BLOOD,URINE NEGATIVE (NEGATIVE); PH,URINE 5.5 (5.0-9.0); PROTEIN,URINE NEGATIVE (NEGATIVE); UROBILINOGEN,URINE 0.2 mg/dL (0.2-1.0)
[2023-12-28] MEDS: Sodium Chloride 0.9% 1,000 ML IV ONE (12:42)
[2023-12-28] MEDS: Norepinephrine Bit/D5W Premix 250 ML IV SCH (12:43)
[2023-12-28] MEDS: Insulin Regular, Human 100 Units/ML 3 ML Vial IV ONE (13:02)
[2023-12-28] MEDS: Sodium Zirconium Cyclosilicate 5 GM Packet PO ONE (13:07)
[2023-12-28] MEDS: Vancomycin 2 GM in Sodium Chloride 0.9% 500 ML IV ONE (13:30)
[2023-12-28 14:22] VITALS: BP 105/52; PULSE 93
[2023-12-28] MEDS: Piperacillin/Tazobactam 4.5 GM in Sodium Chloride 0.9% 100 ML IV ONE (14:43)
== END 2023-12-28 15:03 ==
LOC: DL.ED 11:22
DX: A41.9 Sepsis, unspecified organism (principal); I95.9 Hypotension, unspecified; E87.6 Hypokalemia; E11.65 Type 2 diabetes mellitus with hyperglycemia; I50.9 Heart failure, unspecified; Z79.899 Other long term (current) drug therapy; Z79.01 Long term (current) use of anticoagulants; Z79.4 Long term (current) use of insulin; Z88.8 Allergy status to other drugs, medicaments and biological substances; Z88.5 Allergy status to narcotic agent
CPT/HCPCS: 36415; 71045; 80053; 81003; 82947; 83605; 83735; 83880; 84145; 84484; 85025; 85610; 85730; 86140; 87040; 87804; 93005; 93010; 96365; 96366; 96367; 96368; 96375; 99285; C1758; J1815; J2270; J2543; J3370; J3490; J7030; J7040; U0002; J7620-GY

== ENCOUNTER 2024-01-12 10:06 | Inpatient (IN) | payer MEDICARE, OTHER ==
[2024-01-12] MEDS ORDERED: Albuterol 6.7 GM Inhaler INH PRN (12:48)
[2024-01-12] MEDS ORDERED: Loratadine 10 MG Tab PO PRN (12:48)
[2024-01-12] MEDS ORDERED: Sodium Chloride 0.65% Nasal Spray 45 ML Bottle NASBOTH PRN (12:48)
[2024-01-12] MEDS ORDERED: Non-Formulary Medication 1 Each (Clobetasol [Clobetasol Propionate 0.05% Cream] 15 GM Tube TOP PRN (12:48)
[2024-01-12] MEDS ORDERED: Albuterol/Ipratropium 3.0-0.5 MG/3 ML Neb Soln NEB PRN (12:52)
[2024-01-12] MEDS ORDERED: Metoclopramide 10 MG Tab PO PRN (12:52)
[2024-01-12] MEDS ORDERED: Ondansetron 4 MG Tab.DIS PO PRN (13:37)
[2024-01-12 13:46] LABS: INR 2.7 (0.9-1.2); PROTHROMBIN TIME 25.9 SEC (9.0-12.0)
[2024-01-12] MEDS: Ondansetron 4 MG Tab.DIS PO PRN (14:25)
[2024-01-12] MEDS: Menthol/Zinc Oxide Ointment 113 GM Tube TOP PRN (14:25)
[2024-01-12] MEDS: Potassium Chloride 10 MEQ Tab.ER PO SCH (18:21)
[2024-01-12] MEDS: Ferrous Sulfate 325 MG Tab PO SCH (18:21)
[2024-01-12] MEDS: Formoterol/Mometasone 100-5 MCG 8.8 GM Inhaler INH SCH (18:22)
[2024-01-12] MEDS: Lactulose Soln 10 GM/15 ML 30 ML UD Cup PO SCH (20:43)
[2024-01-12] MEDS: Amiodarone 200 MG Tab PO SCH (20:53)
[2024-01-12] MEDS: traMADol 50 MG Tab PO PRN (20:54)
[2024-01-12] MEDS: atorvaSTATin 20 MG Tab PO SCH (20:55)
[2024-01-12] MEDS: Rifaximin 550 MG Tab PO SCH (20:56)
[2024-01-12] MEDS: Pantoprazole 40 MG Tab.CR PO SCH (20:56)
[2024-01-12] MEDS: Insulin Glarg,Human.Rec.Analog 100 Unit/ML 10 ML Vial SUBCUT SCH (21:05)
[2024-01-12] MEDS: ClonazePAM 0.5 MG Tab PO PRN (22:22)
[2024-01-13] MEDS: Amiodarone 200 MG Tab PO SCH (02:31)
[2024-01-13 06:44] LABS: INR 2.8 (0.9-1.2)
[2024-01-13] MEDS: Glimepiride 2 MG Tab PO SCH (08:12)
[2024-01-13] MEDS: Cholecalciferol (Vitamin D3) 25 MCG Tab PO SCH (08:13)
[2024-01-13] MEDS: Cyanocobalamin (Vitamin B12) 1,000 MCG Tab PO SCH (08:13)
[2024-01-13] MEDS: Warfarin 5 MG Tab PO SCH (08:14)
[2024-01-13] MEDS: DULoxetine 30 MG Cap PO SCH (08:14)
[2024-01-13] MEDS ORDERED: 50% Dextrose in Water 50 ML Syringe IVPUSH PRN (08:19)
[2024-01-13] MEDS ORDERED: Glucagon,Human Recombinant 1 MG Vial IM PRN (08:19)
[2024-01-13] MEDS ORDERED: Nicotine 14 MG/24 Hr Patch TRDERM SCH (09:00)
[2024-01-13] MEDS: Insulin Glarg,Human.Rec.Analog 100 Unit/ML 10 ML Vial SUBCUT SCH (09:52)
[2024-01-13] MEDS: Check Patch TRDERM SCH (10:18)
[2024-01-13] MEDS: Insulin Lispro 100 Units/ML 3 ML Vial SUBCUT SCH (12:02)
[2024-01-13] MEDS: hydrOXYzine HCl 10 MG Tab PO PRN (14:16)
[2024-01-13] MEDS: hydrOXYzine HCl 10 MG Tab PO ONE (21:01)
[2024-01-13] MEDS: diphenhydrAMINE 25 MG Tab PO ONE (21:02)
[2024-01-13] MEDS: hydrOXYzine HCl 25 MG Tab PO ONE (21:05)
[2024-01-14 07:15] LABS: INR 2.6 (0.9-1.2); PROTHROMBIN TIME 25.6 SEC (9.0-12.0)
[2024-01-15 07:12] LABS: INR 2.8 (0.9-1.2); PROTHROMBIN TIME 26.7 SEC (9.0-12.0)
[2024-01-16 07:10] LABS: INR 2.7 (0.9-1.2); PROTHROMBIN TIME 26.3 SEC (9.0-12.0)
[2024-01-16] MEDS: Menthol 10%/Methyl Salicylate 15% 85 GM Tube TOP PRN (08:28)
[2024-01-17 06:31] LABS: HEMATOCRIT 33.6 % (37.0-47.0); HEMOGLOBIN 10.1 g/dL (12.0-16.0); MEAN CORPUSCULAR HEMOGLOBIN 28.9 pg (27.0-34.0); MEAN CORPUSCULAR HGB CONC 30.1 g/dL (33.0-35.0); MEAN CORPUSCULAR VOLUME 96.3 fL (80-100); PLATELET COUNT,PLT 276 10^3/uL (150-450); RED BLOOD CELL COUNT 3.49 10^6/uL (4.2-5.4); WHITE BLOOD CELL COUNT,WBC 4.9 10^3/uL (5.0-10.0)
[2024-01-17 06:44] LABS: BASOPHILS PERCENT AUTO 2.5 % (0.0-1.0); EOSINOPHILS PERCENT AUTO 3.7 % (1.0-3.0); LYMPHOCYTES PERCENT AUTO 18.5 % (20.5-50.1); MONOCYTES PERCENT AUTO 13.1 % (2-8); NEUTROPHILS PERCENT AUTO 62.2 % (42.2-75.2)
[2024-01-17 06:57] LABS: INR 2.8 (0.9-1.2); PROTHROMBIN TIME 27.4 SEC (9.0-12.0)
[2024-01-17 07:47] LABS: BAND PERCENT MAN 2 %; EOSINOPHILS PERCENT MAN 3 % (1-3); LYMPHOCYTES PERCENT MAN 15 % (20-50); MONOCYTES PERCENT MAN 12 % (2-8); SEG NEUTROPHILS PERCENT MAN 68 % (42-75)
[2024-01-17 08:00] LABS: A/G RATIO 0.8; ALBUMIN 3.4 g/dL (3.4-5.0); ANION GAP 12.7 mEq/L (7-13); BILIRUBIN TOTAL 0.6 mg/dL (0.2-1.0); BUN/CREATININE RATIO 10.1 (No establ ref range); CALCIUM 8.8 mg/dL (8.5-10.1); CREATININE 0.99 mg/dL (0.55-1.02); EST CRCL DRUG DOSING (CG) 43.05 mL/min; POTASSIUM,K 4.7 mmol/L (3.5-5.1); PROTEIN TOTAL,TP 7.7 g/dL (6.4-8.2)
[2024-01-18 06:54] LABS: INR 3.1 (0.9-1.2); PROTHROMBIN TIME 29.5 SEC (9.0-12.0)
[2024-01-18] MEDS: Acetaminophen 325 MG Tab PO PRN (23:49)
[2024-01-19 06:52] LABS: PROTHROMBIN TIME 28.9 SEC (9.0-12.0)
[2024-01-19 08:31] VITALS: BP 112/46; PULSE 74
[2024-01-23] MEDS ORDERED: Amiodarone 200 MG Tab PO SCH (09:00)
== END 2024-01-19 12:52 | disposition home or self-care (01) | DRG 948 ==
LOC: DL.MS 11:48 → UNDOADMIN 11:48 → DL.MS 12:52
PROVIDERS: ADMIT Internal Medicine; ATTEND Internal Medicine
DX: R53.1 Weakness (principal); I42.2 Other hypertrophic cardiomyopathy; G72.81 Critical illness myopathy; I50.32 Chronic diastolic (congestive) heart failure; E44.0 Moderate protein-calorie malnutrition; E78.5 Hyperlipidemia, unspecified; I25.10 Atherosclerotic heart disease of native coronary artery without angina pectoris; I27.20 Pulmonary hypertension, unspecified; I48.91 Unspecified atrial fibrillation; E11.9 Type 2 diabetes mellitus without complications; M19.90 Unspecified osteoarthritis, unspecified site; K59.09 Other constipation; M54.9 Dorsalgia, unspecified; G89.29 Other chronic pain; F41.9 Anxiety disorder, unspecified; F32.A Depression, unspecified; I11.0 Hypertensive heart disease with heart failure; Z68.22 Body mass index [BMI] 22.0-22.9, adult; Z95.1 Presence of aortocoronary bypass graft; Z79.01 Long term (current) use of anticoagulants; Z95.2 Presence of prosthetic heart valve; Z88.5 Allergy status to narcotic agent; Z88.8 Allergy status to other drugs, medicaments and biological substances; Z79.51 Long term (current) use of inhaled steroids; Z79.899 Other long term (current) drug therapy; Z79.4 Long term (current) use of insulin; Z79.84 Long term (current) use of oral hypoglycemic drugs; Z87.01 Personal history of pneumonia (recurrent); Z90.89 Acquired absence of other organs; Z90.49 Acquired absence of other specified parts of digestive tract
CPT/HCPCS: 36415; 80053; 82947; 83735; 85025; 85610; 94664; 97110-GO; 97110-GP; 97116-GP; 97161-GP; 97165-GO; 97530-GO; 97530-GP; 97535-GO; A9270-GY; J1815-GY

== ENCOUNTER 2024-05-15 14:25 | Emergency (ER) | payer OTHER ==
[2024-05-15] MEDS ORDERED: Sodium Chloride 0.9% 10 ML Syringe FLUSH PRN (14:38)
[2024-05-15 14:54] LABS: BASOPHILS PERCENT AUTO 0.3 % (0.0-1.0); EOSINOPHILS PERCENT AUTO 1.3 % (1.0-3.0); LYMPHOCYTES PERCENT AUTO 12.7 % (20.5-50.1); MEAN CORPUSCULAR HEMOGLOBIN 27.7 pg (27.0-34.0); MEAN CORPUSCULAR VOLUME 106.5 fL (80-100); MONOCYTES PERCENT AUTO 5.4 % (2-8); NEUTROPHILS PERCENT AUTO 80.3 % (42.2-75.2); PLATELET COUNT,PLT 268 10^3/uL (150-450); RED BLOOD CELL COUNT 1.84 10^6/uL (4.2-5.4); WHITE BLOOD CELL COUNT,WBC 7.8 10^3/uL (5.0-10.0)
[2024-05-15 14:56] LABS: HEMATOCRIT 19.6 % (37.0-47.0); HEMOGLOBIN 5.1 g/dL (12.0-16.0)
[2024-05-15 15:10] LABS: B-TYPE NATRIURETIC PEPTIDE,BNP 348 pg/ml (0-100)
[2024-05-15 15:13] LABS: PROTHROMBIN TIME 52.6 SEC (9.0-12.0); PTT,PARTIAL THROMBOPLSTIN TIME 41.4 SEC (22.0-34.0)
[2024-05-15 15:16] LABS: ALANINE AMINOTRANSFERASE,ALT 17 U/L (14-59); ALBUMIN 2.5 g/dL (3.4-5.0); ALKALINE PHOSPHATASE 57 U/L (46-116); ANION GAP 12.9 mEq/L (7-13); ASPARTATE AMNIOTRANSFERASE,AST 37 U/L (15-37); BILIRUBIN TOTAL 0.5 mg/dL (0.2-1.0); BLOOD UREA NITROGEN,BUN 37 mg/dL (7-18); BUN/CREATININE RATIO 33.3 (No establ ref range); CARBON DIOXIDE,CO2 27 mmol/L (21-32); CHLORIDE,CL 106 mmol/L (98-107); CREATININE 1.11 mg/dL (0.55-1.02); GLUCOSE RANDOM 124 mg/dL (70-99); LACTIC ACID 1.8 mmol/L (0.4-2.0); MAGNESIUM 2.1 mg/dL (1.8-2.4); POTASSIUM,K 4.9 mmol/L (3.5-5.1); PROTEIN TOTAL,TP 6.3 g/dL (6.4-8.2); SODIUM,NA 141 mmol/L (136-145)
[2024-05-15 15:19] LABS: A/G RATIO 0.66; C-REACTIVE PROTEIN < 0.50 ng/dL (<=0.50); ESTIMATED GFR 52 mL/min (>=60)
[2024-05-15 15:22] LABS: INR 5.7 (0.9-1.2)
[2024-05-15] MEDS: Sodium Chloride 0.9% 1,000 ML IV ONE (15:37)
[2024-05-15] MEDS: fentaNYL 100 MCG/2 ML SDV IVPUSH ONE (15:39)
[2024-05-15] MEDS: Iopamidol 612 MG/ML 100 ML Bottle IVPUSH ONE (15:43)
[2024-05-15] MEDS: Pantoprazole 40 MG Vial IVPUSH ONE (17:38)
[2024-05-15] MEDS: cefTRIAXone 1 GM Vial IVPUSH ONE (17:39)
[2024-05-15] MEDS: Octreotide 100 MCG/ML SDV IVPUSH ONE (17:56)
[2024-05-15] MEDS: Acetaminophen 325 MG Tab PO ONE (18:01)
[2024-05-15] MEDS: Ondansetron 4 MG/2 ML SDV IVPUSH ONE (18:08)
[2024-05-15] MEDS: Octreotide 100 MCG in Sodium Chloride 0.9% 99 ML IV SCH (18:10)
[2024-05-15 20:53] VITALS: BP 100/47; PULSE 81
== END 2024-05-15 20:48 ==
LOC: DL.ED 14:25
DX: K92.2 Gastrointestinal hemorrhage, unspecified (principal); D62 Acute posthemorrhagic anemia; I11.0 Hypertensive heart disease with heart failure; I50.9 Heart failure, unspecified; R79.1 Abnormal coagulation profile; N17.9 Acute kidney failure, unspecified; F17.210 Nicotine dependence, cigarettes, uncomplicated; I48.91 Unspecified atrial fibrillation; E11.9 Type 2 diabetes mellitus without complications; Z95.1 Presence of aortocoronary bypass graft; Z88.5 Allergy status to narcotic agent; Z88.8 Allergy status to other drugs, medicaments and biological substances; Z79.51 Long term (current) use of inhaled steroids; Z79.4 Long term (current) use of insulin; Z79.01 Long term (current) use of anticoagulants; Z79.84 Long term (current) use of oral hypoglycemic drugs; Z79.899 Other long term (current) drug therapy
CPT/HCPCS: 36415; 36430; 71045; 74177; 80053; 82272; 82947; 83605; 83735; 83880; 84145; 84484; 85025; 85610; 85730; 86140; 86850; 86900; 86901; 86902; 86920; 86922; 87040; 93005; 96365; 96366; 96367; 96375; 96376; 99285-25; A9270-GY; J0696; J2354-JA; J2405; J2470; J3010; J3430; J3490; J7030; P9016; Q9967

== ENCOUNTER 2025-02-28 08:16 | Emergency (ER) | payer OTHER ==
[2025-02-28] MEDS ORDERED: Sodium Chloride 0.9% 10 ML Syringe FLUSH PRN (08:34)
[2025-02-28 08:41] LABS: PLATELET COUNT,PLT 218 10^3/uL (150-450); RED BLOOD CELL COUNT 3.60 10^6/uL (4.2-5.4); WHITE BLOOD CELL COUNT,WBC 5.7 10^3/uL (5.0-10.0)
[2025-02-28 08:50] LABS: BASOPHILS PERCENT AUTO 1.2 % (0.0-1.0); EOSINOPHILS PERCENT AUTO 1.1 % (1.0-3.0); LYMPHOCYTES PERCENT AUTO 11.1 % (20.5-50.1); MONOCYTES PERCENT AUTO 11.1 % (2-8); NEUTROPHILS PERCENT AUTO 75.5 % (42.2-75.2)
[2025-02-28 09:20] LABS: INR 3.7 (0.9-1.2)
[2025-02-28 09:22] LABS: SEG NEUTROPHILS PERCENT MAN 78 % (42-75)
[2025-02-28 09:23] LABS: BAND PERCENT MAN 1 %; BASOPHILS PERCENT MAN 1; LYMPHOCYTES PERCENT MAN 14 % (20-50); MONOCYTES PERCENT MAN 6 % (2-8)
[2025-02-28 09:25] LABS: ALANINE AMINOTRANSFERASE,ALT 27 U/L (14-59); ASPARTATE AMNIOTRANSFERASE,AST 40 U/L (15-37); BILIRUBIN TOTAL 1.0 mg/dL (0.2-1.0); BLOOD UREA NITROGEN,BUN 31 mg/dL (7-18); CARBON DIOXIDE,CO2 27 mmol/L (21-32); CHLORIDE,CL 105 mmol/L (98-107); CREATININE 1.73 mg/dL (0.55-1.02); GLUCOSE RANDOM 116 mg/dL (70-99); POTASSIUM,K 4.4 mmol/L (3.5-5.1); PROTEIN TOTAL,TP 6.6 g/dL (6.4-8.2); SODIUM,NA 141 mmol/L (136-145)
[2025-02-28 09:26] LABS: A/G RATIO 0.89; ESTIMATED GFR 30 mL/min (>=60)
[2025-02-28 10:09] VITALS: PULSE 49
[2025-02-28 11:09] VITALS: BP 128/46
== END 2025-02-28 11:25 ==
LOC: DL.ED 08:16
DX: K62.5 Hemorrhage of anus and rectum (principal); D68.9 Coagulation defect, unspecified; I48.91 Unspecified atrial fibrillation; Z88.5 Allergy status to narcotic agent; Z88.8 Allergy status to other drugs, medicaments and biological substances; Z79.899 Other long term (current) drug therapy; Z79.4 Long term (current) use of insulin; Z79.890 Hormone replacement therapy; Z79.01 Long term (current) use of anticoagulants; Z95.1 Presence of aortocoronary bypass graft; Z90.49 Acquired absence of other specified parts of digestive tract
CPT/HCPCS: 36415; 80053; 85025; 85610; 99285

== ENCOUNTER 2025-04-06 14:22 | Emergency (ER) | payer OTHER ==
[2025-04-06] MEDS ORDERED: Sodium Chloride 0.9% 10 ML Syringe FLUSH PRN (14:33)
[2025-04-06 14:57] LABS: PLATELET COUNT,PLT 259 10^3/uL (150-450); RED BLOOD CELL COUNT 4.07 10^6/uL (4.2-5.4); WHITE BLOOD CELL COUNT,WBC 11.5 10^3/uL (5.0-10.0)
[2025-04-06 15:01] LABS: BASOPHILS PERCENT AUTO 0.3 % (0.0-1.0); EOSINOPHILS PERCENT AUTO 0.3 % (1.0-3.0); LYMPHOCYTES PERCENT AUTO 9.3 % (20.5-50.1); MONOCYTES PERCENT AUTO 7.1 % (2-8); NEUTROPHILS PERCENT AUTO 83.0 % (42.2-75.2)
[2025-04-06 15:09] LABS: ALANINE AMINOTRANSFERASE,ALT 32 U/L (14-59); ASPARTATE AMNIOTRANSFERASE,AST 69 U/L (15-37); BILIRUBIN TOTAL 1.6 mg/dL (0.2-1.0); BLOOD UREA NITROGEN,BUN 36 mg/dL (7-18); CARBON DIOXIDE,CO2 24 mmol/L (21-32); CHLORIDE,CL 103 mmol/L (98-107); CREATININE 1.57 mg/dL (0.55-1.02); EST CRCL DRUG DOSING (CG) 26.74 mL/min; GLUCOSE RANDOM 130 mg/dL (70-99); PHOSPHORUS 3.2 mg/dL (2.6-4.7); POTASSIUM,K 4.8 mmol/L (3.5-5.1); PROTEIN TOTAL,TP 7.2 g/dL (6.4-8.2); SODIUM,NA 136 mmol/L (136-145)
[2025-04-06 15:10] LABS: A/G RATIO 0.60; ESTIMATED GFR 34 mL/min (>=60); ETHANOL BLOOD MEDICAL < 3 mg/dL (0)
[2025-04-06 15:14] LABS: LACTIC ACID 2.4 mmol/L (0.4-2.0)
[2025-04-06 15:15] LABS: APPEARANCE,URINE CLEAR (CLEAR); GLUCOSE,URINE 500 (NEGATIVE); OCCULT BLOOD,URINE NEGATIVE (NEGATIVE)
[2025-04-06 15:16] LABS: INR 6.7 (0.9-1.2)
[2025-04-06 15:24] LABS: AMPHETAMINES,URINE NEGATIVE (NEGATIVE); BARBITURATES,URINE NEGATIVE (NEGATIVE); MDMA (ECSTASY), URINE NEGATIVE (NEGATIVE); METHAMPHETAMINES,URINE NEGATIVE (NEGATIVE); OPIATES,URINE NEGATIVE (NEGATIVE); OXYCODONE,URINE POSITIVE (NEGATIVE); PHENCYCLIDINE,URINE NEGATIVE (NEGATIVE); TCA,URINE NEGATIVE (NEGATIVE)
[2025-04-06 15:40] LABS: BAND PERCENT MAN 2 %; BASOPHILS PERCENT MAN 1; LYMPHOCYTES PERCENT MAN 8 % (20-50); MONOCYTES PERCENT MAN 8 % (2-8); PLATELET COUNT ESTIMATE ADEQUATE; SEG NEUTROPHILS PERCENT MAN 81 % (42-75)
[2025-04-06 16:47] VITALS: BP 126/42; PULSE 81
== END 2025-04-06 16:52 | disposition home or self-care (01) ==
LOC: DL.ED 14:22
DX: R40.0 Somnolence (principal); R79.1 Abnormal coagulation profile; I48.91 Unspecified atrial fibrillation; N18.30 Chronic kidney disease, stage 3 unspecified; E03.9 Hypothyroidism, unspecified; J44.9 Chronic obstructive pulmonary disease, unspecified; Z79.51 Long term (current) use of inhaled steroids; Z79.899 Other long term (current) drug therapy; Z79.01 Long term (current) use of anticoagulants; Z79.890 Hormone replacement therapy; Z79.84 Long term (current) use of oral hypoglycemic drugs; Z79.4 Long term (current) use of insulin; Z90.89 Acquired absence of other organs; Z88.5 Allergy status to narcotic agent; Z88.8 Allergy status to other drugs, medicaments and biological substances
CPT/HCPCS: 36415; 70450; 80053; 80305-QW; 80307; 81003; 82140; 83605; 83735; 84100; 85025; 85610; 86140; 87428-QW; 99284; 99285

== ENCOUNTER 2025-04-07 06:29 | Emergency (ER) | payer OTHER ==
[2025-04-07] MEDS: Ondansetron 4 MG/2 ML SDV IVPUSH ONE (06:42)
[2025-04-07] MEDS: Ondansetron 4 MG/2 ML SDV ONE (06:45)
[2025-04-07] MEDS ORDERED: Sodium Chloride 0.9% 10 ML Syringe FLUSH PRN (06:46)
[2025-04-07 07:07] LABS: PLATELET COUNT,PLT 270 10^3/uL (150-450); RED BLOOD CELL COUNT 3.35 10^6/uL (4.2-5.4); WHITE BLOOD CELL COUNT,WBC 13.0 10^3/uL (5.0-10.0)
[2025-04-07 07:09] LABS: BASOPHILS PERCENT AUTO 0.3 % (0.0-1.0); EOSINOPHILS PERCENT AUTO 0.4 % (1.0-3.0); LYMPHOCYTES PERCENT AUTO 9.8 % (20.5-50.1); MONOCYTES PERCENT AUTO 6.7 % (2-8); NEUTROPHILS PERCENT AUTO 82.8 % (42.2-75.2)
[2025-04-07 07:10] LABS: A/G RATIO 0.6; ALANINE AMINOTRANSFERASE,ALT 35.0 U/L (14-59); ASPARTATE AMNIOTRANSFERASE,AST 70.0 U/L (15-37); BILIRUBIN TOTAL 1.5 mg/dL (0.2-1.0); BLOOD UREA NITROGEN,BUN 48.0 mg/dL (7-18); CARBON DIOXIDE,CO2 24.0 mmol/L (21-32); CHLORIDE,CL 103.0 mmol/L (98-107); CREATININE 1.67 mg/dL (0.55-1.02); EST CRCL DRUG DOSING (CG) 25.13 mL/min; ESTIMATED GFR 32.0 mL/min (>=60); GLUCOSE RANDOM 136.0 mg/dL (70-99); POTASSIUM,K 4.4 mmol/L (3.5-5.1); PROTEIN TOTAL,TP 6.4 g/dL (6.4-8.2); SODIUM,NA 136.0 mmol/L (136-145)
[2025-04-07 07:13] LABS: LACTIC ACID 1.9 mmol/L (0.4-2.0)
[2025-04-07 07:49] LABS: PTT,PARTIAL THROMBOPLSTIN TIME 54.8 SEC (22.0-34.0)
[2025-04-07 07:50] LABS: INR 7.2 (0.9-1.2)
[2025-04-07 07:59] LABS: SEG NEUTROPHILS PERCENT MAN 83 % (42-75)
[2025-04-07 08:00] LABS: BAND PERCENT MAN 5 %; LYMPHOCYTES PERCENT MAN 8 % (20-50); MONOCYTES PERCENT MAN 4 % (2-8)
[2025-04-07 10:22] VITALS: BP 113/40; PULSE 91
== END 2025-04-07 09:45 | disposition home or self-care (01) ==
LOC: DL.ED 06:29
DX: R10.13 Epigastric pain (principal); R41.0 Disorientation, unspecified; D68.9 Coagulation defect, unspecified; Z88.5 Allergy status to narcotic agent; Z88.8 Allergy status to other drugs, medicaments and biological substances; Z79.899 Other long term (current) drug therapy; Z79.01 Long term (current) use of anticoagulants; Z79.890 Hormone replacement therapy
CPT/HCPCS: 36415; 74176; 80053; 82140; 83605; 83690; 83735; 85025; 85610; 85730; 93005; 93010; 96374; 99284; 99285; J2405; J7030